=== PATIENT | female | born 1960 | race Caucasian/White ===

== ENCOUNTER → 2016-05-04 | Outpatient (CLI) | payer BC ==
[~2016-05-04] MED LIST: AMAN100C18 PO; ASPEC81 PO; ATV1 PO; ATV5 PO; CLC100 PO; MULT-506 PO; OXYB3.9D TD; PERP1TAB PO; PERP1TAB8 PO; RMR15 PO; SYN50 PO
[2016-05-04 09:35] LABS: BASO % 0.6 %; BASO ABS # 0.04 K/uL (0-0.2); COMPLETE YES; EOS % 1.8 %; HEMATOCRIT 39.5 % (37-47); IG% 0.1 %; LYMPH % 25.3 %; LYMPH ABS # 1.78 K/uL (1.2-3.4); MEAN CELL VOLUME 92.5 fL (80-100); MEAN CORPUSCULAR HEMOGLOBIN 31.9 pg (25-34); MEAN CORPUSCULAR HGB CONC 34.4 g/dl (32-36); MEAN PLATELET VOLUME 10.3 fL (7.4-10.4); MONO % 7.1 %; NEUT % 65.1 %; PLATELET COUNT 242 K/uL (130-400); RED BLOOD COUNT 4.27 M/uL (4.2-5.4); WHITE BLOOD COUNT 7.03 K/uL (4.8-10.8)
[2016-05-04 10:06] LABS: ALT/SGPT 31 U/L (12-78); AST/SGOT 23 U/L (15-37); BLOOD UREA NITROGEN 12 mg/dl (7-18); BUN/CREATININE RATIO 12.7 (10-20); CALCIUM 8.9 mg/dl (8.5-10.1); CARBON DIOXIDE 30 mmol/L (21-32); CHLORIDE 107 mmol/L (98-107); CREATININE 0.92 mg/dl (0.60-1.20); GLUCOSE 108 mg/dl (70-99); GLUCOSE,FASTING 108 mg/dl (70-99); POTASSIUM 4.3 mmol/L (3.5-5.1); SODIUM 142 mmol/L (136-145)
[2016-05-04 10:17] LABS: ALB/GLOB RATIO 1.1 (0.9-2); ALKALINE PHOSPHATASE 81 U/L (45-117); CHOLESTEROL 144 mg/dl (0-200); CHOLESTEROL/HDL RATIO 2.2; HDL CHOLESTEROL 65 mg/dl; LDL CHOLESTEROL CALCULATED 59 mg/dl; TRIGLYCERIDES 100 mg/dl (0-150); VERY LOW DENSITY LIPOPROT CALC 20 mg/dl
--- NOTE | 2016-05-11 11:31 | CODING QUERY MEDICAL NECESSITY ---
SUPPORTING DIAGNOSIS NEEDED A supporting diagnosis is required for the test/procedure performed on this patient in order for us to be reimbursed by the patient's insurance. Please provide a supporting diagnosis for the following test/procedure listed below next to the test name along with your signature. *If there is no additional diagnosis for this patient that would support the following test/procedure please document that below next to the test/procedure. Test(s)/Procedure(s) that require a supporting diagnosis: DOS 05/04 * Vitamin D DIAGNOSIS: * Lipids DIAGNOSIS: Provider Signature: Date: Thank you Bharti Stacy [facility] Information Management Once completed, please kindly fax back to [phone] For questions please call [phone]
== END | disposition home or self-care (01) ==
LOC: C.LAB 08:33
PROVIDERS: ATTEND Psychiatry & Neurology Psychiatry
DX: F31.9 Bipolar disorder, unspecified (principal); Z79.899 Other long term (current) drug therapy

== ENCOUNTER → 2016-08-04 | Outpatient (CLI) | payer BC | END | disposition home or self-care (01) | LOC: C.PAPS 14:07 | PROVIDERS: ATTEND Obstetrics & Gynecology | DX: Z12.4 Encounter for screening for malignant neoplasm of cervix (principal) ==

== ENCOUNTER → 2017-05-02 | Outpatient (CLI) | payer BC | END | disposition home or self-care (01) | LOC: C.LAB 08:13 | PROVIDERS: ATTEND Psychiatry & Neurology Psychiatry | DX: Z11.59 Encounter for screening for other viral diseases (principal) ==

== ENCOUNTER 2021-06-14 15:47 | Inpatient (IN) ==
--- NOTE | 2021-06-14 17:20 | Emergency Department Note ---
History of Present Illness General Chief complaint: Mental Health Evaluation Stated complaint: MHE Time Seen by Provider: 06/14/21 16:57 Source: patient History of Present Illness Provider complaint: Mental health evaluation Onset (ago): day(s) Location: head Pain Consistency: + constant Quality: + other (Delusional) Relieved By: + none Associated symptoms: no chest pain, no cough, no fever/chills, no headaches, no nausea/vomiting or no shortness of breath This is a 61-year-old female with bipolar disorder sent here by her psychiatrist, Dr. Baxter, to be hospitalized for inpatient psychiatric care. She states that she was just sent here to speak to a mental health social work case manager to get housing as she is currently no longer living in her apartment. According to the social work case manager Dr. Baxter had called [facility] to get her hospitalized there as she is having worsening delusions. She apparently thought that her son was in the hospital in [place] and was arranging to go there. She also stopped paying the rent on her lease. She had been complaining about [place] the [place] and also the noisy neighbors. She states that she was supposed to move to [facility] but has not. She has her things in storage currently which was arranged by her son who came here from [place]. He states that she has been increasingly delusional for the past month. She denies any suicidal or homicidal ideation. She denies any drug or alcohol abuse. She denies any fever, cough or cold symptoms, chest pain, shortness of breath, abdominal pain, vomiting, diarrhea or urinary symptoms. Home Medications Medication Instructions Recorded Confirmed Type cholecalciferol (vitamin D3) 50 2,000 unit PO QAM 02/24/18 06/14/21 History mcg (2,000 unit) tablet (Vitamin D3) docusate sodium 100 mg capsule 100 mg PO BID 02/24/18 06/14/21 History (Colace) lorazepam 0.5 mg tablet (Ativan) 0.5 mg PO AMHS 02/24/18 06/14/21 History trazodone 50 mg tablet 50 mg PO HS 02/24/18 06/14/21 History acetaminophen 500 mg tablet 1,000 mg PO Q6H PRN 03/06/18 06/14/21 History (Tylenol Extra Strength) levothyroxine 75 mcg tablet 75 mcg PO DAILY 01/04/20 06/14/21 History (Synthroid) cariprazine 1.5 mg capsule 4.5 mg PO DAILY cap 11/19/20 06/14/21 History (Vraylar) oxybutynin chloride 10 mg 10 mg PO DAILY #30 tab 12/01/20 06/14/21 Rx tablet,extended release 24 hr (Ditropan XL) atorvastatin 20 mg tablet (Lipitor) 20 mg PO HS #30 tab 01/12/21 06/14/21 Rx losartan 25 mg tablet (Cozaar) 25 mg PO HS 06/14/21 06/14/21 History Allergies Allergy/AdvReac Type Severity Reaction Status Date / Time latex Allergy Unknown UNKNOWN Verified 01/12/21 14:21 codeine AdvReac Mild NAUSEA, Verified 01/12/21 14:21 VOMITING Past Med/Surg History Medical History Anxiety Bipolar 1 disorder HTN (hypertension) Psychiatric disorder Surgical History H/O: section History of dilation and curettage History of neck surgery History of oral surgery S/P breast biopsy Family History Father Myocardial infarction Heart disease Prostate cancer Other Alzheimer disease Diabetes Denies family history of Ovarian cancer Breast cancer Colorectal cancer Social History Smoking Status: Never smoker Second Hand Exposure: No; Hx Alcohol Use: No Hx Substance Use: No Preferred Language: Mexican Communication Ability: Effective Visual Impairment: No Limitations Hearing Ability: Normal marital status: Current Living Situation: Family current occupational status: retired Feels Safe at Home: Yes Childhood Exposure to Second-Hand Smoke: Yes caffeine: Yes Dental Care, Regularly: Yes Physical Activity Frequency: 3-4 Times per Week Physical Activity Frequency Comment: walking, 20 mins Seatbelt Use: always Sunscreen Use: Yes Review of Systems See HPI for pertinent positives & negatives. and A total of 10 systems reviewed and were otherwise negative Physical Exam Vital Signs Vital Signs - 24 hr 06/14/21 15:48 06/14/21 17:47 06/14/21 19:00 Temperature 36.3 C L Temperature Source Temporal Artery Scan Pulse Rate 94 H Pulse Rate [Finger] 71 73 Respiratory Rate 16 18 16 Respiratory Effort / Characteristics Non-Labored Spontaneous Respiratory Depth Normal Blood Pressure 169/79 H Blood Pressure [Right Arm] 137/77 158/87 H Blood Pressure Mean 109 Blood Pressure Mean [Right Arm] 97 110 Pulse Oximetry 99 99 98 Oxygen Delivery Method Room Air Room Air Room Air Sepsis Recent Fever Within 48 Hours No Sepsis New/Unexplained Change in Mental Status No Sepsis Action Taken by Nursing No Action Required Constitutional: Vital signs reviewed. Eyes: Pupils are equal round reactive to light. Conjunctiva are noninjected. ENT: Pharynx is clear without erythema or exudate. Mucous membranes are moist. Neck supple without meningeal signs. Respiratory: Clear to auscultation bilaterally. Breath sounds are equal bilat erally. Cardiovascular: Regular rate and rhythm. No rubs or gallops. GI: Soft, nondistended and nontender. Bowel sounds are present. Musculoskeletal: No peripheral edema. No lower extremity tenderness. Integumentary: No cyanosis. or jaundice. Neurological: The patient is awake and alert. No focal deficits. Psychiatric: Flat affect. No pressured speech. Medical Decision Making Differential Diagnosis Bipolar disorder, fixed delusions, schizoaffective disorder, drug or alcohol abuse, mood disorder Medical Records Attestation: I reviewed the patient's medical records. I did perform a limited focused review of portions of the patient's old chart on the electronic medical record. The patient has had no recent pertinent visits to this hospital. Home Medications Current Medication List: was personally reviewed by me Laboratory Data Attestation: I reviewed the patient's lab results. Result diagrams: 06/14/21 17:10 06/14/21 17:10 Lab Results 06/14/21 06/14/21 06/14/21 Range/Units 16:00 17:10 17:10 WBC 8.22 (4.8-10.8) K/uL RBC 3.85 L (4.2-5.4) M/uL Hgb 12.3 (12.0-16.0) g/dL Hct 36.9 L (37-47) % MCV 95.8 (80-100) fL MCH 31.9 (25-34) pg MCHC 33.3 (32-36) g/dL RDW Std Deviation 44.9 (36.4-46.3) fL RDW Coeff of Arturo 12.8 (11.5-14.5) % Plt Count 262 (130-400) K/uL MPV 9.6 (7.4-10.4) fL Immature Gran % (Auto) 0.1 % Neut % (Auto) 62.6 % Lymph % (Auto) 26.3 % [place] % (Auto) 9.5 % Eos % (Auto) 1.1 % Baso % (Auto) 0.4 % Neut # (Auto) 5.15 (1.4-6.5) K/uL Lymph # (Auto) 2.16 (1.2-3.4) K/uL [place] # (Auto) 0.78 H (0.11-0.59) K/uL Eos # (Auto) 0.09 (0-0.5) K/uL Baso # (Auto) 0.03 (0-0.2) K/uL Immature Gran # (Auto) 0.01 (0.00-0.02) K/uL Sodium 141 (136-145) mmol/L Potassium 3.7 (3.5-5.1) mmol/L Chloride 106 (98-107) mmol/L Carbon Dioxide 28 (21-32) mmol/L Anion Gap 7 (3-11) BUN 14 (6-23) mg/dl Creatinine 0.91 (0.6-1.2) mg/dl Est Cr Clr Drug Dosing 50.2 ml/min Est GFR ( Amer) 80.0 ml/min Est GFR (Non-Af Amer) 69.1 ml/min BUN/Creatinine Ratio 15.4 (10-20) Glucose 212 H (70-99(Fasting)) mg/dl Calcium 9.3 (8.5-10.1) mg/dl Total Bilirubin 0.6 (0.2-1.0) mg/dl AST 38 (13-39) U/L ALT 25 (7-52) U/L Alkaline Phosphatase 66 (34-104) U/L Total Protein 6.6 (6.0-8.3) gm/dl Albumin 4.3 (3.4-5.0) gm/dl Globulin 2.3 L (2.5-4.0) gm/dl Albumin/Globulin Ratio 1.9 (0.9-2) TSH (0.300-4.500) uIu/ml Urine Color Dark Yellow Urine Appearance Clear (Clear) Urine pH 5.0 (4.5-7.5) Ur Specific [place] 1.027 (1.000-1.030) Urine Protein Trace H (Negative) Urine Glucose (UA) Negative (Negative) Urine Ketones Trace H (Negative) Urine Blood Negative (Negative) Urine Nitrite Negative (Negative) Urine Bilirubin Negative (Negative) Urine Urobilinogen Negative (Negative) Ur Leukocyte Esterase Trace H (Negative) Urine WBC (Auto) 5-10 H (0-5) /hpf Urine RBC (Auto) 0-4 (0-4) /hpf U Hyaline Cast (Auto) 1-5 (0-5) /lpf U Epithel Cells (Auto) >30 H (0-5) /lpf Urine Bacteria (Auto) Negative (Negative) Urine Crystals Not Reportable Calcium Oxalate Crystal Present A (None Prsent) Urine Mucus Present A (None Prsent) Salicylates (3.0-30) mg/dl Urine Opiates Screen (Neg) Ur Methadone, Qual (Neg) Acetaminophen (10-30) ug/ml Urine Barbiturates (Neg) Ur Phencyclidine (PCP) (Neg) U Amphetamin/Meth Scrn (Neg) MDMA (Ecstasy) Screen (Neg) U Benzodiazepines Scrn (Neg) Ur Cocaine Metabolite (Neg) U Marijuana (THC) Screen (Neg) Ethyl Alcohol mg/dL (<10.0) mg/dl SARS-CoV-2, RNA, NAAT (NEGATIVE) 06/14/21 06/14/21 06/14/21 Range/Units 17:10 17:10 17:10 WBC (4.8-10.8) K/uL RBC (4.2-5.4) M/uL Hgb (12.0-16.0) g/dL Hct (37-47) % MCV (80-100) fL MCH (25-34) pg MCHC (32-36) g/dL RDW Std Deviation (36.4-46.3) fL RDW Coeff of Arturo (11.5-14.5) % Plt Count (130-400) K/uL MPV (7.4-10.4) fL Immature Gran % (Auto) % Neut % (Auto) % Lymph % (Auto) % [place] % (Auto) % Eos % (Auto) % Baso % (Auto) % Neut # (Auto) (1.4-6.5) K/uL Lymph # (Auto) (1.2-3.4) K/uL [place] # (Auto) (0.11-0.59) K/uL Eos # (Auto) (0-0.5) K/uL Baso # (Auto) (0-0.2) K/uL Immature Gran # (Auto) (0.00-0.02) K/uL Sodium (136-145) mmol/L Potassium (3.5-5.1) mmol/L Chloride (98-107) mmol/L Carbon Dioxide (21-32) mmol/L Anion Gap (3-11) BUN (6-23) mg/dl Creatinine (0.6-1.2) mg/dl Est Cr Clr Drug Dosing ml/min Est GFR ( Amer) ml/min Est GFR (Non-Af Amer) ml/min BUN/Creatinine Ratio (10-20) Glucose (70-99(Fasting)) mg/dl Calcium (8.5-10.1) mg/dl Total Bilirubin (0.2-1.0) mg/dl AST (13-39) U/L ALT (7-52) U/L Alkaline Phosphatase (34-104) U/L Total Protein (6.0-8.3) gm/dl Albumin (3.4-5.0) gm/dl Globulin (2.5-4.0) gm/dl Albumin/Globulin Ratio (0.9-2) TSH 1.944 (0.300-4.500) uIu/ml Urine Color Urine Appearance (Clear) Urine pH (4.5-7.5) Ur Specific [place] (1.000-1.030) Urine Protein (Negative) Urine Glucose (UA) (Negative) Urine Ketones (Negative) Urine Blood (Negative) Urine Nitrite (Negative) Urine Bilirubin (Negative) Urine Urobilinogen (Negative) Ur Leukocyte Esterase (Negative) Urine WBC (Auto) (0-5) /hpf Urine RBC (Auto) (0-4) /hpf U Hyaline Cast (Auto) (0-5) /lpf U Epithel Cells (Auto) (0-5) /lpf Urine Bacteria (Auto) (Negative) Urine Crystals Calcium Oxalate Crystal (None Prsent) Urine Mucus (None Prsent) Salicylates < 3.0 L (3.0-30) mg/dl Urine Opiates Screen (Neg) Ur Methadone, Qual (Neg) Acetaminophen < 3 L (10-30) ug/ml Urine Barbiturates (Neg) Ur Phencyclidine (PCP) (Neg) U Amphetamin/Meth Scrn (Neg) MDMA (Ecstasy) Screen (Neg) U Benzodiazepines Scrn (Neg) Ur Cocaine Metabolite (Neg) U Marijuana (THC) Screen (Neg) Ethyl Alcohol mg/dL < 10.0 (<10.0) mg/dl SARS-CoV-2, RNA, NAAT (NEGATIVE) 06/14/21 06/14/21 Range/Units 17:24 18:28 WBC (4.8-10.8) K/uL RBC (4.2-5.4) M/uL Hgb (12.0-16.0) g/dL Hct (37-47) % MCV (80-100) fL MCH (25-34) pg MCHC (32-36) g/dL RDW Std Deviation (36.4-46.3) fL RDW Coeff of Arturo (11.5-14.5) % Plt Count (130-400) K/uL MPV (7.4-10.4) fL Immature Gran % (Auto) % Neut % (Auto) % Lymph % (Auto) % [place] % (Auto) % Eos % (Auto) % Baso % (Auto) % Neut # (Auto) (1.4-6.5) K/uL Lymph # (Auto) (1.2-3.4) K/uL [place] # (Auto) (0.11-0.59) K/uL Eos # (Auto) (0-0.5) K/uL Baso # (Auto) (0-0.2) K/uL Immature Gran # (Auto) (0.00-0.02) K/uL Sodium (136-145) mmol/L Potassium (3.5-5.1) mmol/L Chloride (98-107) mmol/L Carbon Dioxide (21-32) mmol/L Anion Gap (3-11) BUN (6-23) mg/dl Creatinine (0.6-1.2) mg/dl Est Cr Clr Drug Dosing ml/min Est GFR ( Amer) ml/min Est GFR (Non-Af Amer) ml/min BUN/Creatinine Ratio (10-20) Glucose (70-99(Fasting)) mg/dl Calcium (8.5-10.1) mg/dl Total Bilirubin (0.2-1.0) mg/dl AST (13-39) U/L ALT (7-52) U/L Alkaline Phosphatase (34-104) U/L Total Protein (6.0-8.3) gm/dl Albumin (3.4-5.0) gm/dl Globulin (2.5-4.0) gm/dl Albumin/Globulin Ratio (0.9-2) TSH (0.300-4.500) uIu/ml Urine Color Urine Appearance (Clear) Urine pH (4.5-7.5) Ur Specific [place] (1.000-1.030) Urine Protein (Negative) Urine Glucose (UA) (Negative) Urine Ketones (Negative) Urine Blood (Negative) Urine Nitrite (Negative) Urine Bilirubin (Negative) Urine Urobilinogen (Negative) Ur Leukocyte Esterase (Negative) Urine WBC (Auto) (0-5) /hpf Urine RBC (Auto) (0-4) /hpf U Hyaline Cast (Auto) (0-5) /lpf U Epithel Cells (Auto) (0-5) /lpf Urine Bacteria (Auto) (Negative) Urine Crystals Calcium Oxalate Crystal (None Prsent) Urine Mucus (None Prsent) Salicylates (3.0-30) mg/dl Urine Opiates Screen Neg (Neg) Ur Methadone, Qual Neg (Neg) Acetaminophen (10-30) ug/ml Urine Barbiturates Neg (Neg) Ur Phencyclidine (PCP) Neg (Neg) U Amphetamin/Meth Scrn Neg (Neg) MDMA (Ecstasy) Screen Neg (Neg) U Benzodiazepines Scrn Neg (Neg) Ur Cocaine Metabolite Neg (Neg) U Marijuana (THC) Screen Neg (Neg) Ethyl Alcohol mg/dL (<10.0) mg/dl SARS-CoV-2, RNA, NAAT NEGATIVE (NEGATIVE) MDM Narrative I did evaluate the patient as noted above. She was sent here today by her psychiatrist for inpatient psychiatric care. I did order a urine analysis. She does not have a UTI. She does have some calcium oxalate crystals. Urine mucus is likely a contaminant given she has greater than 30 epithelial cells. Order and review the patient's blood work as noted in the electronic medical record. CBC and CMP are both unremarkable. TSH is within normal limits. Screening for salicylates acetaminophen and alcohol are negative. COVID-19 testing is negative. The patient was evaluated by the mental health social work case manager as well as [facility] She was accepted for inpatient psychiatric care to [address] [place] [address] unit. Impression & Plan Thought disorder, Bipolar disorder Discharge Plan Visit Data Chief Complaint: Mental Health Evaluation Stated Complaint: MHE ED Provider: Wale Silver Discharge Problem: Thought disorder, Bipolar disorder Patient Disposition: Transfer Behavioral Health Fac Discharge Problem: Bipolar disorder Qualifiers: Active/Remission status: remission status unspecified Qualified Code(s): F31.9 - Bipolar disorder, unspecified
[2021-06-14 17:22] LABS: Appearance Urine Clear (Clear); Bacteria Urine Automated Negative (Negative); Bilirubin Urine Negative (Negative); Blood Urine Negative (Negative); Color Urine Dark Yellow; Epithelial Cell Urine Auto >30 /lpf (0-5); Glucose Urine UA Negative (Negative); Ketones Urine Trace (Negative); Leukocyte Esterase Urine Trace (Negative); Nitrite Urine Negative (Negative); Protein Urine Trace (Negative); RBC Urine Automated 0-4 /hpf (0-4); Specific Gravity Urine 1.027 (1.000-1.030); Urobilinogen Urine Negative (Negative)
[2021-06-14 17:38] LABS: Basophils # (auto) 0.03 K/uL (0-0.2); Basophils % (auto) 0.4 %; Eosinophils # (auto) 0.09 K/uL (0-0.5); Eosinophils % (auto) 1.1 %; Hematocrit (blood only) 36.9 % (37-47); Hemoglobin 12.3 g/dL (12.0-16.0); Immature Granulocytes # (auto) 0.01 K/uL (0.00-0.02); Immature Granulocytes % (auto) 0.1 %; Lymphocytes # (auto) 2.16 K/uL (1.2-3.4); Lymphocytes % (auto) 26.3 %; Mean Corpuscular Hemoglobin 31.9 pg (25-34); Mean Corpuscular Hgb Conc 33.3 g/dL (32-36); Mean Corpuscular Volume 95.8 fL (80-100); Mean Platelet Volume 9.6 fL (7.4-10.4); Monocytes # (auto) 0.78 K/uL (0.11-0.59); Monocytes % (auto) 9.5 %; Neutrophils # (auto) 5.15 K/uL (1.4-6.5); Neutrophils % (auto) 62.6 %; Platelet Count 262 K/uL (130-400); RDW Coefficient of Variation 12.8 % (11.5-14.5); RDW Standard Deviation 44.9 fL (36.4-46.3); Red Blood Count 3.85 M/uL (4.2-5.4); White Blood Count 8.22 K/uL (4.8-10.8)
[2021-06-14 17:40] LABS: Calcium Oxalate Crystals Urine Present (None Prsent); Mucus Urine Present (None Prsent)
[2021-06-14 17:57] LABS: Acetaminophen < 3 ug/ml (10-30); Salicylate < 3.0 mg/dl (3.0-30)
[2021-06-14 17:58] LABS: Albumin Globulin Ratio 1.9 (0.9-2); Albumin Level 4.3 gm/dl (3.4-5.0); BUN Creatinine Ratio 15.4 (10-20); Bilirubin,Total 0.6 mg/dl (0.2-1.0); Calcium 9.3 mg/dl (8.5-10.1); Creatinine Clr Calc Pharmacy 50.2 ml/min; Est GFR (Non-African American) 69.1 ml/min; Globulin 2.3 gm/dl (2.5-4.0); Potassium 3.7 mmol/L (3.5-5.1); Total Protein 6.6 gm/dl (6.0-8.3)
[2021-06-14 18:58] LABS: Amphetamines+Metham, Urine Neg (Neg); Barbiturates, Urine Neg (Neg); Benzodiazepine, Urine Neg (Neg); Cocaine, Urine Neg (Neg); MDMA (Ecstacy), Urine Neg (Neg); Methadone, Urine Neg (Neg); Opiate, Urine Neg (Neg); Phencyclidine, Urine Neg (Neg)
[2021-06-14] MEDS ORDERED: hydrOXYzine HCl 25 MG TAB PO PRN ×2 (20:39)
[2021-06-14] MEDS ORDERED: ALUMINUM/MAGNESIUM SUSP 30 ML UDC PO PRN (20:39)
[2021-06-14] MEDS ORDERED: SODIUM CHLORIDE 0.65% NA SOLN 45 ML (OCEAN) PRN (20:39)
[2021-06-14] MEDS ORDERED: BISMUTH SUBSALICYLATE LIQD 236 ML PO PRN (20:39)
[2021-06-14] MEDS ORDERED: MAGNESIUM HYDROXIDE SUSP 30 ML UDC PO PRN (20:39)
[2021-06-14] MEDS ORDERED: LORazepam 1 MG TAB PO STA (22:09)
[2021-06-14] MEDS ORDERED: ATORVASTATIN 20 MG TAB PO SCH (22:30)
[2021-06-14] MEDS ORDERED: LOSARTAN POTASSIUM 25 MG TAB PO SCH (22:30)
[2021-06-14] MEDS: DOCUSATE SODIUM 100 MG CAP PO SCH (23:19)
[2021-06-15] MEDS ORDERED: LEVOTHYROXINE SODIUM 75 MCG TABLET PO SCH (08:00)
[2021-06-15] MEDS: DOCUSATE SODIUM 100 MG CAP PO SCH ×2 (08:41→21:05)
--- NOTE | 2021-06-15 11:19 | History & Physical ---
Date of Service June 15, 2021 Impression / Recommendations Impression The patient is a 61 year old woman with a history of BPAD and fixed romantic delusion who was admitted for increasingly disorganized and bizarre behavior. Diagnostically consistent with unspecified psychosis-differential includes acute eugenie vs mixed state vs primary psychotic disorder vs delusional disorder vs MDD with psychotic features vs substance-induced (less likely given negative UDS). The patient is deemed unstable and requires psychiatric hospitalization for diagnostic clarification, safety and stabilization, medication management and development of further coping skills. Discussed medication treatment options in detail. Discussed risks, benefits and alternatives. Patient would like to continue with her prior to admission medications of Vraylar, ativan and trazodone.Reviewed side effects including but not limited to: movement (TD, NMS), cardiac (QTc prolongation), and metabolic (stroke, insulin resistance) and necessity for fasting lipid and gluose labwork and AIMS done with score of 0; abuse potential, falls, cognitive impairment with ativan and sedation with trazodone. MNPR due to acute psychosis with paranoia, periods of increased agitation. (1) Bipolar disorder: Active/Remission status: remission status unspecified Qualified Code(s): F31.9 - Bipolar disorder, unspecified (2) Anxiety: (3) Insomnia: 06/15/21: The patient was admitted to the [facility] ([facility] inpatient mental health unit) on q15 min checks (behavioral with suicide precautions) for safety. The patient will participate in group, recreational, and milieu therapies and will be offered additional individual and family sessions as clinically appropriate. -Continue Vraylar 3mg (was on 4.5 mg prior to admission but family only able to bring in 3mg tabs) -Continue ativan 0.5 qAM, 0.5 mg qnoon and 1 mg qhs -Continue trazodone 50mg qhs prn -Encourage case management -Will contact Dr. Baxter for further collateral Inventory Assets Strengths: supportive children, good rapport with outpatient providers Needs: stable housing, case management, stabilization Suicide Risk Level Suicide Risk Level: Moderate (q15 min suicide checks) Suicide Risk Level Comments: Acute risk for self-harm is moderate given denial of SI but also with bizarre behaviors and disorganization raising concern for potential impulsive decisions. Risk Factors Assessment : Yes Do You Have Access To A Gun?: No Health Problems: No Mental Health Diagnoses: Yes Substance Use Disorders: No Previous Attempt: No Family History of Suicide: No Previous Psychiatric Hospitalization: Yes Hopelessness: No Protective Factors Assessment Employed: No Stable Relationships: Yes Supportive Family: Yes Good Rapport with Provider: Yes Psychiatric History Identifying Data MIRANDA ANTUNEZ is a 61-year-old woman who is currently homeless (allowed her apartment lease to at the end of May), has a history of BPAD and a fixed romantic delusion, and was admitted on 06/14/21 20:39 on a 201 voluntary commitment for paranoia, delusions and bizarre behaviors. Chief Complaint "I was going to live with my good friend Grey Zamora but my sons didn't like that". History of Present Illness Miranda presents for psychiatric admission at the recommendation of her outpatient psychiatrist for increasingly bizarre and disorganized behaviors in recent weeks. Miranda recently let her apartment lease , without the knowledge of her family, and is now homeless in the context of paranoia about feeling unsafe there and being bothered by traffic noise. She had been planning to move in with a man she believed lived in the area, Grey, he moved out of [facility] years ago, and has been repeatedly sitting on the steps outside his old home resulting in at least two recent encounters with police who have been called to remove her from the premises. She also was making statements of needing to visit her son in [place], where she believed he was hospitalized, even though he has been living in [place] and has not been ill. She follows with her outpatient psychiatrist Dr. Baxter who has been concerned and recently increased her Vraylar last month. She has been taking Vraylar 4.5mg qd, ativan 0.5 mg qAm, qnoon as well as 1mg qhs, and trazodone 50mg qhs prn. On admission she initially attempted to go out through the locked unit doors sta ting that she needed to find Grey. Today she states she came to the hospital due to her outpatient providers having concerns about her safety especially now that she is homeless. She continues to insist that Grey lives in [place] and states that police were called because "his sister doesn't like me because I have a bipolar diagnosis". She states she has been talking to Grey via text m essages (her son confirmed with Grey that he has not communicated with her in many years) and states they have a platonic relationship. She states no further concerns about her son being in the hospital "since I called him and he was at work in [place] so I knew he was ok". She states sleep has been "not excellent" (5-7 hours per night), denies any appetite or mood changes. Psychiatric ROS notable for hx of eugenie (last "a few years ago" per her recollection), denies hx of psychosis, denies auditory hallucinations, denies substance use, denies PTSD/trauma symptoms, endorses hx of anxiety. Past Psychiatric History Current Psychiatric Diagnosis: BPAD, anxiety Outpatient Services: Dr. Baxter for outpt psychiatry, Chasity Reagan for therapy Previous Psych Admissions: multiple at [facility] in the past (last in Feb 2010), [facility] in 2008 Do You Have Access To A Gun?: No History of Previous Suicide Attempt: No Past Medication Trials: She cannot recall, will review records from Dr. Baxter (requested and in process of being faxed) Past Head Trauma/Neuro History History of Concussion/Seizure: No Allergies Allergy/AdvReac Type Severity Reaction Status Date / Time latex Allergy Unknown UNKNOWN Verified 01/12/21 14:21 codeine AdvReac Mild NAUSEA, Verified 01/12/21 14:21 VOMITING Home Medications Medication Instructions Recorded Confirmed Type cholecalciferol (vitamin D3) 50 2,000 unit PO QAM 02/24/18 06/14/21 History mcg (2,000 unit) tablet (Vitamin D3) docusate sodium 100 mg capsule 100 mg PO BID 02/24/18 06/14/21 History (Colace) lorazepam 0.5 mg tablet (Ativan) 0.5 mg PO AMPM 02/24/18 06/15/21 History trazodone 50 mg tablet 50 mg PO HS PRN 02/24/18 06/14/21 History acetaminophen 500 mg tablet 1,000 mg PO Q6H PRN 03/06/18 06/14/21 History (Tylenol Extra Strength) levothyroxine 75 mcg tablet 75 mcg PO DAILY 01/04/20 06/14/21 History (Synthroid) cariprazine 1.5 mg capsule 4.5 mg PO DAILY cap 11/19/20 06/14/21 History (Vraylar) oxybutynin chloride 10 mg 10 mg PO DAILY #30 tab 12/01/20 06/14/21 Rx tablet,extended release 24 hr (Ditropan XL) atorvastatin 20 mg tablet (Lipitor) 20 mg PO HS #30 tab 01/12/21 06/14/21 Rx losartan 25 mg tablet (Cozaar) 25 mg PO HS 06/14/21 06/14/21 History aspirin 81 mg tablet,delayed 81 mg PO DAILY 06/15/21 06/15/21 History release lorazepam 0.5 mg tablet 1 mg PO HS 06/15/21 06/15/21 History multivitamin 1 tab PO DAILY 06/15/21 06/15/21 History Family History Family History of: Other Mood Disorders, Anxiety, Psychosis/ThoughtDisorder and Other-List under Comment Family Mental Health History Comment: Alzheimer's Alcohol History Hx of Alcohol Use Over the Past 12 Months: No AUDIT Total Score: 0 Smoking Use Have You Smoked or Used Tobacco Products in the Last 30 Days: No Smoking Status: Never smoker Substance History Hx of Prescription Med Misuse Over the Past 12 Months: No Hx of Over the Counter Med Misuse Over the Past 12 Months: No Hx of Inhalent Misuse Over the Past 12 Months: No Hx of Organic Substance Use Over the Past 12 Months: No Hx of Illegal Substances/Street Drug Use Over Past 12 Months: No Problems as a Result of Past Substance Use: None Identified Personal History Living Arrangements: Homeless (let apartment lease at end of May) Highest Grade Completed: College Employment Status: Disabled Marital Status: Single Number Of Children: 2 sons Beliefs That Will Affect Care: None Current Legal Problems: No Hx Legal Problems: No Hx Traumatic Life Events: No Patient History Medical History Anxiety Bipolar 1 disorder HTN (hypertension) Psychiatric disorder Surgical History H/O: section History of dilation and curettage History of neck surgery History of oral surgery S/P breast biopsy Family History Father Myocardial infarction Heart disease Prostate cancer Other Alzheimer disease Diabetes Denies family history of Ovarian cancer Breast cancer Colorectal cancer Social History Smoking Status: Unknown if ever smoked Second Hand Exposure: No; Hx Alcohol Use: No Hx Substance Use: No Preferred Language: Danish Communication Ability: Effective Visual Impairment: No Limitations Hearing Ability: Normal Associate Professor Of Law 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: No Beliefs That Will Affect Care: None marital status: Current Living Situation: Family current occupational status: retired Feels Safe at Home: Yes Childhood Exposure to Second-Hand Smoke: Yes caffeine: Yes Dental Care, Regularly: Yes Physical Activity Frequency: 3-4 Times per Week Physical Activity Frequency Comment: walking, 20 mins Seatbelt Use: always Sunscreen Use: Yes Assistive Devices: None Review of Systems Review of Systems: All systems reviewed & are unremarkable except as noted in HPI & below Physical Exam Psychiatric: Orientation: alert and oriented x 3 Apperance: + disheveled Eye Contact: + fair eye contact Motor Behavior: steady gait and station and no abnormal motor movements; no psychomotor agitation Speech: + abnormal rate/rhythm/volume of speech (some latency, soft) Affect: + flat affect Mood: + anxious mood and + irritable mood; no depressed mood Thought Process: + circumstantial thought process Thought Content: + paranoid and + delusions Suicidal Thoughts: denies suicidal thoughts Homicidal Thoughts: denies homicidal thoughts Hallucinations: no auditory hallucinations and no visual hallucinations Cognition: recent memory grossly intact, remote memory grossly intact and language grossly intact; + attention not intact Insight: + severely impaired insight Judgement: + severely impaired judgement Vital Signs (Past 24 Hours): Last Vital Signs Temp 37.0 C 06/15/21 07:12 Pulse 96 H 06/15/21 07:12 Resp 14 06/15/21 07:12 BP 106/76 06/15/21 07:12 Pulse Ox 96 06/14/21 22:39 Exam Statement: A physical exam was performed in the ED by Dr. Silver for the purposes of medical clearance. I accept that physical as correct and adequate for the purposes of the inpatient physical exam. Results & Data ([facility]) Laboratory Results Laboratory Results - last 24 hr 06/14/21 06/14/21 06/14/21 16:00 17:10 17:10 WBC 8.22 RBC 3.85 L Hgb 12.3 Hct 36.9 L MCV 95.8 MCH 31.9 MCHC 33.3 RDW Std Deviation 44.9 RDW Coeff of Arturo 12.8 Plt Count 262 MPV 9.6 Immature Gran % (Auto) 0.1 Neut % (Auto) 62.6 Lymph % (Auto) 26.3 [place] % (Auto) 9.5 Eos % (Auto) 1.1 Baso % (Auto) 0.4 Neut # (Auto) 5.15 Lymph # (Auto) 2.16 [place] # (Auto) 0.78 H Eos # (Auto) 0.09 Baso # (Auto) 0.03 Immature Gran # (Auto) 0.01 Sodium 141 Potassium 3.7 Chloride 106 Carbon Dioxide 28 Anion Gap 7 BUN 14 Creatinine 0.91 Est Cr Clr Drug Dosing 50.2 Est GFR ( Amer) 80.0 Est GFR (Non-Af Amer) 69.1 BUN/Creatinine Ratio 15.4 Glucose 212 H Calcium 9.3 Total Bilirubin 0.6 AST 38 ALT 25 Alkaline Phosphatase 66 Total Protein 6.6 Albumin 4.3 Globulin 2.3 L Albumin/Globulin Ratio 1.9 TSH Urine Color Dark Yellow Urine Appearance Clear Urine pH 5.0 Ur Specific Reserve 1.027 Urine Protein Trace H Urine Glucose (UA) Negative Urine Ketones Trace H Urine Blood Negative Urine Nitrite Negative Urine Bilirubin Negative Urine Urobilinogen Negative Ur Leukocyte Esterase Trace H Urine WBC (Auto) 5-10 H Urine RBC (Auto) 0-4 U Hyaline Cast (Auto) 1-5 U Epithel Cells (Auto) >30 H Urine Bacteria (Auto) Negative Urine Crystals Not Reportable Calcium Oxalate Crystal Present A Urine Mucus Present A Salicylates Urine Opiates Screen Ur Methadone, Qual Acetaminophen Urine Barbiturates Ur Phencyclidine (PCP) U Amphetamin/Meth Scrn MDMA (Ecstasy) Screen U Benzodiazepines Scrn Ur Cocaine Metabolite U Marijuana (THC) Screen Ethyl Alcohol mg/dL SARS-CoV-2, RNA, NAAT 06/14/21 06/14/21 06/14/21 17:10 17:10 17:10 WBC RBC Hgb Hct MCV MCH MCHC RDW Std Deviation RDW Coeff of Arturo Plt Count MPV Immature Gran % (Auto) Neut % (Auto) Lymph % (Auto) [place] % (Auto) Eos % (Auto) Baso % (Auto) Neut # (Auto) Lymph # (Auto) [place] # (Auto) Eos # (Auto) Baso # (Auto) Immature Gran # (Auto) Sodium Potassium Chloride Carbon Dioxide Anion Gap BUN Creatinine Est Cr Clr Drug Dosing Est GFR ( Amer) Est GFR (Non-Af Amer) BUN/Creatinine Ratio Glucose Calcium Total Bilirubin AST ALT Alkaline Phosphatase Total Protein Albumin Globulin Albumin/Globulin Ratio TSH 1.944 Urine Color Urine Appearance Urine pH Ur Specific Reserve Urine Protein Urine Glucose (UA) Urine Ketones Urine Blood Urine Nitrite Urine Bilirubin Urine Urobilinogen Ur Leukocyte Esterase Urine WBC (Auto) Urine RBC (Auto) U Hyaline Cast (Auto) U Epithel Cells (Auto) Urine Bacteria (Auto) Urine Crystals Calcium Oxalate Crystal Urine Mucus Salicylates < 3.0 L Urine Opiates Screen Ur Methadone, Qual Acetaminophen < 3 L Urine Barbiturates Ur Phencyclidine (PCP) U Amphetamin/Meth Scrn MDMA (Ecstasy) Screen U Benzodiazepines Scrn Ur Cocaine Metabolite U Marijuana (THC) Screen Ethyl Alcohol mg/dL < 10.0 SARS-CoV-2, RNA, NAAT 06/14/21 06/14/21 17:24 18:28 WBC RBC Hgb Hct MCV MCH MCHC RDW Std Deviation RDW Coeff of Arturo Plt Count MPV Immature Gran % (Auto) Neut % (Auto) Lymph % (Auto) [place] % (Auto) Eos % (Auto) Baso % (Auto) Neut # (Auto) Lymph # (Auto) [place] # (Auto) Eos # (Auto) Baso # (Auto) Immature Gran # (Auto) Sodium Potassium Chloride Carbon Dioxide Anion Gap BUN Creatinine Est Cr Clr Drug Dosing Est GFR ( Amer) Est GFR (Non-Af Amer) BUN/Creatinine Ratio Glucose Calcium Total Bilirubin AST ALT Alkaline Phosphatase Total Protein Albumin Globulin Albumin/Globulin Ratio TSH Urine Color Urine Appearance Urine pH Ur Specific Reserve Urine Protein Urine Glucose (UA) Urine Ketones Urine Blood Urine Nitrite Urine Bilirubin Urine Urobilinogen Ur Leukocyte Esterase Urine WBC (Auto) Urine RBC (Auto) U Hyaline Cast (Auto) U Epithel Cells (Auto) Urine Bacteria (Auto) Urine Crystals Calcium Oxalate Crystal Urine Mucus Salicylates Urine Opiates Screen Neg Ur Methadone, Qual Neg Acetaminophen Urine Barbiturates Neg Ur Phencyclidine (PCP) Neg U Amphetamin/Meth Scrn Neg MDMA (Ecstasy) Screen Neg U Benzodiazepines Scrn Neg Ur Cocaine Metabolite Neg U Marijuana (THC) Screen Neg Ethyl Alcohol mg/dL SARS-CoV-2, RNA, NAAT NEGATIVE Current Inpatient Medications Current Inpatient Medications: Current Inpatient Medications Acetaminophen (Acetaminophen 325 Mg Tab) 650 mg PO Q4H PRN PRN Reason: Headache or Minor Fever Stop: 07/14/21 20:38 Al Hydrox/Mg Hydrox/Simethicone (Aluminum/Magnesium Susp 30 Ml Udc) 30 ml PO Q4H PRN PRN Reason: GI Upset Stop: 07/14/21 20:38 Atorvastatin Calcium (Atorvastatin 20 Mg Tab) 20 mg PO HS CHRIS Stop: 07/14/21 22:29 Last Admin: 06/14/21 23:19 Dose: Not Given Documented by: Bismuth Subsalicylate (Bismuth Subsalicylate Liqd 236 Ml) 15 ml PO PRN PRN PRN Reason: Loose Stool Stop: 07/14/21 20:38 Docusate Sodium (Docusate Sodium 100 Mg Cap) 100 mg PO BID CHRIS Stop: 07/14/21 22:29 Last Admin: 06/15/21 08:41 Dose: 100 mg Documented by: Hydroxyzine HCl (Hydroxyzine Hcl 25 Mg Tab) 50 mg PO HSZ PRN PRN Reason: Insomnia Stop: 07/14/21 20:38 Last Admin: 06/15/21 03:02 Dose: 50 mg Documented by: Hydroxyzine HCl (Hydroxyzine Hcl 25 Mg Tab) 25 mg PO Q4H PRN PRN Reason: Anxiety Stop: 07/14/21 20:38 Levothyroxine Sodium (Levothyroxine Sodium 75 Mcg Tablet) 75 mcg PO DAILYBB CHRIS Stop: 07/15/21 07:59 Last Admin: 06/15/21 08:02 Dose: 75 mcg Documented by: Losartan Potassium (Losartan Potassium 25 Mg Tab) 25 mg PO HS [facility] Stop: 07/14/21 22:29 Last Admin: 06/14/21 23:19 Dose: Not Given Documented by: Magnesium Hydroxide (Magnesium Hydroxide Susp 30 Ml Udc) 30 ml PO DAILY PRN PRN Reason: Constipation Stop: 07/14/21 20:38 Sodium Chloride (Sodium Chloride 0.65% Na Soln 45 Ml ([place])) 1 - 2 sprays NA PRN PRN PRN Reason: Nasal Dryness/Congestion Stop: 07/14/21 20:38 Trazodone HCl (Trazodone Hcl 50 Mg Tab) 50 mg PO [facility] Stop: 07/15/21 21:59
[2021-06-15] MEDS ORDERED: traZODone HCL 50 MG TAB PO PRN (12:47)
[2021-06-15] MEDS: ASPIRIN 81 MG ECTAB PO SCH (13:38)
[2021-06-15] MEDS: CHOLECALCIFEROL 1,000 UNITS 25 MCG TAB PO SCH (13:38)
[2021-06-15] MEDS: OXYBUTYNIN CHLORIDE XL 5 MG TABCR PO SCH (13:39)
[2021-06-15] MEDS: CARIPRAZINE HCL 3 MG PO SCH (15:25)
[2021-06-15] MEDS ORDERED: LORazepam 0.5 MG TAB PO SCH (21:00)
[2021-06-15] MEDS: ATORVASTATIN 20 MG TAB PO SCH (21:05)
[2021-06-15] MEDS: LORazepam 1 MG TAB PO SCH (21:06)
[2021-06-15] MEDS: LOSARTAN POTASSIUM 25 MG TAB PO SCH (21:06)
[2021-06-15] MEDS ORDERED: traZODone HCL 50 MG TAB PO SCH (22:00)
[2021-06-16] MEDS: ASPIRIN 81 MG ECTAB PO SCH (08:29)
[2021-06-16] MEDS: CARIPRAZINE HCL 3 MG PO SCH (08:29)
[2021-06-16] MEDS: LORazepam 0.5 MG TAB PO SCH ×2 (08:29→12:27)
[2021-06-16] MEDS: LEVOTHYROXINE SODIUM 75 MCG TABLET PO SCH (08:29)
[2021-06-16] MEDS: CHOLECALCIFEROL 1,000 UNITS 25 MCG TAB PO SCH (08:30)
[2021-06-16] MEDS: OXYBUTYNIN CHLORIDE XL 5 MG TABCR PO SCH (08:30)
[2021-06-16] MEDS: MULTIVITAMIN TAB PO SCH (08:30)
[2021-06-16] MEDS: DOCUSATE SODIUM 100 MG CAP PO SCH ×2 (08:30→21:12)
--- NOTE | 2021-06-16 08:41 | Psychiatric Progress Note ---
Date of Service June 16, 2021 Impression / Recommendations Impression The patient is a 61 year old woman with a history of BPAD and fixed romantic delusion who was admitted for increasingly disorganized and bizarre behavior. Diagnostically consistent with unspecified psychosis-differential includes acute eugenie vs mixed state vs primary psychotic disorder vs delusional disorder vs MDD with psychotic features vs substance-induced (less likely given negative UDS). The patient is deemed unstable and requires psychiatric hospitalization for diagnostic clarification, safety and stabilization, medication management and development of further coping skills. MNPR due to acute psychosis with paranoia, periods of increased agitation. 06/16/21: Adding fasting labs for tomorrow morning. She declines starting clozapine, would prefer to continue with Vraylar, agrees to contact her sons to bring in additional 1.5 mg dose of Vraylar. Anxious and remains paranoid with limited ability to reality-test specifically regarding delusions about a man she wishes to live with. She did agree to referral for case management. Discussed with Dr. Baxter. (1) Bipolar disorder: (2) Anxiety: (3) Insomnia: 06/16/21: Fasting labs. Continue medications. 06/15/21: The patient was admitted to the [facility] ([facility] mental health unit) on q15 min checks (behavioral with suicide precautions) for safety. The patient will participate in group, recreational, and milieu therapies and will be offered additional individual and family sessions as clinically appropriate. -Continue Vraylar 3mg (was on 4.5 mg prior to admission but family only able to bring in 3mg tabs) -Continue ativan 0.5 qAM, 0.5 mg qnoon and 1 mg qhs -Continue trazodone 50mg qhs prn -Encourage case management -Will contact Dr. Baxter for further collateral Inventory Assets Strengths: supportive children, good rapport with outpatient providers Needs: stable housing, case management, stabilization Suicide Risk Level Suicide Risk Level: Moderate (q15 min suicide checks) Suicide Risk Level Comments: Acute risk for self-harm is moderate given denial of SI but also with bizarre behaviors and disorganization raising concern for potential impulsive decisions. Risk Factors Assessment : Yes Do You Have Access To A Gun?: No Health Problems: No Mental Health Diagnoses: Yes Substance Use Disorders: No Previous Attempt: No Family History of Suicide: No Previous Psychiatric Hospitalization: Yes Hopelessness: No Protective Factors Assessment Employed: No Stable Relationships: Yes Supportive Family: Yes Good Rapport with Provider: Yes Interval History Identifying Information MIRANDA ANTUNEZ is a 61-year-old woman who is currently homeless (allowed her apartment lease to at the end of May), has a history of BPAD and a fixed romantic delusion, and was admitted on 06/14/21 20:39 on a 201 voluntary commitment for paranoia, delusions and bizarre behaviors. Chief Complaint "I'm hanging in there". Review of Systems Sleep Information Total Hours of Sleep: 6.75 Meal Information Percent Meal Consumed - Breakfast: 100 Percent Meal Consumed - Lunch: 25 Percent Meal Consumed - Dinner: 25 Subjective Subjective Patient was seen & assessed and interval progress reviewed with treatment team nursing and social work. She was paranoid about the water on the unit last night. Called her cousin repeatedly who called unit to say she could not live there. She also called her outpatient psychiatrist multiple times last night reporting paranoia about the unit and suspicion about the unit being renovated/bizarre things happening. Discussed her recent treatment with her outpatient psychiatrist Dr. Baxter, his next plan was to consider clozapine trial. Discussed this option with Miranda who declined due to not wanting frequent labwork. Reviewed potential benefits but she would prefer to remain on Vraylar. She did not sleep well last night, discussed switching trazodone to scheduled at bedtime which she would like to do. Physical Exam Psychiatric Orientation: alert and oriented x 3 Apperance: appropriately dressed and + disheveled Eye Contact: + fair eye contact Motor Behavior: steady gait and station and no abnormal motor movements; no psychomotor agitation Speech: + abnormal rate/rhythm/volume of speech (some latency) Affect: + flat affect Mood: + anxious mood and + irritable mood; no depressed mood Thought Process: + circumstantial thought process Thought Content: + paranoid and + delusions Suicidal Thoughts: denies suicidal thoughts Homicidal Thoughts: denies homicidal thoughts Hallucinations: no auditory hallucinations and no visual hallucinations Cognition: recent memory grossly intact, remote memory grossly intact and language grossly intact; + attention not intact Insight: + limited insight Judgement: + limited judgement Vital Signs (Past 24 Hours) Last Vital Signs Temp 37 C 06/16/21 06:34 Pulse 78 05/03/22 06:35 Resp 18 06/16/21 06:34 BP 129/82 06/16/21 06:35 Pulse Ox 96 06/14/21 22:39 Results & Data ([facility]) Current Inpatient Medications Current Inpatient Medications: Current Inpatient Medications Acetaminophen (Acetaminophen 325 Mg Tab) 650 mg PO Q4H PRN PRN Reason: Headache or Minor Fever Stop: 07/14/21 20:38 Al Hydrox/Mg Hydrox/Simethicone (Aluminum/Magnesium Susp 30 Ml Udc) 30 ml PO Q4H PRN PRN Reason: GI Upset Stop: 07/14/21 20:38 Aspirin (Aspirin 81 Mg Ectab) 81 mg PO DAILY CHRIS Stop: 07/15/21 13:29 Last Admin: 06/15/21 13:38 Dose: 81 mg Documented by: Atorvastatin Calcium (Atorvastatin 20 Mg Tab) 20 mg PO HS CHRIS Stop: 07/15/21 21:59 Last Admin: 06/15/21 21:05 Dose: 20 mg Documented by: Bismuth Subsalicylate (Bismuth Subsalicylate Liqd 236 Ml) 15 ml PO PRN PRN PRN Reason: Loose Stool Stop: 07/14/21 20:38 Cariprazine (Cariprazine Hcl 3mg) 1 ea PO DAILY CHRIS Stop: 07/15/21 15:14 Last Admin: 06/15/21 15:25 Dose: 1 ea Documented by: Docusate Sodium (Docusate Sodium 100 Mg Cap) 100 mg PO BID CHRIS Stop: 07/15/21 20:59 Last Admin: 06/15/21 21:05 Dose: 100 mg Documented by: Hydroxyzine HCl (Hydroxyzine Hcl 25 Mg Tab) 50 mg PO HSZ PRN PRN Reason: Insomnia Stop: 07/14/21 20:38 Last Admin: 06/15/21 03:02 Dose: 50 mg Documented by: Hydroxyzine HCl (Hydroxyzine Hcl 25 Mg Tab) 25 mg PO Q4H PRN PRN Reason: Anxiety Stop: 07/14/21 20:38 Levothyroxine Sodium (Levothyroxine Sodium 75 Mcg Tablet) 75 mcg PO DAILYBB CHRIS Stop: 07/16/21 07:59 Lorazepam (Lorazepam 1 Mg Tab) 1 mg PO HS CHRIS Stop: 07/15/21 21:59 Last Admin: 06/15/21 21:06 Dose: 1 mg Documented by: Lorazepam (Lorazepam 0.5 Mg Tab) 0.5 mg PO QD@08 CHRIS Stop: 07/16/21 07:59 Lorazepam (Lorazepam 0.5 Mg Tab) 0.5 mg PO DAILYBL CHRIS Stop: 07/16/21 11:59 Losartan Potassium (Losartan Potassium 25 Mg Tab) 25 mg PO HS CHRIS Stop: 07/15/21 21:59 Last Admin: 06/15/21 21:06 Dose: 25 mg Documented by: Magnesium Hydroxide (Magnesium Hydroxide Susp 30 Ml Udc) 30 ml PO DAILY PRN PRN Reason: Constipation Stop: 07/14/21 20:38 Multivitamins (Multivitamin Tab) 1 tab PO DAILY CHRIS Stop: 07/16/21 08:59 Oxybutynin Chloride (Oxybutynin Chloride Xl 5 Mg Tabcr) 10 mg PO DAILY CHRIS Stop: 07/15/21 13:29 Last Admin: 06/15/21 13:39 Dose: 10 mg Documented by: Sodium Chloride (Sodium Chloride 0.65% Na Soln 45 Ml ([place])) 1 - 2 sprays NA PRN PRN PRN Reason: Nasal Dryness/Congestion Stop: 07/14/21 20:38 Trazodone HCl (Trazodone Hcl 50 Mg Tab) 50 mg PO HS PRN PRN Reason: Insomnia Stop: 07/15/21 12:46 Vitamin D (Cholecalciferol 1,000 Units 25 Mcg Tab) 2,000 units PO QAM CHRIS Stop: 07/15/21 13:29 Last Admin: 06/15/21 13:38 Dose: 2,000 units Documented by: Mental Health & Subst Abuse Tx Psychiatrist Name of Psychiatrist: Dr. Shoemaker Psychiatrist's Psychiatric Appointment Comment: [address] [place] [address] Therapist Name of Therapist: [facility]- Chasity Fields Therapist's Therapy Appointment Comment: [address] [facility], [place] [address] Collision Estimator Name of Collision Estimator: None Post Discharge Appointments Primary Care Physician [place] Doctor[place] [facility] [place] Care Provider Appointment Comment: [address] [place] [address] # A, [place] (1) Bipolar disorder Active/Remission status: remission status unspecified Qualified Code(s): F31.9 - Bipolar disorder, unspecified
[2021-06-16] MEDS: ATORVASTATIN 20 MG TAB PO SCH (21:12)
[2021-06-16] MEDS: LOSARTAN POTASSIUM 25 MG TAB PO SCH (21:13)
[2021-06-16] MEDS: traZODone HCL 50 MG TAB PO SCH (21:16)
[2021-06-16] MEDS: LORazepam 1 MG TAB PO SCH (21:16)
[2021-06-17 08:26] LABS: Chol HDL Ratio 1.9 (0-5)
[2021-06-17] MEDS: LORazepam 0.5 MG TAB PO SCH ×2 (08:39→11:36)
[2021-06-17] MEDS: CARIPRAZINE HCL 1.5 MG PO SCH (08:41)
[2021-06-17] MEDS: CARIPRAZINE HCL 3 MG PO SCH (08:41)
[2021-06-17] MEDS: ASPIRIN 81 MG ECTAB PO SCH (08:41)
[2021-06-17] MEDS: CHOLECALCIFEROL 1,000 UNITS 25 MCG TAB PO SCH (08:42)
[2021-06-17] MEDS: DOCUSATE SODIUM 100 MG CAP PO SCH ×2 (08:42→21:08)
[2021-06-17] MEDS: LEVOTHYROXINE SODIUM 75 MCG TABLET PO SCH (08:42)
[2021-06-17] MEDS: OXYBUTYNIN CHLORIDE XL 5 MG TABCR PO SCH (08:43)
[2021-06-17] MEDS: MULTIVITAMIN TAB PO SCH (08:43)
--- NOTE | 2021-06-17 09:00 | Psychiatric Progress Note ---
Date of Service June 17, 2021 Impression / Recommendations Impression The patient is a 61 year old woman with a history of BPAD and fixed romantic delusion who was admitted for increasingly disorganized and bizarre behavior. Diagnostically consistent with unspecified psychosis-differential includes acute eugenie vs mixed state vs primary psychotic disorder vs delusional disorder vs MDD with psychotic features vs substance-induced (less likely given negative UDS). The patient is deemed unstable and requires psychiatric hospitalization for diagnostic clarification, safety and stabilization, medication management and development of further coping skills. MNPR due to acute psychosis with paranoia, periods of increased agitation. 06/17/21: Reviewed fasting labwork-lipid panel normal, glucose elevated, will attempt add-on HbA1c level. She continues to decline starting clozapine or trying an alternative medication, prefers to continue with Vraylar. Continues to present with some latency and flat affect and paranoia concerning for potential responses to internal stimuli but has been behavioral appropriate and attending groups. Seems that paranoia about friend's recent accident may have contributed to her desire to leave her apartment due to concerns about the highway. Unclear if this person was a friend or someone she heard about via news outlet. (1) Bipolar disorder: (2) Anxiety: (3) Insomnia: 06/17/21: Continue Vraylar 4.5 mg qd, trazodone, ativan. 06/16/21: Fasting labs. Continue medications. 06/15/21: The patient was admitted to the [facility] ([facility] mental [facility] unit) on q15 min checks (behavioral with suicide precautions) for safety. The patient will participate in group, recreational, and milieu therapies and will be offered additional individual and family sessions as clinically appropriate. -Continue Vraylar 3mg (was on 4.5 mg prior to admission but family only able to bring in 3mg tabs) -Continue ativan 0.5 qAM, 0.5 mg qnoon and 1 mg qhs -Continue trazodone 50mg qhs prn -Encourage case management -Will contact Dr. Baxter for further collateral Inventory Assets Strengths: supportive children, good rapport with outpatient providers Needs: stable housing, case management, stabilization Suicide Risk Level Suicide Risk Level: Moderate (q15 min suicide checks) Suicide Risk Level Comments: Acute risk for self-harm is moderate given denial of SI but also with bizarre b ehaviors and disorganization raising concern for potential impulsive decisions. Risk Factors Assessment : Yes Do You Have Access To A Gun?: No Health Problems: No Mental Health Diagnoses: Yes Substance Use Disorders: No Previous Attempt: No Family History of Suicide: No Previous Psychiatric Hospitalization: Yes Hopelessness: No Protective Factors Assessment Employed: No Stable Relationships: Yes Supportive Family: Yes Good Rapport with Provider: Yes Interval History Identifying Information CEDRICK ANTUNEZ is a 61-year-old woman who is currently homeless (allowed her apartment lease to at the end of May), has a history of BPAD and a fixed romantic delusion, and was admitted on 06/14/21 20:39 on a 201 voluntary commitment for paranoia, delusions and bizarre behaviors. Chief Complaint "I'm ok". Review of Systems Sleep Information Total Hours of Sleep: 7.25 Meal Information Percent Meal Consumed - Breakfast: 50 Percent Meal Consumed - Lunch: 25 Percent Meal Consumed - Dinner: 50 Subjective Subjective Patient was seen & assessed and interval progress reviewed with treatment team nursing and social work. Remains suspicious. She's been obsessing about the phone being cleaned and examining all the signs in the unit in extreme detail. States she thought more about clozapine and has decided "absolutely not". We discuss potential ways to make blood draw component easier but she feels this would not change her mind. She is glad her sons brought in remaining tabs of Vraylar as she feels the 4.5 mg dose works well. She feels she slept a little better last night. Reviewed again why she left her apartment. She describes concerns about [place] [address] as she knows someone who recently had an [place] [address] [place] an ATV and she doesn't like being near a busy highway where accidents could occur. Becomes easily overwhelmed and fixated on details at times. Physical Exam Psychiatric Orientation: alert and oriented x 3 Apperance: appropriately dressed and appropriately groomed Eye Contact: + fair eye contact Motor Behavior: steady gait and station and no abnormal motor movements; no psychomotor agitation Speech: + abnormal rate/rhythm/volume of speech (some latency) Affect: + flat affect Mood: + anxious mood; no depressed mood Thought Process: + circumstantial thought process Thought Content: + paranoid and + delusions Suicidal Thoughts: denies suicidal thoughts Homicidal Thoughts: denies homicidal thoughts Hallucinations: no auditory hallucinations and no visual hallucinations Cognition: recent memory grossly intact, remote memory grossly intact and language grossly intact; + attention not intact Insight: + limited insight Judgement: + limited judgement Vital Signs (Past 24 Hours) Last Vital Signs Temp 36.5 C 06/17/21 06:00 Pulse 68 06/17/21 06:14 Resp 16 06/17/21 06:00 BP 132/72 06/17/21 06:14 Pulse Ox 96 06/14/21 22:39 Results & Data ([facility]) Laboratory Results Laboratory Results - last 24 hr 06/17/21 07:53 Fasting Glucose 135 H Triglycerides 81 Cholesterol 157 LDL Cholesterol, Calc 59 VLDL Cholesterol, Calc 16 HDL Cholesterol 82 Cholesterol/HDL Ratio 1.9 Current Inpatient Medications Current Inpatient Medications: Current Inpatient Medications Acetaminophen (Acetaminophen 325 Mg Tab) 650 mg PO Q4H PRN PRN Reason: Headache or Minor Fever Stop: 07/14/21 20:38 Al Hydrox/Mg Hydrox/Simethicone (Aluminum/Magnesium Susp 30 Ml Udc) 30 ml PO Q4H PRN PRN Reason: GI Upset Stop: 07/14/21 20:38 Aspirin (Aspirin 81 Mg Ectab) 81 mg PO DAILY CHRIS Stop: 07/15/21 13:29 Last Admin: 06/17/21 08:41 Dose: 81 mg Documented by: Atorvastatin Calcium (Atorvastatin 20 Mg Tab) 20 mg PO HS CHRIS Stop: 07/15/21 21:59 Last Admin: 06/16/21 21:12 Dose: 20 mg Documented by: Bismuth Subsalicylate (Bismuth Subsalicylate Liqd 236 Ml) 15 ml PO PRN PRN PRN Reason: Loose Stool Stop: 07/14/21 20:38 Cariprazine (Cariprazine Hcl 3mg) 1 ea PO DAILY CHRIS Stop: 07/15/21 15:14 Last Admin: 06/17/21 08:41 Dose: 1 ea Documented by: Cariprazine (Cariprazine Hcl 1.5mg Cap) 1 ea PO DAILY CHRIS Stop: 07/17/21 08:59 Last Admin: 06/17/21 08:41 Dose: 1 ea Documented by: Docusate Sodium (Docusate Sodium 100 Mg Cap) 100 mg PO BID CHRIS Stop: 07/15/21 20:59 Last Admin: 06/17/21 08:42 Dose: 100 mg Documented by: Hydroxyzine HCl (Hydroxyzine Hcl 25 Mg Tab) 50 mg PO HSZ PRN PRN Reason: Insomnia Stop: 07/14/21 20:38 Last Admin: 06/15/21 03:02 Dose: 50 mg Documented by: Hydroxyzine HCl (Hydroxyzine Hcl 25 Mg Tab) 25 mg PO Q4H PRN PRN Reason: Anxiety Stop: 07/14/21 20:38 Levothyroxine Sodium (Levothyroxine Sodium 75 Mcg Tablet) 75 mcg PO DAILYBB [facility] Stop: 07/16/21 07:59 Last Admin: 06/17/21 08:42 Dose: 75 mcg Documented by: Lorazepam (Lorazepam 1 Mg Tab) 1 mg PO HS [facility] Stop: 07/15/21 21:59 Last Admin: 06/16/21 21:16 Dose: 1 mg Documented by: Lorazepam (Lorazepam 0.5 Mg Tab) 0.5 mg PO QD@08 [facility] Stop: 07/16/21 07:59 Last Admin: 06/17/21 08:39 Dose: 0.5 mg Documented by: Lorazepam (Lorazepam 0.5 Mg Tab) 0.5 mg PO DAILYBL [facility] Stop: 07/16/21 11:59 Last Admin: 06/16/21 12:27 Dose: 0.5 mg Documented by: Losartan Potassium (Losartan Potassium 25 Mg Tab) 25 mg PO HS [facility] Stop: 07/15/21 21:59 Last Admin: 06/16/21 21:13 Dose: 25 mg Documented by: Magnesium Hydroxide (Magnesium Hydroxide Susp 30 Ml Udc) 30 ml PO DAILY PRN PRN Reason: Constipation Stop: 07/14/21 20:38 Multivitamins (Multivitamin Tab) 1 tab PO DAILY [facility] Stop: 07/16/21 08:59 Last Admin: 06/17/21 08:43 Dose: 1 tab Documented by: Oxybutynin Chloride (Oxybutynin Chloride Xl 5 Mg Tabcr) 10 mg PO DAILY [facility] Stop: 07/15/21 13:29 Last Admin: 06/17/21 08:43 Dose: 10 mg Documented by: Sodium Chloride (Sodium Chloride 0.65% Na Soln 45 Ml ([place])) 1 - 2 sprays NA PRN PRN PRN Reason: Nasal Dryness/Congestion Stop: 07/14/21 20:38 Trazodone HCl (Trazodone Hcl 50 Mg Tab) 50 mg PO HS CHRIS Stop: 07/16/21 21:59 Last Admin: 06/16/21 21:16 Dose: 50 mg Documented by: Vitamin D (Cholecalciferol 1,000 Units 25 Mcg Tab) 2,000 units PO QAM CHRIS Stop: 07/15/21 13:29 Last Admin: 06/17/21 08:42 Dose: 2,000 units Documented by: Mental Health & Subst Abuse Tx Psychiatrist Name of Psychiatrist: Dr. Baxter Psychiatrist's Psychiatric Appointment Comment: [address] [facility] [address] [facility] [address] [place] [address] Therapist Name of Therapist: [facility]- Chasity Mccauley Therapist's Therapy Appointment Comment: [address] [place] [address] Diet Clerk Name of Diet Clerk: None Post Discharge Appointments Primary Care Physician Name Of Family Doctor: HEATHER Primary Care Provider Appointment Comment: [address] [place] [address] [address], [place] [id number] (1) Bipolar disorder Active/Remission status: remission status unspecified Qualified Code(s): F31.9 - Bipolar disorder, unspecified
[2021-06-17] MEDS: LOSARTAN POTASSIUM 25 MG TAB PO SCH (21:08)
[2021-06-17] MEDS: traZODone HCL 50 MG TAB PO SCH (21:08)
[2021-06-17] MEDS: ATORVASTATIN 20 MG TAB PO SCH (21:08)
[2021-06-17] MEDS: LORazepam 1 MG TAB PO SCH (21:09)
[2021-06-18] MEDS: LEVOTHYROXINE SODIUM 75 MCG TABLET PO SCH (08:07)
[2021-06-18] MEDS: LORazepam 0.5 MG TAB PO SCH ×2 (08:07→12:13)
--- NOTE | 2021-06-18 08:43 | Psychiatric Progress Note ---
Date of Service June 18, 2021 Impression / Recommendations Impression The patient is a 61 year old woman with a history of BPAD and fixed romantic delusion who was admitted for increasingly disorganized and bizarre behavior. Diagnostically consistent with unspecified psychosis-differential includes acute eugenie vs mixed state vs primary psychotic disorder vs delusional disorder vs MDD with psychotic features vs substance-induced (less likely given negative UDS). The patient is deemed unstable and requires psychiatric hospitalization for diagnostic clarification, safety and stabilization, medication management and development of further coping skills. MNPR due to acute psychosis with paranoia, periods of increased agitation. 06/18/21: She declines further workup for elevated glucose, refuses additional lab draw to check HbA1c. Reviewed potential for pre-diabetes or diabetes which could require treatment which she states understanding of. She declines making any further dose adjustments/titration to Vraylar and remains adamant that she is not interested in clozapine nor any other medication trials. Continues to have paranoia, OCD symptoms and disorganized behaviors with limited insight into recent challenges, ongoing psychosis. (1) Bipolar disorder: (2) Anxiety: (3) Insomnia: 06/18/21: Continue current medications and tx plan. Ongoing insight-oriented and open dialogue approach. 06/17/21: Continue Vraylar 4.5 mg qd, trazodone, ativan. 06/16/21: Fasting labs. Continue medications. 06/15/21: The patient was admitted to the [facility] ([facility]) on q15 min checks (behavioral with suicide precautions) for safety. The patient will participate in group, recreational, and milieu therapies and will be offered additional individual and family sessions as clinically appropriate. -Continue Vraylar 3mg (was on 4.5 mg prior to admission but family only able to bring in 3mg tabs) -Continue ativan 0.5 qAM, 0.5 mg qnoon and 1 mg qhs -Continue trazodone 50mg qhs prn -Encourage case management -Will contact Dr. Baxter for further collateral Inventory Assets Strengths: supportive children, good rapport with outpatient providers Needs: stable housing, case management, stabilization Suicide Risk Level Suicide Risk Level: Moderate (q15 min suicide checks) Suicide Risk Level Comments: Acute risk for self-harm is moderate given denial of SI but also with bizarre behaviors and disorganization raising concern for potential impulsive decisions. Risk Factors Assessment : Yes Do You Have Access To A Gun?: No Health Problems: No Mental Health Diagnoses: Yes Substance Use Disorders: No Previous Attempt: No Family History of Suicide: No Previous Psychiatric Hospitalization: Yes Hopelessness: No Protective Factors Assessment Employed: No Stable Relationships: Yes Supportive Family: Yes Good Rapport with Provider: Yes Interval History Identifying Information CEDRICK ANTUNEZ is a 61-year-old woman who is currently homeless (allowed her apartment lease to at the end of May), has a history of BPAD and a fixed romantic delusion, and was admitted on 06/14/21 20:39 on a 201 voluntary commitment for paranoia, delusions and bizarre behaviors. Chief Complaint "I need to call my cousin again". Review of Systems Sleep Information Total Hours of Sleep: 6 Meal Information Percent Meal Consumed - Breakfast: 100 Percent Meal Consumed - Lunch: 90 Percent Meal Consumed - Dinner: 75 Subjective Subjective Patient was seen & assessed and interval progress reviewed with treatment team nursing and social work. Increased paranoia yesterday, was changing her sheets and pillows repeatedly thinking that a pillow case had blood on it. She also became fixed on needing to take Vraylar as 4.5 mg tab instead of 3mg and 1.5 mg tablet and has been repeatedly calling her cousin and sons to sweet pickled fruit maker new tab size from pharmacy. Has been very focused on hygiene and concerned with cleanliness. She declines any further titration of Vraylar and continues to decline starting clozapine. Reviewed results of her elevated glucose and recommendation for HbA1c but that I confirmed with the lab that this could not be done as an add-on and will require an additional lab draw. She refuses this and declines further workup for elevated glucose stating "I've talked about it before with Dr. Baxter and my glucose can be elevated due to anxiety". Reviewed case management services to help with housing which she is agreeable to. She agrees that she has been struggling with some OCD symptoms but doesn't want to make any medication changes to address this. Physical Exam Psychiatric Orientation: alert, oriented x 3 and + guarded Apperance: appropriately dressed and appropriately groomed Eye Contact: + fair eye contact Motor Behavior: steady gait and station and no abnormal motor movements; no psychomotor agitation Speech: + abnormal rate/rhythm/volume of speech (some latency) Affect: + flat affect Mood: + anxious mood and + irritable mood; no depressed mood Thought Process: + circumstantial thought process Thought Content: + paranoid and + delusions Suicidal Thoughts: denies suicidal thoughts Homicidal Thoughts: denies homicidal thoughts Hallucinations: no auditory hallucinations and no visual hallucinations Cognition: recent memory grossly intact, remote memory grossly intact and language grossly intact; + attention not intact Insight: + limited insight Judgement: + limited judgement Vital Signs (Past 24 Hours) Last Vital Signs Temp 36.7 C 06/18/21 06:00 Pulse 67 06/18/21 06:18 Resp 16 06/18/21 06:00 BP 129/76 06/18/21 06:18 Pulse Ox 96 06/14/21 22:39 Results & Data ([facility]) Current Inpatient Medications Current Inpatient Medications: Current Inpatient Medications Acetaminophen (Acetaminophen 325 Mg Tab) 650 mg PO Q4H PRN PRN Reason: Headache or Minor Fever Stop: 07/14/21 20:38 Al Hydrox/Mg Hydrox/Simethicone (Aluminum/Magnesium Susp 30 Ml Udc) 30 ml PO Q4H PRN PRN Reason: GI Upset Stop: 07/14/21 20:38 Aspirin (Aspirin 81 Mg Ectab) 81 mg PO DAILY CHRIS Stop: 07/15/21 13:29 Last Admin: 06/17/21 08:41 Dose: 81 mg Documented by: Atorvastatin Calcium (Atorvastatin 20 Mg Tab) 20 mg PO HS CHRIS Stop: 07/15/21 21:59 Last Admin: 06/17/21 21:08 Dose: 20 mg Documented by: Bismuth Subsalicylate (Bismuth Subsalicylate Liqd 236 Ml) 15 ml PO PRN PRN PRN Reason: Loose Stool Stop: 07/14/21 20:38 Cariprazine (Cariprazine Hcl 3mg) 1 ea PO DAILY CHRIS Stop: 07/15/21 15:14 Last Admin: 06/17/21 08:41 Dose: 1 ea Documented by: Cariprazine (Cariprazine Hcl 1.5mg Cap) 1 ea PO DAILY CHRIS Stop: 07/17/21 08:59 Last Admin: 06/17/21 08:41 Dose: 1 ea Documented by: Docusate Sodium (Docusate Sodium 100 Mg Cap) 100 mg PO BID CHRIS Stop: 07/15/21 20:59 Last Admin: 06/17/21 21:08 Dose: 100 mg Documented by: Hydroxyzine HCl (Hydroxyzine Hcl 25 Mg Tab) 50 mg PO HSZ PRN PRN Reason: Insomnia Stop: 07/14/21 20:38 Last Admin: 06/15/21 03:02 Dose: 50 mg Documented by: Hydroxyzine HCl (Hydroxyzine Hcl 25 Mg Tab) 25 mg PO Q4H PRN PRN Reason: Anxiety Stop: 07/14/21 20:38 Levothyroxine Sodium (Levothyroxine Sodium 75 Mcg Tablet) 75 mcg PO DAILYBB CHRIS Stop: 07/16/21 07:59 Last Admin: 06/18/21 08:07 Dose: 75 mcg Documented by: Lorazepam (Lorazepam 1 Mg Tab) 1 mg PO HS [facility] Stop: 07/15/21 21:59 Last Admin: 06/17/21 21:09 Dose: 1 mg Documented by: Lorazepam (Lorazepam 0.5 Mg Tab) 0.5 mg PO QD@08 CHRIS Stop: 07/16/21 07:59 Last Admin: 06/18/21 08:07 Dose: 0.5 mg Documented by: Lorazepam (Lorazepam 0.5 Mg Tab) 0.5 mg PO DAILYBL [facility] Stop: 07/16/21 11:59 Last Admin: 06/17/21 11:36 Dose: 0.5 mg Documented by: Losartan Potassium (Losartan Potassium 25 Mg Tab) 25 mg PO HS CHRIS Stop: 07/15/21 21:59 Last Admin: 06/17/21 21:08 Dose: 25 mg Documented by: Magnesium Hydroxide (Magnesium Hydroxide Susp 30 Ml Udc) 30 ml PO DAILY PRN PRN Reason: Constipation Stop: 07/14/21 20:38 Multivitamins (Multivitamin Tab) 1 tab PO DAILY CHRIS Stop: 07/16/21 08:59 Last Admin: 06/17/21 08:43 Dose: 1 tab Documented by: Oxybutynin Chloride (Oxybutynin Chloride Xl 5 Mg Tabcr) 10 mg PO DAILY CHRIS Stop: 07/15/21 13:29 Last Admin: 06/17/21 08:43 Dose: 10 mg Documented by: Sodium Chloride (Sodium Chloride 0.65% Na Soln 45 Ml ([place])) 1 - 2 sprays NA PRN PRN PRN Reason: Nasal Dryness/Congestion Stop: 07/14/21 20:38 Trazodone HCl (Trazodone Hcl 50 Mg Tab) 50 mg PO HS CHRIS Stop: 07/16/21 21:59 Last Admin: 06/17/21 21:08 Dose: 50 mg Documented by: Vitamin D (Cholecalciferol 1,000 Units 25 Mcg Tab) 2,000 units PO QAM CHRIS Stop: 07/15/21 13:29 Last Admin: 06/17/21 08:42 Dose: 2,000 units Documented by: Mental Health & Subst Abuse Tx Psychiatrist Name of Psychiatrist: Dr. Baxter Psychiatrist's Psychiatric Appointment Comment: [facility] [address] [facility] [address] 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
[2021-06-18] MEDS: ASPIRIN 81 MG ECTAB PO SCH (09:09)
[2021-06-18] MEDS: CARIPRAZINE HCL 3 MG PO SCH (09:10)
[2021-06-18] MEDS: DOCUSATE SODIUM 100 MG CAP PO SCH ×2 (09:11→21:31)
[2021-06-18] MEDS: MULTIVITAMIN TAB PO SCH (09:11)
[2021-06-18] MEDS: CARIPRAZINE HCL 1.5 MG PO SCH (09:11)
[2021-06-18] MEDS: CHOLECALCIFEROL 1,000 UNITS 25 MCG TAB PO SCH (09:11)
[2021-06-18] MEDS: OXYBUTYNIN CHLORIDE XL 5 MG TABCR PO SCH (09:12)
[2021-06-18] MEDS: LORazepam 1 MG TAB PO SCH (21:30)
[2021-06-18] MEDS: ATORVASTATIN 20 MG TAB PO SCH (21:31)
[2021-06-18] MEDS: LOSARTAN POTASSIUM 25 MG TAB PO SCH (21:31)
[2021-06-18] MEDS: traZODone HCL 50 MG TAB PO SCH (21:31)
[2021-06-19] MEDS: LEVOTHYROXINE SODIUM 75 MCG TABLET PO SCH (08:15)
[2021-06-19] MEDS: LORazepam 0.5 MG TAB PO SCH ×2 (08:16→11:04)
[2021-06-19] MEDS: ASPIRIN 81 MG ECTAB PO SCH (08:16)
[2021-06-19] MEDS: CARIPRAZINE HCL 4.5 MG PO SCH (08:16)
[2021-06-19] MEDS: CHOLECALCIFEROL 1,000 UNITS 25 MCG TAB PO SCH (08:17)
[2021-06-19] MEDS: DOCUSATE SODIUM 100 MG CAP PO SCH ×2 (08:17→21:20)
[2021-06-19] MEDS: MULTIVITAMIN TAB PO SCH (08:18)
[2021-06-19] MEDS: OXYBUTYNIN CHLORIDE XL 5 MG TABCR PO SCH (08:18)
--- NOTE | 2021-06-19 08:43 | Psychiatric Progress Note ---
Date of Service June 19, 2021 Impression / Recommendations Impression The patient is a 61 year old woman with a history of BPAD and fixed romantic delusion who was admitted for increasingly disorganized and bizarre behavior. Diagnostically consistent with unspecified psychosis-differential includes acute eugenie vs mixed state vs primary psychotic disorder vs delusional disorder vs MDD with psychotic features vs substance-induced (less likely given negative UDS). The patient is deemed unstable and requires psychiatric hospitalization for diagnostic clarification, safety and stabilization, medication management and development of further coping skills. MNPR due to acute psychosis with paranoia, periods of increased agitation. 06/19/21: She declines making any further dose adjustments/titration to Vraylar and remains adamant that she is not interested in clozapine nor any other medication trials. Continues to have thought blocking, periods of irritability, OCD symptoms and disorganized behaviors with limited insight into recent challenges, ongoing psychosis. Lack of housing remains a challenge and increases risk of significant further decompensation. (1) Bipolar disorder: (2) Anxiety: (3) Insomnia: 06/19/21: Continue current medications and tx plan. Social work working on potential housing resources and case management. 06/18/21: Continue current medications and tx plan. Ongoing insight-oriented and open dialogue approach. 06/17/21: Continue Vraylar 4.5 mg qd, trazodone, ativan. 06/16/21: Fasting labs. Continue medications. 06/15/21: The patient was admitted to the [facility] ([facility] unit) on q15 min checks (behavioral with suicide precautions) for safety. The patient will participate in group, recreational, and milieu therapies and will be offered additional individual and family sessions as clinically appropriate. -Continue Vraylar 3mg (was on 4.5 mg prior to admission but family only able to bring in 3mg tabs) -Continue ativan 0.5 qAM, 0.5 mg qnoon and 1 mg qhs -Continue trazodone 50mg qhs prn -Encourage case management -Will contact Dr. Baxter for further collateral Inventory Assets Strengths: supportive children, good rapport with outpatient providers Needs: stable housing, case management, stabilization Suicide Risk Level Suicide Risk Level: Moderate (q15 min suicide checks) Suicide Risk Level Comments: Acute risk for self-harm is moderate given denial of SI but also with bizarre behaviors, thought blocking and disorganization raising concern for potential impulsive decisions. Risk Factors Assessment : Yes Do You Have Access To A Gun?: No Health Problems: No Mental Health Diagnoses: Yes Substance Use Disorders: No Previous Attempt: No Family History of Suicide: No Previous Psychiatric Hospitalization: Yes Hopelessness: No Protective Factors Assessment Employed: No Stable Relationships: Yes Supportive Family: Yes Good Rapport with Provider: Yes Interval History Identifying Information CEDRICK ANTUNEZ is a 61-year-old woman who is currently homeless (allowed her apartment lease to at the end of May), has a history of BPAD and a fixed romantic delusion, and was admitted on 06/14/21 20:39 on a 201 voluntary commitment for paranoia, delusions and bizarre behaviors. Chief Complaint "I'm ok". Review of Systems Sleep Information Total Hours of Sleep: 7.25 Meal Information Percent Meal Consumed - Breakfast: 90 Percent Meal Consumed - Lunch: 75 Percent Meal Consumed - Dinner: 75 Subjective Subjective Patient was seen & assessed and interval progress reviewed with treatment team nursing and social work. She was slightly less perseverative yesterday with requests but continues to have significant thought blocking at times and getting very fixated on things needing to be done a particular way. Today remains focused on housing. She's remains uninterested in considering trial of clozapine or making any medication adjustments. Slightly irritable but cooperative. Physical Exam Psychiatric Orientation: alert, oriented x 3 and + guarded Apperance: appropriately dressed and appropriately groomed Eye Contact: + fair eye contact Motor Behavior: steady gait and station and no abnormal motor movements; no psychomotor agitation Speech: + abnormal rate/rhythm/volume of speech (some latency) Affect: + flat affect Mood: + anxious mood and + irritable mood; no depressed mood Thought Process: + circumstantial thought process Thought Content: + paranoid and + delusions Suicidal Thoughts: denies suicidal thoughts Homicidal Thoughts: denies homicidal thoughts Hallucinations: no auditory hallucinations and no visual hallucinations Cognition: recent memory grossly intact, remote memory grossly intact and la nguage grossly intact; + attention not intact Insight: + limited insight Judgement: + limited judgement Vital Signs (Past 24 Hours) Last Vital Signs Temp 36.6 C 06/19/21 06:44 Pulse 65 06/19/21 06:45 Resp 18 06/19/21 06:44 BP 123/71 06/19/21 06:45 Pulse Ox 96 06/14/21 22:39 Results & Data ([facility]) Current Inpatient Medications Current Inpatient Medications: Current Inpatient Medications Acetaminophen (Acetaminophen 325 Mg Tab) 650 mg PO Q4H PRN PRN Reason: Headache or Minor Fever Stop: 07/14/21 20:38 Al Hydrox/Mg Hydrox/Simethicone (Aluminum/Magnesium Susp 30 Ml Udc) 30 ml PO Q4H PRN PRN Reason: GI Upset Stop: 07/14/21 20:38 Aspirin (Aspirin 81 Mg Ectab) 81 mg PO DAILY [facility] Stop: 07/15/21 13:29 Last Admin: 06/19/21 08:16 Dose: 81 mg Documented by: Atorvastatin Calcium (Atorvastatin 20 Mg Tab) 20 mg PO HS [facility] Stop: 07/15/21 21:59 Last Admin: 06/18/21 21:31 Dose: 20 mg Documented by: Bismuth Subsalicylate (Bismuth Subsalicylate Liqd 236 Ml) 15 ml PO PRN PRN PRN Reason: Loose Stool Stop: 07/14/21 20:38 Cariprazine (Pt's Own Med: Cariprazine Hcl 4.5mg Cap) 1 ea PO DAILY [facility]; Protocol Stop: 07/19/21 08:59 Last Admin: 06/19/21 08:16 Dose: 1 ea Documented by: Docusate Sodium (Docusate Sodium 100 Mg Cap) 100 mg PO BID CHRIS Stop: 07/15/21 20:59 Last Admin: 06/19/21 08:17 Dose: 100 mg Documented by: Hydroxyzine HCl (Hydroxyzine Hcl 25 Mg Tab) 50 mg PO HSZ PRN PRN Reason: Insomnia Stop: 07/14/21 20:38 Last Admin: 06/15/21 03:02 Dose: 50 mg Documented by: Hydroxyzine HCl (Hydroxyzine Hcl 25 Mg Tab) 25 mg PO Q4H PRN PRN Reason: Anxiety Stop: 07/14/21 20:38 Levothyroxine Sodium (Levothyroxine Sodium 75 Mcg Tablet) 75 mcg PO DAILYBB CHRIS Stop: 07/16/21 07:59 Last Admin: 06/19/21 08:15 Dose: 75 mcg Documented by: Lorazepam (Lorazepam 1 Mg Tab) 1 mg PO HS [facility] Stop: 07/15/21 21:59 Last Admin: 06/18/21 21:30 Dose: 1 mg Documented by: Lorazepam (Lorazepam 0.5 Mg Tab) 0.5 mg PO QD@08 CHRIS Stop: 07/16/21 07:59 Last Admin: 06/19/21 08:16 Dose: 0.5 mg Documented by: Lorazepam (Lorazepam 0.5 Mg Tab) 0.5 mg PO DAILYBL CHRIS Stop: 07/16/21 11:59 Last Admin: 06/18/21 12:13 Dose: 0.5 mg Documented by: Losartan Potassium (Losartan Potassium 25 Mg Tab) 25 mg PO HS CHRIS Stop: 07/15/21 21:59 Last Admin: 06/18/21 21:31 Dose: 25 mg Documented by: Magnesium Hydroxide (Magnesium Hydroxide Susp 30 Ml Udc) 30 ml PO DAILY PRN PRN Reason: Constipation Stop: 07/14/21 20:38 Multivitamins (Multivitamin Tab) 1 tab PO DAILY CHRIS Stop: 07/16/21 08:59 Last Admin: 06/19/21 08:18 Dose: 1 tab Documented by: Oxybutynin Chloride (Oxybutynin Chloride Xl 5 Mg Tabcr) 10 mg PO DAILY CHRIS Stop: 07/15/21 13:29 Last Admin: 06/19/21 08:18 Dose: 10 mg Documented by: Sodium Chloride (Sodium Chloride 0.65% Na Soln 45 Ml ([place])) 1 - 2 sprays NA PRN PRN PRN Reason: Nasal Dryness/Congestion Stop: 07/14/21 20:38 Trazodone HCl (Trazodone Hcl 50 Mg Tab) 50 mg PO HS CHRIS Stop: 07/16/21 21:59 Last Admin: 06/18/21 21:31 Dose: 50 mg Documented by: Vitamin D (Cholecalciferol 1,000 Units 25 Mcg Tab) 2,000 units PO QAM CHRIS Stop: 07/15/21 13:29 Last Admin: 06/19/21 08:17 Dose: 2,000 units Documented by: Mental Health & Subst Abuse Tx Psychiatrist Name of Psychiatrist: Dr. Baxter Psychiatrist's Psychiatric Appointment Comment: [address] [facility] [address] [place], [place] [address] Therapist Name of Therapist: [facility]- Chasity Mccauley Therapist's Therapy Appointment Comment: [address] [place] [address] Leather Coverer Name of Leather Coverer: None Post Discharge Appointments Primary Care Physician Name Of Family Doctor: HEATHER Primary Care Provider Appointment Comment: [address] [place] [address] [address] [place] [address] (1) Bipolar disorder Active/Remission status: remission status unspecified Qualified Code(s): F31.9 - Bipolar disorder, unspecified
[2021-06-19] MEDS: ACETAMINOPHEN 325 MG TAB PO PRN (13:48)
[2021-06-19] MEDS: ATORVASTATIN 20 MG TAB PO SCH (21:20)
[2021-06-19] MEDS: traZODone HCL 50 MG TAB PO SCH (21:20)
[2021-06-19] MEDS: LORazepam 1 MG TAB PO SCH (21:20)
[2021-06-19] MEDS: LOSARTAN POTASSIUM 25 MG TAB PO SCH (21:20)
[2021-06-20] MEDS: LORazepam 0.5 MG TAB PO SCH ×2 (07:56→12:09)
[2021-06-20] MEDS: ASPIRIN 81 MG ECTAB PO SCH (07:56)
[2021-06-20] MEDS: LEVOTHYROXINE SODIUM 75 MCG TABLET PO SCH (07:56)
[2021-06-20] MEDS: CHOLECALCIFEROL 1,000 UNITS 25 MCG TAB PO SCH (07:57)
[2021-06-20] MEDS: MULTIVITAMIN TAB PO SCH (07:57)
[2021-06-20] MEDS: DOCUSATE SODIUM 100 MG CAP PO SCH ×2 (07:57→21:31)
[2021-06-20] MEDS: OXYBUTYNIN CHLORIDE XL 5 MG TABCR PO SCH (07:57)
[2021-06-20] MEDS: CARIPRAZINE HCL 4.5 MG PO SCH (07:58)
--- NOTE | 2021-06-20 10:50 | Psychiatric Progress Note ---
Date of Service June 20, 2021 Impression / Recommendations Impression The patient is a 61 year old woman with a history of BPAD and fixed romantic delusion who was admitted for increasingly disorganized and bizarre behavior. Diagnostically consistent with unspecified psychosis-differential includes acute eugenie vs mixed state vs primary psychotic disorder vs delusional disorder vs MDD with psychotic features vs substance-induced (less likely given negative UDS). MNPR due to acute psychosis with paranoia. 06/20/21: care by Dr. Marsh reviewed, metabolic labs reviewed. (1) Bipolar disorder: (2) Anxiety: (3) Insomnia: 07/21/21: continue current meds and tx plan. Family meeting. 06/19/21: Continue current medications and tx plan. Social work working on potential housing resources and case management. 06/18/21: Continue current medications and tx plan. Ongoing insight-oriented and open dialogue approach. 06/17/21: Continue Vraylar 4.5 mg qd, trazodone, ativan. 06/16/21: Fasting labs. Continue medications. 06/15/21: The patient was admitted to the [facility] ([facility] mental health unit) on q15 min checks (behavioral with suicide precautions) for safety. The patient will participate in group, recreational, and milieu therapies and will be offered additional individual and family sessions as clinically appropriate. -Continue Vraylar 3mg (was on 4.5 mg prior to admission but family only able to bring in 3mg tabs) -Continue ativan 0.5 qAM, 0.5 mg qnoon and 1 mg qhs -Continue trazodone 50mg qhs prn -Encourage case management -Will contact Dr. Baxter for further collateral Inventory Assets Strengths: supportive children, good rapport with outpatient providers Needs: stable housing, case management, stabilization Suicide Risk Level Suicide Risk Level: Moderate (q15 min suicide checks) Suicide Risk Level Comments: Acute risk for self-harm is moderate given denial of SI but also with bizarre behaviors, thought blocking and disorganization raising concern for potential impulsive decisions. Risk Factors Assessment : Yes Do You Have Access To A Gun?: No Health Problems: No Mental Health Diagnoses: Yes Substance Use Disorders: No Previous Attempt: No Family History of Suicide: No Previous Psychiatric Hospitalization: Yes Hopelessness: No Protective Factors Assessment Employed: No Stable Relationships: Yes Supportive Family: Yes Good Rapport with Provider: Yes Interval History Identifying Information CEDRICK ANTUNEZ is a 61-year-old woman who is currently homeless (allowed her apartment lease to at the end of May), has a history of BPAD and a fixed romantic delusion, and was admitted on 06/14/21 20:39 on a 201 voluntary commitment for paranoia, delusions and bizarre behaviors. Chief Complaint "yeah I'm not doing those meds and I only want to live in [place]." Review of Systems Sleep Information Total Hours of Sleep: 6 Meal Information Percent Meal Consumed - Breakfast: 100 Percent Meal Consumed - Lunch: 100 Percent Meal Consumed - Dinner: 75 Subjective Subjective Patient was seen & assessed and interval progress reviewed with nursing and social work. Patient continues with fixed delusion re: Phyllis Bynum, fixated on housing but resistant to available options. Refusing clozapine or increase in Vraylar. Meeting with sons planned as exhausted housing options with family although she maintains she can live with aunt this is not true. Physical Exam Psychiatric Orientation: alert Apperance: appropriately dressed and appropriately groomed Eye Contact: + fair eye contact Motor Behavior: steady gait and station and no abnormal motor movements; no psychomotor agitation Speech: + abnormal rate/rhythm/volume of speech (some latency) Affect: + flat affect Mood: + anxious mood; no depressed mood Thought Process: + circumstantial thought process Thought Content: + delusions Suicidal Thoughts: denies suicidal thoughts Homicidal Thoughts: denies homicidal thoughts Hallucinations: no auditory hallucinations and no visual hallucinations Cognition: language grossly intact; + attention not intact Insight: + limited insight Judgement: + limited judgement Vital Signs (Past 24 Hours) Last Vital Signs Temp 36.5 C 06/20/21 06:32 Pulse 62 06/20/21 06:33 Resp 18 06/20/21 06:32 BP 130/77 06/20/21 06:33 Pulse Ox 96 06/14/21 22:39 Results & Data ([facility]) Current Inpatient Medications Current Inpatient Medications: Current Inpatient Medications Acetaminophen (Acetaminophen 325 Mg Tab) 650 mg PO Q4H PRN PRN Reason: Headache or Minor Fever Stop: 07/14/21 20:38 Last Admin: 06/19/21 13:48 Dose: 650 mg Documented by: Al Hydrox/Mg Hydrox/Simethicone (Aluminum/Magnesium Susp 30 Ml Udc) 30 ml PO Q4H PRN PRN Reason: GI Upset Stop: 07/14/21 20:38 Aspirin (Aspirin 81 Mg Ectab) 81 mg PO DAILY [facility] Stop: 07/15/21 13:29 Last Admin: 06/20/21 07:56 Dose: 81 mg Documented by: Atorvastatin Calcium (Atorvastatin 20 Mg Tab) 20 mg PO HS [facility] Stop: 07/15/21 21:59 Last Admin: 06/19/21 21:20 Dose: 20 mg Documented by: Bismuth Subsalicylate (Bismuth Subsalicylate Liqd 236 Ml) 15 ml PO PRN PRN PRN Reason: Loose Stool Stop: 07/14/21 20:38 Cariprazine (Pt's Own Med: Cariprazine Hcl 4.5mg Cap) 1 ea PO DAILY [facility]; Protocol Stop: 07/19/21 08:59 Last Admin: 06/20/21 07:58 Dose: 1 ea Documented by: Docusate Sodium (Docusate Sodium 100 Mg Cap) 100 mg PO BID [facility] Stop: 07/15/21 20:59 Last Admin: 06/20/21 07:57 Dose: 100 mg Documented by: Hydroxyzine HCl (Hydroxyzine Hcl 25 Mg Tab) 50 mg PO HSZ PRN PRN Reason: Insomnia Stop: 07/14/21 20:38 Last Admin: 06/15/21 03:02 Dose: 50 mg Documented by: Hydroxyzine HCl (Hydroxyzine Hcl 25 Mg Tab) 25 mg PO Q4H PRN PRN Reason: Anxiety Stop: 07/14/21 20:38 Levothyroxine Sodium (Levothyroxine Sodium 75 Mcg Tablet) 75 mcg PO DAILYBB [facility] Stop: 07/16/21 07:59 Last Admin: 06/20/21 07:56 Dose: 75 mcg Documented by: Lorazepam (Lorazepam 1 Mg Tab) 1 mg PO HS [facility] Stop: 07/15/21 21:59 Last Admin: 06/19/21 21:20 Dose: 1 mg Documented by: Lorazepam (Lorazepam 0.5 Mg Tab) 0.5 mg PO QD@08 [facility] Stop: 07/16/21 07:59 Last Admin: 06/20/21 07:56 Dose: 0.5 mg Documented by: Lorazepam (Lorazepam 0.5 Mg Tab) 0.5 mg PO DAILYBL [facility] Stop: 07/16/21 11:59 Last Admin: 06/19/21 11:04 Dose: 0.5 mg Documented by: Losartan Potassium (Losartan Potassium 25 Mg Tab) 25 mg PO HS [facility] Stop: 07/15/21 21:59 Last Admin: 06/19/21 21:20 Dose: 25 mg Documented by: Magnesium Hydroxide (Magnesium Hydroxide Susp 30 Ml Udc) 30 ml PO DAILY PRN PRN Reason: Constipation Stop: 07/14/21 20:38 Multivitamins (Multivitamin Tab) 1 tab PO DAILY [facility] Stop: 07/16/21 08:59 Last Admin: 06/20/21 07:57 Dose: 1 tab Documented by: Oxybutynin Chloride (Oxybutynin Chloride Xl 5 Mg Tabcr) 10 mg PO DAILY [facility] Stop: 07/15/21 13:29 Last Admin: 06/20/21 07:57 Dose: 10 mg Documented by: Sodium Chloride (Sodium Chloride 0.65% Na Soln 45 Ml ([place])) 1 - 2 sprays NA PRN PRN PRN Reason: Nasal Dryness/Congestion Stop: 07/14/21 20:38 Trazodone HCl (Trazodone Hcl 50 Mg Tab) 50 mg PO HS [facility] Stop: 07/16/21 21:59 Last Admin: 06/19/21 21:20 Dose: 50 mg Documented by: Vitamin D (Cholecalciferol 1,000 Units 25 Mcg Tab) 2,000 units PO QAM [facility] Stop: 07/15/21 13:29 Last Admin: 06/20/21 07:57 Dose: 2,000 units Documented by: Mental Health & Subst Abuse Tx Psychiatrist Name of Psychiatrist: Dr. Baxter Psychiatrist's Psychiatric Appointment Comment: [address]. [place] [address] Therapist Name of Therapist: [facility]- Chasity Mccauley Therapist's Therapy Appointment Comment: [address] [place] [address] Social Security Specialist Name of Social Security Specialist: None Post Discharge Appointments Primary Care Physician Name Of Family Doctor: HEATHER Primary Care Provider Appointment Comment: [address] [place] [address] [address], [place] [address] (1) Bipolar disorder Active/Remission status: remission status unspecified Qualified Code(s): F31.9 - Bipolar disorder, unspecified
[2021-06-20] MEDS: LORazepam 1 MG TAB PO SCH (21:31)
[2021-06-20] MEDS: ATORVASTATIN 20 MG TAB PO SCH (21:31)
[2021-06-20] MEDS: traZODone HCL 50 MG TAB PO SCH (21:31)
[2021-06-20] MEDS: LOSARTAN POTASSIUM 25 MG TAB PO SCH (21:31)
[2021-06-21] MEDS: LEVOTHYROXINE SODIUM 75 MCG TABLET PO SCH (08:10)
[2021-06-21] MEDS: LORazepam 0.5 MG TAB PO SCH ×2 (08:10→12:40)
[2021-06-21] MEDS: ASPIRIN 81 MG ECTAB PO SCH (08:10)
[2021-06-21] MEDS: MULTIVITAMIN TAB PO SCH (08:11)
[2021-06-21] MEDS: DOCUSATE SODIUM 100 MG CAP PO SCH ×2 (08:11→21:18)
[2021-06-21] MEDS: CHOLECALCIFEROL 1,000 UNITS 25 MCG TAB PO SCH (08:11)
[2021-06-21] MEDS: CARIPRAZINE HCL 4.5 MG PO SCH (08:11)
[2021-06-21] MEDS: OXYBUTYNIN CHLORIDE XL 5 MG TABCR PO SCH (08:11)
[2021-06-21] MEDS: ACETAMINOPHEN 325 MG TAB PO PRN (10:23)
--- NOTE | 2021-06-21 10:51 | Psychiatric Progress Note ---
Date of Service June 21, 2021 Impression / Recommendations Impression The patient is a 61 year old woman with a history of BPAD and fixed romantic delusion who was admitted for increasingly disorganized and bizarre behavior. Diagnostically consistent with unspecified psychosis-differential includes acute eugenie vs mixed state vs primary psychotic disorder vs delusional disorder vs MDD with psychotic features vs substance-induced (less likely given negative UDS). MNPR due to recent paranoia. 06/21/21: resistant to reality based housing options (1) Bipolar disorder: (2) Anxiety: (3) Insomnia: 07/22/21: continues to refuse med changes and housing assistance, [address] Reviewed with patient if she does not rescind she will need to be discharged on 06/23/21. 07/21/21: continue current meds and tx plan. Family meeting. 06/19/21: Continue current medications and tx plan. Social work working on potential housing resources and case management. 06/18/21: Continue current medications and tx plan. Ongoing insight-oriented and open dialogue approach. 06/17/21: Continue Vraylar 4.5 mg qd, trazodone, ativan. 06/16/21: Fasting labs. Continue medications. 06/15/21: The patient was admitted to the [facility] ([facility] mental health unit) on q15 min checks (behavioral with suicide precautions) for safety. The patient will participate in group, recreational, and milieu therapies and will be offered additional individual and family sessions as clinically appropriate. -Continue Vraylar 3mg (was on 4.5 mg prior to admission but family only able to bring in 3mg tabs) -Continue ativan 0.5 qAM, 0.5 mg qnoon and 1 mg qhs -Continue trazodone 50mg qhs prn -Encourage case management -Will contact Dr. Baxter for further collateral Inventory Assets Strengths: supportive children, good rapport with outpatient providers Needs: stable housing, case management, stabilization Suicide Risk Level Suicide Risk Level: Moderate (q15 min suicide checks) Risk Factors Assessment : Yes Do You Have Access To A Gun?: No Health Problems: No Mental Health Diagnoses: Yes Substance Use Disorders: No Previous Attempt: No Family History of Suicide: No Previous Psychiatric Hospitalization: Yes Hopelessness: No Protective Factors Assessment Employed: No Stable Relationships: Yes Supportive Family: Yes Good Rapport with Provider: Yes Interval History Identifying Information CEDRICK ANTUNEZ is a 61-year-old woman who is currently homeless (allowed her apartment lease to at the end of May), has a history of BPAD and a fixed romantic delusion, and was admitted on 06/14/21 20:39 on a 201 voluntary commitment for paranoia, delusions and bizarre behaviors. Chief Complaint "I'm not going to [facility] [employer] Review of Systems Sleep Information Total Hours of Sleep: 6.5 Meal Information Percent Meal Consumed - Breakfast: 100 Percent Meal Consumed - Lunch: 100 Percent Meal Consumed - Dinner: 90 Subjective Subjective Patient was seen & assessed and interval progress reviewed with nursing and social work. Patient is refusing to fill out/sign paperwork for [employer] [facility] [employer]. Reviewed lack of options and she had declined due to desire for a pet. Now states due to students but won't elaborate. She does not openly express delusions at this point and did sign a 72 hr notice, seemingly as being pushed re: housing. she is agreeable to remain hospitalized at this time. Physical Exam Psychiatric Orientation: alert, oriented x 3 and + guarded Apperance: appropriately dressed and appropriately groomed Eye Contact: + fair eye contact Motor Behavior: steady gait and station and no abnormal motor movements; no psychomotor agitation Speech: + abnormal rate/rhythm/volume of speech (some latency) Affect: + flat affect Mood: + irritable mood; no depressed mood Thought Process: + circumstantial thought process Thought Content: + delusions (presume this is driving her resistance to housing.) Suicidal Thoughts: denies suicidal thoughts Homicidal Thoughts: denies homicidal thoughts Hallucinations: no auditory hallucinations and no visual hallucinations Cognition: language grossly intact Insight: + limited insight Judgement: + limited judgement Vital Signs (Past 24 Hours) Last Vital Signs Temp 36.9 C 06/21/21 06:33 Pulse 70 06/21/21 06:34 Resp 18 06/21/21 06:33 BP 125/78 06/21/21 06:34 Pulse Ox 96 06/14/21 22:39 Results & Data ([facility]) Current Inpatient Medications Current Inpatient Medications: Current Inpatient Medications Acetaminophen (Acetaminophen 325 Mg Tab) 650 mg PO Q4H PRN PRN Reason: Headache or Minor Fever Stop: 07/14/21 20:38 Last Admin: 06/21/21 10:23 Dose: 650 mg Documented by: Al Hydrox/Mg Hydrox/Simethicone (Aluminum/Magnesium Susp 30 Ml Udc) 30 ml PO Q4H PRN PRN Reason: GI Upset Stop: 07/14/21 20:38 Aspirin (Aspirin 81 Mg Ectab) 81 mg PO DAILY [facility] Stop: 07/15/21 13:29 Last Admin: 06/21/21 08:10 Dose: 81 mg Documented by: Atorvastatin Calcium (Atorvastatin 20 Mg Tab) 20 mg PO HS [facility] Stop: 07/15/21 21:59 Last Admin: 06/20/21 21:31 Dose: 20 mg Documented by: Bismuth Subsalicylate (Bismuth Subsalicylate Liqd 236 Ml) 15 ml PO PRN PRN PRN Reason: Loose Stool Stop: 07/14/21 20:38 Cariprazine (Pt's Own Med: Cariprazine Hcl 4.5mg Cap) 1 ea PO DAILY [facility]; Pro tocol Stop: 07/19/21 08:59 Last Admin: 06/21/21 08:11 Dose: 1 ea Documented by: Docusate Sodium (Docusate Sodium 100 Mg Cap) 100 mg PO BID [facility] Stop: 07/15/21 20:59 Last Admin: 06/21/21 08:11 Dose: 100 mg Documented by: Hydroxyzine HCl (Hydroxyzine Hcl 25 Mg Tab) 50 mg PO HSZ PRN PRN Reason: Insomnia Stop: 07/14/21 20:38 Last Admin: 06/15/21 03:02 Dose: 50 mg Documented by: Hydroxyzine HCl (Hydroxyzine Hcl 25 Mg Tab) 25 mg PO Q4H PRN PRN Reason: Anxiety Stop: 07/14/21 20:38 Levothyroxine Sodium (Levothyroxine Sodium 75 Mcg Tablet) 75 mcg PO DAILYBB [facility] Stop: 07/16/21 07:59 Last Admin: 06/21/21 08:10 Dose: 75 mcg Documented by: Lorazepam (Lorazepam 1 Mg Tab) 1 mg PO HS [facility] Stop: 07/15/21 21:59 Last Admin: 06/20/21 21:31 Dose: 1 mg Documented by: Lorazepam (Lorazepam 0.5 Mg Tab) 0.5 mg PO QD@08 [facility] Stop: 07/16/21 07:59 Last Admin: 06/21/21 08:10 Dose: 0.5 mg Documented by: Lorazepam (Lorazepam 0.5 Mg Tab) 0.5 mg PO DAILYBL [facility] Stop: 07/16/21 11:59 Last Admin: 06/20/21 12:09 Dose: 0.5 mg Documented by: Losartan Potassium (Losartan Potassium 25 Mg Tab) 25 mg PO HS [facility] Stop: 07/15/21 21:59 Last Admin: 06/20/21 21:31 Dose: 25 mg Documented by: Magnesium Hydroxide (Magnesium Hydroxide Susp 30 Ml Udc) 30 ml PO DAILY PRN PRN Reason: Constipation Stop: 07/14/21 20:38 Multivitamins (Multivitamin Tab) 1 tab PO DAILY [facility] Stop: 07/16/21 08:59 Last Admin: 06/21/21 08:11 Dose: 1 tab Documented by: Oxybutynin Chloride (Oxybutynin Chloride Xl 5 Mg Tabcr) 10 mg PO DAILY [facility] Stop: 07/15/21 13:29 Last Admin: 06/21/21 08:11 Dose: 10 mg Documented by: Sodium Chloride (Sodium Chloride 0.65% Na Soln 45 Ml ([place])) 1 - 2 sprays NA PRN PRN PRN Reason: Nasal Dryness/Congestion Stop: 07/14/21 20:38 Trazodone HCl (Trazodone Hcl 50 Mg Tab) 50 mg PO HS [facility] Stop: 07/16/21 21:59 Last Admin: 06/20/21 21:31 Dose: 50 mg Documented by: Vitamin D (Cholecalciferol 1,000 Units 25 Mcg Tab) 2,000 units PO QAM [facility] Stop: 07/15/21 13:29 Last Admin: 06/21/21 08:11 Dose: 2,000 units Documented by: Mental Health & Subst Abuse Tx Psychiatrist Name of Psychiatrist: Dr. Baxter Psychiatrist's Psychiatric Appointment Comment: [address]. [place], [place] [address] Therapist Name of Therapist: [facility]- Chasity Mccauley Therapist's Therapy Appointment Comment: [address] [place] [address] Talent Acquisition Program Manager Name of Talent Acquisition Program Manager: [employer] Phone Number for Talent Acquisition Program Manager: [phone] Post Discharge Appointments Primary Care Physician Name Of Family Doctor: HEATHER Primary Care Provider Appointment Comment: [address], [place] [address] (1) Bipolar disorder Active/Remission status: remission status unspecified Qualified Code(s): F31.9 - Bipolar disorder, unspecified
[2021-06-21] MEDS: LOSARTAN POTASSIUM 25 MG TAB PO SCH (21:18)
[2021-06-21] MEDS: ATORVASTATIN 20 MG TAB PO SCH (21:18)
[2021-06-21] MEDS: LORazepam 1 MG TAB PO SCH (21:22)
[2021-06-21] MEDS: traZODone HCL 50 MG TAB PO SCH (21:22)
[2021-06-22] MEDS: LEVOTHYROXINE SODIUM 75 MCG TABLET PO SCH (07:48)
[2021-06-22] MEDS: CARIPRAZINE HCL 4.5 MG PO SCH (07:48)
[2021-06-22] MEDS: ASPIRIN 81 MG ECTAB PO SCH (07:48)
[2021-06-22] MEDS: LORazepam 0.5 MG TAB PO SCH ×2 (07:48→12:11)
[2021-06-22] MEDS: MULTIVITAMIN TAB PO SCH (07:49)
[2021-06-22] MEDS: OXYBUTYNIN CHLORIDE XL 5 MG TABCR PO SCH (07:49)
[2021-06-22] MEDS: CHOLECALCIFEROL 1,000 UNITS 25 MCG TAB PO SCH (07:49)
[2021-06-22] MEDS: DOCUSATE SODIUM 100 MG CAP PO SCH ×2 (07:49→20:58)
--- NOTE | 2021-06-22 15:19 | Psychiatric Progress Note ---
Date of Service June 22, 2021 Impression / Recommendations Impression The patient is a 61 year old woman with a history of BPAD and fixed romantic delusion who was admitted for increasingly disorganized and bizarre behavior. Diagnostically consistent with unspecified psychosis-differential includes acute eugenie vs mixed state vs primary psychotic disorder vs delusional disorder vs MDD with psychotic features vs substance-induced (less likely given negative UDS). MNPR due to recent paranoia. 06/22/21: continues to refuse trial of Clozaril, continues to refuse appropriate housing referrals. (1) Bipolar disorder: (2) Anxiety: (3) Insomnia: 07/23/21: updated outpatient therapist and psychiatrist on current MSE/resistance. SW to update sons re: discharge planning. 07/22/21: continues to refuse med changes and housing assistance, [address] Reviewed with patient if she does not rescind she will need to be discharged on 06/23/21. 07/21/21: continue current meds and tx plan. Family meeting. 06/19/21: Continue current medications and tx plan. Social work working on potential housing resources and case management. 06/18/21: Continue current medications and tx plan. Ongoing insight-oriented and open dialogue approach. 06/17/21: Continue Vraylar 4.5 mg qd, trazodone, ativan. 06/16/21: Fasting labs. Continue medications. 06/15/21: The patient was admitted to the [facility] ([facility]) on q15 min checks (behavioral with suicide precautions) for safety. The patient will participate in group, recreational, and milieu therapies and will be offered additional individual and family sessions as clinically appropriate. -Continue Vraylar 3mg (was on 4.5 mg prior to admission but family only able to bring in 3mg tabs) -Continue ativan 0.5 qAM, 0.5 mg qnoon and 1 mg qhs -Continue trazodone 50mg qhs prn -Encourage case management -Will contact Dr. Baxter for further collateral Inventory Assets Strengths: supportive children, good rapport with outpatient providers Needs: stable housing, case management, stabilization Suicide Risk Level Suicide Risk Level: Moderate (q15 min suicide checks) Suicide Risk Level Comments: Acute risk for self-harm is moderate given denial of SI but also with bizarre behaviors, thought blocking and disorganization raising concern for potential impulsive decisions. Risk Factors Assessment : Yes Do You Have Access To A Gun?: No Health Problems: No Mental Health Diagnoses: Yes Substance Use Disorders: No Previous Attempt: No Family History of Suicide: No Previous Psychiatric Hospitalization: Yes Hopelessness: No Protective Factors Assessment Employed: No Stable Relationships: Yes Supportive Family: Yes Good Rapport with Provider: Yes Interval History Identifying Information CEDRICK ANTUNEZ is a 61-year-old woman who is currently homeless (allowed her apartment lease to at the end of May), has a history of BPAD and a fixed romantic delusion, and was admitted on 06/14/21 20:39 on a 201 voluntary commitment for paranoia, delusions and bizarre behaviors. Chief Complaint rescinded 72 hr notice Review of Systems Sleep Information Total Hours of Sleep: 6.5 Meal Information Percent Meal Consumed - Breakfast: 100 Percent Meal Consumed - Lunch: 75 Percent Meal Consumed - Dinner: 25 Subjective Subjective Patient was seen & assessed and interval progress reviewed with treatment team. Patient insists that she stay in a hotel until she finds a suitable apartment an d that son pick her up. She appeared more anxious when pressed on discharge planning as she remains resistant to all suggestions/options provided by treatment team. She has poor memory at baseline. Physical Exam Psychiatric Orientation: alert and oriented x 3 Apperance: appropriately dressed and appropriately groomed Eye Contact: + fair eye contact Motor Behavior: steady gait and station and no abnormal motor movements; no psychomotor agitation Affect: + flat affect Mood: + anxious mood Thought Process: + circumstantial thought process Thought Content: + delusions (presume this is driving her resistance to housing.) Suicidal Thoughts: denies suicidal thoughts Homicidal Thoughts: denies homicidal thoughts Hallucinations: no auditory hallucinations and no visual hallucinations Cognition: language grossly intact Insight: + limited insight Judgement: + limited judgement Vital Signs (Past 24 Hours) Last Vital Signs Temp 36.8 C 06/22/21 06:29 Pulse 76 06/22/21 06:30 Resp 18 06/22/21 06:29 BP 131/74 06/22/21 06:30 Pulse Ox 96 06/14/21 22:39 Results & Data (U) Current Inpatient Medications Current Inpatient Medications: Current Inpatient Medications Acetaminophen (Acetaminophen 325 Mg Tab) 650 mg PO Q4H PRN PRN Reason: Headache or Minor Fever Stop: 07/14/21 20:38 Last Admin: 06/21/21 10:23 Dose: 650 mg Documented by: Al Hydrox/Mg Hydrox/Simethicone (Aluminum/Magnesium Susp 30 Ml Udc) 30 ml PO Q4H PRN PRN Reason: GI Upset Stop: 07/14/21 20:38 Aspirin (Aspirin 81 Mg Ectab) 81 mg PO DAILY [facility] Stop: 07/15/21 13:29 Last Admin: 06/22/21 07:48 Dose: 81 mg Documented by: Atorvastatin Calcium (Atorvastatin 20 Mg Tab) 20 mg PO HS [facility] Stop: 07/15/21 21:59 Last Admin: 06/21/21 21:18 Dose: 20 mg Documented by: Bismuth Subsalicylate (Bismuth Subsalicylate Liqd 236 Ml) 15 ml PO PRN PRN PRN Reason: Loose Stool Stop: 07/14/21 20:38 Cariprazine (Pt's Own Med: Cariprazine Hcl 4.5mg Cap) 1 ea PO DAILY [facility]; Protocol Stop: 07/19/21 08:59 Last Admin: 06/22/21 07:48 Dose: 1 ea Documented by: Docusate Sodium (Docusate Sodium 100 Mg Cap) 100 mg PO BID [facility] Stop: 07/15/21 20:59 Last Admin: 06/22/21 07:49 Dose: 100 mg Documented by: Hydroxyzine HCl (Hydroxyzine Hcl 25 Mg Tab) 50 mg PO HSZ PRN PRN Reason: Insomnia Stop: 07/14/21 20:38 Last Admin: 06/15/21 03:02 Dose: 50 mg Documented by: Hydroxyzine HCl (Hydroxyzine Hcl 25 Mg Tab) 25 mg PO Q4H PRN PRN Reason: Anxiety Stop: 07/14/21 20:38 Levothyroxine Sodium (Levothyroxine Sodium 75 Mcg Tablet) [facility] Stop: 07/16/21 07:59 Last Admin: 06/22/21 07:48 Dose: 75 mcg Documented by: Lorazepam (Lorazepam 1 Mg Tab) 1 mg PO HS [facility] Stop: 07/15/21 21:59 Last Admin: 06/21/21 21:22 Dose: 1 mg Documented by: Lorazepam (Lorazepam 0.5 Mg Tab) 0.5 mg PO QD@08 [facility] Stop: 07/16/21 07:59 Last Admin: 06/22/21 07:48 Dose: 0.5 mg Documented by: Lorazepam (Lorazepam 0.5 Mg Tab) 0.5 mg PO DAILYBL [facility] Stop: 07/16/21 11:59 Last Admin: 06/22/21 12:11 Dose: 0.5 mg Documented by: Losartan Potassium (Losartan Potassium 25 Mg Tab) 25 mg PO HS [facility] Stop: 07/15/21 21:59 Last Admin: 06/21/21 21:18 Dose: 25 mg Documented by: Magnesium Hydroxide (Magnesium Hydroxide Susp 30 Ml Udc) 30 ml PO DAILY PRN PRN Reason: Constipation Stop: 07/14/21 20:38 Multivitamins (Multivitamin Tab) 1 tab PO DAILY [facility] Stop: 07/16/21 08:59 Last Admin: 06/22/21 07:49 Dose: 1 tab Documented by: Oxybutynin Chloride (Oxybutynin Chloride Xl 5 Mg Tabcr) 10 mg PO DAILY [facility] Stop: 07/15/21 13:29 Last Admin: 06/22/21 07:49 Dose: 10 mg Documented by: Sodium Chloride (Sodium Chloride 0.65% Na Soln 45 Ml ([place])) 1 - 2 sprays NA PRN PRN PRN Reason: Nasal Dryness/Congestion Stop: 07/14/21 20:38 Trazodone HCl (Trazodone Hcl 50 Mg Tab) 50 mg PO HS [facility] Stop: 07/16/21 21:59 Last Admin: 06/21/21 21:22 Dose: 50 mg Documented by: Vitamin D (Cholecalciferol 1,000 Units 25 Mcg Tab) 2,000 units PO QAM [facility] Stop: 07/15/21 13:29 Last Admin: 06/22/21 07:49 Dose: 2,000 units Documented by: Mental Health & Subst Abuse Tx Psychiatrist Name of Psychiatrist: Dr. Baxter Psychiatrist's Date of Appointment with Psychiatrist: 07/07/21 Time of Appointment with Psychiatrist: 2:00 PM Psychiatric Appointment Comment: [address] [place] [address] Therapist Name of Therapist: [facility]- Chasity VanSaun Therapist's Date of Therapist Appointment: 06/29/21 Time of Therapist Appointment: 11am Therapy Appointment Comment: [address] [facility], [place] [address] G[place] Cook Name of Gum Cook: [employer] Phone Number for Gum Cook: [phone] Case Management Appointment Comment: will follow up with you directly Post Discharge Appointments Primary Care Physician Name Of Family Doctor: SAURAV [facility]is [facility] Date of Appointment with PCP: 06/24/21 Time of Appointment with PCP: 9:50 AM Provider Appointment Comment: [address] [place] [address] [address], [place] [phone] (1) Bipolar disorder Active/Remission status: remission status unspecified Qualified Code(s): F31.9 - Bipolar disorder, unspecified
[2021-06-22] MEDS: traZODone HCL 50 MG TAB PO SCH (20:58)
[2021-06-22] MEDS: ATORVASTATIN 20 MG TAB PO SCH (20:58)
[2021-06-22] MEDS: LOSARTAN POTASSIUM 25 MG TAB PO SCH (20:58)
[2021-06-22] MEDS: LORazepam 1 MG TAB PO SCH (21:00)
[2021-06-23] MEDS: ASPIRIN 81 MG ECTAB PO SCH (08:14)
[2021-06-23] MEDS: LEVOTHYROXINE SODIUM 75 MCG TABLET PO SCH (08:14)
[2021-06-23] MEDS: CARIPRAZINE HCL 4.5 MG PO SCH (08:15)
[2021-06-23] MEDS: DOCUSATE SODIUM 100 MG CAP PO SCH (08:16)
[2021-06-23] MEDS: CHOLECALCIFEROL 1,000 UNITS 25 MCG TAB PO SCH (08:16)
[2021-06-23] MEDS: OXYBUTYNIN CHLORIDE XL 5 MG TABCR PO SCH (08:17)
[2021-06-23] MEDS: MULTIVITAMIN TAB PO SCH (08:17)
[2021-06-23] MEDS: LORazepam 0.5 MG TAB PO SCH ×2 (08:20→11:58)
--- NOTE | 2021-06-23 11:24 | Discharge Summary ---
Date of Service June 23, 2021 History of Present Illness As per Dr. Marsh on admission: Miranda presents for psychiatric admission at the recommendation of her outpatient psychiatrist for increasingly bizarre and disorganized behaviors in recent weeks. Miranda recently let her apartment lease , without the knowledge of her family, and is now homeless in the context of paranoia about feeling unsafe there and being bothered by traffic noise. She had been planning to move in with a man she believed lived in the area, Grey, he moved out of [facility] years ago, and has been repeatedly sitting on the steps outside his old home resulting in at least two recent encounters with police who have been called to remove her from the premises. She also was making statements of needing to visit her son in [place], where she believed he was hospitalized, even though he has been living in [place] and has not been ill. She follows with her outpatient psychiatrist Dr. Baxter who has been concerned and recently increased her Vraylar last month. She has been taking Vraylar 4.5mg qd, ativan 0.5 mg qAm, qnoon as well as 1mg qhs, and trazodone 50mg qhs prn. On admission she initially attempted to go out through the locked unit doors stating that she needed to find Grey. Today she states she came to the hospital due to her outpatient providers having concerns about her safety especially now that she is homeless. She continues to insist that Grey lives in [place] and states that police were called because "his sister doesn't like me because I have a bipolar diagnosis". She states she has been talking to Grey via text messages (her son confirmed with Grey that he has not communicated with her in many years) and states they have a platonic relationship. She states no further concerns about her son being in the hospital "since I called him and he was at work in [place] so I knew he was ok". She states sleep has been "not excellent" (5-7 hours per night), denies any appetite or mood changes. Psychiatric ROS notable for hx of eugenie (last "a few years ago" per her recollection), denies hx of psychosis, denies auditory hallucinations, denies substance use, denies PTSD/trauma symptoms, endorses hx of anxiety. Physical Exam Psychiatric See admission H&P and DOD assessment. Vital Signs (Past 24 Hours) Last Vital Signs Temp 36.7 C 06/23/21 06:25 Pulse 69 06/23/21 06:25 Resp 18 06/23/21 06:25 BP 139/75 06/23/21 06:25 Pulse Ox 96 06/14/21 22:39 Principal Diagnosis delusional disorder Psychiatric Data See daily stay summary. In short, safety was maintained and the patient was superficially cooperative with unit routines. She repeatedly was offered assistance with housing applications and medication changes (outpatient psychiatrist and Dr. Marsh had discussed a trial of Clozaril) but declined. She made excuses for why she could not reside certain places, mainly out of hope that she could reside with Mr. Zamora. She became more anxious when reality tested re: this. Despite her fixed delusion her behavior was organized, she attended to ADLs (eating, drinking, grooming) and was behaviorally appropriate in groups (no impulsivity or inappropriate conversation). She did not appear to be responding to internal stimuli. She slept well and took her outpatient medications as prescribed. She denied thoughts to harm herself or others for the entire stay. She signed then rescinded a 72 hr notice during her stay. She participated in a family meeting with her son around housing options and continued to refuse [email or web address], but after a Zoom meeting with Dr. Baxter and therapist Chasity Mccauley she is now willing to look at [facility] and son is hoping to take her today. Confirmed that son Margarito is [place] to pick her up and help her look at housing options over the next few days. She is more organized in that taking notes to orient self as historically poor memory that seems out of proportion to level of psychosis. She will be staying in a local hotel pending housing (her choice). Son was made aware of therapist concerns re: mail. The patient's delusion appears to be fixed and not criteria for involuntary co mmitment or medications over objection as she is otherwise able to maintain bodily integrity. Ongoing inpatient hospitalization is unlikely to address her housing issue as she has refused to apply to housing without seeing it for at least 5 days. She voices understanding of team recommendations with regards to [facility]. Day of Discharge Assessment Today the patient voices readiness for discharge. They note improvement in mood and deny thoughts to harm self or others. Thoughts are improved from admission. There is no evidence of hallucinations or inability to care for basic ADLs due to her fixed delusions. She has a safe temporary plan for hotel pending more permanent housing. She agrees to take mediations as prescribed and keep follow- up appointments. They are stable for discharge to outpatient level of care. She expressed thanks for her care here. Transition of Care Transition Of Care Record: was reviewed with the patient Advance Directives Advance Directives Information Provided: Yes Advance Directives: No Mental Health Advance Directive: No Advance Directives on File: No Living Will: No Power of Elementary School Teacher: No Advance Directives Reason:: Declines as Mental Health Visit. Suicide Risk Level Suicide Risk Level Comments: low--denied SI, stable for outpatient Risk Factors Assessment : Yes Do You Have Access To A Gun?: No Health Problems: No Mental Health Diagnoses: Yes Substance Use Disorders: No Previous Attempt: No Family History of Suicide: No Previous Psychiatric Hospitalization: Yes Hopelessness: No Protective Factors Assessment Employed: No Stable Relationships: Yes Supportive Family: Yes Good Rapport with Provider: Yes Tobacco Cessation at Discharge Tobacco Cessation Medication Prescribed at Discharge: Not Applicable/Non-Smoker Total Time Total Time Spent: Greater Than 30 Minutes Total Time Includes: Examination of the patient, Discharge Planning, Medication Reconciliation and Communication with other providers Discharge Data Lab Results 06/14/21 06/14/21 06/14/21 16:00 17:10 17:10 WBC 8.22 RBC 3.85 L Hgb 12.3 Hct 36.9 L MCV 95.8 MCH 31.9 MCHC 33.3 RDW Std Deviation 44.9 RDW Coeff of Arturo 12.8 Plt Count 262 MPV 9.6 Immature Gran % (Auto) 0.1 Neut % (Auto) 62.6 Lymph % (Auto) 26.3 [place] % (Auto) 9.5 Eos % (Auto) 1.1 Baso % (Auto) 0.4 Neut # (Auto) 5.15 Lymph # (Auto) 2.16 [place] # (Auto) 0.78 H Eos # (Auto) 0.09 Baso # (Auto) 0.03 Immature Gran # (Auto) 0.01 Sodium 141 Potassium 3.7 Chloride 106 Carbon Dioxide 28 Anion Gap 7 BUN 14 Creatinine 0.91 Est Cr Clr Drug Dosing 50.2 Est GFR ( Amer) 80.0 Est GFR (Non-Af Amer) 69.1 BUN/Creatinine Ratio 15.4 Glucose 212 H Fasting Glucose Calcium 9.3 Total Bilirubin 0.6 AST 38 ALT 25 Alkaline Phosphatase 66 Total Protein 6.6 Albumin 4.3 Globulin 2.3 L Albumin/Globulin Ratio 1.9 Triglycerides Cholesterol LDL Cholesterol, Calc VLDL Cholesterol, Calc HDL Cholesterol Cholesterol/HDL Ratio TSH Urine Color Dark Yellow Urine Appearance Clear Urine pH 5.0 Ur Specific [place] 1.027 Urine Protein Trace H Urine Glucose (UA) Negative Urine Ketones Trace H Urine Blood Negative Urine Nitrite Negative Urine Bilirubin Negative Urine Urobilinogen Negative Ur Leukocyte Esterase Trace H Urine WBC (Auto) 5-10 H Urine RBC (Auto) 0-4 U Hyaline Cast (Auto) 1-5 U Epithel Cells (Auto) >30 H Urine Bacteria (Auto) Negative Urine Crystals Not Reportable Calcium Oxalate Crystal Present A Urine Mucus Present A Salicylates Urine Opiates Screen Ur Methadone, Qual Acetaminophen Urine Barbiturates Ur Phencyclidine (PCP) U Amphetamin/Meth Scrn MDMA (Ecstasy) Screen U Benzodiazepines Scrn Ur Cocaine Metabolite U Marijuana (THC) Screen Ethyl Alcohol mg/dL SARS-CoV-2, RNA, NAAT 06/14/21 06/14/21 06/14/21 17:10 17:10 17:10 WBC RBC Hgb Hct MCV MCH MCHC RDW Std Deviation RDW Coeff of Arturo Plt Count MPV Immature Gran % (Auto) Neut % (Auto) Lymph % (Auto) [place] % (Auto) Eos % (Auto) Baso % (Auto) Neut # (Auto) Lymph # (Auto) [place] # (Auto) Eos # (Auto) Baso # (Auto) Immature Gran # (Auto) Sodium Potassium Chloride Carbon Dioxide Anion Gap BUN Creatinine Est Cr Clr Drug Dosing Est GFR ( Amer) Est GFR (Non-Af Amer) BUN/Creatinine Ratio Glucose Fasting Glucose Calcium Total Bilirubin AST ALT Alkaline Phosphatase Total Protein Albumin Globulin Albumin/Globulin Ratio Triglycerides Cholesterol LDL Cholesterol, Calc VLDL Cholesterol, Calc HDL Cholesterol Cholesterol/HDL Ratio TSH 1.944 Urine Color Urine Appearance Urine pH Ur Specific [place] Urine Protein Urine Glucose (UA) Urine Ketones Urine Blood Urine Nitrite Urine Bilirubin Urine Urobilinogen Ur Leukocyte Esterase Urine WBC (Auto) Urine RBC (Auto) U Hyaline Cast (Auto) U Epithel Cells (Auto) Urine Bacteria (Auto) Urine Crystals Calcium Oxalate Crystal Urine Mucus Salicylates < 3.0 L Urine Opiates Screen Ur Methadone, Qual Acetaminophen < 3 L Urine Barbiturates Ur Phencyclidine (PCP) U Amphetamin/Meth Scrn MDMA (Ecstasy) Screen U Benzodiazepines Scrn Ur Cocaine Metabolite U Marijuana (THC) Screen Ethyl Alcohol mg/dL < 10.0 SARS-CoV-2, RNA, NAAT 06/14/21 06/14/21 06/17/21 17:24 18:28 07:53 WBC RBC Hgb Hct MCV MCH MCHC RDW Std Deviation RDW Coeff of Arturo Plt Count MPV Immature Gran % (Auto) Neut % (Auto) Lymph % (Auto) [place] % (Auto) Eos % (Auto) Baso % (Auto) Neut # (Auto) Lymph # (Auto) [place] # (Auto) Eos # (Auto) Baso # (Auto) Immature Gran # (Auto) Sodium Potassium Chloride Carbon Dioxide Anion Gap BUN Creatinine Est Cr Clr Drug Dosing Est GFR ( Amer) Est GFR (Non-Af Amer) BUN/Creatinine Ratio Glucose Fasting Glucose 135 H Calcium Total Bilirubin AST ALT Alkaline Phosphatase Total Protein Albumin Globulin Albumin/Globulin Ratio Triglycerides 81 Cholesterol 157 LDL Cholesterol, Calc 59 VLDL Cholesterol, Calc 16 HDL Cholesterol 82 Cholesterol/HDL Ratio 1.9 TSH Urine Color Urine Appearance Urine pH Ur Specific [place] Urine Protein Urine Glucose (UA) Urine Ketones Urine Blood Urine Nitrite Urine Bilirubin Urine Urobilinogen Ur Leukocyte Esterase Urine WBC (Auto) Urine RBC (Auto) U Hyaline Cast (Auto) U Epithel Cells (Auto) Urine Bacteria (Auto) Urine Crystals Calcium Oxalate Crystal Urine Mucus Salicylates Urine Opiates Screen Neg Ur Methadone, Qual Neg Acetaminophen Urine Barbiturates Neg Ur Phencyclidine (PCP) Neg U Amphetamin/Meth Scrn Neg MDMA (Ecstasy) Screen Neg U Benzodiazepines Scrn Neg Ur Cocaine Metabolite Neg U Marijuana (THC) Screen Neg Ethyl Alcohol mg/dL SARS-CoV-2, RNA, NAAT NEGATIVE Hospital Course (1) Bipolar disorder: (2) Anxiety: (3) Insomnia: 07/23/21: updated outpatient therapist and psychiatrist on current MSE/resistance. SW to update sons re: discharge planning. 07/22/21: continues to refuse med changes and housing assistance, [address] Reviewed with patient if she does not rescind she will need to be discharged on 06/23/21. 07/21/21: continue current meds and tx plan. Family meeting. 06/19/21: Continue current medications and tx plan. Social work working on potential housing resources and case management. 06/18/21: Continue current medications and tx plan. Ongoing insight-oriented and open dialogue approach. 06/17/21: Continue Vraylar 4.5 mg qd, trazodone, ativan. 06/16/21: Fasting labs. Continue medications. 06/15/21: The patient [facility] mental health unit) on q15 min checks (behavioral with suicide precautions) for safety. The patient will participate in group, recreational, and milieu therapies and will be offered additional individual and family sessions as clinically appropriate. -Continue Vraylar 3mg (was on 4.5 mg prior to admission but family only able to bring in 3mg tabs) -Continue ativan 0.5 qAM, 0.5 mg qnoon and 1 mg qhs -Continue trazodone 50mg qhs prn -Encourage case management -Will contact Dr. Baxter for further collateral Mental Health & Subst Abuse Tx Psychiatrist Name of Psychiatrist: Dr. Baxter Psychiatrist's Date of Appointment with Psychiatrist: 07/07/21 Time of Appointment with Psychiatrist: 2:00 PM Psychiatric Appointment Comment: [address] [facility] [address] [place] [address] Therapist Name of Therapist: [facility]- Chasity Mccauley Therapist's Date of Therapist Appointment: 06/29/21 Time of Therapist Appointment: 11am Therapy Appointment Comment: [address] [place] [address] Slab Lifting Engineer Name of Slab Lifting Engineer: [employer] Phone Number for Slab Lifting Engineer: [phone] Case Management Appointment Comment: will follow up with you directly Post Discharge Appointments Primary Care Physician Name Of Family Doctor: HEATHER Carrillo - SAURAV Aguilera [facility] Date of Appointment with PCP: 06/24/21 Time of Appointment with PCP: 9:50 AM Provider Appointment Comment: [address] [place] [address] # A, DEO Carrillo [id number] Smoking Cessation Counseling Tobacco Cessation Medication Prescribed at Discharge: Not Applicable/Non-Smoker Contact Information Discharge Discharge Plan Discharge Items Patient Disposition: Home - Self-Care Reason For Visit: PSYCHOSIS Discharge Diagnosis: delusional disorder Activity: Resume your previous activity Non-emergency contact: Primary Care Provider, Psychiatrist and Therapist Call non-emergency contact if: you have any medication questions and your symptoms worsen Follow-up/Referrals: Herve Carmen III, MD [Primary Care Provider] - Diet: Regular Addtl Attending Provider Instructions: SPECIAL CARE INSTRUCTIONS: 1. Follow through with your scheduled aftercare appointments. If unable to keep an appointment, please call to reschedule. 2. Take your medication only as prescribed. Medication should not be changed or stopped without the approval of your doctor. In the event of worsening symptoms or concerns about side effects, contact your doctor immediately. 3. Utilize new healthy coping skills, anger management skills, and stress management skills learned during your hospitalization. Journal feelings and process them with a support person. Identify stressors or situations that may result in relapse, deterioration or inappropriate behaviors and develop a plan to deal with those issues. 4. If your coping skills are ineffective and you are in crisis, contact your outpatient providers for direction. If unable to reach your providers, please call the [facility] CRISIS LINE AT , go to the [facility] walk-in center at [address] [place] [address], [facility], or go to the closest Emergency Room. 5. Avoid alcohol and un-prescribed drugs. 6. You have been provided with the Mental Health Advance Directives Pamphlet for your review. 7. Your condition is stable for discharge to outpatient level of care, but recovery is an ongoing process. Ifthoughts to harm yourself or others return, follow the safety plan developed during your stay. Planning for a safe return home includes securing weapons. Our treatment team recommends weaponsbe removed from the home until your outpatient provider reassesses your progress. In rare cases where the items themselvescannot be removed, guns and ammunitionshould be secured separatelyand keys stored by a reliable personoutside of the home. If you were admitted on an involuntary commitment, the police or other legal authorities may be involved in this process. AFTERCARE APPOINTMENTS: * Please call your insurance company prior to your scheduled appointment to confirm your aftercare providers are covered. Take your insurance information to your appointments. WHO TO CALL AND WHEN: Medical Emergencies: For questions or emergencies related to your hospital stay, please contact the Inpatient Behavioral Health Unit at [phone]. A pointing machine operator is on-call 06/09 for the Behavioral Health Unit for emergencies At any time you feel your situation is an emergency, you may also call 911 immediately. Pending Studies at Discharge: Yes Stand-Alone Forms: My [facility], Smoking Cessation Medications and DC Order Prescriptions: Continued oxybutynin chloride [Ditropan XL] 10 mg tablet extended release 24hr 10 mg PO DAILY Qty: 30 RF: 11 atorvastatin [Lipitor] 20 mg tablet 20 mg PO HS Qty: 30 RF: 11 levothyroxine [Synthroid] 75 mcg tablet 75 mcg PO DAILY RF: 0 Vraylar 1.5 mg capsule 4.5 mg PO DAILY RF: 0 trazodone 50 mg tablet 50 mg PO HS PRN (Reason: Insomnia) RF: 0 lorazepam [Ativan] 0.5 mg tablet 0.5 mg PO AMPM RF: 0 docusate sodium [Colace] 100 mg Capsule 100 mg PO BID RF: 0 cholecalciferol (vitamin D3) [Vitamin D3] 2,000 unit Tablet 2,000 unit PO QAM RF: 0 acetaminophen [Tylenol Extra Strength] 500 mg Tablet 1,000 mg PO Q6H PRN (Reason: Pain) RF: 0 losartan [Cozaar] 25 mg tablet 25 mg PO HS RF: 0 lorazepam 0.5 mg Tablet 1 mg PO HS RF: 0 multivitamin Tablet 1 tab PO DAILY RF: 0 aspirin 81 mg Tablet,Delayed Release (Dr/Ec) 81 mg PO DAILY RF: 0 Discharge Orders: Discharge Order (Routine); Ordered 06/23/21 Ordered By: Jillian Josue Admission Data Admit Date/Time: 06/14/21 20:39 Attending Provider: Jillian Josue Admit Provider: Ladi Marsh Primary Care Provider: Herve Carmen III Other Interventions: PSY Interdisciplinary Discharge Planning Last Done: 06/23/21 09:42 Coding Level of Care Code 55082 D/C day mgmt > 30 min Diagnoses Bipolar disorder F31.9 Active/Remission status: remission status unspecified Anxiety F41.9 Insomnia G47.00
== END 2021-06-23 14:55 | disposition home or self-care (01) | DRG 885 ==
LOC: ED 15:47 → 3S 20:39 → SUATTDRO 20:39 → 3S 22:51

== ENCOUNTER 2022-10-16 00:44 | Inpatient (IN) ==
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
[2022-10-16 01:31] LABS: Basophils # (auto) 0.07 K/uL (0.00-0.20); Eosinophils # (auto) 0.08 K/uL (0.00-0.50); Eosinophils % (auto) 1.1 %; Hematocrit (blood only) 39.3 % (37.0-47.0); Hemoglobin 12.9 g/dl (12.0-16.0); Immature Granulocytes # (auto) 0.02 K/uL (0.01-0.20); Immature Granulocytes % (auto) 0.3 %; Lymphocytes # (auto) 1.71 K/uL (1.20-3.40); Lymphocytes % (auto) 24.1 %; Mean Corpuscular Hemoglobin 31.8 pg (25.0-34.0); Mean Corpuscular Hgb Conc 32.8 g/dL (32.0-36.0); Mean Corpuscular Volume 96.8 fL (80.0-100.0); Mean Platelet Volume 9.9 fL (9.4-12.4); Monocytes # (auto) 0.47 K/uL (0.11-0.59); Monocytes % (auto) 6.6 %; Neutrophils # (auto) 4.76 K/uL (1.40-6.50); Neutrophils % (auto) 66.9 %; Platelet Count 218 K/uL (130-400); RDW Coefficient of Variation 11.9 % (11.5-14.5); RDW Standard Deviation 42.7 fL (36.4-46.3); Red Blood Count 4.06 M/uL (4.20-5.40); White Blood Count 7.11 K/ul (4.8-10.8)
[2022-10-16 01:48] LABS: Albumin Level 5.3 gm/dl (3.4-5.0); Bilirubin,Total 0.6 mg/dl (0.2-1.0); Potassium 3.2 mmol/L (3.5-5.1)
[2022-10-16 01:50] LABS: Appearance Urine Cloudy (Clear); Bacteria Urine Automated 1+ (Negative); Bilirubin Urine Negative (Negative); Blood Urine Negative (Negative); Color Urine Yellow; Glucose Urine UA Negative (Negative); Ketones Urine Trace (Negative); Leukocyte Esterase Urine 1+ (Negative); Nitrite Urine Negative (Negative); Protein Urine 1+ (Negative); Specific Gravity Urine 1.028 (1.000-1.030); Urobilinogen Urine Negative (Negative); pH Urine 5.5 (4.5-7.5)
[2022-10-16 01:52] LABS: Acetaminophen < 3 ug/ml (10-30); Salicylate < 3.0 mg/dl (3.0-30)
[2022-10-16 01:54] LABS: Albumin Globulin Ratio 2.5 (0.9-2); BUN Creatinine Ratio 30.8 (10-20); Creatinine Clr Calc Pharmacy 51.7 ml/min; Est GFR (African American) 95.8 ml/min; Est GFR (Non-African American) 82.6 ml/min; Globulin 2.1 gm/dl (2.5-4.0); Total Protein 7.4 gm/dl (6.0-8.3)
[2022-10-16] MEDS ORDERED: LORazepam 1 MG TAB PO STA (02:01)
[2022-10-16] MEDS ORDERED: traZODone HCL 50 MG TAB PO ONE (02:01)
[2022-10-16 02:08] LABS: Amphetamines+Metham, Urine Neg (Neg); Barbiturates, Urine Neg (Neg); Benzodiazepine, Urine Neg (Neg); Cocaine, Urine Neg (Neg); MDMA (Ecstacy), Urine Neg (Neg); Methadone, Urine Neg (Neg); Opiate, Urine Neg (Neg); Phencyclidine, Urine Neg (Neg)
[2022-10-16 02:08] LABS: Thyroid Stimulating Hormone 0.186 uIu/ml (0.300-4.500)
[2022-10-16 02:16] LABS: RBC Urine Automated 0-4 /hpf (0-4)
[2022-10-16 02:52] LABS: T4 Free Thyroxine 1.08 ng/dl (0.61-1.60)
[2022-10-16] MEDS ORDERED: POTASSIUM CHLORIDE CRTAB 20 MEQ TABCR PO STA (08:29)
[2022-10-16] MEDS ORDERED: ACETAMINOPHEN 500 MG TAB PO PRN (12:04)
[2022-10-16] MEDS ORDERED: CHOLECALCIFEROL 1,000 UNITS 25 MCG TAB PO SCH (12:15)
[2022-10-16] MEDS ORDERED: LOSARTAN POTASSIUM 25 MG TAB PO SCH ×2 (12:15→22:00)
[2022-10-16] MEDS ORDERED: ALUMINUM/MAGNESIUM SUSP 30 ML UDC PO PRN (14:33)
[2022-10-16] MEDS ORDERED: MAGNESIUM HYDROXIDE SUSP 30 ML UDC PO PRN (14:33)
[2022-10-16] MEDS ORDERED: BISMUTH SUBSALICYLATE LIQD 236 ML PO PRN (14:33)
[2022-10-16] MEDS ORDERED: ACETAMINOPHEN 325 MG TAB PO PRN (14:33)
[2022-10-16] MEDS ORDERED: hydrOXYzine HCl 25 MG TAB PO PRN ×2 (14:33)
[2022-10-16] MEDS ORDERED: SODIUM CHLORIDE 0.65% NA SOLN 45 ML (OCEAN) PRN (14:33)
[2022-10-16] MEDS ORDERED: risperiDONE 0.5 MG TABLET PO PRN (14:39)
[2022-10-16] MEDS ORDERED: traZODone HCL 50 MG TAB PO PRN (14:40)
[2022-10-16] MEDS: LORazepam 0.5 MG TAB PO SCH (15:29)
[2022-10-16] MEDS ORDERED: risperiDONE 1 MG TABLET PO ONE (21:00)
[2022-10-16] MEDS ORDERED: ATORVASTATIN 20 MG TAB PO SCH ×2 (21:00→22:00)
[2022-10-16] MEDS ORDERED: DOCUSATE SODIUM 100 MG CAP PO SCH (21:00)
[2022-10-16] MEDS ORDERED: traZODone HCL 50 MG TAB PO SCH (21:00)
[2022-10-16] MEDS ORDERED: LORazepam 1 MG TAB PO SCH ×2 (21:00→22:00)
[2022-10-16] MEDS ORDERED: OXYBUTYNIN CHLORIDE XL 5 MG TABCR PO SCH (21:15)
[2022-10-17] MEDS ORDERED: LEVOTHYROXINE SODIUM 75 MCG TABLET PO SCH (06:30)
[2022-10-17] MEDS: LORazepam 0.5 MG TAB PO SCH ×2 (08:40→13:33)
--- NOTE | 2022-10-17 09:06 | History & Physical ---
Date of Service October 17, 2022 Impression / Recommendations Impression 62 yo woman with a history of BPAD, insomnia and panic disorder presenting with erratic behavior, increased romantic delusions and poor self-care with significant weight loss concerning for episode of psychosis likely due to eugenie. Diagnostically differential includes manic episode of BPAD versus schizoaffective disorder. UDS negative and she denies any recent substance use. Seems symptoms likely emerged in context of recent medication non-adherence given she presents with significant paranoia and odd beliefs about various medications. Hypokalemia likely due to recent poor intake which seems to be related to paranoia about contamination in her food/apartment. She is on a 302 involuntary commitment which expires on 10/21/2022 at 11:22am. Discussed medication treatment options in detail. Discussed risks, benefits and alternatives. She is refusing trial of risperidone or other mood stabilizers as substitutes for Vraylar (which is not on hospital formulary and with unclear recent efficacy) but ultimately agrees to trial of olanzapine. She also consents to continuing trazodone and ativan which she has been on for the last few years. Reviewed side effects including sedation with trazodone and addiction potential/not operating motor vehicle/increased fall risks/cognitive risks with ativan. Reviewed side effects with olanzapine including but not limited to: movement (TD, NMS), cardiac (QTc prolongation), and metabolic (stroke, insulin resistance) and necessity for fasting lipid and glucose labwork and AIMS done with score of 0. Ideally she would also agree to start metformin given concurrent type II diabetes but she is adamantly opposed to this, even with extensive attempts at motivational interviewing. MNPR due to paranoia, eugenie Overall I spent a total of 85 minutes for this admission including review of chart records, review of labwork, direct evaluation of the patient, counseling the patient, ordering medication, risk assessment, discussion with the psychiatric liason RN, psychiatric treatment team during rounds and documentation in the electronic health record. (1) Bipolar disorder with severe eugenie: (2) Panic disorder: (3) Type 2 diabetes mellitus: (4) HTN (hypertension): (5) Hypothyroidism: (6) Hyperlipidemia: (7) Hyperactivity of bladder: Plan 10/17/2022: The patient was admitted to the [facility] ([facility] unit) on q15 min checks (behavioral with suicide precautions) for safety. The patient will participate in group, recreational, and milieu therapies and will be offered additional individual and family sessions as clinically appropriate. -Start potassium supplementation given hypokalemia in ED -Start olanzapine 5mg HS with 2.5mg BID prn for agitation/paranoia/eugenie -Fasting glucose, HbA1c, fasting lipid panel, K+ level tomorrow AM Inventory Assets Strengths: supportive relationships, good rapport with her outpatient providers Needs: safety and stabilization, medication adjustment, additional coping skills, increased outpatient services Suicide Risk Level Suicide Risk Level: Moderate (q15 min suicide checks) (psychosis with erratic behavior prior to admission but feels safe in the hospital, able to safety contract and agrees to let nursing/staff know should they develop plan, intent or feel unable to remain safe.) Suicide Risk Level Comments: Risk Factors Assessment Male: No : Yes Do You Have Access To A Gun?: No Health Problems: Yes Mental Health Diagnoses: Yes Substance Use Disorders: No Previous Attempt: No Family History of Suicide: No Previous Psychiatric Hospitalization: Yes Protective Factors Assessment Employed: No Supportive Family: Yes Good Rapport with Provider: Yes Psychiatric History Identifying Data CEDRICK ANTUNEZ is a 62-year-old F who currently lives in an apartment alone, has a history of bipolar disorder, anxiety, insomnia and fixed romantic delusion, and was admitted on 10/16/22 14:20 on a 302 involuntary commitment for psychosis. Chief Complaint "I called [employer] and left messages to get a room with a shower and a parking space". History of Present Illness Enedelia was brought to the ED by police after being pulled over for driving erratically and presenting with bizarre behavior. She presented with paranoia and possible manic symptoms while in the ED and reported recent stressors including fighting with her sons (who typically are excellent supports and finance her apartment for her) and increased concerns about various contaminants in her apartment. Reports issues with hornets, second hand smoke and issues with her shower resulting in her moving her belongings onto the front porch of her apartment complex and then leaving items there as she drove away in her car. Her outpatient psychiatrist completed the 302 petition statement and 302 commitment was upheld in the ED. She reports leaving her apartment due to concerns for hornets, bugs and smoke. When she was stopped by police for driving erratically she reported being homeless (she continues to have her apartment with active lease) and stating her desire to see her "friend" Grey who she has stalked in the past due to romantic delusions. Typically when she goes into an episode of acute psychosis she will start to talk about this friend and often leaves her apartment/states her intent to become homeless. She presented with almost identical concerns during her last inpatient admission to [facility] in June 2021. She reports not showering in the last two weeks which she reports is due to it being a "cement shower and fears of falling". Since admission to the unit has been very fixated on the amount of toilet paper she has. She has repeatedly gone to the nurses station to inform them of how much toilet paper she has remaining on the roll. She appears to have lost weight since her previous admission last year, she reports not eating well recently "due to stress from the apartment". She endorses anxiety with upset stomach and panic attacks. She's unclear about how consistently she's been taking her psychiatric medications but sounds like she may have been non-adherent recently though today tells me "definitely" she's been taking the Vraylar every day. She is currently prescribed psychiatric medications of: Vraylar 6mg daily, trazodone 50mg HS prn, ativan 0.5mg qAM & 1400 as well as ativan 1mg HS. She agrees she has been recently diagnosed with type II diabetes but that she will not go on metformin or other diabetes medications because her family members were on this and they "popped all the time". She is also refusing to consider continuing risperidone which was trialed last evening since Vraylar is not on the hospital formulary, though denies this is due to having any side effects. Past Psychiatric History Current Psychiatric Diagnosis: Bipolar and Panic disorder Outpatient Services: Dr. Baxter for psychiatry, Chasity Mccauley for therapy Previous Psych Admissions: multiple at [facility] in the past: June 2021, Feb 2010; [facility] in 2008 Do You Have Access To A Gun?: No History of Previous Suicide Attempt: No Past Medication Trials: multiple, has not been on clozapine but declined this in the past; Vraylar most consistent over last two years Past Head Trauma/Neuro History History of Concussion/Seizure: No Allergies Allergy/AdvReac Type Severity Reaction Status Date / Time latex Allergy Unknown UNKNOWN Verified 12/15/21 09:03 codeine AdvReac Mild NAUSEA, Verified 12/15/21 09:03 VOMITING Home Medications Medication Instructions Recorded Confirmed Type cholecalciferol (vitamin D3) 50 2,000 unit PO QAM 02/24/18 10/16/22 History mcg (2,000 unit) tablet (Vitamin D3) docusate sodium 100 mg capsule 100 mg PO BID 02/24/18 10/16/22 History (Colace) lorazepam 0.5 mg tablet (Ativan) 0.5 mg PO AMPM 02/24/18 10/16/22 History trazodone 50 mg tablet 50 mg PO HS PRN Insomnia 02/24/18 10/16/22 History acetaminophen 500 mg tablet 1,000 mg PO Q6H PRN Pain 03/06/18 10/16/22 History (Tylenol Extra Strength) levothyroxine 75 mcg tablet 75 mcg PO DIRECTED 01/04/20 10/16/22 History (Synthroid) lorazepam 0.5 mg tablet 1 mg PO HS 06/15/21 10/16/22 History multivitamin 1 tab PO DAILY 06/15/21 10/16/22 History losartan 25 mg tablet (Cozaar) 25 mg PO HS #30 tabs 11/02/21 10/16/22 Rx oxybutynin chloride 10 mg 10 mg PO DAILY #30 tabs 11/02/21 10/16/22 Rx tablet,extended release 24 hr (Ditropan XL) atorvastatin 20 mg tablet (Lipitor) 20 mg PO HS #30 tabs 12/15/21 10/16/22 Rx cariprazine 6 mg capsule (Vraylar) 6 mg PO DAILY 10/16/22 10/16/22 History Family History Family History of: None Alcohol History Hx of Alcohol Use Over the Past 12 Months: No AUDIT Total Score: 0 Smoking Use Have You Smoked or Used Tobacco Products in the Last 30 Days: No Smoking Status: Never smoker Substance History Hx of Prescription Med Misuse Over the Past 12 Months: No Hx of Over the Counter Med Misuse Over the Past 12 Months: No Hx of Inhalent Misuse Over the Past 12 Months: No Hx of Organic Substance Use Over the Past 12 Months: No Hx of Illegal Substances/Street Drug Use Over Past 12 Months: No Problems as a Result of Past Substance Use: None Identified Personal History Living Arrangements: Apartment Highest Grade Completed: College Employment Status: Disabled (mental health) Marital Status: Single Number Of Children: 2 adult sons Beliefs That Will Affect Care: None Current Legal Problems: No Hx Legal Problems: No Hx Traumatic Life Events: Yes Patient History Medical History (Updated 10/17/22 @ 11:10 by Ladi Marsh MD) Anxiety Bipolar 1 disorder Bipolar disorder HTN (hypertension) Insomnia Panic disorder Psychiatric disorder Thought disorder Surgical History H/O: section History of dilation and curettage History of neck surgery History of oral surgery S/P breast biopsy Family History Father Myocardial infarction Heart disease Prostate cancer Other Alzheimer disease Diabetes Denies family history of Ovarian cancer Breast cancer Colorectal cancer Social History Smoking Status: Never smoker Second Hand Exposure: No; Do You Dip or Chew Tobacco: No; Hx Alcohol Use: No Hx Substance Use: No Preferred Language: Bermudian Communication Ability: Effective Visual Impairment: No Limitations Hearing Ability: Normal 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: No Beliefs That Will Affect Care: None marital status: Current Living Situation: Family current occupational status: retired Feels Safe at Home: Declines to Answer Childhood Exposure to Second-Hand Smoke: Yes Diet: regular caffeine: Yes Dental Care, Regularly: Yes Physical Activity Frequency: 3-4 Times per Week Physical Activity Frequency Comment: walking, 20 mins Seatbelt Use: always Sunscreen Use: Yes Gender Identity: Female Assistive Devices: Glasses Review of Systems Review of Systems: All systems reviewed & are unremarkable except as noted in HPI & below Physical Exam Psychiatric: Orientation: alert and oriented x 3 Apperance: appropriately dressed and + disheveled (very thin) Eye Contact: + poor eye contact Motor Behavior: no abnormal motor movements Speech: normal rate/rhythm/volume of speech (brief) Affect: + flat affect Mood: + anxious mood and + irritable mood Thought Process: + thought blocking and + concrete thought process Thought Content: + preoccupation, + paranoid and + delusions Suicidal Thoughts: denies suicidal thoughts, denies suicidal plan and denies suicidal intent Homicidal Thoughts: denies homicidal thoughts Hallucinations: no auditory hallucinations (unclear if responding as some evidence of possible thought blocking) and no visual hallucinations Cognition: recent memory grossly intact, remote memory grossly intact and language grossly intact; + attention not intact Estimated Intelligence: consistent with education level Insight: + limited insight Judgment: + severely impaired judgement Vital Signs (Past 24 Hours): Last Vital Signs Temp 36.6 C 10/17/22 06:43 Pulse 61 10/17/22 06:43 Resp 16 10/17/22 06:43 BP 146/75 H 10/17/22 06:43 Pulse Ox 99 10/17/22 06:43 O2 Del Method Room Air 10/17/22 06:43 Exam Statement: A physical exam was performed in the ED by Dr. Garcia for the purposes of medical clearance. I accept that physical as correct and adequate for the purposes of the inpatient physical exam. Results & Data ([facility]) Laboratory Results Laboratory Results - last 24 hr 10/16/22 10/16/22 10/17/22 16:38 20:49 08:59 POC Glucose 102 H 121 H 137 H Current Inpatient Medications Current Inpatient Medications: Current Inpatient Medications Acetaminophen (Acetaminophen 325 Mg Tab) 650 mg PO Q4H PRN PRN Reason: Headache or Minor Fever Stop: 11/15/22 14:32 Al Hydrox/Mg Hydrox/Simethicone (Aluminum/Magnesium Susp 30 Ml Udc) 30 ml PO Q4H PRN PRN Reason: GI Upset Stop: 11/15/22 14:32 Atorvastatin Calcium (Atorvastatin 20 Mg Tab) 20 mg PO HS CHRIS Stop: 11/15/22 21:59 Last Admin: 10/16/22 21:03 Dose: 20 mg Bismuth Subsalicylate (Bismuth Subsalicylate Liqd 236 Ml) 15 ml PO PRN PRN PRN Reason: Loose Stool Stop: 11/15/22 14:32 Hydroxyzine HCl (Hydroxyzine Hcl 25 Mg Tab) 50 mg PO HSZ PRN PRN Reason: Insomnia Stop: 11/15/22 14:32 Hydroxyzine HCl (Hydroxyzine Hcl 25 Mg Tab) 25 mg PO Q4H PRN PRN Reason: Anxiety Stop: 11/15/22 14:32 Lorazepam (Lorazepam 0.5 Mg Tab) 0.5 mg PO 0900,1400 CHRIS Stop: 11/15/22 14:59 Last Admin: 10/17/22 08:40 Dose: 0.5 mg Lorazepam (Lorazepam 1 Mg Tab) 1 mg PO HS CHRIS Stop: 11/15/22 21:59 Last Admin: 10/16/22 21:02 Dose: 1 mg Losartan Potassium (Losartan Potassium 25 Mg Tab) 25 mg PO HS CHRIS Stop: 11/15/22 21:59 Last Admin: 10/16/22 21:02 Dose: 25 mg Magnesium Hydroxide (Magnesium Hydroxide Susp 30 Ml Udc) 30 ml PO DAILY PRN PRN Reason: Constipation Stop: 11/15/22 14:32 Risperidone (Risperidone 0.5 Mg Tablet) 0.5 mg PO BID PRN PRN Reason: agitation/psychosis Stop: 11/15/22 14:38 Sodium Chloride (Sodium Chloride 0.65% Na Soln 45 Ml ([place])) 1 - 2 sprays NA PRN PRN PRN Reason: Nasal Dryness/Congestion Stop: 11/15/22 14:32 Trazodone HCl (Trazodone Hcl 50 Mg Tab) 50 mg PO HS PRN PRN Reason: Insomnia Stop: 11/15/22 21:59
[2022-10-17] MEDS ORDERED: OLANZAPINE 2.5 MG TAB PO PRN (11:14)
[2022-10-17] MEDS: MULTIVITAMIN CHEWABLE TAB PO SCH (11:27)
[2022-10-17] MEDS: CHOLECALCIFEROL 1,000 UNITS 25 MCG TAB PO SCH (11:27)
[2022-10-17] MEDS: DOCUSATE SODIUM 100 MG CAP PO SCH ×2 (11:27→21:07)
[2022-10-17] MEDS: OXYBUTYNIN CHLORIDE XL 5 MG TABCR PO SCH (11:28)
[2022-10-17] MEDS: LEVOTHYROXINE SODIUM 75 MCG TABLET PO SCH ×2 (13:29→13:34)
[2022-10-17] MEDS: LOSARTAN POTASSIUM 25 MG TAB PO SCH (21:07)
[2022-10-17] MEDS: LORazepam 1 MG TAB PO SCH (21:07)
[2022-10-17] MEDS: OLANZapine 5 MG TABLET PO SCH (21:08)
[2022-10-17] MEDS: ATORVASTATIN 20 MG TAB PO SCH (21:08)
[2022-10-17] MEDS: POTASSIUM CHLORIDE 10 MEQ TABCR PO SCH (21:08)
[2022-10-17] MEDS: traZODone HCL 50 MG TAB PO SCH (21:08)
[2022-10-18 08:12] LABS: Estimated Average Glucose 143 mg/dl; Hemoglobin A1C 6.6 % (4.5-5.6)
[2022-10-18 08:19] LABS: Albumin Globulin Ratio 1.8 (0.9-2); Albumin Level 3.8 gm/dl (3.4-5.0); BUN Creatinine Ratio 21.4 (10-20); Bilirubin,Total 0.6 mg/dl (0.2-1.0); Chol HDL Ratio 2.1 (0-5); Creatinine Clr Calc Pharmacy 57.9 ml/min; Est GFR (African American) 109.1 ml/min; Est GFR (Non-African American) 94.2 ml/min; Globulin 2.1 gm/dl (2.5-4.0); Phosphorus 3.6 mg/dl (2.5-4.9); Total Protein 5.9 gm/dl (6.0-8.3)
[2022-10-18] MEDS: DOCUSATE SODIUM 100 MG CAP PO SCH ×2 (08:39→21:02)
[2022-10-18] MEDS: OXYBUTYNIN CHLORIDE XL 5 MG TABCR PO SCH (08:40)
[2022-10-18] MEDS: POTASSIUM CHLORIDE 10 MEQ TABCR PO SCH (08:40)
[2022-10-18] MEDS: CHOLECALCIFEROL 1,000 UNITS 25 MCG TAB PO SCH (08:40)
[2022-10-18] MEDS: LORazepam 0.5 MG TAB PO SCH ×2 (08:40→14:04)
[2022-10-18] MEDS: MULTIVITAMIN CHEWABLE TAB PO SCH (08:40)
--- NOTE | 2022-10-18 09:18 | Psychiatric Progress Note ---
Date of Service October 18, 2022 Impression / Recommendations Impression 62 yo woman with a history of BPAD, insomnia and panic disorder presenting with erratic behavior, increased romantic delusions and poor self-care with significant weight loss concerning for episode of psychosis likely due to eugenie. Diagnostically differential includes manic episode of BPAD versus schizoaffective disorder. UDS negative and she denies any recent substance use. Seems symptoms likely emerged in context of recent medication non-adherence given she presents with significant paranoia and odd beliefs about various medications. Hypokalemia likely due to recent poor intake which seems to be related to paranoia about contamination in her food/apartment. She is on a 302 involuntary commitment which expires on 10/21/2022 at 11:22am. MNPR due to paranoia, eugenie 10/18/2022: Less irritable today but still fixated on somatic concerns about bowel movements and toilet paper. Still with poor insight and judgment regarding her apartment and few alternative housing options. Did take and is willing to co ntinue olanzapine. Was reported to have slept well overnight but she feels she was often lying awake all night. Reviewed labwork which showed improvement in K+, stable magnesium and phosphorous given reported poor intake prior to admission, HbA1c remains elevated but down to 6.6% from previous result in August 2022 of 6.9%. She remains unwilling to consider any type of diabetes medication which we discuss makes olanzapine less than ideal option but she is unwilling to consider any other mood stabilizers at this time. LFTs improved. TGs and fasting lipid panel within normal limits. Overall, I spent a total of 35 minutes with this case including review of chart records, direct evaluation of the patient at bedside, counseling the patient, discussion during interdisciplinary treatment rounds, risk assessment, and documentation in the electronic health record. (1) Bipolar disorder with severe eugenie: (2) Panic disorder: (3) Type 2 diabetes mellitus: (4) HTN (hypertension): (5) Hypothyroidism: (6) Hyperlipidemia: (7) Hyperactivity of bladder: Plan 10/18/2022: Continue with olanzapine 5mg HS. 10/17/2022: The patient was admitted to the [facility] ([facility] health unit) on q15 min checks (behavioral with suicide precautions) for safety. The patient will participate in group, recreational, and milieu therapies and will be offered additional individual and family sessions as clinically appropriate. -Start potassium supplementation given hypokalemia in ED -Start olanzapine 5mg HS with 2.5mg BID prn for agitation/paranoia/eugenie -Fasting glucose, HbA1c, fasting lipid panel, K+ level tomorrow AM Inventory Assets Strengths: supportive relationships, good rapport with her outpatient providers Needs: safety and stabilization, medication adjustment, additional coping skills, increased outpatient services Suicide Risk Level Suicide Risk Level: Moderate (q15 min suicide checks) (psychosis with erratic behavior prior to admission but feels safe in the hospital, able to safety contract and agrees to let nursing/staff know should they develop plan, intent or feel unable to remain safe.) Suicide Risk Level Comments: Risk Factors Assessment Male: No : Yes Do You Have Access To A Gun?: No Health Problems: Yes Mental Health Diagnoses: Yes Substance Use Disorders: No Previous Attempt: No Family History of Suicide: No Previous Psychiatric Hospitalization: Yes Protective Factors Assessment Employed: No Supportive Family: Yes Good Rapport with Provider: Yes Interval History Identifying Information CEDRICK ANTUNEZ is a 62-year-old F who currently lives in an apartment alone, has a history of bipolar disorder, anxiety, insomnia and fixed romantic delusion, and was admitted on 10/16/22 14:20 on a 302 involuntary commitment for psychosis. Chief Complaint "I'm sleepy". Review of Systems Sleep Information Total Hours of Sleep: 7.75 Meal Information Percent Meal Consumed - Breakfast: 90 Percent Meal Consumed - Lunch: 90 Percent Meal Consumed - Dinner: 75 Subjective Subjective Patient was seen & assessed and interval progress reviewed with treatment team nursing and social work. Attending groups. Taking her medications and allowed AM labwork. She remains very fixated on bowel movement frequency and having plenty of toilet paper available. States she didn't sleep well, even with the olanzapine and was awake most of the night so feels tired today. States her other main concern as "I popped a lot" overnight but then reports concern today about constipation since she hasn't had a bowel movement yet. Wants to keep her colace as is. Denies any UTI symptoms. Reviewed her labwork results. Physical Exam Psychiatric Orientation: alert and oriented x 3 Apperance: appropriately dressed and + disheveled (very thin) Eye Contact: + poor eye contact Motor Behavior: no abnormal motor movements Speech: normal rate/rhythm/volume of speech (brief) Affect: + flat affect Mood: + anxious mood and + irritable mood Thought Process: + thought blocking and + concrete thought process Thought Content: + preoccupation, + paranoid and + delusions Suicidal Thoughts: denies suicidal thoughts, denies suicidal plan and denies suicidal intent Homicidal Thoughts: denies homicidal thoughts Hallucinations: no auditory hallucinations (unclear if responding as some evidence of possible thought blocking) and no visual hallucinations Cognition: recent memory grossly intact, remote memory grossly intact and language grossly intact; + attention not intact Estimated Intelligence: consistent with education level Insight: + limited insight Judgment: + limited judgement Vital Signs (Past 24 Hours) Last Vital Signs Temp 36.4 C L 10/18/22 06:39 Pulse 60 10/18/22 06:40 Resp 16 10/18/22 06:39 BP 125/75 10/18/22 06:40 Pulse Ox 99 10/17/22 06:43 O2 Del Method Room Air 10/17/22 06:43 Results & Data ([facility]) Laboratory Results Laboratory Results - last 24 hr 10/18/22 10/18/22 07:17 07:17 Sodium 140 Potassium 4.0 Chloride 108 H Carbon Dioxide 30 Anion Gap 2 L BUN 15 Creatinine 0.70 Est Cr Clr Drug Dosing 57.9 Est GFR ( Amer) 109.1 Est GFR (Non-Af Amer) 94.2 BUN/Creatinine Ratio 21.4 H Glucose 115 H Estimat Average Glucose 143 Hemoglobin A1c 6.6 H Calcium 9.0 Phosphorus 3.6 Magnesium 2.0 Total Bilirubin 0.6 AST 23 ALT 25 Alkaline Phosphatase 45 Total Protein 5.9 L Albumin 3.8 Globulin 2.1 L Albumin/Globulin Ratio 1.8 Triglycerides 69 Cholesterol 126 LDL Cholesterol, Calc 52 VLDL Cholesterol, Calc 14 HDL Cholesterol 60 Cholesterol/HDL Ratio 2.1 Current Inpatient Medications Current Inpatient Medications: Current Inpatient Medications Acetaminophen (Acetaminophen 325 Mg Tab) 650 mg PO Q4H PRN PRN Reason: Headache or Minor Fever Stop: 11/15/22 14:32 Al Hydrox/Mg Hydrox/Simethicone (Aluminum/Magnesium Susp 30 Ml Udc) 30 ml PO Q4H PRN PRN Reason: GI Upset Stop: 11/15/22 14:32 Atorvastatin Calcium (Atorvastatin 20 Mg Tab) 20 mg PO HS CHRIS Stop: 11/16/22 21:59 Last Admin: 10/17/22 21:08 Dose: 20 mg Bismuth Subsalicylate (Bismuth Subsalicylate Liqd 236 Ml) 15 ml PO PRN PRN PRN Reason: Loose Stool Stop: 11/15/22 14:32 Docusate Sodium (Docusate Sodium 100 Mg Cap) 100 mg PO BID [facility] Stop: 11/16/22 10:44 Last Admin: 10/18/22 08:39 Dose: 100 mg Hydroxyzine HCl (Hydroxyzine Hcl 25 Mg Tab) 50 mg PO HSZ PRN PRN Reason: Insomnia Stop: 11/15/22 14:32 Hydroxyzine HCl (Hydroxyzine Hcl 25 Mg Tab) 25 mg PO Q4H PRN PRN Reason: Anxiety Stop: 11/15/22 14:32 Levothyroxine Sodium (Levothyroxine Sodium 75 Mcg Tablet) 75 mcg PO SuTuThSa@1400 [facility] Stop: 11/16/22 13:59 Last Admin: 10/17/22 13:34 Dose: 75 mcg Lorazepam (Lorazepam 0.5 Mg Tab) 0.5 mg PO BID@0900,1400 [facility] Stop: 11/16/22 13:59 Last Admin: 10/18/22 08:40 Dose: 0.5 mg Lorazepam (Lorazepam 1 Mg Tab) 1 mg PO [facility] Stop: 11/16/22 21:59 Last Admin: 10/17/22 21:07 Dose: 1 mg Losartan Potassium (Losartan Potassium 25 Mg Tab) 25 mg PO HS [facility] Stop: 11/16/22 21:59 Last Admin: 10/17/22 21:07 Dose: 25 mg Magnesium Hydroxide (Magnesium Hydroxide Susp 30 Ml Udc) 30 ml PO DAILY PRN PRN Reason: Constipation Stop: 11/15/22 14:32 Multivitamins/Folic Acid/Vitamin C (Multivitamin Chewable Tab) 1 tab PO QAM [facility] Stop: 11/16/22 10:44 Last Admin: 10/18/22 08:40 Dose: 1 tab Olanzapine (Olanzapine 2.5 Mg Tab) 2.5 mg PO BID PRN PRN Reason: Agitation/eugenei/psychosis Stop: 11/16/22 11:14 Olanzapine (Olanzapine 5 Mg Tablet) 5 mg PO [facility] Stop: 11/16/22 21:59 Last Admin: 10/17/22 21:08 Dose: 5 mg Oxybutynin Chloride (Oxybutynin Chloride Xl 5 Mg Tabcr) 10 mg PO DAILY [facility] Stop: 11/16/22 10:44 Last Admin: 10/18/22 08:40 Dose: 10 mg Potassium Chloride (Potassium Chloride 10 Meq Tabcr) 10 meq PO BID [facility] Stop: 11/16/22 20:59 Last Admin: 10/18/22 08:40 Dose: 10 meq Sodium Chloride (Sodium Chloride 0.65% Na Soln 45 Ml ([place])) 1 - 2 sprays NA PRN PRN PRN Reason: Nasal Dryness/Congestion Stop: 11/15/22 14:32 Trazodone HCl (Trazodone Hcl 50 Mg Tab) 50 mg PO HS [facility] Stop: 11/16/22 21:59 Last Admin: 10/17/22 21:08 Dose: 50 mg Vitamin D (Cholecalciferol 1,000 Units 25 Mcg Tab) 2,000 units PO QAM [facility] Stop: 11/16/22 10:44 Last Admin: 10/18/22 08:40 Dose: 2,000 units Mental Health & Subst Abuse Tx Therapist Name of Therapist: Chasity Mccauley, [facility] Post Discharge Appointments Primary Care Physician Name Of Family Doctor/PCP: Dr. Nay Agosto
[2022-10-18] MEDS: LORazepam 1 MG TAB PO SCH (21:01)
[2022-10-18] MEDS: ATORVASTATIN 20 MG TAB PO SCH (21:01)
[2022-10-18] MEDS: LOSARTAN POTASSIUM 25 MG TAB PO SCH (21:01)
[2022-10-18] MEDS: OLANZapine 5 MG TABLET PO SCH (21:01)
[2022-10-18] MEDS: traZODone HCL 50 MG TAB PO SCH (21:02)
[2022-10-19] MEDS: LORazepam 0.5 MG TAB PO SCH ×2 (07:50→15:23)
[2022-10-19] MEDS: MULTIVITAMIN CHEWABLE TAB PO SCH (07:50)
[2022-10-19] MEDS: CHOLECALCIFEROL 1,000 UNITS 25 MCG TAB PO SCH (07:51)
[2022-10-19] MEDS: DOCUSATE SODIUM 100 MG CAP PO SCH ×2 (07:51→21:02)
[2022-10-19] MEDS: OXYBUTYNIN CHLORIDE XL 5 MG TABCR PO SCH (07:51)
--- NOTE | 2022-10-19 08:54 | Psychiatric Progress Note ---
Date of Service October 19, 2022 Impression / Recommendations Impression 62 yo woman with a history of BPAD, insomnia and panic disorder presenting with erratic behavior, increased romantic delusions and poor self-care with significant weight loss concerning for episode of psychosis likely due to eugenie. Diagnostically differential includes manic episode of BPAD versus schizoaffective disorder. UDS negative and she denies any recent substance use. Seems symptoms likely emerged in context of recent medication non-adherence given she presents with significant paranoia and odd beliefs about various medications. Hypokalemia likely due to recent poor intake which seems to be related to paranoia about contamination in her food/apartment. She is on a 302 involuntary commitment which expires on 10/21/2022 at 11:22am. MNPR due to paranoia 10/19/2022: Not presenting with any classic symptoms of eugenie as is now sleeping more and eating well but continues to have very poor insight and judgment into housing options if she leaves her apartment. The challenge is that her complaints about her apartment are reality-based and do not seem to be driven by paranoia though her reluctance to consider involving an cash shortage investigator and resistance to any ways to make her apartment more livable could represent some influence from paranoia versus delusion. Still irritable when pressed about plans for after discharge and cannot describe where she will live (during previous admission she reported her niece would be a resource and her niece was unable to help). Will increase the olanzapine to 7.5mg HS to further target any lingering paranoia/eugenie. Discussed her history and recent symptoms with Dr. Baxter her outpatient psychiatrist. Overall, I spent a total of 55 minutes with this case including review of chart records, direct evaluation of the patient at bedside, counseling the patient, discussion during interdisciplinary treatment rounds, risk assessment, discussion with her outpatient psychiatrist, and documentation in the electronic health record. (1) Bipolar disorder with severe eugenie: (2) Panic disorder: (3) Type 2 diabetes mellitus: (4) HTN (hypertension): (5) Hypothyroidism: (6) Hyperlipidemia: (7) Hyperactivity of bladder: Plan 10/19/2022: Increase to olanzapine 7.5mg HS. 10/18/2022: Continue with olanzapine 5mg HS. 10/17/2022: The patient was admitted to the [facility] (locked inpatient mental health unit) on q15 min checks (behavioral with suicide precautions) for safety. The patient will participate in group, recreational, and milieu therapies and will be offered additional individual and family sessions as clinically appropriate. -Start potassium supplementation given hypokalemia in ED -Start olanzapine 5mg HS with 2.5mg BID prn for agitation/paranoia/eugenie -Fasting glucose, HbA1c, fasting lipid panel, K+ level tomorrow AM Inventory Assets Strengths: supportive relationships, good rapport with her outpatient providers Needs: safety and stabilization, medication adjustment, additional coping skills, increased outpatient services Suicide Risk Level Suicide Risk Level: Moderate (q15 min suicide checks) (psychosis with erratic behavior prior to admission but feels safe in the hospital, able to safety co ntract and agrees to let nursing/staff know should they develop plan, intent or feel unable to remain safe.) Suicide Risk Level Comments: Risk Factors Assessment Male: No : Yes Do You Have Access To A Gun?: No Health Problems: Yes Mental Health Diagnoses: Yes Substance Use Disorders: No Previous Attempt: No Family History of Suicide: No Previous Psychiatric Hospitalization: Yes Protective Factors Assessment Employed: No Supportive Family: Yes Good Rapport with Provider: Yes Interval History Identifying Information CEDRICK ANTUNEZ is a 62-year-old F who currently lives in an apartment alone, has a history of bipolar disorder, anxiety, insomnia and fixed romantic delusion, and was admitted on 10/16/22 14:20 on a 302 involuntary commitment for psychosis. Chief Complaint "I can't go back, I gave it up". Review of Systems Sleep Information Total Hours of Sleep: 6.75 Meal Information Percent Meal Consumed - Breakfast: 90 Percent Meal Consumed - Lunch: 90 Percent Meal Consumed - Dinner: 90 Subjective Subjective Patient was seen & assessed and interval progress reviewed with treatment team nursing and social work. Remains focused on her bowels, requested prn milk of mag last night. Taking her medications and tells me "I like the zyprexa". Reviewed that I spoke with Dr. Baxter and option for risperidone but she is opposed to this or any other medications with an HURT option. She's eating well. Reviewed concerns about where she will live when she leaves, which is not a concern of hers. She states she will stay at a hotel and had already asked social work for a list of options. Reviewed my concerns about cost and availability given current football season to which she then offered the name of a friend of her sister's "Amna will help me". Discussed my concern that Amna may not be able to help and she then stated her niece would help her. She agreed to sign ROIs for both women. She agrees it was odd to move all her suddenly onto the porch of her apartment but disagrees that she could ever go back to living there stating same concerns of second hand smoke, fears of falling in the shower due to concrete base, and bugs. Discussed having cash shortage investigator come which she feels is not an option. States she left a note for the landlord that she is going to break her lease and therefore cannot return. Discussed that my understanding was that her items were back in her apartment and she does agree she's paid the lease through the end of the month. Also acknolwedges her son "didn't want me to leave my apartment" and we review this is likely because it took a lot of time and effort to find her this apartment after she left her last one. Physical Exam Psychiatric Orientation: alert and oriented x 3 Apperance: appropriately dressed and appropriately groomed Eye Contact: + fair eye contact Motor Behavior: no abnormal motor movements Speech: normal rate/rhythm/volume of speech Affect: + flat affect and + irritable affect (when pressed ) Mood: + irritable mood Thought Process: + circumstantial thought process Thought Content: + preoccupation (with leaving her apartment ) Suicidal Thoughts: denies suicidal thoughts, denies suicidal plan and denies suicidal intent Homicidal Thoughts: denies homicidal thoughts Hallucinations: no auditory hallucinations and no visual hallucinations Cognition: recent memory grossly intact, remote memory grossly intact, attention grossly intact and language grossly intact Estimated Intelligence: consistent with education level Insight: + limited insight Judgment: + limited judgement Vital Signs (Past 24 Hours) Last Vital Signs Temp 36.5 C 10/19/22 06:41 Pulse 71 10/19/22 06:41 Resp 16 10/19/22 06:41 BP 117/65 10/19/22 06:41 Pulse Ox 99 10/17/22 06:43 O2 Del Method Room Air 10/17/22 06:43 Results & Data ([facility]) Laboratory Results Laboratory Results - last 24 hr 10/19/22 08:11 POC Glucose 113 H Current Inpatient Medications Current Inpatient Medications: Current Inpatient Medications Acetaminophen (Acetaminophen 325 Mg Tab) 650 mg PO Q4H PRN PRN Reason: Headache or Minor Fever Stop: 11/15/22 14:32 Al Hydrox/Mg Hydrox/Simethicone (Aluminum/Magnesium Susp 30 Ml Udc) 30 ml PO Q4H PRN PRN Reason: GI Upset Stop: 11/15/22 14:32 Atorvastatin Calcium (Atorvastatin 20 Mg Tab) 20 mg PO HS CHRIS Stop: 11/16/22 21:59 Last Admin: 10/18/22 21:01 Dose: 20 mg Bismuth Subsalicylate (Bismuth Subsalicylate Liqd 236 Ml) 15 ml PO PRN PRN PRN Reason: Loose Stool Stop: 11/15/22 14:32 Docusate Sodium (Docusate Sodium 100 Mg Cap) 100 mg PO BID CHRIS Stop: 11/16/22 10:44 Last Admin: 10/19/22 07:51 Dose: 100 mg Hydroxyzine HCl (Hydroxyzine Hcl 25 Mg Tab) 50 mg PO HSZ PRN PRN Reason: Insomnia Stop: 11/15/22 14:32 Hydroxyzine HCl (Hydroxyzine Hcl 25 Mg Tab) 25 mg PO Q4H PRN PRN Reason: Anxiety Stop: 11/15/22 14:32 Levothyroxine Sodium (Levothyroxine Sodium 75 Mcg Tablet) 75 mcg PO SuTuThSa@1400 [facility] Stop: 11/16/22 13:59 Last Admin: 10/17/22 13:34 Dose: 75 mcg Lorazepam (Lorazepam 0.5 Mg Tab) 0.5 mg PO BID@0900,1400 [facility] Stop: 11/16/22 13:59 Last Admin: 10/19/22 07:50 Dose: 0.5 mg Lorazepam (Lorazepam 1 Mg Tab) 1 mg PO HS [facility] Stop: 11/16/22 21:59 Last Admin: 10/18/22 21:01 Dose: 1 mg Losartan Potassium (Losartan Potassium 25 Mg Tab) 25 mg PO HS [facility] Stop: 11/16/22 21:59 Last Admin: 10/18/22 21:01 Dose: 25 mg Magnesium Hydroxide (Magnesium Hydroxide Susp 30 Ml Udc) 30 ml PO DAILY PRN PRN Reason: Constipation Stop: 11/15/22 14:32 Last Admin: 10/18/22 19:16 Dose: 30 ml Multivitamins/Folic Acid/Vitamin C (Multivitamin Chewable Tab) 1 tab PO QAM [facility] Stop: 11/16/22 10:44 Last Admin: 10/19/22 07:50 Dose: 1 tab Olanzapine (Olanzapine 2.5 Mg Tab) 2.5 mg PO BID PRN PRN Reason: Agitation/eugenie/psychosis Stop: 11/16/22 11:14 Olanzapine (Olanzapine 5 Mg Tablet) 5 mg PO HS CHRIS Stop: 11/16/22 21:59 Last Admin: 10/18/22 21:01 Dose: 5 mg Oxybutynin Chloride (Oxybutynin Chloride Xl 5 Mg Tabcr) 10 mg PO DAILY [facility] Stop: 11/16/22 10:44 Last Admin: 10/19/22 07:51 Dose: 10 mg Sodium Chloride (Sodium Chloride 0.65% Na Soln 45 Ml ([place])) 1 - 2 sprays NA PRN PRN PRN Reason: Nasal Dryness/Congestion Stop: 11/15/22 14:32 Trazodone HCl (Trazodone Hcl 50 Mg Tab) 50 mg PO HS [facility] Stop: 11/16/22 21:59 Last Admin: 10/18/22 21:02 Dose: 50 mg Vitamin D (Cholecalciferol 1,000 Units 25 Mcg Tab) 2,000 units PO QAM [facility] Stop: 11/16/22 10:44 Last Admin: 10/19/22 07:51 Dose: 2,000 units Mental Health & Subst Abuse Tx Therapist Name of Therapist: Chasity Mccauley, [facility] Post Discharge Appointments Primary Care Physician Name Of Family Doctor/PCP: Dr. Nay Agosto
[2022-10-19] MEDS: LEVOTHYROXINE SODIUM 75 MCG TABLET PO SCH (15:22)
[2022-10-19] MEDS: OLANZAPINE 2.5 MG TAB PO SCH (21:01)
[2022-10-19] MEDS: LOSARTAN POTASSIUM 25 MG TAB PO SCH (21:03)
[2022-10-19] MEDS: ATORVASTATIN 20 MG TAB PO SCH (21:03)
[2022-10-19] MEDS: LORazepam 1 MG TAB PO SCH (21:05)
[2022-10-19] MEDS: traZODone HCL 50 MG TAB PO SCH (21:06)
--- NOTE | 2022-10-20 08:50 | Psychiatric Progress Note ---
Date of Service October 20, 2022 Impression / Recommendations Impression 62 yo woman with a history of BPAD, insomnia and panic disorder presenting with erratic behavior, increased romantic delusions and poor self-care with significant weight loss concerning for episode of psychosis likely due to eugenie. Diagnostically differential includes manic episode of BPAD versus schizoaffective disorder. UDS negative and she denies any recent substance use. Seems symptoms likely emerged in context of recent medication non-adherence given she presents with significant paranoia and odd beliefs about various medications. Hypokalemia likely due to recent poor intake which seems to be related to paranoia about contamination in her food/apartment. She is on a 302 involuntary commitment which expires on 10/21/2022 at 11:22am. MNPR due to OCD with fixation on bathroom access 10/20/2022: Improving insight especially after family meeting with her sons this morning. She agreed to call her landlord and confirmed she still has her apartment, accepted this information as true and is agreeable to returning there. She is also now accepting of a case consultant to help look into further housing options should the landlord's attempts to address her concerns are unsuccessful. Tolerating higher dose of olanzapine, eating has improved significantly. Still with some OCD symptoms related to her bowel movements/habits. Given her improved sleep, consistent po intake, and agreement to return to her apartment she will not meet 303 criteria and will need to be discharged prior to expiration of her 302 commitment tomorrow mid-day. Overall, I spent a total of 60 minutes with this case including review of chart records, direct evaluation of the patient at bedside, counseling the patient, attending family meeting, discussion during interdisciplinary treatment rounds, risk assessment, and documentation in the electronic health record. (1) Bipolar disorder with severe eugenie: (2) Panic disorder: (3) Type 2 diabetes mellitus: (4) HTN (hypertension): (5) Hypothyroidism: (6) Hyperlipidemia: (7) Hyperactivity of bladder: Plan 10/20/2022: Continue current medications and tx plan. 10/19/2022: Increase to olanzapine 7.5mg HS. 10/18/2022: Continue with olanzapine 5mg HS. 10/17/2022: The patient was admitted to the [facility] on q15 min checks (behavioral with suicide precautions) for safety. The patient will participate in group, recreational, and milieu therapies and will be offered additional individual and family sessions as clinically appropriate. -Start potassium supplementation given hypokalemia in ED -Start olanzapine 5mg HS with 2.5mg BID prn for agitation/paranoia/eugenie -Fasting glucose, HbA1c, fasting lipid panel, K+ level tomorrow AM Inventory Assets Strengths: supportive relationships, good rapport with her outpatient providers Needs: safety and stabilization, medication adjustment, additional coping skills, increased outpatient services Suicide Risk Level Suicide Risk Level: Moderate (q15 min suicide checks) (psychosis with erratic behavior prior to admission but feels safe in the hospital, able to safety contract and agrees to let nursing/staff know should they develop plan, intent o r feel unable to remain safe.) Suicide Risk Level Comments: Risk Factors Assessment Male: No : Yes Do You Have Access To A Gun?: No Health Problems: Yes Mental Health Diagnoses: Yes Substance Use Disorders: No Previous Attempt: No Family History of Suicide: No Previous Psychiatric Hospitalization: Yes Protective Factors Assessment Employed: No Supportive Family: Yes Good Rapport with Provider: Yes Interval History Identifying Information CEDRICK ANTUNEZ is a 62-year-old F who currently lives in an apartment alone, has a history of bipolar disorder, anxiety, insomnia and fixed romantic delusion, and was admitted on 10/16/22 14:20 on a 302 involuntary commitment for psychosis. Chief Complaint "I talked to my landlord, I still have my apartment". Review of Systems Sleep Information Total Hours of Sleep: 6 Meal Information Percent Meal Consumed - Breakfast: 90 Percent Meal Consumed - Lunch: 90 Percent Meal Consumed - Dinner: 75 Subjective Subjective Patient was seen & assessed and interval progress reviewed with treatment team nursing and social work. Very focused on her bowels again last night. Eating well and attending to ADLs. Going to groups. Accepting her medication. Family meeting this morning with her sons via zoom which I also joined. They discussed their concerns about her leaving her apartment so abruptly and she agreed with questioning that eugenie may have prompted this. She agreed to reach out to her landlord to ensure she can still return there and agreed with her sons that it was reasonable to raise her concerns with her landlord to see if they can address the hornets, bathtub falling concerns and second hand smoking near the building. She is also willing to establish with a new case consultant and work with them over time to find a new apartment if the landlord is unable to address her concerns after a few weeks. She continues to find the olanzapine helpful and told her son's she feels this will help her continue to do well after discharge so she doesn't make the same impulsive decision again about moving out. Her sons confirmed that her stuff that had been on the porch is now back safely in her apartment and her lease remains active. She is agreeable to keeping her sons informed about the progress with her landlord addressing her concerns. Physical Exam Psychiatric Orientation: alert and oriented x 3 Apperance: appropriately dressed and appropriately groomed Eye Contact: + fair eye contact Motor Behavior: no abnormal motor movements Speech: normal rate/rhythm/volume of speech Affect: + constricted affect Mood: + irritable mood (at times) Thought Process: goal directed thought process and clear/coherent thought process Thought Content: reality based without delusions Suicidal Thoughts: denies suicidal thoughts, denies suicidal plan and denies suicidal intent Homicidal Thoughts: denies homicidal thoughts Hallucinations: no auditory hallucinations and no visual hallucinations Cognition: recent memory grossly intact, remote memory grossly intact, attention grossly intact and language grossly intact Estimated Intelligence: consistent with education level Insight: + limited insight Judgment: + limited judgement Vital Signs (Past 24 Hours) Last Vital Signs Temp 36.7 C 10/20/22 06:40 Pulse 64 10/20/22 06:41 Resp 16 10/20/22 06:40 BP 112/69 10/20/22 06:41 Pulse Ox 99 10/17/22 06:43 O2 Del Method Room Air 10/17/22 06:43 Results & Data ([facility]) Laboratory Results Laboratory Results - last 24 hr 10/20/22 08:17 POC Glucose 121 H Current Inpatient Medications Current Inpatient Medications: Current Inpatient Medications Acetaminophen (Acetaminophen 325 Mg Tab) 650 mg PO Q4H PRN PRN Reason: Headache or Minor Fever Stop: 11/15/22 14:32 Al Hydrox/Mg Hydrox/Simethicone (Aluminum/Magnesium Susp 30 Ml Udc) 30 ml PO Q4H PRN PRN Reason: GI Upset Stop: 11/15/22 14:32 Atorvastatin Calcium (Atorvastatin 20 Mg Tab) 20 mg PO HS CHRIS Stop: 11/16/22 21:59 Last Admin: 10/19/22 21:03 Dose: 20 mg Bismuth Subsalicylate (Bismuth Subsalicylate Liqd 236 Ml) 15 ml PO PRN PRN PRN Reason: Loose Stool Stop: 11/15/22 14:32 Docusate Sodium (Docusate Sodium 100 Mg Cap) 100 mg PO BID CHRIS Stop: 11/16/22 10:44 Last Admin: 10/19/22 21:02 Dose: 100 mg Hydroxyzine HCl (Hydroxyzine Hcl 25 Mg Tab) 50 mg PO HSZ PRN PRN Reason: Insomnia Stop: 11/15/22 14:32 Hydroxyzine HCl (Hydroxyzine Hcl 25 Mg Tab) 25 mg PO Q4H PRN PRN Reason: Anxiety Stop: 11/15/22 14:32 Levothyroxine Sodium (Levothyroxine Sodium 75 Mcg Tablet) 75 mcg PO SuTuThSa@1400 [facility] Stop: 11/16/22 13:59 Last Admin: 10/19/22 15:22 Dose: 75 mcg Lorazepam (Lorazepam 0.5 Mg Tab) 0.5 mg PO BID@0900,1400 [facility] Stop: 11/16/22 13:59 Last Admin: 10/19/22 15:23 Dose: 0.5 mg Lorazepam (Lorazepam 1 Mg Tab) 1 mg PO HS [facility] Stop: 11/16/22 21:59 Last Admin: 10/19/22 21:05 Dose: 1 mg Losartan Potassium (Losartan Potassium 25 Mg Tab) 25 mg PO HS [facility] Stop: 11/16/22 21:59 Last Admin: 10/19/22 21:03 Dose: 25 mg Magnesium Hydroxide (Magnesium Hydroxide Susp 30 Ml Udc) 30 ml PO DAILY PRN PRN Reason: Constipation Stop: 11/15/22 14:32 Last Admin: 10/18/22 19:16 Dose: 30 ml Multivitamins/Folic Acid/Vitamin C (Multivitamin Chewable Tab) 1 tab PO QAM [facility] Stop: 11/16/22 10:44 Last Admin: 10/19/22 07:50 Dose: 1 tab Olanzapine (Olanzapine 2.5 Mg Tab) 2.5 mg PO BID PRN PRN Reason: Agitation/eugenie/psychosis Stop: 11/16/22 11:14 Olanzapine (Olanzapine 2.5 Mg Tab) 7.5 mg PO HS [facility] Stop: 11/18/22 21:59 Last Admin: 10/19/22 21:01 Dose: 7.5 mg Oxybutynin Chloride (Oxybutynin Chloride Xl 5 Mg Tabcr) 10 mg PO DAILY [facility] Stop: 11/16/22 10:44 Last Admin: 10/19/22 07:51 Dose: 10 mg Sodium Chloride (Sodium Chloride 0.65% Na Soln 45 Ml ([place])) 1 - 2 sprays NA PRN PRN PRN Reason: Nasal Dryness/Congestion Stop: 11/15/22 14:32 Trazodone HCl (Trazodone Hcl 50 Mg Tab) 50 mg PO HS [facility] Stop: 11/16/22 21:59 Last Admin: 10/19/22 21:06 Dose: 50 mg Vitamin D (Cholecalciferol 1,000 Units 25 Mcg Tab) 2,000 units PO QAM [facility] Stop: 11/16/22 10:44 Last Admin: 10/19/22 07:51 Dose: 2,000 units Mental Health & Subst Abuse Tx Therapist Name of Therapist: Chasity Diaz Transfer And Pumphouse Operator Chief Name of Transfer And Pumphouse Operator Chief: [employer] Post Discharge Appointments Primary Care Physician Name Of Family Doctor/PCP: HEATHER
[2022-10-20] MEDS: DOCUSATE SODIUM 100 MG CAP PO SCH ×2 (08:52→21:01)
[2022-10-20] MEDS: OXYBUTYNIN CHLORIDE XL 5 MG TABCR PO SCH (08:52)
[2022-10-20] MEDS: MULTIVITAMIN CHEWABLE TAB PO SCH (08:52)
[2022-10-20] MEDS: CHOLECALCIFEROL 1,000 UNITS 25 MCG TAB PO SCH (08:52)
[2022-10-20] MEDS: LORazepam 0.5 MG TAB PO SCH ×2 (08:53→15:23)
[2022-10-20] MEDS: ATORVASTATIN 20 MG TAB PO SCH (21:01)
[2022-10-20] MEDS: LOSARTAN POTASSIUM 25 MG TAB PO SCH (21:01)
[2022-10-20] MEDS: LORazepam 1 MG TAB PO SCH (21:01)
[2022-10-20] MEDS: OLANZAPINE 2.5 MG TAB PO SCH (21:02)
[2022-10-20] MEDS: traZODone HCL 50 MG TAB PO SCH (21:02)
--- NOTE | 2022-10-21 08:10 | Discharge Summary ---
Date of Service October 21, 2022 History of Present Illness Enedelia was brought to the ED by police after being pulled over for driving erratically and presenting with bizarre behavior. She presented with paranoia and possible manic symptoms while in the ED and reported recent stressors including fighting with her sons (who typically are excellent supports and finance her apartment for her) and increased concerns about various contaminants in her apartment. Reports issues with hornets, second hand smoke and issues with her shower resulting in her moving her belongings onto the front porch of her apartment complex and then leaving items there as she drove away in her car. Her outpatient psychiatrist completed the 302 petition statement and 302 commitment was upheld in the ED. She reports leaving her apartment due to concerns for hornets, bugs and smoke. When she was stopped by police for driving erratically she reported being homeless (she continues to have her apartment with active lease) and stating her desire to see her "friend" Grey who she has stalked in the past due to romantic delusions. Typically when she goes into an episode of acute psychosis she will start to talk about this friend and often leaves her apartment/states her intent to become homeless. She presented with almost identical concerns during her last inpatient admission to [facility] in June 2021. She reports not showering in the last two weeks which she reports is due to it being a "cement shower and fears of falling". Since admission to the unit has been very fixated on the amount of toilet paper she has. She has repeatedly gone to the nurses station to inform them of how much toilet paper she has remaining on the roll. She appears to have lost weight since her previous admission last year, she reports not eating well recently "due to stress from the apartment". She endorses anxiety with upset stomach and panic attacks. She's unclear about how consistently she's been taking her psychiatric medications but sounds like she may have been non-adherent recently though today tells me "definitely" she's been taking the Vraylar every day. She is currently prescribed psychiatric medications of: Vraylar 6mg daily, trazodone 50mg HS prn, ativan 0.5mg qAM & 1400 as well as ativan 1mg HS. She agrees she has been recently diagnosed with type II diabetes but that she will not go on metformin or other diabetes medications because her family members were on this and they "popped all the time". She is also refusing to consider continuing risperidone which was trialed last evening since Vraylar is not on the hospital formulary, though denies this is due to having any side effects. Physical Exam Vital Signs (Past 24 Hours) Last Vital Signs Temp 36.6 C 10/21/22 06:33 Pulse 71 10/21/22 06:33 Resp 14 10/21/22 06:33 BP 121/98 10/21/22 06:33 Pulse Ox 99 10/21/22 06:33 O2 Del Method Room Air 10/21/22 06:33 See admission H&P and DOD summary. Principal Diagnosis Bipolar Affective Disorder, episode of eugenie Psychiatric Data See daily stay summary. In short, patient was engaged with the social/therapeutic milieu of the unit, safety was maintained and the patient was cooperative with care. Medication changes included discontinuation of Vraylar and initiation of olanzapine which was titrated to 7.5mg po HS for mood stabilization and they tolerated this well. She was continued on her prior to admission lorazepam and trazodone. Reviewed that given sedating effects of olanzapine she could likely taper to discontinuation trazodone in the future if she becomes agreeable to this. She understands risks with lorazepam including judgment impairment, addiction potential (no current signs to suggest this), cognitive impacts and increased fall risk. Baseline labs of fasting glucose, fasting lipid profile, and weight were preformed. She was underweight at time of admission with BMI 17.9 kg/m2 but ate very well and consistently throughout her admission. Her fasting glucose was 115 and elevated and her HbA1c was elevated, consistent with her DM T2 diagnosis, at 6.6 % (down from 6.9% in August 2022). Her fasting lipid panel was normal and she remains on atorvastatin. Recommend repeat weight in one month. Given metabolic effects of olanzapine, which she understands, strong recommendation is for her to consider starting a medication for her T2DM. Motivational interviewing was done regarding this but she is not interested in any diabetes management medications at this time nor considering an alternative antipsychotic medication with fewer metabolic side effects. Recommend repeat fasting glucose, HbA1c and fasting lipid profile at least annually. If symptoms arise recommend checking BP, EKG, prolactin level as clinically indicated or relevant. A family session was held and safety plan was completed prior to discharge. She consistently attended to her hygiene, ate all of her meals, showed no behavioral disorganization, participated actively in discharge planning (including calling her landlord) and attended most groups. She was not felt to meet criteria for 303 commitment and desired discharge at the time of her 302 expiration. On the day of discharge she stated her mood was stable and remained future- oriented including getting back to her apartment, continuing to go for walks, going to the [facility] and engaging in aftercare appointments for psychiatry, therapy and with her new behavioral health case manager. Day of Discharge Assessment Today the patient voices readiness for discharge. They note improvement in mood and anxiety. They deny thoughts of harm to self or others. Thoughts are organized and they are clinically improved from admission. There is no evidence of psychosis. They improved in the hospital with support and medication adjustments. They agree to take medications as prescribed and keep follow-up appointments. At the time of the discharge they are deemed to be stable and appropriate for outpatient level of care. They are not deemed to be at imminent risk of harm to self or others. They are aware of emergency and crisis services. Knows to call 911 or go to nearest emergency care center if in a crisis which cannot be handled as an outpatient. Overall, I spent a total of 40 minutes including review of chart records, direct evaluation of the patient, counseling the patient, ordering discharge medications, discussion during interdisciplinary treatment rounds, risk assessment, and documentation in the electronic health record. Transition of Care Transition Of Care Record: was reviewed with the patient Advance Directives Advance Directives Information Provided: Yes Advance Directives: No Mental Health Advance Directive: No Advance Directives on File: No Living Will: No Power of Stone Circular Sawyer: No Advance Directives Reason:: Declines as Mental Health Visit. Suicide Risk Level Suicide Risk Level Comments: Acute risk is low given improvement in mood and denial of SI, lack of access to lethal means, improvement in sleep and improvement in eugenie/delusions/paranoia. Chronic risk is low to moderate given multiple non-modifiable risk factors: psychiatric co-morbid diagnoses, periods of impulsivity, prior psychiatric hospitalizations, mood disorder but also with protective factors including: good social/family support, sense of responsibility to family and social supports, outpatient care in place, positive coping skills, capacity to establish therapeutic alliance, capacity for self-observation. Counseled on ways to reduce acute and chronic risk including engaging with outpatient providers, using safety plan if needed, utilizing supports, taking medication, and using coping skills. Modifiable risk factors of eugenie with psychosis were addressed during hospitalization through development of new coping skills, family meeting, safety planning, and medication adjustments. Risk Factors Assessment Male: No : Yes Do You Have Access To A Gun?: No Health Problems: Yes Mental Health Diagnoses: Yes Substance Use Disorders: No Previous Attempt: No Family History of Suicide: No Previous Psychiatric Hospitalization: Yes Hopelessness: No Protective Factors Assessment Employed: No Stable Relationships: Yes Supportive Family: Yes Good Rapport with Provider: Yes Discharge Data Lab Results 10/16/22 10/16/22 10/16/22 01:05 01:05 01:10 WBC 7.11 RBC 4.06 L Hgb 12.9 Hct 39.3 MCV 96.8 MCH 31.8 MCHC 32.8 RDW Std Deviation 42.7 RDW Coeff of Arturo 11.9 Plt Count 218 MPV 9.9 Immature Gran % (Auto) 0.3 Neut % (Auto) 66.9 Lymph % (Auto) 24.1 Carolina % (Auto) 6.6 Eos % (Auto) 1.1 Baso % (Auto) 1.0 Neut # (Auto) 4.76 Lymph # (Auto) 1.71 Carolina # (Auto) 0.47 Eos # (Auto) 0.08 Baso # (Auto) 0.07 Immature Gran # (Auto) 0.02 Sodium Potassium Chloride Carbon Dioxide Anion Gap BUN Creatinine Est Cr Clr Drug Dosing Est GFR ( Amer) Est GFR (Non-Af Amer) BUN/Creatinine Ratio Glucose POC Glucose Estimat Average Glucose Hemoglobin A1c Calcium Phosphorus Magnesium Total Bilirubin AST ALT Alkaline Phosphatase Total Protein Albumin Globulin Albumin/Globulin Ratio Triglycerides Cholesterol LDL Cholesterol, Calc VLDL Cholesterol, Calc HDL Cholesterol Cholesterol/HDL Ratio TSH Free T4 Urine Color Yellow Urine Appearance Cloudy A Urine pH 5.5 Ur Specific Lansing 1.028 Urine Protein 1+ H Urine Glucose (UA) Negative Urine Ketones Trace H Urine Blood Negative Urine Nitrite Negative Urine Bilirubin Negative Urine Urobilinogen Negative Ur Leukocyte Esterase 1+ H Urine WBC (Auto) 10-30 H Urine RBC (Auto) 0-4 U Hyaline Cast (Auto) 10-30 H U Epithel Cells (Auto) 10-20 H Urine Bacteria (Auto) 1+ H Urine Crystals Not Reportable Urine Yeast Not Reportable Salicylates Urine Opiates Screen Neg Ur Methadone, Qual Neg Acetaminophen Urine Barbiturates Neg Ur Phencyclidine (PCP) Neg U Amphetamin/Meth Scrn Neg MDMA (Ecstasy) Screen Neg U Benzodiazepines Scrn Neg Ur Cocaine Metabolite Neg U Marijuana (THC) Screen Neg Ethyl Alcohol mg/dL SARS-CoV-2, RNA, NAAT 10/16/22 10/16/22 10/16/22 01:10 01:10 01:10 WBC RBC Hgb Hct MCV MCH MCHC RDW Std Deviation RDW Coeff of Arturo Plt Count MPV Immature Gran % (Auto) Neut % (Auto) Lymph % (Auto) Carolina % (Auto) Eos % (Auto) Baso % (Auto) Neut # (Auto) Lymph # (Auto) [place] # (Auto) Eos # (Auto) Baso # (Auto) Immature Gran # (Auto) Sodium 143 Potassium 3.2 L Chloride 106 Carbon Dioxide 29 Anion Gap 8 BUN 24 H Creatinine 0.78 Est Cr Clr Drug Dosing 51.7 Est GFR ( Amer) 95.8 Est GFR (Non-Af Amer) 82.6 BUN/Creatinine Ratio 30.8 H Glucose 135 H POC Glucose Estimat Average Glucose Hemoglobin A1c Calcium 10.0 Phosphorus Magnesium Total Bilirubin 0.6 AST 49 H ALT 38 Alkaline Phosphatase 57 Total Protein 7.4 Albumin 5.3 H Globulin 2.1 L Albumin/Globulin Ratio 2.5 H Triglycerides Cholesterol LDL Cholesterol, Calc VLDL Cholesterol, Calc HDL Cholesterol Cholesterol/HDL Ratio TSH 0.186 L Free T4 1.08 Urine Color Urine Appearance Urine pH Ur Specific [place] Urine Protein Urine Glucose (UA) Urine Ketones Urine Blood Urine Nitrite Urine Bilirubin Urine Urobilinogen Ur Leukocyte Esterase Urine WBC (Auto) Urine RBC (Auto) U Hyaline Cast (Auto) U Epithel Cells (Auto) Urine Bacteria (Auto) Urine Crystals Urine Yeast Salicylates < 3.0 L Urine Opiates Screen Ur Methadone, Qual Acetaminophen < 3 L Urine Barbiturates Ur Phencyclidine (PCP) U Amphetamin/Meth Scrn MDMA (Ecstasy) Screen U Benzodiazepines Scrn Ur Cocaine Metabolite U Marijuana (THC) Screen Ethyl Alcohol mg/dL SARS-CoV-2, RNA, NAAT 10/16/22 10/16/22 10/16/22 01:10 01:18 16:38 WBC RBC Hgb Hct MCV MCH MCHC RDW Std Deviation RDW Coeff of Arturo Plt Count MPV Immature Gran % (Auto) Neut % (Auto) Lymph % (Auto) [place] % (Auto) Eos % (Auto) Baso % (Auto) Neut # (Auto) Lymph # (Auto) [place] # (Auto) Eos # (Auto) Baso # (Auto) Immature Gran # (Auto) Sodium Potassium Chloride Carbon Dioxide Anion Gap BUN Creatinine Est Cr Clr Drug Dosing Est GFR ( Amer) Est GFR (Non-Af Amer) BUN/Creatinine Ratio Glucose POC Glucose 102 H Estimat Average Glucose Hemoglobin A1c Calcium Phosphorus Magnesium Total Bilirubin AST ALT Alkaline Phosphatase Total Protein Albumin Globulin Albumin/Globulin Ratio Triglycerides Cholesterol LDL Cholesterol, Calc VLDL Cholesterol, Calc HDL Cholesterol Cholesterol/HDL Ratio TSH Free T4 Urine Color Urine Appearance Urine pH Ur Specific [place] Urine Protein Urine Glucose (UA) Urine Ketones Urine Blood Urine Nitrite Urine Bilirubin Urine Urobilinogen Ur Leukocyte Esterase Urine WBC (Auto) Urine RBC (Auto) U Hyaline Cast (Auto) U Epithel Cells (Auto) Urine Bacteria (Auto) Urine Crystals Urine Yeast Salicylates Urine Opiates Screen Ur Methadone, Qual Acetaminophen Urine Barbiturates Ur Phencyclidine (PCP) U Amphetamin/Meth Scrn MDMA (Ecstasy) Screen U Benzodiazepines Scrn Ur Cocaine Metabolite U Marijuana (THC) Screen Ethyl Alcohol mg/dL < 10.0 SARS-CoV-2, RNA, NAAT NEGATIVE 10/16/22 10/17/22 10/18/22 20:49 08:59 07:17 WBC RBC Hgb Hct MCV MCH MCHC RDW Std Deviation RDW Coeff of Arturo Plt Count MPV Immature Gran % (Auto) Neut % (Auto) Lymph % (Auto) [place] % (Auto) Eos % (Auto) Baso % (Auto) Neut # (Auto) Lymph # (Auto) [place] # (Auto) Eos # (Auto) Baso # (Auto) Immature Gran # (Auto) Sodium 140 Potassium 4.0 Chloride 108 H Carbon Dioxide 30 Anion Gap 2 L BUN 15 Creatinine 0.70 Est Cr Clr Drug Dosing 57.9 Est GFR ( Amer) 109.1 Est GFR (Non-Af Amer) 94.2 BUN/Creatinine Ratio 21.4 H Glucose 115 H POC Glucose 121 H 137 H Estimat Average Glucose Hemoglobin A1c Calcium 9.0 Phosphorus 3.6 Magnesium 2.0 Total Bilirubin 0.6 AST 23 ALT 25 Alkaline Phosphatase 45 Total Protein 5.9 L Albumin 3.8 Globulin 2.1 L Albumin/Globulin Ratio 1.8 Triglycerides 69 Cholesterol 126 LDL Cholesterol, Calc 52 VLDL Cholesterol, Calc 14 HDL Cholesterol 60 Cholesterol/HDL Ratio 2.1 TSH Free T4 Urine Color Urine Appearance Urine pH Ur Specific [place] Urine Protein Urine Glucose (UA) Urine Ketones Urine Blood Urine Nitrite Urine Bilirubin Urine Urobilinogen Ur Leukocyte Esterase Urine WBC (Auto) Urine RBC (Auto) U Hyaline Cast (Auto) U Epithel Cells (Auto) Urine Bacteria (Auto) Urine Crystals Urine Yeast Salicylates Urine Opiates Screen Ur Methadone, Qual Acetaminophen Urine Barbiturates Ur Phencyclidine (PCP) U Amphetamin/Meth Scrn MDMA (Ecstasy) Screen U Benzodiazepines Scrn Ur Cocaine Metabolite U Marijuana (THC) Screen Ethyl Alcohol mg/dL SARS-CoV-2, RNA, NAAT 10/18/22 10/19/22 10/20/22 07:17 08:11 08:17 WBC RBC Hgb Hct MCV MCH MCHC RDW Std Deviation RDW Coeff of Arturo Plt Count MPV Immature Gran % (Auto) Neut % (Auto) Lymph % (Auto) Carolina % (Auto) Eos % (Auto) Baso % (Auto) Neut # (Auto) Lymph # (Auto) [place] # (Auto) Eos # (Auto) Baso # (Auto) Immature Gran # (Auto) Sodium Potassium Chloride Carbon Dioxide Anion Gap BUN Creatinine Est Cr Clr Drug Dosing Est GFR ( Amer) Est GFR (Non-Af Amer) BUN/Creatinine Ratio Glucose POC Glucose 113 H 121 H Estimat Average Glucose 143 Hemoglobin A1c 6.6 H Calcium Phosphorus Magnesium Total Bilirubin AST ALT Alkaline Phosphatase Total Protein Albumin Globulin Albumin/Globulin Ratio Triglycerides Cholesterol LDL Cholesterol, Calc VLDL Cholesterol, Calc HDL Cholesterol Cholesterol/HDL Ratio TSH Free T4 Urine Color Urine Appearance Urine pH Ur Specific [place] Urine Protein Urine Glucose (UA) Urine Ketones Urine Blood Urine Nitrite Urine Bilirubin Urine Urobilinogen Ur Leukocyte Esterase Urine WBC (Auto) Urine RBC (Auto) U Hyaline Cast (Auto) U Epithel Cells (Auto) Urine Bacteria (Auto) Urine Crystals Urine Yeast Salicylates Urine Opiates Screen Ur Methadone, Qual Acetaminophen Urine Barbiturates Ur Phencyclidine (PCP) U Amphetamin/Meth Scrn MDMA (Ecstasy) Screen U Benzodiazepines Scrn Ur Cocaine Metabolite U Marijuana (THC) Screen Ethyl Alcohol mg/dL SARS-CoV-2, RNA, NAAT Hospital Course (1) Bipolar disorder with severe eugenie: (2) Panic disorder: (3) Type 2 diabetes mellitus: (4) HTN (hypertension): (5) Hypothyroidism: (6) Hyperlipidemia: (7) Hyperactivity of bladder: Plan 10/20/2022: Continue current medications and tx plan. 10/19/2022: Increase to olanzapine 7.5mg HS. 10/18/2022: Continue with olanzapine 5mg HS. 10/17/2022: The patient was admitted to the [facility] mental [facility] unit) on q15 min checks (behavioral with suicide precautions) for safety. The patient will participate in group, recreational, and milieu therapies and will be offered additional individual and family sessions as clinically appropriate. -Start potassium supplementation given hypokalemia in ED -Start olanzapine 5mg HS with 2.5mg BID prn for agitation/paranoia/eugenie -Fasting glucose, HbA1c, fasting lipid panel, K+ level tomorrow AM Mental Health & Subst Abuse Tx Psychiatrist Name of Psychiatrist: Dr Baxter Psychiatrist's Psychiatric Appointment Comment: [address] [place] [address], [address], [place] [address] Therapist Name of Therapist: [facility]-Chasity Diaz Therapist's Date of Therapist Appointment: 10/21/2022 Time of Therapist Appointment: 3PM Therapy Appointment Comment: Zoom (ALL OTHER APPOINTMENTS WILL BE IN PERSON) Napper Fixer Name of Napper Fixer: [employer] Phone Number for Napper Fixer: [phone] Post Discharge Appointments Primary Care Physician Name Of Family Doctor/PCP: HEATHER Primary Care Time of Appointment with PCP: please follow up as needed Provider Appointment Comment: [facility] Bartolo Pichardo, [place] [address] Contact Information Discharge Discharge Address: [address] [place] [address], [address], [place] [address] Discharge Plan Discharge Items Patient Disposition: Home - Self-Care Reason For Visit: UNSPECIFIED PSYCHOSIS Discharge Diagnosis: Bipolar Affective Disorder, current episode of eugenie Activity: Resume your previous activity Non-emergency contact: Primary Care Provider, Psychiatrist, Therapist and [employer] Call non-emergency contact if: you have any medication questions and your symptoms worsen Follow-up/Referrals: Oz Baxter MD [Primary Care Provider] - Diet: Regular Addtl Attending Provider Instructions: SPECIAL CARE INSTRUCTIONS: 1. Follow through with your scheduled aftercare appointments. If unable to keep an appointment, please call to reschedule. 2. Take your medication only as prescribed. Medication should not be changed or stopped without the approval of your doctor. In the event of worsening symptoms or concerns about side effects, contact your doctor immediately. 3. Utilize new healthy coping skills, anger management skills, and stress management skills learned during your hospitalization. Journal feelings and process them with a support person. Identify stressors or situations that may result in relapse, deterioration or inappropriate behaviors and develop a plan to deal with those issues. 4. If your coping skills are ineffective and you are in crisis, contact your outpatient providers for direction. If unable to reach your providers, please call the [facility] CRISIS LINE AT , go to the [facility] walk-in center at [address] [place] [address] A, [place], or go to the closest Emergency Room. 5. Avoid alcohol and un-prescribed drugs. 6. You have been provided with the Mental Health Advance Directives Pamphlet for your review. 7. Your condition is stable for discharge to outpatient level of care, but recovery is an ongoing process. Ifthoughts to harm yourself or others return, follow the safety plan developed during your stay. Planning for a safe return home includes securing weapons. Our treatment team recommends weaponsbe removed from the home until your outpatient provider reassesses your progress. In rare cases where the items themselvescannot be removed, guns and ammunitionshould be secured separatelyand keys stored by a reliable personoutside of the home. If you were admitted on an involuntary commitment, the police or other legal authorities may be involved in this process. AFTERCARE APPOINTMENTS: * Please call your insurance company prior to your scheduled appointment to confirm your aftercare providers are covered. Take your insurance information to your appointments. WHO TO CALL AND WHEN: Medical Emergencies: For questions or emergencies related to your hospital stay, please contact the Inpatient Behavioral Health Unit at [phone]. A breaster is on-call 06/09 for the Behavioral Health Unit for emergencies At any time you feel your situation is an emergency, you may also call 911 immediately. National Crisis Hotline: 988 Pending Studies at Discharge: No Stand-Alone Forms: [facility] Medications and DC Order Prescriptions: New olanzapine 7.5 mg tablet 7.5 mg PO HS 30 Days Qty: 30 0RF Continued losartan [Cozaar] 25 mg tablet 25 mg PO HS Qty: 30 11RF oxybutynin chloride [Ditropan XL] 10 mg tablet extended release 24hr 10 mg PO DAILY Qty: 30 11RF atorvastatin [Lipitor] 20 mg tablet 20 mg PO HS Qty: 30 11RF levothyroxine [Synthroid] 75 mcg tablet 75 mcg PO DIRECTED Rx Instructions: skip M,W,F trazodone 50 mg tablet 50 mg PO HS PRN (Reason: Insomnia) Rx Instructions: MRX1 lorazepam [Ativan] 0.5 mg tablet 0.5 mg PO AMPM docusate sodium [Colace] 100 mg Capsule 100 mg PO BID cholecalciferol (vitamin D3) [Vitamin D3] 2,000 unit Tablet 2,000 unit PO QAM acetaminophen [Tylenol Extra Strength] 500 mg Tablet 1,000 mg PO Q6H PRN (Reason: Pain) lorazepam 0.5 mg Tablet 1 mg PO HS multivitamin Tablet 1 tab PO DAILY Discontinued Vraylar 6 mg capsule 6 mg PO DAILY Discharge Orders: Discharge Order (Routine); Ordered 10/21/22 Ordered By: Ladi Ambrocio/Other Patient Handouts: High Blood Sugar (Hyperglycemia), Hypoglycemia (Low Blood Sugar), Diabetes: Meal Planning, Type 2 Diabetes Admission Data Admit Date/Time: 10/16/22 14:20 Attending Provider: Ladi Marsh Admit Provider: Ladi Marsh Primary Care Provider: Oz Baxter Other Interventions: PSY Interdisciplinary Discharge Planning Last Done: 10/21/22 08:20 Coding Level of Care Code 44304 D/C day mgmt > 30 min Diagnoses Bipolar disorder with severe eugenie F31.13 Panic disorder F41.0 Type 2 diabetes mellitus E11.9 HTN (hypertension) I10 Hypothyroidism E03.9 Hyperlipidemia E78.5 Hyperactivity of bladder N31.8 Time Spent (min) 40
[2022-10-21] MEDS: LORazepam 0.5 MG TAB PO SCH (08:44)
[2022-10-21] MEDS: CHOLECALCIFEROL 1,000 UNITS 25 MCG TAB PO SCH (08:45)
[2022-10-21] MEDS: DOCUSATE SODIUM 100 MG CAP PO SCH (08:45)
[2022-10-21] MEDS: OXYBUTYNIN CHLORIDE XL 5 MG TABCR PO SCH (08:45)
[2022-10-21] MEDS: MULTIVITAMIN CHEWABLE TAB PO SCH (08:47)
== END 2022-10-21 10:55 | disposition home or self-care (01) | DRG 885 ==
LOC: ED 00:44 → 3S 14:14

== ENCOUNTER 2023-10-06 14:53 | Inpatient (IN) ==
[2023-10-06 16:22] LABS: Basophils # (auto) 0.07 K/uL (0.00-0.20); Basophils % (auto) 0.9 %; Eosinophils # (auto) 0.14 K/uL (0.00-0.50); Eosinophils % (auto) 1.9 %; Hematocrit (blood only) 35.5 % (37.0-47.0); Hemoglobin 11.8 g/dl (12.0-16.0); Immature Granulocytes # (auto) 0.01 K/uL (0.01-0.20); Immature Granulocytes % (auto) 0.1 %; Lymphocytes # (auto) 1.77 K/uL (1.20-3.40); Lymphocytes % (auto) 23.9 %; Mean Corpuscular Hgb Conc 33.2 g/dL (32.0-36.0); Mean Corpuscular Volume 90.3 fL (80.0-100.0); Mean Platelet Volume 9.5 fL (9.4-12.4); Monocytes % (auto) 8.1 %; Neutrophils # (auto) 4.82 K/uL (1.40-6.50); Neutrophils % (auto) 65.1 %; Platelet Count 305 K/uL (130-400); RDW Coefficient of Variation 12.8 % (11.5-14.5); RDW Standard Deviation 43.1 fL (36.4-46.3); Red Blood Count 3.93 M/uL (4.20-5.40); White Blood Count 7.41 K/ul (4.8-10.8)
[2023-10-06 16:32] LABS: Acetaminophen < 3 ug/ml (10-30); Salicylate < 3.0 mg/dl (3.0-30)
[2023-10-06 16:39] LABS: Albumin Globulin Ratio 1.4 (0.9-2); Albumin Level 4.5 gm/dl (3.4-5.0); BUN Creatinine Ratio 27.3 (10-20); Bilirubin,Total 0.4 mg/dl (0.2-1.0); Calcium 9.3 mg/dl (8.6-10.3); Creatinine Clr Calc Pharmacy 72.8 ml/min; Est GFR (African American) 110.5 ml/min; Est GFR (Non-African American) 95.3 ml/min; Globulin 3.2 gm/dl (2.5-4.0); Potassium 3.7 mmol/L (3.5-5.1); Total Protein 7.7 gm/dl (6.0-8.3)
[2023-10-06 16:48] LABS: Appearance Urine Clear (Clear); Bacteria Urine Automated None Seen (None Seen); Bilirubin Urine Negative (Negative); Blood Urine Negative (Negative); Calcium Oxalate Crystals Urine Present (None Prsent); Cast Urine Automated 0-2 /lpf (0-2); Color Urine Yellow; Epithelial Cell Urine Auto 0-2 /hpf (0-2); Glucose Urine UA Negative (Negative); Ketones Urine Negative (Negative); Leukocyte Esterase Urine 2+ (Negative); Nitrite Urine Negative (Negative); Protein Urine 1+ (Negative); Specific Gravity Urine 1.027 (1.000-1.030); Urobilinogen Urine Negative (Negative); WBC Urine Automated 21-50 /hpf (0-5)
[2023-10-06 16:53] LABS: Thyroid Stimulating Hormone 4.018 uIu/ml (0.300-4.500)
[2023-10-06 17:06] LABS: Amphetamines+Metham, Urine Neg (Neg); Barbiturates, Urine Neg (Neg); Benzodiazepine, Urine Neg (Neg); Cocaine, Urine Neg (Neg); Fentanyl, Urine Neg (Neg); MDMA (Ecstacy), Urine Neg (Neg); Marijuana, Urine Neg (Neg); Methadone, Urine Neg (Neg); Opiate, Urine Neg (Neg); Phencyclidine, Urine Neg (Neg)
[2023-10-06] MEDS: cephALEXin 250 MG CAP PO ONE (18:56)
--- NOTE | 2023-10-06 19:09 | Emergency Department Note ---
Impression & Plan Adult failure to thrive, OCD (obsessive compulsive disorder), Bipolar 1 disorder ED Provider Note NAME: CEDRICK ANTUNEZ AGE: 63 SEX: F : 1960 ARRIVES VIA: [employer] INFORMANT: Patient, ED PROVIDER(S): Nir Dennis MD CHIEF COMPLAINT: 302 warrant HPI: This is a 63-year-old female presenting as a 302. Patient history of bipolar disorder previously diagnosed. Her sons are concerned because patient has been unable to take care of herself. She is not been eating or perform any hygiene. She appears to be hyper fixated on specific things such as her belongings and giving things a certain way. She requires multiple attempts at the same item/cleaning before she will do something. She denies any SI or HI. She is fairly uncooperative and request numerous things prior to answering questions. ROS: Unable to obtain PHYSICAL EXAMINATION: General: Disheveled, cachectic Head: Normocephalic and atraumatic Eyes: Normal inspection, extraocular muscles intact Ear, nose, throat: Normal external exam Neck: Normal range of motion Respiratory: lungs clear to auscultation bilaterally Cardiovascular: Regular rate/rhythm, no murmur GI: soft, nontender, no guarding or rebound Extremities: nontender, moves all extremities Neuro: Moves all extremities Skin: Warm, dry, and intact psych: Doing repetitive tasks, nonlinear thought process, MEDICAL DECISION MAKING: This is a 63-year-old female presenting as a 302. Patient was brought in at the concern of her sons. She appears to be declining. She appears to have possible OCD that is unmanaged. She will get screening workup to rule out metabolic etiology. Patient has no current other symptoms. -No leuko-cytosis, slight anemia is noted. No electrolyte disturbances. Isolated minimal AST elevation. Urinalysis reveals signs of UTI however patient declines any symptoms and does not want any medication for this. UDS negative -Patient appears medically clear at this time. I do not believe this urinalysis is cause of her symptoms as she has clearly psychiatric components to her current decline. Does not appear to be consistent with delirium. -Overall patient medically clear, currently awaiting psychiatric assessment and placement. -Patient signed oncoming physician, Dr. Bennett, awaiting ultimate disposition/transfer Differential diagnosis: Psychosis, OCD, bipolar, manic episode ER treatment provided: See below Independent History obtained from: Self, there are 2 paperwork Diagnostics interpreted by me: ECG: None Cardiac Monitoring: An order was placed for continuous cardiac monitoring. The monitor shows a rate of 98 with sinus rhythm. Laboratory studies: As stated above and show below. Imaging studies: See below. Past Med/Surg History Problem List (Updated 10/06/23 @ 21:32 by Nir Dennis MD) Bipolar 1 disorder (Acute) OCD (obsessive compulsive disorder) (Acute) Adult failure to thrive (Acute) Panic disorder Bipolar disorder with severe eugenie (Acute) HTN (hypertension) Hypothyroidism (Chronic) Hyperlipidemia (Chronic) Hyperactivity of bladder (Acute) Bipolar I disorder, single manic episode (Acute) Type 2 diabetes mellitus Medical History (Updated 10/06/23 @ 21:32 by Nir Dennis MD) Bipolar disorder Thought disorder Insomnia Psychiatric disorder Bipolar 1 disorder Anxiety Surgical History H/O: section History of dilation and curettage History of neck surgery History of oral surgery S/P breast biopsy Family History Father Myocardial infarction Heart disease Prostate cancer Other Alzheimer disease Diabetes Denies family history of Ovarian cancer Breast cancer Colorectal cancer Social History Smoking Status: Never smoker Second Hand Exposure: No; Do You Dip or Chew Tobacco: No; Hx Alcohol Use: No Hx Substance Use: No Preferred Language: Norwegian Communication Ability: Effective Visual Impairment: No Limitations Hearing Ability: Normal 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 Beliefs That Will Affect Care: None marital status: Current Living Situation: Family current occupational status: retired Feels Safe at Home: Yes Childhood Exposure to Second-Hand Smoke: Yes Diet: regular caffeine: Yes Dental Care, Regularly: Yes Physical Activity Frequency: 3-4 Times per Week Physical Activity Frequency Comment: walking, 20 mins Seatbelt Use: always Sunscreen Use: Yes Gender Identity: Female Assistive Devices: Glasses Allergies Allergies Allergy/AdvReac Type Severity Reaction Status Date / Time latex Allergy Unknown UNKNOWN Verified 11/30/22 09:02 codeine AdvReac Mild NAUSEA, Verified 11/30/22 09:02 VOMITING Home Meds Home Medications Medication Instructions Recorded Confirmed cholecalciferol (vitamin D3) 50 2,000 unit PO QAM 02/24/18 11/30/22 mcg (2,000 unit) tablet (Vitamin D3) docusate sodium 100 mg capsule 100 mg PO BID 02/24/18 11/30/22 (Colace) lorazepam 0.5 mg tablet (Ativan) 0.5 mg PO AMPM 02/24/18 11/30/22 trazodone 50 mg tablet 50 mg PO HS PRN Insomnia 02/24/18 11/30/22 acetaminophen 500 mg tablet 1,000 mg PO Q6H PRN Pain 03/06/18 11/30/22 (Tylenol Extra Strength) levothyroxine 75 mcg tablet 75 mcg PO DIRECTED 01/04/20 11/30/22 (Synthroid) lorazepam 0.5 mg tablet 1 mg PO HS 06/15/21 10/06/23 multivitamin 1 tab PO DAILY 06/15/21 11/30/22 olanzapine 10 mg tablet 10 mg PO DAILY 11/30/22 11/30/22 Previous Rx's Medication Instructions Recorded aspirin 81 mg tablet,delayed 81 mg PO DAILY #30 tabs 10/26/22 release oxybutynin chloride 10 mg 10 mg PO DAILY #30 tabs 10/27/22 tablet,extended release 24 hr atorvastatin 20 mg tablet (Lipitor) 20 mg PO HS 90 days #90 tabs 04/11/23 losartan 25 mg tablet (Cozaar) 25 mg PO HS 90 days #90 tabs 04/11/23 Results & Data (ED) Vital Signs Vital Signs - 24 hr 10/06/23 15:19 Temperature 36.9 C Temperature Source Oral Pulse Rate 98 H Respiratory Rate 18 Respiratory Effort / Characteristics Non-Labored Respiratory Depth Normal Blood Pressure 151/77 H Blood Pressure Mean 101 Pulse Oximetry 98 Oxygen Delivery Method Room Air Sepsis Recent Fever Within 48 Hours No Sepsis New/Unexplained Change in Mental Status N/A Sepsis Action Taken by Nursing No Action Required Laboratory Data 10/06/23 15:45 10/06/23 15:45 Lab Results 10/06/23 10/06/23 10/06/23 Range/Units 15:45 16:17 19:12 WBC 7.41 (4.8-10.8) K/ul RBC 3.93 L (4.20-5.40) M/uL Hgb 11.8 L (12.0-16.0) g/dl Hct 35.5 L (37.0-47.0) % MCV 90.3 (80.0-100.0) fL MCH 30.0 (25.0-34.0) pg MCHC 33.2 (32.0-36.0) g/dL RDW Std Deviation 43.1 (36.4-46.3) fL RDW Coeff of Arturo 12.8 (11.5-14.5) % Plt Count 305 (130-400) K/uL MPV 9.5 (9.4-12.4) fL Immature Gran % (Auto) 0.1 % Neut % (Auto) 65.1 % Lymph % (Auto) 23.9 % Ashe % (Auto) 8.1 % Eos % (Auto) 1.9 % Baso % (Auto) 0.9 % Neut # (Auto) 4.82 (1.40-6.50) K/uL Lymph # (Auto) 1.77 (1.20-3.40) K/uL Ashe # (Auto) 0.60 H (0.11-0.59) K/uL Eos # (Auto) 0.14 (0.00-0.50) K/uL Baso # (Auto) 0.07 (0.00-0.20) K/uL Immature Gran # (Auto) 0.01 (0.01-0.20) K/uL Sodium 141 (136-145) mmol/L Potassium 3.7 (3.5-5.1) mmol/L Chloride 107 (98-107) mmol/L Carbon Dioxide 30 (21-32) mmol/L Anion Gap 4 (3-11) BUN 18 (6-23) mg/dl Creatinine 0.66 (0.6-1.2) mg/dl Est Cr Clr Drug Dosing 72.8 ml/min Est GFR ( Amer) 110.5 ml/min Est GFR (Non-Af Amer) 95.3 ml/min BUN/Creatinine Ratio 27.3 H (10-20) Glucose 118 H (70-99(Fasting)) mg/dl Calcium 9.3 (8.6-10.3) mg/dl Total Bilirubin 0.4 (0.2-1.0) mg/dl AST 47 H (13-39) U/L ALT 33 (7-52) U/L Alkaline Phosphatase 77 (34-104) U/L Total Protein 7.7 (6.0-8.3) gm/dl Albumin 4.5 (3.4-5.0) gm/dl Globulin 3.2 (2.5-4.0) gm/dl Albumin/Globulin Ratio 1.4 (0.9-2) TSH 4.018 (0.300-4.500) uIu/ml Urine Color Yellow Urine Appearance Clear (Clear) Urine pH 6.0 (4.5-7.5) Ur Specific [place] 1.027 (1.000-1.030) Urine Protein 1+ H (Negative) Urine Glucose (UA) Negative (Negative) Urine Ketones Negative (Negative) Urine Blood Negative (Negative) Urine Nitrite Negative (Negative) Urine Bilirubin Negative (Negative) Urine Urobilinogen Negative (Negative) Ur Leukocyte Esterase 2+ H (Negative) Urine WBC (Auto) 21-50 H (0-5) /hpf Urine RBC (Auto) 3-5 H (0-2) /hpf U Hyaline Cast (Auto) 0-2 (0-2) /lpf U Epithel Cells (Auto) 0-2 (0-2) /hpf Urine Bacteria (Auto) None Seen (None Seen) Calcium Oxalate Crystal Present A (None Prsent) Urine Test (Negative) Salicylates < 3.0 L (3.0-30) mg/dl Urine Opiates Screen Neg (Neg) Ur Methadone, Qual Neg (Neg) Urine Fentanyl Screen Neg (Neg) Acetaminophen < 3 L (10-30) ug/ml Urine Barbiturates Neg (Neg) Ur Phencyclidine (PCP) Neg (Neg) U Amphetamin/Meth Scrn Neg (Neg) MDMA (Ecstasy) Screen Neg (Neg) U Benzodiazepines Scrn Neg (Neg) Ur Cocaine Metabolite Neg (Neg) U Marijuana (THC) Screen Neg (Neg) Ethyl Alcohol mg/dL < 10.0 (<10.0) mg/dl SARS-CoV-2, RNA, NAAT NEGATIVE (NEGATIVE) 10/06/23 Range/Units 19:28 WBC (4.8-10.8) K/ul RBC (4.20-5.40) M/uL Hgb (12.0-16.0) g/dl Hct (37.0-47.0) % MCV (80.0-100.0) fL MCH (25.0-34.0) pg MCHC (32.0-36.0) g/dL RDW Std Deviation (36.4-46.3) fL RDW Coeff of Arturo (11.5-14.5) % Plt Count (130-400) K/uL MPV (9.4-12.4) fL Immature Gran % (Auto) % Neut % (Auto) % Lymph % (Auto) % [place]he % (Auto) % Eos % (Auto) % Baso % (Auto) % Neut # (Auto) (1.40-6.50) K/uL Lymph # (Auto) (1.20-3.40) K/uL Ashe # (Auto) (0.11-0.59) K/uL Eos # (Auto) (0.00-0.50) K/uL Baso # (Auto) (0.00-0.20) K/uL Immature Gran # (Auto) (0.01-0.20) K/uL Sodium (136-145) mmol/L Potassium (3.5-5.1) mmol/L Chloride (98-107) mmol/L Carbon Dioxide (21-32) mmol/L Anion Gap (3-11) BUN (6-23) mg/dl Creatinine (0.6-1.2) mg/dl Est Cr Clr Drug Dosing ml/min Est GFR ( Amer) ml/min Est GFR (Non-Af Amer) ml/min BUN/Creatinine Ratio (10-20) Glucose (70-99(Fasting)) mg/dl Calcium (8.6-10.3) mg/dl Total Bilirubin (0.2-1.0) mg/dl AST (13-39) U/L ALT (7-52) U/L Alkaline Phosphatase (34-104) U/L Total Protein (6.0-8.3) gm/dl Albumin (3.4-5.0) gm/dl Globulin (2.5-4.0) gm/dl Albumin/Globulin Ratio (0.9-2) TSH (0.300-4.500) uIu/ml Urine Color Urine Appearance (Clear) Urine pH (4.5-7.5) Ur Specific [place] (1.000-1.030) Urine Protein (Negative) Urine Glucose (UA) (Negative) Urine Ketones (Negative) Urine Blood (Negative) Urine Nitrite (Negative) Urine Bilirubin (Negative) Urine Urobilinogen (Negative) Ur Leukocyte Esterase (Negative) Urine WBC (Auto) (0-5) /hpf Urine RBC (Auto) (0-2) /hpf U Hyaline Cast (Auto) (0-2) /lpf U Epithel Cells (Auto) (0-2) /hpf Urine Bacteria (Auto) (None Seen) Calcium Oxalate Crystal (None Prsent) Urine Test Negative (Negative) Salicylates (3.0-30) mg/dl Urine Opiates Screen (Neg) Ur Methadone, Qual (Neg) Urine Fentanyl Screen (Neg) Acetaminophen (10-30) ug/ml Urine Barbiturates (Neg) Ur Phencyclidine (PCP) (Neg) U Amphetamin/Meth Scrn (Neg) MDMA (Ecstasy) Screen (Neg) U Benzodiazepines Scrn (Neg) Ur Cocaine Metabolite (Neg) U Marijuana (THC) Screen (Neg) Ethyl Alcohol mg/dL (<10.0) mg/dl SARS-CoV-2, RNA, NAAT (NEGATIVE) Administered Medications Lorazepam (Lorazepam 0.5 Mg Tab) 1 mg PO HS CHRIS Stop: 11/05/23 20:59 Last Admin: 10/06/23 20:47 Dose: 1 mg Documented By: LEAH Losartan Potassium (Losartan Potassium 25 Mg Tab) 25 mg PO HS CHRIS Stop: 11/05/23 20:59 Last Admin: 10/06/23 20:47 Dose: 25 mg Documented By: LEAH Discontinued Medications Cephalexin HCl (Cephalexin 250 Mg Cap) 500 mg PO NOW ONE; Protocol Stop: 10/06/23 17:28 Last Admin: 10/06/23 18:56 Dose: Not Given Documented By: [facility] Plan Visit Data Chief Complaint: Mental Health Evaluation Stated Complaint: 302 - Need Security ED Provider: Ministerio Lemus Discharge Problem: Adult failure to thrive, OCD (obsessive compulsive disorder), Bipolar 1 disorder Forms Stand Alone Forms: My [facility], Suicide Prevention Resources Prescriptions Prescriptions: No Action losartan [Cozaar] 25 mg tablet 25 mg PO HS 90 Days Qty: 90 4RF atorvastatin [Lipitor] 20 mg tablet 20 mg PO HS 90 Days Qty: 90 2RF aspirin 81 mg tablet,delayed release (DR/EC) 81 mg PO DAILY Qty: 30 2RF oxybutynin chloride 10 mg tablet extended release 24hr 10 mg PO DAILY Qty: 30 11RF levothyroxine [Synthroid] 75 mcg tablet 75 mcg PO DIRECTED Rx Instructions: skip M,W,F olanzapine 10 mg tablet 10 mg PO DAILY trazodone 50 mg tablet 50 mg PO HS PRN (Reason: Insomnia) Rx Instructions: MRX1 lorazepam [Ativan] 0.5 mg tablet 0.5 mg PO AMPM docusate sodium [Colace] 100 mg Capsule 100 mg PO BID cholecalciferol (vitamin D3) [Vitamin D3] 2,000 unit Tablet 2,000 unit PO QAM acetaminophen [Tylenol Extra Strength] 500 mg Tablet 1,000 mg PO Q6H PRN (Reason: Pain) lorazepam 0.5 mg Tablet 1 mg PO HS multivitamin Tablet 1 tab PO DAILY Referrals Referrals: Nay Agosto MD [Primary Care Provider] -
[2023-10-06 19:29] LABS: Pregnancy Test, Urine Negative (Negative)
[2023-10-06] MEDS ORDERED: traZODone HCL 50 MG TAB PO PRN (19:59)
[2023-10-06] MEDS: LORazepam 0.5 MG TAB PO SCH (20:47)
[2023-10-06] MEDS: LOSARTAN POTASSIUM 25 MG TAB PO SCH (20:47)
[2023-10-06] MEDS ORDERED: haloperidoL 5 MG TAB PO PRN (21:40)
[2023-10-06] MEDS ORDERED: LORazepam 1 MG TAB PO PRN (21:43)
[2023-10-06] MEDS ORDERED: LORazepam 2 MG/1 ML VIAL IM PRN (21:49)
[2023-10-06] MEDS ORDERED: BENZTROPINE MESYLATE 1 MG/ML 2 ML AMP IM PRN (21:54)
[2023-10-06] MEDS ORDERED: ACETAMINOPHEN 325 MG TAB PO PRN (22:00)
[2023-10-06] MEDS ORDERED: BISMUTH SUBSALICYLATE LIQD 236 ML PO PRN (22:00)
[2023-10-06] MEDS ORDERED: hydrOXYzine HCl 25 MG TAB PO PRN ×2 (22:00)
[2023-10-06] MEDS ORDERED: ALUMINUM/MAGNESIUM SUSP 30 ML UDC PO PRN (22:00)
[2023-10-06] MEDS ORDERED: MAGNESIUM HYDROXIDE SUSP 30 ML UDC PO PRN (22:00)
[2023-10-06] MEDS ORDERED: SODIUM CHLORIDE 0.65% NA SOLN 45 ML (OCEAN) PRN (22:00)
[2023-10-06] MEDS ORDERED: BENZTROPINE MESYLATE 1 MG TAB PO PRN (22:26)
[2023-10-06] MEDS ORDERED: HALOPERIDOL LACTATE 5 MG/ML 1 ML VIAL IM PRN (22:33)
[2023-10-06] MEDS: cephALEXin 500 MG CAP PO ONE (22:49)
--- NOTE | 2023-10-07 00:18 | Emergency Department Note ---
ED Visit Note Patient was signed out to me at change of shift by Dr. Dennis, pending ongoing bed search for inpatient psychiatric care. Patient was assessed by the behavioral health unit/3 S. and was accepted for inpatient care. Patient was transferred to S in stable condition for further management. Patient did not require any acute interventions on my part while during my shift. .
[2023-10-07] MEDS ORDERED: OLANZapine 10 MG TAB PO SCH (09:00)
[2023-10-07] MEDS ORDERED: ASPIRIN 81 MG ECTAB PO SCH (09:00)
[2023-10-07] MEDS: DOCUSATE SODIUM 100 MG CAP PO SCH (12:55)
[2023-10-07] MEDS: LEVOTHYROXINE SODIUM 75 MCG TABLET PO SCH (12:55)
[2023-10-07] MEDS: OXYBUTYNIN CHLORIDE XL 5 MG TABCR PO SCH (12:56)
--- NOTE | 2023-10-07 13:00 | History & Physical ---
Date of Service October 07, 2023 Impression / Recommendations Impression MIRANDA ANTUNEZ is a 63-year-old F who currently lives in alone, has a history of bipolar 1 eugenie vs SAD, panic disorder, OCD traits, hypothyroidism, HTN, urinary incontinence and was admitted on 10/06/23 21:33 on a 302 involuntary commitment for psychosis, disorganized thought process, poor self care and hygiene. Concern for patient's medication non-adherence. Pt presents with persecutory delusions, disorganized thought process with memory impairments, bizarre behaviors, poor self-care and hygiene, insomnia, medication nonadherence, poor follow-up with outpatient providers. Possible eugenie. Diagnostically consistent with schizoaffective disorder versus bipolar disorder, possible OCD. Patient is an acutely psychotic state and is detrimental to her regular functioning. Collateral gathered from outpatient psychiatrist indicating deterioration patient's mental status with worsening psychosis and mood symptoms and poor follow-up on an outpatient basis. Patient has been reluctant to medication changes. Labs reviewed: CBC, CMP, TSH within expected limits; UA suspicious for UTI and given single dose of antibiotic. Medications confirmed with the pharmacy and will resume home medications. Given non adherence patient may benefit from a long-acting injectable in the future. She would benefit from extra community support for medication assistance in home care. There is concern for insomnia and we will optimize her sleep medications. We will draw baseline lab work and rule out nutritional deficiencies. Plan to gather further collateral from family. Overall, I spent a total of 90 minutes with this case including review of chart records, nursing report, review of lab work, direct evaluation of the patient at bedside, counseling the patient, multidisciplinary team meeting, orders, gathering collateral from outpatient psychiatrist and pharmacies and documentation in the electronic health record. MNPR due to psychosis, paranoia, anxiety (1) Schizoaffective disorder, depressive type: (2) Obsessional thoughts: (3) Adult failure to thrive: (4) HTN (hypertension): (5) Hypothyroidism: (6) Hyperactivity of bladder: Plan 10/07/23: The patient was admitted to the [facility]) on q15 min checks (behavioral with suicide precautions) for safety. The patient will participate in group, recreational, and milieu therapies and will be offered additional individual and family sessions as clinically appropriate. -Restart home medications including Olanzapine 10mg HS -Lorazepam 2mg HS for sleep -Agitation/anxiety PRNs adjusted -A1c, fasting lipid panel, Vit D, Vit B12 levels Inventory Assets Strengths: family support, outpatient connection Suicide Risk Level Suicide Risk Level: Moderate (q15 min suicide checks) Risk Factors Assessment Male: No : Yes Do You Have Access To A Gun?: No Health Problems: Yes Mental Health Diagnoses: Yes Substance Use Disorders: No Previous Attempt: No Family History of Suicide: No Previous Psychiatric Hospitalization: Yes Hopelessness: Yes Protective Factors Assessment Pentecostalism Beliefs: No : No Responsible for Young Children: No Employed: No Stable Relationships: No Supportive Family: Yes Good Rapport with Provider: No Absence of Any Risk Factors Above: No Psychiatric History Identifying Data MIRANDA ANTUNEZ is a 63-year-old F who currently lives in alone, has a history of bipolar 1 eugenie vs SAD, panic disorder, OCD traits, hypothyroidism, HTN, urinary incontinence and was admitted on 10/06/23 21:33 on a 302 involuntary commitment for psychosis, disorganized thought process, poor self care and hygiene. Concern for patient's medication non-adherence. Chief Complaint "worried about my medications" History of Present Illness Chart review: Patient last seen in this facility 10/17/2022 diagnosis bipolar 1 with eugenie. documentation reveals she was driving erratically and presented bizarre behavior. Disorganized thought process. Placed on 302 petition. At that time concern for medication nonadherence with poor self-care and she lost significant weight. Was started on olanzapine at bedtime and discharged. Prior to interview patient was seen in the hallway on the phone. She was pleading with someone on the phone saying that "Dr. Salazar" was going to change her medications and force her to take them. She appeared frantic and fearful. This was prior to me talking to the patient or scheduling any medications. Patient asked for her room to be cleaned again and her room appeared to be recently cleaned. On interview she presented with slow delayed speech often looking down. She was tangential and had some word-finding difficulties. She reports prior to hospitalization she "went to get her 2014 here for day to take the emergency break off" then "[place] police, Officer Elham took [her] car." reports receiving a notice in the mail box saying that her vehicle was towed. Says she has not kept up with registration or inspection report. Then says that spring. is going to be paved. Says that she lost the ability to drive. When asked about assistance at home she reports that her nephew's brings groceries for her. Says that she clog the toilet at her home and was unable to fix it. She reports not taking olanzapine and did not pick it up from the pharmacy. Says that someone else picked up her medications and that she asks us to call [facility] pharmacy and check their cameras. She says that someone is using her cell phone and disguising their voice as hers and she does not like using her cell phone. When discussing labs I instructed her to get the lipid panel the next day morning because she is on an antipsychotic and explained my reasoning. She is hyper focused on having to "fast" and says that she is emaciated. she is unable to rationalize that we will get the fasting labs prior to her breakfast and and asked us to cancel the lab work. She denies current auditory or visual destinations. She denies recent head trauma. She speaks about herself in the third person and refers to "Miranda". Says her son lives in [facility]. The room she was interviewed in was slightly cold however she reports feeling very warm and asked why the room does not have A/C. patient required regular reassurance. She reports having memory problems. Called patient's outpatient psychiatrist Dr. Baxter with pt permission ([phone]): Even when doing well reluctant to make medication changes. Wanted to increase olanzapine nightly dose. Suspicious at baseline. Therapist retired. Isolated. Long-term pt of Dr. Kristina diallo. More concrete. Outpatient commitment recommended-concern she won't follow-up and will continue to deteriorate. Has been resistant to extra outpatient support. Past dx Bipolar 1 d/o. SAD is more recent years. Less reactive affect. Past antidepressant, sertraline (2019). lamotrigine. Tried lithium and opposed to lab work. Difficulty with sleep. Very obsessional. No h/o HURT. Numerous efforts to get case management. 2 sons, one in [place] and one more local. Lazaro (son) - [phone]. Margarito (son) - [phone]. Called [facility] pharmacy [place]: Olanzapine 10mg HS - last filled 08/29/23 30 day supply Called [facility] pharmacy [place]: losartan 25mg hs - filled 08/08/23 levothyroxine 75mcg QAM, filled 09/30/23 oxybutinin er 10mg daily, filled 09/30/23 lorazepam 0.5mg qam, last 09/04/23 30 day trazodone 50mg HS PRN, last 09/03/23 atorvastain 20mg HS, 08/08/23 Past Psychiatric History Current Psychiatric Diagnosis: Bioplar disorcer Do You Have Access To A Gun?: No History of Previous Suicide Attempt: No Allergies Allergy/AdvReac Type Severity Reaction Status Date / Time latex Allergy Unknown UNKNOWN Verified 11/30/22 09:02 codeine AdvReac Mild NAUSEA, Verified 11/30/22 09:02 VOMITING Home Medications Medication Instructions Recorded Confirmed Type cholecalciferol (vitamin D3) 50 2,000 unit PO QAM 02/24/18 11/30/22 History mcg (2,000 unit) tablet (Vitamin D3) docusate sodium 100 mg capsule 100 mg PO BID 02/24/18 11/30/22 History (Colace) lorazepam 0.5 mg tablet (Ativan) 0.5 mg PO AMPM 02/24/18 11/30/22 History trazodone 50 mg tablet 50 mg PO HS PRN Insomnia 02/24/18 11/30/22 History acetaminophen 500 mg tablet 1,000 mg PO Q6H PRN Pain 03/06/18 11/30/22 History (Tylenol Extra Strength) levothyroxine 75 mcg tablet 75 mcg PO DIRECTED 01/04/20 11/30/22 History (Synthroid) lorazepam 0.5 mg tablet 1 mg PO HS 06/15/21 10/06/23 History multivitamin 1 tab PO DAILY 06/15/21 11/30/22 History aspirin 81 mg tablet,delayed 81 mg PO DAILY #30 tabs 10/26/22 11/30/22 Rx release oxybutynin chloride 10 mg 10 mg PO DAILY #30 tabs 10/27/22 11/30/22 Rx tablet,extended release 24 hr olanzapine 10 mg tablet 10 mg PO DAILY 11/30/22 11/30/22 History atorvastatin 20 mg tablet (Lipitor) 20 mg PO HS 90 days #90 tabs 04/11/23 Rx losartan 25 mg tablet (Cozaar) 25 mg PO HS 90 days #90 tabs 04/11/23 10/06/23 Rx Family History Family History of: Doesn't Know Family Mental Health History Comment: unknown Alcohol History Hx of Alcohol Use Over the Past 12 Months: No AUDIT Total Score: 0 Smoking Use Have You Smoked or Used Tobacco Products in the Last 30 Days: Refused to Answer Smoking Status: Never smoker Smoking packs per day: 0 Substance History Hx of Prescription Med Misuse Over the Past 12 Months: No Hx of Over the Counter Med Misuse Over the Past 12 Months: No Hx of Inhalent Misuse Over the Past 12 Months: No Hx of Organic Substance Use Over the Past 12 Months: No Hx of Illegal Substances/Street Drug Use Over Past 12 Months: No Problems as a Result of Past Substance Use: None Identified Personal History Living Arrangements: Apartment Highest Grade Completed: College Beliefs That Will Affect Care: None Hx Legal Problems: No Hx Traumatic Life Events: Yes Patient History Medical History (Updated 10/07/23 @ 13:02 by Jose Francisco Salazar MD) Bipolar disorder Thought disorder Insomnia Psychiatric disorder Bipolar 1 disorder Anxiety Surgical History H/O: section History of dilation and curettage History of neck surgery History of oral surgery S/P breast biopsy Family History Father Myocardial infarction Heart disease Prostate cancer Other Alzheimer disease Diabetes Denies family history of Ovarian cancer Breast cancer Colorectal cancer Social History Smoking Status: Never smoker Second Hand Exposure: No; Do You Dip or Chew Tobacco: No; Hx Alcohol Use: No Hx Substance Use: No Preferred Language: Lebanese Communication Ability: Effective Visual Impairment: No Limitations Hearing Ability: Normal Base Remover Required: No Beliefs That Will Affect Care: None marital status: Current Living Situation: Alone Current Living Situation Comment: unable to care for self current occupational status: retired Feels Safe at Home: Yes Childhood Exposure to Second-Hand Smoke: Yes Diet: regular caffeine: Yes Dental Care, Regularly: Yes Physical Activity Frequency: 3-4 Times per Week Physical Activity Frequency Comment: walking, 20 mins Seatbelt Use: always Sunscreen Use: Yes Gender Identity: Female Assistive Devices: None and Glasses Physical Exam Vital Signs (Past 24 Hours): Last Vital Signs Temp 36.4 C L 10/07/23 06:43 Pulse 91 H 10/07/23 06:44 Resp 16 10/07/23 06:43 BP 170/95 H 10/07/23 06:44 Pulse Ox 99 10/06/23 22:32 O2 Del Method Room Air 10/06/23 22:32 Results & Data ([facility]) Laboratory Results Laboratory Results - last 24 hr 10/06/23 10/06/23 10/06/23 15:45 16:17 19:12 WBC 7.41 RBC 3.93 L Hgb 11.8 L Hct 35.5 L MCV 90.3 MCH 30.0 MCHC 33.2 RDW Std Deviation 43.1 RDW Coeff of Arturo 12.8 Plt Count 305 MPV 9.5 Immature Gran % (Auto) 0.1 Neut % (Auto) 65.1 Lymph % (Auto) 23.9 [place] % (Auto) 8.1 Eos % (Auto) 1.9 Baso % (Auto) 0.9 Neut # (Auto) 4.82 Lymph # (Auto) 1.77 [place] # (Auto) 0.60 H Eos # (Auto) 0.14 Baso # (Auto) 0.07 Immature Gran # (Auto) 0.01 Sodium 141 Potassium 3.7 Chloride 107 Carbon Dioxide 30 Anion Gap 4 BUN 18 Creatinine 0.66 Est Cr Clr Drug Dosing 72.8 Est GFR ( Amer) 110.5 Est GFR (Non-Af Amer) 95.3 BUN/Creatinine Ratio 27.3 H Glucose 118 H Calcium 9.3 Total Bilirubin 0.4 AST 47 H ALT 33 Alkaline Phosphatase 77 Total Protein 7.7 Albumin 4.5 Globulin 3.2 Albumin/Globulin Ratio 1.4 TSH 4.018 Urine Color Yellow Urine Appearance Clear Urine pH 6.0 Ur Specific [place] 1.027 Urine Protein 1+ H Urine Glucose (UA) Negative Urine Ketones Negative Urine Blood Negative Urine Nitrite Negative Urine Bilirubin Negative Urine Urobilinogen Negative Ur Leukocyte Esterase 2+ H Urine WBC (Auto) 21-50 H Urine RBC (Auto) 3-5 H U Hyaline Cast (Auto) 0-2 U Epithel Cells (Auto) 0-2 Urine Bacteria (Auto) None Seen Calcium Oxalate Crystal Present A Urine Test POC Ur Test Salicylates < 3.0 L Urine Opiates Screen Neg Ur Methadone, Qual Neg Urine Fentanyl Screen Neg Acetaminophen < 3 L Urine Barbiturates Neg Ur Phencyclidine (PCP) Neg U Amphetamin/Meth Scrn Neg MDMA (Ecstasy) Screen Neg U Benzodiazepines Scrn Neg Ur Cocaine Metabolite Neg U Marijuana (THC) Screen Neg Ethyl Alcohol mg/dL < 10.0 SARS-CoV-2, RNA, NAAT NEGATIVE 10/06/23 10/06/23 19:28 Unknown WBC RBC Hgb Hct MCV MCH MCHC RDW Std Deviation RDW Coeff of Arturo Plt Count MPV Immature Gran % (Auto) Neut % (Auto) Lymph % (Auto) [place] % (Auto) Eos % (Auto) Baso % (Auto) Neut # (Auto) Lymph # (Auto) [place] # (Auto) Eos # (Auto) Baso # (Auto) Immature Gran # (Auto) Sodium Potassium Chloride Carbon Dioxide Anion Gap BUN Creatinine Est Cr Clr Drug Dosing Est GFR ( Amer) Est GFR (Non-Af Amer) BUN/Creatinine Ratio Glucose Calcium Total Bilirubin AST ALT Alkaline Phosphatase Total Protein Albumin Globulin Albumin/Globulin Ratio TSH Urine Color Urine Appearance Urine pH Ur Specific [place] Urine Protein Urine Glucose (UA) Urine Ketones Urine Blood Urine Nitrite Urine Bilirubin Urine Urobilinogen Ur Leukocyte Esterase Urine WBC (Auto) Urine RBC (Auto) U Hyaline Cast (Auto) U Epithel Cells (Auto) Urine Bacteria (Auto) Calcium Oxalate Crystal Urine Test Negative POC Ur Test Cancelled Salicylates Urine Opiates Screen Ur Methadone, Qual Urine Fentanyl Screen Acetaminophen Urine Barbiturates Ur Phencyclidine (PCP) U Amphetamin/Meth Scrn MDMA (Ecstasy) Screen U Benzodiazepines Scrn Ur Cocaine Metabolite U Marijuana (THC) Screen Ethyl Alcohol mg/dL SARS-CoV-2, RNA, NAAT Current Inpatient Medications Current Inpatient Medications: Current Inpatient Medications Acetaminophen (Acetaminophen 325 Mg Tab) 650 mg PO Q4H PRN PRN Reason: Headache or Minor Fever Stop: 11/05/23 21:59 Al Hydrox/Mg Hydrox/Simethicone (Aluminum/Magnesium Susp 30 Ml Udc) 30 ml PO Q4H PRN PRN Reason: GI Upset Stop: 11/05/23 21:59 Atorvastatin Calcium (Atorvastatin 20 Mg Tab) 20 mg PO HS CHRIS Stop: 11/06/23 21:59 Benztropine Mesylate (Benztropine Mesylate 1 Mg/Ml 2 Ml Amp) 1 mg IM Q8H PRN PRN Reason: Extrapyramidal Stop: 11/05/23 21:53 Benztropine Mesylate (Benztropine Mesylate 1 Mg Tab) 1 mg PO Q8 PRN PRN Reason: Extrapyramidal Stop: 11/05/23 22:25 Bismuth Subsalicylate (Bismuth Subsalicylate Liqd 236 Ml) 15 ml PO PRN PRN PRN Reason: Loose Stool Stop: 11/05/23 21:59 Docusate Sodium (Docusate Sodium 100 Mg Cap) 100 mg PO BID CHRIS Stop: 11/06/23 11:44 Haloperidol (Haloperidol 5 Mg Tab) 5 mg PO BID PRN PRN Reason: Agitation Stop: 11/05/23 21:39 Haloperidol Lactate (Haloperidol Lactate 5 Mg/Ml 1 Ml Vial) 5 mg IM BID PRN PRN Reason: Agitation Stop: 11/05/23 22:32 Hydroxyzine HCl (Hydroxyzine Hcl 25 Mg Tab) 50 mg PO HSZ PRN PRN Reason: Insomnia Stop: 11/05/23 21:59 Hydroxyzine HCl (Hydroxyzine Hcl 25 Mg Tab) 25 mg PO Q4H PRN PRN Reason: Anxiety Stop: 11/05/23 21:59 Levothyroxine Sodium (Levothyroxine Sodium 75 Mcg Tablet) 75 mcg PO DAILYBB CHRIS Stop: 11/06/23 11:49 Lorazepam (Lorazepam 1 Mg Tab) 2 mg PO Q8H PRN PRN Reason: Anxiety Stop: 11/05/23 21:42 Lorazepam (Lorazepam 2 Mg/1 Ml Vial) 2 mg IM Q8H PRN PRN Reason: Anxiety Stop: 11/05/23 21:48 Lorazepam (Lorazepam 1 Mg Tab) 2 mg PO HS CHRIS Stop: 11/06/23 21:59 Losartan Potassium (Losartan Potassium 25 Mg Tab) 25 mg PO HS CHRIS Stop: 11/06/23 21:59 Magnesium Hydroxide (Magnesium Hydroxide Susp 30 Ml Udc) 30 ml PO DAILY PRN PRN Reason: Constipation Stop: 11/05/23 21:59 Olanzapine (Olanzapine 10 Mg Tab) 10 mg PO HS CHRIS Stop: 11/06/23 21:59 Oxybutynin Chloride (Oxybutynin Chloride Xl 5 Mg Tabcr) 10 mg PO QAM [facility] Stop: 11/06/23 11:59 Sodium Chloride (Sodium Chloride 0.65% Na Soln 45 Ml ([place])) 1 - 2 sprays NA PRN PRN PRN Reason: Nasal Dryness/Congestion Stop: 11/05/23 21:59
[2023-10-07] MEDS: ATORVASTATIN 20 MG TAB PO SCH (21:07)
[2023-10-07] MEDS: LOSARTAN POTASSIUM 25 MG TAB PO SCH (21:07)
[2023-10-07] MEDS: OLANZapine 10 MG TAB PO SCH (21:07)
[2023-10-07] MEDS: LORazepam 1 MG TAB PO SCH (21:09)
[2023-10-08] MEDS ORDERED: LEVOTHYROXINE SODIUM 75 MCG TABLET PO SCH (06:30)
[2023-10-08 07:50] LABS: Chol HDL Ratio 2.9 (0-5)
[2023-10-08 09:36] LABS: Estimated Average Glucose 157 mg/dl; Hemoglobin A1C 7.1 % (4.5-5.6)
--- NOTE | 2023-10-08 12:40 | Psychiatric Progress Note ---
Date of Service October 08, 2023 Impression / Recommendations Impression CEDRICK ANTUNEZ is a 63-year-old F who currently lives in alone, has a history of bipolar 1 eugenie vs SAD, panic disorder, OCD traits, hypothyroidism, HTN, urinary incontinence and was admitted on 10/06/23 21:33 on a 302 involuntary commitment for psychosis, disorganized thought process, poor self care and hygiene. Pt presents with persecutory delusions, disorganized thought process with memory impairments, bizarre behaviors, poor self-care and hygiene, insomnia, medication nonadherence, poor follow-up with outpatient providers. Diagnostically consistent with schizoaffective disorder versus bipolar disorder, possible OCD. Patient continues to be paranoid and suspicious with ongoing persecutory delusions. Her speech is disorganized. She is highly obsessional with concerns to hygiene, her medications, follow-up with outpatient psychiatrist, medication sensitivity. Demonstrates poor insight into her symptoms, paranoia, obsessions, and well-being. She is unable to engage in a rational conversation regarding her mental state. Labs reviewed: A1c elevated at 7.1 diagnostic of type 2 diabetes; vitamin D 26.1 and low; lipid panel and vitamin B12 within expected limits. Plan to increase nightly olanzapine to 12.5 mg at bedtime. Start daily vitamin D supplementation. Start escitalopram daily for depression and obsessional thoughts. Overall, I spent a total of 60 minutes with this case including review of chart records, nursing report, review of lab work, direct evaluation of the patient at bedside, counseling the patient, multidisciplinary team meeting, orders, and documentation in the electronic health record. MNPR due to psychosis, paranoia, anxiety (1) Schizoaffective disorder, depressive type: (2) Obsessional thoughts: (3) Adult failure to thrive: (4) HTN (hypertension): (5) Hypothyroidism: (6) Hyperactivity of bladder: (7) Vitamin D insufficiency: (8) Diabetes mellitus type 2 in nonobese: Plan 10/08/23: -Increase Olanzapine to 12.5mg HS -Start Vitamin D 125mcg QD -Start Escitalopram 5mg QD 10/07/23: The patient was admitted to the [facility] ([facility] health unit) on q15 min checks (behavioral with suicide precautions) for safety. The patient will participate in group, recreational, and milieu therapies and will be offered additional individual and family sessions as clinically appropriate. -Restart home medications including Olanzapine 10mg HS -Lorazepam 2mg HS for sleep -Agitation/anxiety PRNs adjusted -A1c, fasting lipid panel, Vit D, Vit B12 levels Inventory Assets Strengths: family support, outpatient connection Suicide Risk Level Suicide Risk Level: Moderate (q15 min suicide checks) Risk Factors Assessment Male: No : Yes Do You Have Access To A Gun?: No Health Problems: Yes Mental Health Diagnoses: Yes Substance Use Disorders: No Previous Attempt: No Family History of Suicide: No Previous Psychiatric Hospitalization: Yes Hopelessness: Yes Protective Factors Assessment Taoism Beliefs: No : No Responsible for Young Children: No Employed: No Stable Relationships: No Supportive Family: Yes Good Rapport with Provider: No Absence of Any Risk Factors Above: No Interval History Identifying Information CEDRICK ANTUNEZ is a 63-year-old F who currently lives in alone, has a history of bipolar 1 eugenie vs SAD, panic disorder, OCD traits, hypothyroidism, HTN, urinary incontinence and was admitted on 10/06/23 21:33 on a 302 involuntary commitment for psychosis, disorganized thought process, poor self care and hygiene. Chief Complaint "Had fasting liver, consumed, took a shower" Review of Systems Sleep Information Total Hours of Sleep: 7.5 Meal Information Percent Meal Consumed - Breakfast: 100 Percent Meal Consumed - Lunch: 100 Percent Meal Consumed - Dinner: 75 Subjective Subjective Patient was seen & assessed and interval progress reviewed with treatment team nursing and social work Nursing reports she slept 7.5 hours. Took p.m. medications. Nursing reports she has been irritable, presenting triggered anxiety. Often commanding. Patient has been suspicious and germ focused. Prior to interview patient is seen opening doors with paper towels. She often has others open doors for her. Throughout the interview the patient is often speaking about herself, me, her outpatient dr and her son in the third person repeating full names. She presents word-finding difficulties and has delayed speech. She has trouble completing sentences. Presents a hunched posture as if to be yielding. Patient reports her shower felt rushed. When asked why she said because they called for breakfast. I asked her about her wellbeing and she appeared suspicious. Then I clarified I wanted to know if she slept well and had a good night. She reports sleeping well. I bring up concerns about her being depressed and she confirms having depression. When I suggest starting first line antidepressant therapy and educated her about it. She reports she cannot tolerate antidepressants because she is "emaciated". I inform her depression can often cause a loss of appetite and this may have led her to this current status. She is unable to rationalize and diverts the conversation. She reports she is "made to get angry" and tries to be respectful. She spoke with her son and says that he is "open to the treatment team meeting on October 10, 2023 in the morning." She says she did not want Keflex. Informed her that it was given as a one-time dose because of a positive urinalysis. Becomes argumentative and says that it was not a clean catch urine. I reassured her and report she is not getting a full course of Keflex and it was a one-time dose given by the ER pending cultures. Appears suspicious. She denies dysuria. When I attempt to go over her lab work with her she becomes suspicious and asked me to print out the results. I inform her I will ask the nurses to print it for her. She becomes suspicious again and says that I only must print it out for her. she becomes demanding and asked me to print them immediately. I told her I do not have a printer in this room and I want to finish the interview first. She becomes slightly agitated. Then she says that she does not need a printed copy and that I need to fax the results to her outpatient psychiatrist NAT. Then later retracts and says that she does need a printed out copy. When I ask her why she does not trust if a nurse prints out her lab work she does not clarify. I reviewed her lab work with her on the computer screen. While discussing with her the computer screen dims and she becomes anxious and asked what has happened. I tell her it is an energy stating feature of the monitor and there is nothing to worry about; she remains anxious and paranoid. After providing her handout of medications and lab results she notices I have a middle initial. She again becomes suspicious and asked why I did not tell her about my middle initial. I recommended to her to start antidepressant therapy and explained my rationale, side effects, benefits. I asked multiple times and was met with silence. She asked to see my personal patient notes that I jotted down on a piece of paper. I told her these notes are reflection of the interview and objective signs and data. Become slightly agitated. She becomes demanding and asked to see it saying that she has a right and wants to make sure there is nothing negative written about her. Physical Exam Mental Examination Appearance: Disheveled (hunched posture) Eye Contact: Sporadic Contact Motor Behavior: Restless Speech: Disorganized and Perseverating Mood: Irritable Affect: Irritable and Suspicious Thought Process: Flight of Ideas, Perseveration and Racing Thought Content: Evasive, Perseveration, [place] and Obsessional Thoughts Hallucinations: None (none reported) Insight: Poor Judgement: Poor Vital Signs (Past 24 Hours) Last Vital Signs Temp 36.5 C 10/08/23 06:35 Pulse 76 10/08/23 06:35 Resp 16 10/08/23 06:35 BP 171/79 H 10/08/23 06:35 Pulse Ox 99 10/06/23 22:32 O2 Del Method Room Air 10/06/23 22:32 Results & Data ([facility]) Laboratory Results Laboratory Results - last 24 hr 10/08/23 07:04 Estimat Average Glucose 157 Hemoglobin A1c 7.1 H Triglycerides 80 Cholesterol 220 H LDL Cholesterol, Calc 127 VLDL Cholesterol, Calc 16 HDL Cholesterol 77 Cholesterol/HDL Ratio 2.9 Vitamin B12 381 25-OH Vitamin D Total 26.1 L Current Inpatient Medications Current Inpatient Medications: Current Inpatient Medications Acetaminophen (Acetaminophen 325 Mg Tab) 650 mg PO Q4H PRN PRN Reason: Headache or Minor Fever Stop: 11/05/23 21:59 Al Hydrox/Mg Hydrox/Simethicone (Aluminum/Magnesium Susp 30 Ml Udc) 30 ml PO Q4H PRN PRN Reason: GI Upset Stop: 11/05/23 21:59 Atorvastatin Calcium (Atorvastatin 20 Mg Tab) 20 mg PO HS CHRIS Stop: 11/06/23 21:59 Last Admin: 10/07/23 21:07 Dose: 20 mg Benztropine Mesylate (Benztropine Mesylate 1 Mg/Ml 2 Ml Amp) 1 mg IM Q8H PRN PRN Reason: Extrapyramidal Stop: 11/05/23 21:53 Benztropine Mesylate (Benztropine Mesylate 1 Mg Tab) 1 mg PO Q8 PRN PRN Reason: Extrapyramidal Stop: 11/05/23 22:25 Bismuth Subsalicylate (Bismuth Subsalicylate Liqd 236 Ml) 15 ml PO PRN PRN PRN Reason: Loose Stool Stop: 11/05/23 21:59 Docusate Sodium (Docusate Sodium 100 Mg Cap) 100 mg PO BID CHRIS Stop: 11/06/23 11:44 Last Admin: 10/08/23 09:03 Dose: 100 mg Haloperidol (Haloperidol 5 Mg Tab) 5 mg PO BID PRN PRN Reason: Agitation Stop: 11/05/23 21:39 Haloperidol Lactate (Haloperidol Lactate 5 Mg/Ml 1 Ml Vial) 5 mg IM BID PRN PRN Reason: Agitation Stop: 11/05/23 22:32 Hydroxyzine HCl (Hydroxyzine Hcl 25 Mg Tab) 50 mg PO HSZ PRN PRN Reason: Insomnia Stop: 11/05/23 21:59 Hydroxyzine HCl (Hydroxyzine Hcl 25 Mg Tab) 25 mg PO Q4H PRN PRN Reason: Anxiety Stop: 11/05/23 21:59 Levothyroxine Sodium (Levothyroxine Sodium 75 Mcg Tablet) 75 mcg PO DAILYBB CHRIS Stop: 11/06/23 11:49 Last Admin: 10/08/23 09:03 Dose: 75 mcg Lorazepam (Lorazepam 1 Mg Tab) 2 mg PO Q8H PRN PRN Reason: Anxiety Stop: 11/05/23 21:42 Lorazepam (Lorazepam 2 Mg/1 Ml Vial) 2 mg IM Q8H PRN PRN Reason: Anxiety Stop: 11/05/23 21:48 Lorazepam (Lorazepam 1 Mg Tab) 2 mg PO HS CHRIS Stop: 11/06/23 21:59 Last Admin: 10/07/23 21:09 Dose: 2 mg Losartan Potassium (Losartan Potassium 25 Mg Tab) 25 mg PO HS CHRIS Stop: 11/06/23 21:59 Last Admin: 10/07/23 21:07 Dose: 25 mg Magnesium Hydroxide (Magnesium Hydroxide Susp 30 Ml Udc) 30 ml PO DAILY PRN PRN Reason: Constipation Stop: 11/05/23 21:59 Olanzapine (Olanzapine 10 Mg Tab) 10 mg PO HS CHRIS Stop: 11/06/23 21:59 Last Admin: 10/07/23 21:07 Dose: 10 mg Oxybutynin Chloride (Oxybutynin Chloride Xl 5 Mg Tabcr) 10 mg PO QAM CHRIS Stop: 11/06/23 11:59 Last Admin: 10/08/23 09:03 Dose: 10 mg Sodium Chloride (Sodium Chloride 0.65% Na Soln 45 Ml ([place])) 1 - 2 sprays NA PRN PRN PRN Reason: Nasal Dryness/Congestion Stop: 11/05/23 21:59 Mental Health & Subst Abuse Tx Therapist Name of Therapist: Vee Date of Therapist Appointment: missed multiple appointments Post Discharge Appointments Primary Care Physician Name Of Family Doctor/PCP: HEATHER
[2023-10-08] MEDS: CHOLECALCIFEROL 125 MCG (5,000 UNITS) TAB PO SCH (14:09)
[2023-10-08] MEDS: OLANZAPINE 2.5 MG TAB PO SCH (21:10)
[2023-10-08] MEDS: ESCITALOPRAM OXALATE 10 MG TAB PO SCH (21:38)
--- NOTE | 2023-10-09 12:52 | Psychiatric Progress Note ---
Date of Service October 09, 2023 Impression / Recommendations Impression CEDRICK ANTUNEZ is a 63-year-old F who currently lives in alone, has a history of bipolar 1 eugenie vs SAD, panic disorder, OCD traits, hypothyroidism, HTN, urinary incontinence and was admitted on 10/06/23 21:33 on a 302 involuntary commitment for psychosis, disorganized thought process, poor self care and hygiene. Pt presents with persecutory delusions, disorganized thought process with memory impairments, bizarre behaviors, poor self-care and hygiene, insomnia, medication nonadherence, poor follow-up with outpatient providers. Diagnostically consistent with schizoaffective disorder versus bipolar disorder, possible OCD. Patient continues to be paranoid and psychotic. Concern for responding to voices. Patient continues to be hyper fixated presents a rigid line of thinking. She is unable to reflect on concerns about self-care and persecution. She is unable to have a rational discussion about her medications and treatment and is preservative. Concern for underlying depression and anxiety further impacting memory, concentration, motivation, and ability for self-care. Medication history reviewed in documentation reveals past attempts to trial clozapine was not trialed due to patient's reluctance. Attempted to have discussion with patient about changes to antipsychotic regimen including dose increase or switch to an alternate agent and patient refused conversation regarding this. Patient would benefit from a full trial of her currently prescribed olanzapine and we will optimize dose. We will get baseline EKG to ensure safety. Overall, I spent a total of 80 minutes with this case including review of chart records, nursing report, review of lab work, direct evaluation of the patient at bedside, counseling the patient, multidisciplinary team meeting, orders, gathering collateral from family and documentation in the electronic health record. MNPR due to psychosis, paranoia, anxiety (1) Schizoaffective disorder, depressive type: (2) Obsessional thoughts: (3) Adult failure to thrive: (4) HTN (hypertension): (5) Hypothyroidism: (6) Hyperactivity of bladder: (7) Vitamin D insufficiency: (8) Diabetes mellitus type 2 in nonobese: Plan 10/09/2023: Increase olanzapine to 17.5 mg at bedtime. Start olanzapine 2.5 mg in the morning. Baseline EKG. 10/08/23: -Increase Olanzapine to 12.5mg HS -Start Vitamin D 125mcg QD -Start Escitalopram 5mg QD 10/07/23: The patient was admitted to the [facility] ([facility] inpatient mental health unit) on q15 min checks (behavioral with suicide precautions) for safety. The patient will participate in group, recreational, and milieu therapies and will be offered additional individual and family sessions as clinically appropriate. -Restart home medications including Olanzapine 10mg HS -Lorazepam 2mg HS for sleep -Agitation/anxiety PRNs adjusted -A1c, fasting lipid panel, Vit D, Vit B12 levels Inventory Assets Strengths: family support, outpatient connection Suicide Risk Level Suicide Risk Level: Moderate (q15 min suicide checks) Risk Factors Assessment Male: No : Yes Do You Have Access To A Gun?: No Health Problems: Yes Mental Health Diagnoses: Yes Substance Use Disorders: No Previous Attempt: No Family History of Suicide: No Previous Psychiatric Hospitalization: Yes Hopelessness: Yes Protective Factors Assessment Rastafari Beliefs: No : No Responsible for Young Children: No Employed: No Stable Relationships: No Supportive Family: Yes Good Rapport with Provider: No Absence of Any Risk Factors Above: No Interval History Identifying Information CEDRICK ANTUNEZ is a 63-year-old F who currently lives in alone, has a history of bipolar 1 eugenie vs SAD, panic disorder, OCD traits, hypothyroidism, HTN, urinary incontinence and was admitted on 10/06/23 21:33 on a 302 involuntary commitment for psychosis, disorganized thought process, poor self care and hygiene. Chief Complaint "Anxiety" Review of Systems Sleep Information Total Hours of Sleep: 6.5 Meal Information Percent Meal Consumed - Breakfast: 75 Percent Meal Consumed - Lunch: 75 Percent Meal Consumed - Dinner: 90 Subjective Subjective Patient was seen & assessed and interval progress reviewed with treatment team nursing and social work Overnight patient reports patient was responding to internal stimuli. Patient refused nightly Lexapro and took 1 mg of the 2 mg Ativan at night. On interview patient refers to each person with their name and then their title. Reports "MARCO A Martinez, helped with medications." Patient reports signing a release of information for her nephew Mark, son Tony, and son Walt. Patient complains of memory issues and apologizes for her slow talking. During the interview patient becomes fixated on having paper towels as her dispenser is completely out in her room and she reports not being able to continue the interview without paper towels. She was reassured and given alternative and we continued the interview. When I attempted to ask her why she refused the medications last night she reports not wanting them and tells me to talk to "Oz Baxter MD". When I attempted to educate her about Lexapro and my concerns about depression and anxiety and the patient she continues to say the same thing. I ask her about her needs and she reports wanting "less stress" and being able to work. Reports she has stress because of "anxiety" when I ask her about her anxiety she becomes tangential and says that she must make to phone calls. I attempt to redirect her and ask her the question again advising her that it is important for me to understand her condition and she again is tangential and goes off topic. She reports she has trouble concentrating and has memory issues. She reports being unable to work because she cannot "multitask". When I advised her that I am here to help her with mental health issues and there has been concern from her son and outpatient doctor about her wellbeing and deteriorating quality of life she asked me to end the interview. Patient provided permission to call Margarito (son) - [phone]: -Margarito lives in [facility], Walt lives in [place]. Sees patient during holidays. -Recently mother stopped answering the son's phone calls. -When pt was in mid 40s years of age, hospitalization and dx Bipolar 2. At that time: Pt cleared out fridge, put pts children in van because thought someone from father's side tried to poision family. -She lived with her parents for number of years. Burned bridges with family members due to past behaviors. Initially out of hospital patient improves and adherent, then patient starts to decompensate. Patient falls back into delusion. Patient has trouble maintaining living situation. Talks to sons less and less during decompensation. -Lived without family for past 5-6 years in 2-3 apartments. Sons pay for rent. -Believes recent decompensation due to loss of therapist (10-15 yrs, d/t group home). Pt believes phone was stolen, sons unable to get ahold of patient outside of wellness checks with police. Recently saw pt's home and noticed patient did not use toilet or shower for weeks (toilet was backed up). Son's attempted to call maintenance and pt was distraught and felt she was to be blamed and reported uncle was casting biblical curses on her body and soul. "Genuienly afraid for her life." Son spoke to therapist and outpatient psychiatrist. Psychiatrist recommend inpatient care given severity of symptoms and decompensation. Pt accused sons of tricking patient into hospital. Accused sons of not being her children. Pt was seen looking at the ceiling and speaking to herself. Pt endorsed "curses and being conspired against her." Believed realty company was against her. Pt was uncooperative with police. Pt presented concern realtor would steal all her belonings. Pt claimed washer and dryer were not functioning but they were. Pt reported state of bathroom was associated with "satanic rituals." Son's noticed apartment had no food, was in disarray and unkept, sleeping in small area of the room. Beloningings were in boxes on top of her bed and she slept on one quarter of her bed. Physical Exam Mental Examination Appearance: Disheveled (hunched posture) Eye Contact: Sporadic Contact Motor Behavior: Restless Speech: Disorganized and Perseverating Mood: Irritable Affect: Irritable and Suspicious Thought Process: Flight of Ideas, Perseveration and Racing Thought Content: Evasive, Perseveration, [place] and Obsessional Thoughts Hallucinations: None (none reported) Insight: Poor Judgement: Poor Vital Signs (Past 24 Hours) Last Vital Signs Temp 36.2 C L 10/09/23 06:39 Pulse 102 H 10/09/23 06:40 Resp 18 10/09/23 06:39 BP 144/84 H 10/09/23 06:40 Pulse Ox 99 10/06/23 22:32 O2 Del Method Room Air 10/06/23 22:32 Results & Data ([facility]) Current Inpatient Medications Current Inpatient Medications: Current Inpatient Medications Acetaminophen (Acetaminophen 325 Mg Tab) 650 mg PO Q4H PRN PRN Reason: Headache or Minor Fever Stop: 11/05/23 21:59 Al Hydrox/Mg Hydrox/Simethicone (Aluminum/Magnesium Susp 30 Ml Udc) 30 ml PO Q4H PRN PRN Reason: GI Upset Stop: 11/05/23 21:59 Atorvastatin Calcium (Atorvastatin 20 Mg Tab) 20 mg PO HS CHRIS Stop: 11/06/23 21:59 Last Admin: 10/08/23 21:09 Dose: 20 mg Benztropine Mesylate (Benztropine Mesylate 1 Mg/Ml 2 Ml Amp) 1 mg IM Q8H PRN PRN Reason: Extrapyramidal Stop: 11/05/23 21:53 Benztropine Mesylate (Benztropine Mesylate 1 Mg Tab) 1 mg PO Q8 PRN PRN Reason: Extrapyramidal Stop: 11/05/23 22:25 Bismuth Subsalicylate (Bismuth Subsalicylate Liqd 236 Ml) 15 ml PO PRN PRN PRN Reason: Loose Stool Stop: 11/05/23 21:59 Docusate Sodium (Docusate Sodium 100 Mg Cap) 100 mg PO BID CHRIS Stop: 11/06/23 11:44 Last Admin: 10/09/23 09:21 Dose: 100 mg Escitalopram Oxalate (Escitalopram Oxalate 10 Mg Tab) 10 mg PO HS CHRIS Stop: 11/07/23 21:59 Last Admin: 10/08/23 21:38 Dose: Not Given Haloperidol (Haloperidol 5 Mg Tab) 5 mg PO BID PRN PRN Reason: Agitation Stop: 11/05/23 21:39 Haloperidol Lactate (Haloperidol Lactate 5 Mg/Ml 1 Ml Vial) 5 mg IM BID PRN PRN Reason: Agitation Stop: 11/05/23 22:32 Hydroxyzine HCl (Hydroxyzine Hcl 25 Mg Tab) 50 mg PO HSZ PRN PRN Reason: Insomnia Stop: 11/05/23 21:59 Hydroxyzine HCl (Hydroxyzine Hcl 25 Mg Tab) 25 mg PO Q4H PRN PRN Reason: Anxiety Stop: 11/05/23 21:59 Levothyroxine Sodium (Levothyroxine Sodium 75 Mcg Tablet) 75 mcg PO DAILYBB CHRIS Stop: 11/06/23 11:49 Last Admin: 10/09/23 09:21 Dose: 75 mcg Lorazepam (Lorazepam 1 Mg Tab) 2 mg PO Q8H PRN PRN Reason: Anxiety Stop: 11/05/23 21:42 Lorazepam (Lorazepam 2 Mg/1 Ml Vial) 2 mg IM Q8H PRN PRN Reason: Anxiety Stop: 11/05/23 21:48 Lorazepam (Lorazepam 1 Mg Tab) 2 mg PO HS CHRIS Stop: 11/06/23 21:59 Last Admin: 10/08/23 21:38 Dose: 1 mg Losartan Potassium (Losartan Potassium 25 Mg Tab) 25 mg PO HS CHRIS Stop: 11/06/23 21:59 Last Admin: 10/08/23 21:11 Dose: 25 mg Magnesium Hydroxide (Magnesium Hydroxide Susp 30 Ml Udc) 30 ml PO DAILY PRN PRN Reason: Constipation Stop: 11/05/23 21:59 Olanzapine (Olanzapine 2.5 Mg Tab) 2.5 mg PO HS CHRIS Stop: 11/08/23 21:59 Olanzapine (Olanzapine 10 Mg Tab) 10 mg PO HS CHRIS Stop: 11/08/23 21:59 Oxybutynin Chloride (Oxybutynin Chloride Xl 5 Mg Tabcr) 10 mg PO QAM CHRIS Stop: 11/06/23 11:59 Last Admin: 10/09/23 09:21 Dose: 10 mg Sodium Chloride (Sodium Chloride 0.65% Na Soln 45 Ml ([place])) 1 - 2 sprays NA PRN PRN PRN Reason: Nasal Dryness/Congestion Stop: 11/05/23 21:59 Vitamin D (Cholecalciferol 125 Mcg (5,000 Units) Tab) 125 mcg PO QAM CHRIS Stop: 11/07/23 12:44 Last Admin: 10/09/23 09:21 Dose: 125 mcg Mental Health & Subst Abuse Tx Therapist Name of Therapist: Vee Date of Therapist Appointment: missed multiple appointments Post Discharge Appointments Primary Care Physician Name Of Family Doctor/PCP: HEATHER
[2023-10-09] MEDS: OLANZapine 10 MG TAB PO SCH (20:46)
[2023-10-09] MEDS: OLANZAPINE 2.5 MG TAB PO SCH (20:46)
--- NOTE | 2023-10-10 11:27 | Psychiatric Progress Note ---
Date of Service October 10, 2023 Impression / Recommendations Impression CEDRICK ANTUNEZ is a 63-year-old F who currently lives in alone, has a history of bipolar 1 eugenie vs SAD, panic disorder, OCD traits, hypothyroidism, HTN, urinary incontinence and was admitted on 10/06/23 21:33 on a 302 involuntary commitment for psychosis, disorganized thought process, poor self care and hygiene. Pt presents with persecutory delusions, disorganized thought process with memory impairments, bizarre behaviors, poor self-care and hygiene, insomnia, medication nonadherence, poor follow-up with outpatient providers. Diagnostically consistent with schizoaffective disorder versus bipolar disorder, possible OCD. Patient continues to be paranoid and suspicious. Concern for active psychosis. She is hyper fixated on confirming the contents of her belongings and her lab results. she confirms concerns about her ability for self-care in the community however is not able to rationalize the importance of treatment to modify active mental health issues. She is tangential on interview and has difficulty staying focused on the topic at hand. She continues to refuse EKG despite clear benefits for her safety and medication management. Patient continues to refuse nightly escitalopram for depression. She was encouraged to collaborate with her outpatient psychiatrist and family given that they have more rapport with her. Given concerns for ability for self-care, current psychosis, poor insight we will pursue further involuntary commitment and will file 303 paperwork. Overall, I spent a total of 60 minutes with this case including review of chart records, nursing report, review of lab work, direct evaluation of the patient at bedside, counseling the patient, multidisciplinary team meeting, orders, from family and documentation in the electronic health record. MNPR due to psychosis, paranoia, anxiety (1) Schizoaffective disorder, depressive type: (2) Obsessional thoughts: (3) Adult failure to thrive: (4) HTN (hypertension): (5) Hypothyroidism: (6) Hyperactivity of bladder: (7) Vitamin D insufficiency: (8) Diabetes mellitus type 2 in nonobese: Plan 10/10/2023: Reattempt to get an EKG failed; pt has poor insight and judgement related to this. Continue medications and treatment plan. 10/09/2023: Baseline EKG prior to proposed increase in Olanzapine dose. 10/08/23: -Increase Olanzapine to 12.5mg HS -Start Vitamin D 125mcg QD -Start Escitalopram 5mg QD 10/07/23: The patient was admitted to the [facility] ([facility]) on q15 min checks (behavioral with suicide precautions) for safety. The p atient will participate in group, recreational, and milieu therapies and will be offered additional individual and family sessions as clinically appropriate. -Restart home medications including Olanzapine 10mg HS -Lorazepam 2mg HS for sleep -Agitation/anxiety PRNs adjusted -A1c, fasting lipid panel, Vit D, Vit B12 levels Inventory Assets Strengths: family support, outpatient connection Suicide Risk Level Suicide Risk Level: Moderate (q15 min suicide checks) Risk Factors Assessment Male: No : Yes Do You Have Access To A Gun?: No Health Problems: Yes Mental Health Diagnoses: Yes Substance Use Disorders: No Previous Attempt: No Family History of Suicide: No Previous Psychiatric Hospitalization: Yes Hopelessness: Yes Protective Factors Assessment Gnosticism Beliefs: No : No Responsible for Young Children: No Employed: No Stable Relationships: No Supportive Family: Yes Good Rapport with Provider: No Absence of Any Risk Factors Above: No Interval History Identifying Information CEDRICK ANTUNEZ is a 63-year-old F who currently lives in alone, has a history of bipolar 1 eugenie vs SAD, panic disorder, OCD traits, hypothyroidism, HTN, urinary incontinence and was admitted on 10/06/23 21:33 on a 302 involuntary commitment for psychosis, disorganized thought process, poor self care and hygiene. Chief Complaint "inability to use toilet or take a shower in my apt" "have been stressed" Review of Systems Sleep Information Total Hours of Sleep: 6.5 Meal Information Percent Meal Consumed - Breakfast: 80 Percent Meal Consumed - Lunch: 90 Percent Meal Consumed - Dinner: 90 Subjective Subjective Patient was seen & assessed and interval progress reviewed with treatment team nursing and social work The patient reports sleeping well last night. When talking about her high blood pressure she reports that the whipped butter she ate has salt. I tell her sometimes anxiety and nervousness can cause an increased blood pressure and ask about whether she has been anxious. She reports she has been "stressed". I asked what is making her anxious. she becomes tangential and I redirect her to the question. She reports "about 302". She does not clarify further and becomes quiet. She reports wanting a new therapist and a new apartment. She reports being worried about finances of continued hospitalization. When I tell her it is important for her to continue her hospitalization to address mental health issues and decline in function she reports "inability to use toilet in my apartment" and "inability to take a shower in my apartment". I present my concerns about her function and she confirms an inability to concentrate, maintain good memory, maintain good function at home. She then becomes tangential and becomes hyperfocused on obtaining her mother's engagement ring. She says that it is in her belongings and that the nurses could not find it. I ask her why she refused the EKG and she reports it is because there are "too many leads". Then she questions whether registered nurses can administer EKGs and I reassure her. She again becomes tangential and asked about keys for her [employer] car and that she cannot find it. She then complains of a dry cough and I offered her a benzocaine throat lozenge and she refuses. She was in middle of a thought then became forgetful and was unable to finish her thoughts. I redirect the conversation about the EKG and she again reports there are too many leads. I asked her why she is concerned about the number of leads and then she reports she has a slight heart murmur. Then she reports not wanting to be shocked. I reassured her and reports that the sensors on EKG do not deliver a shock. She then says she wants the outpatient psychiatrist to contact her bulk truck driver about the EKG. Again refuses the EKG and does not provide a clear reason. I make it clear the EKG is important to assure safety of her heart health with her currently prescribed medications. I inform her of our intention for further involuntary commitment and that we are available for any questions or concerns. She denies having any questions and says that she wants a copy of all her lab work. She says that she got her blood work yesterday. I reassured her and tell her I will give her a copy of her lab work and has already given her a copy once. she denies getting a copy of her lab work and says she does not remember. I encouraged her to contact her outpatient psychiatrist and her family to collaborate on her care plan. Physical Exam Mental Examination Appearance: Disheveled (hunched posture) Eye Contact: Sporadic Contact Motor Behavior: Restless Speech: Disorganized and Perseverating Mood: Irritable Affect: Irritable and Suspicious Thought Process: Flight of Ideas, Perseveration and Racing Thought Content: Evasive, Perseveration, Waves and Obsessional Thoughts Hallucinations: None (none reported) Insight: Poor Judgement: Poor Vital Signs (Past 24 Hours) Last Vital Signs Temp 36.6 C 10/10/23 06:44 Pulse 97 H 10/10/23 06:45 Resp 16 10/10/23 06:44 BP 179/103 H 10/10/23 06:45 Pulse Ox 99 10/06/23 22:32 O2 Del Method Room Air 10/06/23 22:32 Results & Data ([facility]) Current Inpatient Medications Current Inpatient Medications: Current Inpatient Medications Acetaminophen (Acetaminophen 325 Mg Tab) 650 mg PO Q4H PRN PRN Reason: Headache or Minor Fever Stop: 11/05/23 21:59 Al Hydrox/Mg Hydrox/Simethicone (Aluminum/Magnesium Susp 30 Ml Udc) 30 ml PO Q4H PRN PRN Reason: GI Upset Stop: 11/05/23 21:59 Atorvastatin Calcium (Atorvastatin 20 Mg Tab) 20 mg PO [facility] Stop: 11/06/23 21:59 Last Admin: 10/09/23 20:46 Dose: 20 mg Benztropine Mesylate (Benztropine Mesylate 1 Mg/Ml 2 Ml Amp) 1 mg IM Q8H PRN PRN Reason: Extrapyramidal Stop: 11/05/23 21:53 Benztropine Mesylate (Benztropine Mesylate 1 Mg Tab) 1 mg PO Q8 PRN PRN Reason: Extrapyramidal Stop: 11/05/23 22:25 Bismuth Subsalicylate (Bismuth Subsalicylate Liqd 236 Ml) 15 ml PO PRN PRN PRN Reason: Loose Stool Stop: 11/05/23 21:59 Docusate Sodium (Docusate Sodium 100 Mg Cap) 100 mg PO BID CHRIS Stop: 11/06/23 11:44 Last Admin: 10/10/23 08:37 Dose: 100 mg Escitalopram Oxalate (Escitalopram Oxalate 10 Mg Tab) 10 mg PO [facility] Stop: 11/07/23 21:59 Last Admin: 10/09/23 21:05 Dose: Not Given Haloperidol (Haloperidol 5 Mg Tab) 5 mg PO BID PRN PRN Reason: Agitation Stop: 11/05/23 21:39 Haloperidol Lactate (Haloperidol Lactate 5 Mg/Ml 1 Ml Vial) 5 mg IM BID PRN PRN Reason: Agitation Stop: 11/05/23 22:32 Hydroxyzine HCl (Hydroxyzine Hcl 25 Mg Tab) 50 mg PO HSZ PRN PRN Reason: Insomnia Stop: 11/05/23 21:59 Hydroxyzine HCl (Hydroxyzine Hcl 25 Mg Tab) 25 mg PO Q4H PRN PRN Reason: Anxiety Stop: 11/05/23 21:59 Levothyroxine Sodium (Levothyroxine Sodium 75 Mcg Tablet) 75 mcg PO DAILYBB CHRIS Stop: 11/06/23 11:49 Last Admin: 10/10/23 08:36 Dose: 75 mcg Lorazepam (Lorazepam 1 Mg Tab) 2 mg PO Q8H PRN PRN Reason: Anxiety Stop: 11/05/23 21:42 Lorazepam (Lorazepam 2 Mg/1 Ml Vial) 2 mg IM Q8H PRN PRN Reason: Anxiety Stop: 11/05/23 21:48 Lorazepam (Lorazepam 1 Mg Tab) 2 mg PO HS CHRIS Stop: 11/06/23 21:59 Last Admin: 10/09/23 20:46 Dose: 2 mg Losartan Potassium (Losartan Potassium 25 Mg Tab) 25 mg PO HS CHRIS Stop: 11/06/23 21:59 Last Admin: 10/09/23 20:45 Dose: 25 mg Magnesium Hydroxide (Magnesium Hydroxide Susp 30 Ml Udc) 30 ml PO DAILY PRN PRN Reason: Constipation Stop: 11/05/23 21:59 Olanzapine (Olanzapine 2.5 Mg Tab) 2.5 mg PO HS CHRIS Stop: 11/08/23 21:59 Last Admin: 10/09/23 20:46 Dose: 2.5 mg Olanzapine (Olanzapine 10 Mg Tab) 10 mg PO HS CHRIS Stop: 11/08/23 21:59 Last Admin: 10/09/23 20:46 Dose: 10 mg Oxybutynin Chloride (Oxybutynin Chloride Xl 5 Mg Tabcr) 10 mg PO QAM CHRIS Stop: 11/06/23 11:59 Last Admin: 10/10/23 08:37 Dose: 10 mg Sodium Chloride (Sodium Chloride 0.65% Na Soln 45 Ml ([place])) 1 - 2 sprays NA PRN PRN PRN Reason: Nasal Dryness/Congestion Stop: 11/05/23 21:59 Vitamin D (Cholecalciferol 125 Mcg (5,000 Units) Tab) 125 mcg PO QAM CHRIS Stop: 11/07/23 12:44 Last Admin: 10/10/23 08:37 Dose: 125 mcg Mental Health & Subst Abuse Tx Therapist Name of Therapist: Vee Date of Therapist Appointment: missed multiple appointments Post Discharge Appointments Primary Care Physician Name Of Family Doctor/PCP: HEATHER
--- NOTE | 2023-10-11 14:35 | Psychiatric Progress Note ---
Date of Service October 11, 2023 Impression / Recommendations Impression CEDRICK ANTUNEZ is a 63-year-old F who currently lives in alone, has a history of bipolar 1 eugenie vs SAD, panic disorder, OCD traits, hypothyroidism, HTN, urinary incontinence and was admitted on 10/06/23 21:33 on a 302 involuntary commitment for psychosis, disorganized thought process, poor self care and hygiene. Pt presents with persecutory delusions, disorganized thought process with memory impairments, bizarre behaviors, poor self-care and hygiene, insomnia, medication nonadherence, poor follow-up with outpatient providers. Diagnostically consistent with schizoaffective disorder versus bipolar disorder, possible OCD. 303 involuntary commitment approved. Patient continues to be paranoid and suspicious. She has been sleeping well with scheduled Ativan presents a slight improvement in speech delay. She continues to perseverate and is hyper fixated on cleanliness and her lab work. She presents clear memory impairments not remembering that she was provided paper printouts of her lab work twice already during the hospitalization. She is unwilling to engage in conversations regarding her care and is tangential on interview. She continues to refuse EKG despite lack of risk and there being clear benefits. Continues to refuse escitalopram for depression. Plan to optimize olanzapine today to 15 mg at bedtime. Overall, I spent a total of 45 minutes with this case including review of chart records, nursing report, review of lab work, direct evaluation of the patient at bedside, counseling the patient, multidisciplinary team meeting, orders, involuntary hearing and documentation in the electronic health record. MNPR due to psychosis, paranoia, anxiety (1) Schizoaffective disorder, depressive type: (2) Obsessional thoughts: (3) Adult failure to thrive: (4) HTN (hypertension): (5) Hypothyroidism: (6) Hyperactivity of bladder: (7) Vitamin D insufficiency: (8) Diabetes mellitus type 2 in nonobese: Plan 10/11/2023: Increase olanzapine to 15 mg at bedtime. 10/10/2023: Reattempt to get an EKG failed; pt has poor insight and judgement related to this. Continue medications and treatment plan. 10/09/2023: Baseline EKG prior to proposed increase in Olanzapine dose. 10/08/23: -Increase Olanzapine to 12.5mg HS -Start Vitamin D 125mcg QD -Start Escitalopram 5mg QD 10/07/23: The patient was admitted to the [facility] ([facility] inpatient mental health unit) on q15 min checks (behavioral with suicide precautions) for safety. The patient will participate in group, recreational, and milieu therapies and will be offered additional individual and family sessions as clinically appropriate. -Restart home medications including Olanzapine 10mg HS -Lorazepam 2mg HS for sleep -Agitation/anxiety PRNs adjusted -A1c, fasting lipid panel, Vit D, Vit B12 levels Inventory Assets Strengths: family support, outpatient connection Suicide Risk Level Suicide Risk Level: Moderate (q15 min suicide checks) Risk Factors Assessment Male: No : Yes Do You Have Access To A Gun?: No Health Problems: Yes Mental Health Diagnoses: Yes Substance Use Disorders: No Previous Attempt: No Family History of Suicide: No Previous Psychiatric Hospitalization: Yes Hopelessness: Yes Protective Factors Assessment Zoroastrianism Beliefs: No : No Responsible for Young Children: No Employed: No Stable Relationships: No Supportive Family: Yes Good Rapport with Provider: No Absence of Any Risk Factors Above: No Interval History Identifying Information CEDRICK ANTUNEZ is a 63-year-old F who currently lives in alone, has a history of bipolar 1 eugenie vs SAD, panic disorder, OCD traits, hypothyroidism, HTN, urinary incontinence and was admitted on 10/06/23 21:33 on a 302 involuntary commitment for psychosis, disorganized thought process, poor self care and hygiene. Currently on 303 commitment. Chief Complaint "Anxious" Review of Systems Sleep Information Total Hours of Sleep: 6.5 Meal Information Percent Meal Consumed - Breakfast: 75 Percent Meal Consumed - Lunch: 60 Percent Meal Consumed - Dinner: 100 Subjective Subjective Patient was seen & assessed and interval progress reviewed with treatment team nursing and social work Overnight patient refused her escitalopram. Patient reports sleeping well. Says she misses her family. Son is driving back to [place]. Says she is proud of [employer] as he got a Master's in computer science from [employer]. Says she is anxious because she is unable to find her sanitary pads, worried about family, worried about her licensed mortgage loan officer. I asked her what concerns she has about her licensed mortgage loan officer and she proceeds to talk but then stops mid sentence and is unable to clarify. She then says her mother had Alzheimer's and she had asked to kiss from the licensed mortgage loan officer. I provided the patient an educational form about electrocardiogram indicating safety and lack of shock. She reports not wanting an EKG because she is not having chest pain. I clarify the EKG is to ensure safety with her medications including her olanzapine. She then says that she has a broken neck and has seen a neurosurgeon in the past for her C5-C6 subluxation. I direct the conversation back to the EKG. The school bus driver/custodian enters the bathroom during the interview. She immediately becomes suspicious and gets up immediately. She goes to the bathroom and checks carefully. She is focused on getting more paper towels. Spends extra time in the bathroom. Physical Exam Mental Examination Appearance: Disheveled (hunched posture) Eye Contact: Sporadic Contact Motor Behavior: Restless Speech: Disorganized and Perseverating Mood: Irritable Affect: Irritable and Suspicious Thought Process: Flight of Ideas, Perseveration and Racing Thought Content: Evasive, Perseveration, [place] and Obsessional Thoughts Hallucinations: None (none reported) Insight: Poor Judgement: Poor Vital Signs (Past 24 Hours) Last Vital Signs Temp 36.4 C L 10/11/23 06:47 Pulse 111 H 10/11/23 06:47 Resp 18 10/11/23 06:47 BP 132/87 10/11/23 06:47 Pulse Ox 99 10/06/23 22:32 O2 Del Method Room Air 10/06/23 22:32 Results & Data ([facility]) Current Inpatient Medications Current Inpatient Medications: Current Inpatient Medications Acetaminophen (Acetaminophen 325 Mg Tab) 650 mg PO Q4H PRN PRN Reason: Headache or Minor Fever Stop: 11/05/23 21:59 Al Hydrox/Mg Hydrox/Simethicone (Aluminum/Magnesium Susp 30 Ml Udc) 30 ml PO Q4H PRN PRN Reason: GI Upset Stop: 11/05/23 21:59 Atorvastatin Calcium (Atorvastatin 20 Mg Tab) 20 mg PO HS CHRIS Stop: 11/06/23 21:59 Last Admin: 10/10/23 21:09 Dose: 20 mg Benztropine Mesylate (Benztropine Mesylate 1 Mg/Ml 2 Ml Amp) 1 mg IM Q8H PRN PRN Reason: Extrapyramidal Stop: 11/05/23 21:53 Benztropine Mesylate (Benztropine Mesylate 1 Mg Tab) 1 mg PO Q8 PRN PRN Reason: Extrapyramidal Stop: 11/05/23 22:25 Bismuth Subsalicylate (Bismuth Subsalicylate Liqd 236 Ml) 15 ml PO PRN PRN PRN Reason: Loose Stool Stop: 11/05/23 21:59 Docusate Sodium (Docusate Sodium 100 Mg Cap) 100 mg PO BID CHRIS Stop: 11/06/23 11:44 Last Admin: 10/11/23 09:35 Dose: 100 mg Escitalopram Oxalate (Escitalopram Oxalate 10 Mg Tab) 10 mg PO HS CHRIS Stop: 11/07/23 21:59 Last Admin: 10/10/23 21:25 Dose: Not Given Haloperidol (Haloperidol 5 Mg Tab) 5 mg PO BID PRN PRN Reason: Agitation Stop: 11/05/23 21:39 Haloperidol Lactate (Haloperidol Lactate 5 Mg/Ml 1 Ml Vial) 5 mg IM BID PRN PRN Reason: Agitation Stop: 11/05/23 22:32 Hydroxyzine HCl (Hydroxyzine Hcl 25 Mg Tab) 50 mg PO HSZ PRN PRN Reason: Insomnia Stop: 11/05/23 21:59 Hydroxyzine HCl (Hydroxyzine Hcl 25 Mg Tab) 25 mg PO Q4H PRN PRN Reason: Anxiety Stop: 11/05/23 21:59 Levothyroxine Sodium (Levothyroxine Sodium 75 Mcg Tablet) 75 mcg PO DAILYBB CHRIS Stop: 11/06/23 11:49 Last Admin: 10/11/23 09:35 Dose: 75 mcg Lorazepam (Lorazepam 1 Mg Tab) 2 mg PO Q8H PRN PRN Reason: Anxiety Stop: 11/05/23 21:42 Lorazepam (Lorazepam 2 Mg/1 Ml Vial) 2 mg IM Q8H PRN PRN Reason: Anxiety Stop: 11/05/23 21:48 Lorazepam (Lorazepam 1 Mg Tab) 2 mg PO HS CHRIS Stop: 11/06/23 21:59 Last Admin: 10/10/23 21:11 Dose: 2 mg Losartan Potassium (Losartan Potassium 25 Mg Tab) 25 mg PO HS CHRIS Stop: 11/06/23 21:59 Last Admin: 10/10/23 21:09 Dose: 25 mg Magnesium Hydroxide (Magnesium Hydroxide Susp 30 Ml Udc) 30 ml PO DAILY PRN PRN Reason: Constipation Stop: 11/05/23 21:59 Olanzapine (Olanzapine 10 Mg Tab) 10 mg PO HS CHRIS Stop: 11/08/23 21:59 Last Admin: 10/10/23 21:09 Dose: 10 mg Olanzapine (Olanzapine 5 Mg Tablet) 5 mg PO HS CHRIS Stop: 11/10/23 21:59 Oxybutynin Chloride (Oxybutynin Chloride Xl 5 Mg Tabcr) 10 mg PO QAM CHRIS Stop: 11/06/23 11:59 Last Admin: 10/11/23 09:35 Dose: 10 mg Sodium Chloride (Sodium Chloride 0.65% Na Soln 45 Ml ([place])) 1 - 2 sprays NA PRN PRN PRN Reason: Nasal Dryness/Congestion Stop: 11/05/23 21:59 Vitamin D (Cholecalciferol 125 Mcg (5,000 Units) Tab) 125 mcg PO QAM CHRIS Stop: 11/07/23 12:44 Last Admin: 10/11/23 09:35 Dose: 125 mcg Mental Health & Subst Abuse Tx Therapist Name of Therapist: Vee Date of Therapist Appointment: missed multiple appointments Post Discharge Appointments Primary Care Physician Name Of Family Doctor/PCP: HEATHER
[2023-10-11] MEDS: OLANZapine 5 MG TABLET PO SCH (21:35)
--- NOTE | 2023-10-12 16:47 | Psychiatric Progress Note ---
Date of Service October 12, 2023 Impression / Recommendations Impression CEDRICK ANTUNEZ is a 63-year-old F who currently lives in alone, has a history of bipolar 1 eugenie vs SAD, panic disorder, OCD traits, hypothyroidism, HTN, urinary incontinence and was admitted on 10/06/23 21:33 on a 302 involuntary commitment for psychosis, disorganized thought process, poor self care and hygiene. Currently on 303 commitment. Pt presents with persecutory delusions, disorganized thought process with memory impairments, bizarre behaviors, poor self-care and hygiene, insomnia, medication nonadherence, poor follow-up with outpatient providers. Diagnostically consistent with schizoaffective disorder versus bipolar disorder, possible OCD. Patient continues to present poor insight into her condition, has been refusing medications, and is unable to have a rational conversation regarding her care. She does not welcome discussion about medications. She presents continued paranoia, memory and concentration impairments, obsessive-compulsive tendencies and there is strong concern this is related to her psychosis and depression. If patient's symptoms do not improve there is concern for an inability to maintain her safety and self care in the community. She would benefit from medications against objection for symptom and functional improvement. Patient continues to refuse EKG. Overall, I spent a total of 30 minutes with this case including review of chart records, nursing report, review of lab work, direct evaluation of the patient at bedside, counseling the patient, multidisciplinary team meeting, orders, involuntary hearing and documentation in the electronic health record. MNPR due to psychosis, paranoia, anxiety (1) Schizoaffective disorder, depressive type: (2) Obsessional thoughts: (3) Adult failure to thrive: (4) HTN (hypertension): (5) Hypothyroidism: (6) Hyperactivity of bladder: (7) Vitamin D insufficiency: (8) Diabetes mellitus type 2 in nonobese: Plan 10/12/2023: Continue medications and treatment plan. 10/11/2023: Increase olanzapine to 15 mg at bedtime. 10/10/2023: Reattempt to get an EKG failed; pt has poor insight and judgement related to this. Continue medications and treatment plan. 10/09/2023: Baseline EKG prior to proposed increase in Olanzapine dose. 10/08/23: -Increase Olanzapine to 12.5mg HS -Start Vitamin D 125mcg QD -Start Escitalopram 5mg QD 10/07/23: The patient was admitted to the [facility] ([facility] mental health unit) on q15 min checks (behavioral with suicide precautions) for safety. The patient will participate in group, recreational, and milieu therapies and will be offered additional individual and family sessions as clinically appropriate. -Restart home medications including Olanzapine 10mg HS -Lorazepam 2mg HS for sleep -Agitation/anxiety PRNs adjusted -A1c, fasting lipid panel, Vit D, Vit B12 levels Inventory Assets Strengths: family support, outpatient connection Suicide Risk Level Suicide Risk Level: Moderate (q15 min suicide checks) Risk Factors Assessment Male: No : Yes Do You Have Access To A Gun?: No Health Problems: Yes Mental Health Diagnoses: Yes Substance Use Disorders: No Previous Attempt: No Family History of Suicide: No Previous Psychiatric Hospitalization: Yes Hopelessness: Yes Protective Factors Assessment Yazidi Beliefs: No : No Responsible for Young Children: No Employed: No Stable Relationships: No Supportive Family: Yes Good Rapport with Provider: No Absence of Any Risk Factors Above: No Interval History Identifying Information CEDRICK ANTUNEZ is a 63-year-old F who currently lives in alone, has a history of bipolar 1 eugenie vs SAD, panic disorder, OCD traits, hypothyroidism, HTN, urinary incontinence and was admitted on 10/06/23 21:33 on a 302 involuntary commitment for psychosis, disorganized thought process, poor self care and hygiene. Currently on 303 commitment. Chief Complaint "I am alright" Review of Systems Sleep Information Total Hours of Sleep: 5 Meal Information Percent Meal Consumed - Breakfast: 50 Percent Meal Consumed - Lunch: 100 Percent Meal Consumed - Dinner: 100 Subjective Subjective Patient was seen & assessed and interval progress reviewed with treatment team nursing and social work Nurse reports patient was irritable and slept 5 hours. She refused 1 mg of nightly Ativan, refused to 0.5 mg the nightly Zyprexa, refused escitalopram 10 mg. BP elevated today at 175/80. Patient seen in her room. I discussed with her her medication refusal and she says that she does not want an increase in Zyprexa. I discussed my concerns which she previously confirmed such as memory impairments, increase in anxiety, poor concentration. Patient did not appear to want to engage in conversation. Reported to her that she is currently taking her home medication regimen and there has been limited improvement and that we must try something different. The patient is often distracted and does not engage in the conversation. When I attempt to redirect the conversation she then says that "I must use the toilet" and asked me to leave. Physical Exam Mental Examination Appearance: Disheveled (hunched posture) Eye Contact: Sporadic Contact Motor Behavior: Restless Speech: Disorganized and Perseverating Mood: Irritable Affect: Irritable and Suspicious Thought Process: Flight of Ideas, Perseveration and Racing Thought Content: Evasive, Perseveration, [place] and Obsessional Thoughts Hallucinations: None (none reported) Insight: Poor Judgement: Poor Vital Signs (Past 24 Hours) Last Vital Signs Temp 36.4 C L 10/12/23 06:43 Pulse 86 10/12/23 06:44 Resp 16 10/12/23 06:43 BP 175/80 H 10/12/23 06:44 Pulse Ox 99 10/06/23 22:32 O2 Del Method Room Air 10/06/23 22:32 Results & Data ([facility]) Current Inpatient Medications Current Inpatient Medications: Current Inpatient Medications Acetaminophen (Acetaminophen 325 Mg Tab) 650 mg PO Q4H PRN PRN Reason: Headache or Minor Fever Stop: 11/05/23 21:59 Al Hydrox/Mg Hydrox/Simethicone (Aluminum/Magnesium Susp 30 Ml Udc) 30 ml PO Q4H PRN PRN Reason: GI Upset Stop: 11/05/23 21:59 Atorvastatin Calcium (Atorvastatin 20 Mg Tab) 20 mg PO HS CHRIS Stop: 11/06/23 21:59 Last Admin: 10/11/23 21:28 Dose: 20 mg Benztropine Mesylate (Benztropine Mesylate 1 Mg/Ml 2 Ml Amp) 1 mg IM Q8H PRN PRN Reason: Extrapyramidal Stop: 11/05/23 21:53 Benztropine Mesylate (Benztropine Mesylate 1 Mg Tab) 1 mg PO Q8 PRN PRN Reason: Extrapyramidal Stop: 11/05/23 22:25 Bismuth Subsalicylate (Bismuth Subsalicylate Liqd 236 Ml) 15 ml PO PRN PRN PRN Reason: Loose Stool Stop: 11/05/23 21:59 Docusate Sodium (Docusate Sodium 100 Mg Cap) 100 mg PO BID CHRIS Stop: 11/06/23 11:44 Last Admin: 10/12/23 09:12 Dose: 100 mg Escitalopram Oxalate (Escitalopram Oxalate 10 Mg Tab) 10 mg PO HS CHRIS Stop: 11/07/23 21:59 Last Admin: 10/11/23 21:40 Dose: Not Given Haloperidol (Haloperidol 5 Mg Tab) 5 mg PO BID PRN PRN Reason: Agitation Stop: 11/05/23 21:39 Haloperidol Lactate (Haloperidol Lactate 5 Mg/Ml 1 Ml Vial) 5 mg IM BID PRN PRN Reason: Agitation Stop: 11/05/23 22:32 Hydroxyzine HCl (Hydroxyzine Hcl 25 Mg Tab) 50 mg PO HSZ PRN PRN Reason: Insomnia Stop: 11/05/23 21:59 Hydroxyzine HCl (Hydroxyzine Hcl 25 Mg Tab) 25 mg PO Q4H PRN PRN Reason: Anxiety Stop: 11/05/23 21:59 Levothyroxine Sodium (Levothyroxine Sodium 75 Mcg Tablet) 75 mcg PO DAILYBB CHRIS Stop: 11/06/23 11:49 Last Admin: 10/12/23 09:12 Dose: 75 mcg Lorazepam (Lorazepam 1 Mg Tab) 2 mg PO Q8H PRN PRN Reason: Anxiety Stop: 11/05/23 21:42 Lorazepam (Lorazepam 2 Mg/1 Ml Vial) 2 mg IM Q8H PRN PRN Reason: Anxiety Stop: 11/05/23 21:48 Lorazepam (Lorazepam 1 Mg Tab) 2 mg PO HS CHRIS Stop: 11/06/23 21:59 Last Admin: 10/11/23 21:28 Dose: 1 mg Losartan Potassium (Losartan Potassium 25 Mg Tab) 25 mg PO HS CHRIS Stop: 11/06/23 21:59 Last Admin: 10/11/23 21:27 Dose: 25 mg Magnesium Hydroxide (Magnesium Hydroxide Susp 30 Ml Udc) 30 ml PO DAILY PRN PRN Reason: Constipation Stop: 11/05/23 21:59 Olanzapine (Olanzapine 10 Mg Tab) 10 mg PO HS CHRIS Stop: 11/08/23 21:59 Last Admin: 10/11/23 21:28 Dose: 10 mg Olanzapine (Olanzapine 5 Mg Tablet) 5 mg PO HS CHRIS Stop: 11/10/23 21:59 Last Admin: 10/11/23 21:35 Dose: 2.5 mg Oxybutynin Chloride (Oxybutynin Chloride Xl 5 Mg Tabcr) 10 mg PO QAM CHRIS Stop: 11/06/23 11:59 Last Admin: 10/12/23 09:11 Dose: 10 mg Sodium Chloride (Sodium Chloride 0.65% Na Soln 45 Ml ([place])) 1 - 2 sprays NA PRN PRN PRN Reason: Nasal Dryness/Congestion Stop: 11/05/23 21:59 Vitamin D (Cholecalciferol 125 Mcg (5,000 Units) Tab) 125 mcg PO QAM CHRIS Stop: 11/07/23 12:44 Last Admin: 10/12/23 09:12 Dose: 125 mcg Mental Health & Subst Abuse Tx Therapist Name of Therapist: Vee Date of Therapist Appointment: missed multiple appointments Post Discharge Appointments Primary Care Physician Name Of Family Doctor/PCP: HEATHER
--- NOTE | 2023-10-13 17:19 | Psychiatric Progress Note ---
Date of Service October 13, 2023 Impression / Recommendations Impression CEDRICK ANTUNEZ is a 63-year-old F who currently lives in alone, has a history of bipolar 1 eugenie vs SAD, panic disorder, OCD traits, hypothyroidism, HTN, urinary incontinence and was admitted on 10/06/23 21:33 on a 302 involuntary commitment for psychosis, disorganized thought process, poor self care and hygiene. Currently on 303 commitment. Pt presents with persecutory delusions, disorganized thought process with memory impairments, bizarre behaviors, poor self-care and hygiene, insomnia, medication nonadherence, poor follow-up with outpatient providers. Diagnostically consistent with schizoaffective disorder versus bipolar disorder, possible OCD. Patient continues to present poor insight into her condition, has been refusing medications, and is unable to have a rational conversation regarding her care. She does not welcome discussion about medications. She presents continued paranoia, memory and concentration impairments, obsessive-compulsive tendencies and there is strong concern this is related to her psychosis and depression. If patient's symptoms do not improve there is concern for an inability to maintain her safety and self care in the community. She would benefit from medications against objection for symptom and functional improvement. Patient continues to refuse EKG. Overall, I spent a total of 35 minutes with this case including review of chart records, nursing report, review of lab work, direct evaluation of the patient at bedside, counseling the patient, multidisciplinary team meeting, orders, involuntary hearing and documentation in the electronic health record. MNPR due to psychosis, paranoia, anxiety (1) Schizoaffective disorder, depressive type: (2) Obsessional thoughts: (3) Adult failure to thrive: (4) HTN (hypertension): (5) Hypothyroidism: (6) Hyperactivity of bladder: (7) Vitamin D insufficiency: (8) Diabetes mellitus type 2 in nonobese: Plan 10/13/2023: Continue medications and treatment plan. 10/12/2023: Continue medications and treatment plan. Repeat EKG. 10/11/2023: Increase olanzapine to 15 mg at bedtime. 10/10/2023: Reattempt to get an EKG failed; pt has poor insight and judgement related to this. Continue medications and treatment plan. 10/09/2023: Baseline EKG prior to proposed increase in Olanzapine dose. 10/08/23: -Increase Olanzapine to 12.5mg HS -Start Vitamin D 125mcg QD -Start Escitalopram 5mg QD 10/07/23: The patient was admitted to the [facility] ([facility] mental health unit) on q15 min checks (behavioral with suicide precautions) for safety. The patient will participate in group, recreational, and milieu therapies and will be offered additional individual and family sessions as clinically appropriate. -Restart home medications including Olanzapine 10mg HS -Lorazepam 2mg HS for sleep -Agitation/anxiety PRNs adjusted -A1c, fasting lipid panel, Vit D, Vit B12 levels Inventory Assets Strengths: family support, outpatient connection Suicide Risk Level Suicide Risk Level: Moderate (q15 min suicide checks) Risk Factors Assessment Male: No : Yes Do You Have Access To A Gun?: No Health Problems: Yes Mental Health Diagnoses: Yes Substance Use Disorders: No Previous Attempt: No Family History of Suicide: No Previous Psychiatric Hospitalization: Yes Hopelessness: Yes Protective Factors Assessment Restorationism Beliefs: No : No Responsible for Young Children: No Employed: No Stable Relationships: No Supportive Family: Yes Good Rapport with Provider: No Absence of Any Risk Factors Above: No Interval History Identifying Information CEDRICK ANTUNEZ is a 63-year-old F who currently lives in alone, has a history of bipolar 1 eugenie vs SAD, panic disorder, OCD traits, hypothyroidism, HTN, urinary incontinence and was admitted on 10/06/23 21:33 on a 302 involuntary commitment for psychosis, disorganized thought process, poor self care and hygiene. Currently on 303 commitment. Chief Complaint "Stressed" Review of Systems Sleep Information Total Hours of Sleep: 5.15 Sleep Comments: HS Ativan and Zyprexa Meal Information Percent Meal Consumed - Breakfast: 90 Percent Meal Consumed - Lunch: 30 Percent Meal Consumed - Dinner: 75 Subjective Subjective Patient was seen & assessed and interval progress reviewed with treatment team nursing and social work Nursing reports patient refused olanzapine 2.5, Ativan 1 mg, Lexapro 10 mg. She refused EKG today. She refused morning levothyroxine indicating that she only gets 3 times a week. This was never previously indicated and pharmacy records were reviewed on initial day of hospitalization and confirmed. On interview patient reports refusing EKG and a note to her that the last 1 we have on file is 2019. She becomes suspicious and says that she has only had 1 EKG. When asked about the levothyroxine she says that Dr. Baxter said it was only 3 times a day. I report to her that that was never communicated to me when I spoke to Dr. Baxter and that pharmacy records say daily. When asked her why she is refusing medications she keeps saying I am "so emaciated". When I ask her more about this she says it is not because she would not eat. When I tell her I do not understand you please clarify she becomes upset and says "I am afraid". She then asked for her estate attorney to be present. I report to her this is to conversation about her care and not a legal proceeding. Then she becomes upset about "unwanted facial hairs". Says that she is "embarrassed" and was only offered a razor and she is worried about it causing dark stubble. Patient continues to interrupt when I discuss concerns about her memory and concentration. Physical Exam Mental Examination Appearance: Disheveled (hunched posture) Eye Contact: Sporadic Contact Motor Behavior: Restless Speech: Disorganized and Perseverating Mood: Irritable Affect: Irritable and Suspicious Thought Process: Flight of Ideas, Perseveration and Racing Thought Content: Evasive, Perseveration, [place] and Obsessional Thoughts Hallucinations: None (none reported) Insight: Poor Judgement: Poor Vital Signs (Past 24 Hours) Last Vital Signs Temp 36.5 C 10/13/23 06:35 Pulse 94 H 10/13/23 06:35 Resp 18 10/13/23 06:35 BP 144/78 H 10/13/23 06:35 Pulse Ox 99 10/06/23 22:32 O2 Del Method Room Air 10/06/23 22:32 Results & Data ([facility]) Current Inpatient Medications Current Inpatient Medications: Current Inpatient Medications Acetaminophen (Acetaminophen 325 Mg Tab) 650 mg PO Q4H PRN PRN Reason: Headache or Minor Fever Stop: 11/05/23 21:59 Al Hydrox/Mg Hydrox/Simethicone (Aluminum/Magnesium Susp 30 Ml Udc) 30 ml PO Q4H PRN PRN Reason: GI Upset Stop: 11/05/23 21:59 Atorvastatin Calcium (Atorvastatin 20 Mg Tab) 20 mg PO HS CHRIS Stop: 11/06/23 21:59 Last Admin: 10/12/23 21:29 Dose: 20 mg Benztropine Mesylate (Benztropine Mesylate 1 Mg/Ml 2 Ml Amp) 1 mg IM Q8H PRN PRN Reason: Extrapyramidal Stop: 11/05/23 21:53 Benztropine Mesylate (Benztropine Mesylate 1 Mg Tab) 1 mg PO Q8 PRN PRN Reason: Extrapyramidal Stop: 11/05/23 22:25 Bismuth Subsalicylate (Bismuth Subsalicylate Liqd 236 Ml) 15 ml PO PRN PRN PRN Reason: Loose Stool Stop: 11/05/23 21:59 Docusate Sodium (Docusate Sodium 100 Mg Cap) 100 mg PO BID CHRIS Stop: 11/06/23 11:44 Last Admin: 10/13/23 09:45 Dose: 100 mg Escitalopram Oxalate (Escitalopram Oxalate 10 Mg Tab) 10 mg PO HS CHRIS Stop: 11/07/23 21:59 Last Admin: 10/12/23 23:09 Dose: Not Given Haloperidol (Haloperidol 5 Mg Tab) 5 mg PO BID PRN PRN Reason: Agitation Stop: 11/05/23 21:39 Haloperidol Lactate (Haloperidol Lactate 5 Mg/Ml 1 Ml Vial) 5 mg IM BID PRN PRN Reason: Agitation Stop: 11/05/23 22:32 Hydroxyzine HCl (Hydroxyzine Hcl 25 Mg Tab) 50 mg PO HSZ PRN PRN Reason: Insomnia Stop: 11/05/23 21:59 Hydroxyzine HCl (Hydroxyzine Hcl 25 Mg Tab) 25 mg PO Q4H PRN PRN Reason: Anxiety Stop: 11/05/23 21:59 Levothyroxine Sodium (Levothyroxine Sodium 75 Mcg Tablet) 75 mcg PO DAILYBB CHRIS Stop: 11/06/23 11:49 Last Admin: 10/13/23 09:56 Dose: Not Given Lorazepam (Lorazepam 1 Mg Tab) 2 mg PO Q8H PRN PRN Reason: Anxiety Stop: 11/05/23 21:42 Lorazepam (Lorazepam 2 Mg/1 Ml Vial) 2 mg IM Q8H PRN PRN Reason: Anxiety Stop: 11/05/23 21:48 Lorazepam (Lorazepam 1 Mg Tab) 2 mg PO HS CHRIS Stop: 11/06/23 21:59 Last Admin: 10/12/23 21:30 Dose: 1 mg Losartan Potassium (Losartan Potassium 25 Mg Tab) 25 mg PO [facility] Stop: 11/06/23 21:59 Last Admin: 10/12/23 21:29 Dose: 25 mg Magnesium Hydroxide (Magnesium Hydroxide Susp 30 Ml Udc) 30 ml PO DAILY PRN PRN Reason: Constipation Stop: 11/05/23 21:59 Olanzapine (Olanzapine 10 Mg Tab) 10 mg PO [facility] Stop: 11/08/23 21:59 Last Admin: 10/12/23 21:29 Dose: 10 mg Olanzapine (Olanzapine 5 Mg Tablet) 5 mg PO [facility] Stop: 11/10/23 21:59 Last Admin: 10/12/23 21:28 Dose: 2.5 mg Oxybutynin Chloride (Oxybutynin Chloride Xl 5 Mg Tabcr) [facility] Stop: 11/06/23 11:59 Last Admin: 10/13/23 09:45 Dose: 10 mg Sodium Chloride (Sodium Chloride 0.65% Na Soln 45 Ml ([place])) 1 - 2 sprays NA PRN PRN PRN Reason: Nasal Dryness/Congestion Stop: 11/05/23 21:59 Vitamin D (Cholecalciferol 125 Mcg (5,000 Units) Tab) 125 mcg [facility] Stop: 11/07/23 12:44 Last Admin: 10/13/23 09:45 Dose: 125 mcg Mental Health & Subst Abuse Tx Therapist Name of Therapist: Vee Date of Therapist Appointment: missed multiple appointments Post Discharge Appointments Primary Care Physician Name Of Family Doctor/PCP: HEATHER
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
--- NOTE | 2023-10-15 09:33 | Psychiatric Progress Note ---
Date of Service October 15, 2023 Impression / Recommendations Impression MIRANDA ANTUNEZ is a 63-year-old woman with a history of bipolar 1 eugenie vs SAD, panic disorder, OCD traits, hypothyroidism, HTN, urinary incontinence and was admitted on 10/06/23 21:33 on a 302 involuntary commitment for psychosis, disorganized thought process, poor self care and hygiene. Currently on 303 commitment which expires 10/30/2023. Pt presents with persecutory delusions, disorganized thought process with memory impairments, bizarre behaviors, poor self-care and hygiene, insomnia, medication nonadherence, poor follow-up with outpatient providers. Diagnostically consistent with schizoaffective disorder versus bipolar disorder, possible OCD. A: Reviewed interim progress and agree with Dr. Salazar's assessment that she is experiencing unspecified psychosis either due to schizoaffective disorder or bipolar disorder current mixed episode. She continues to have delusions, loosened associations, poor sleep, poor insight, poor judgment and paranoia. Her paranoia in particular seems to be significantly negatively impacting her willingness to consider medication. Given significant decompensation in the outpatient setting likely due to large part to medication non-adherence and ongoing psychosis and based on my own independent exam today I feel that Miranda meets criteria for medication over objection. If her symptoms do not improve she remains at risk for inability to maintain her safety and risk of or disability within the next 30 days. I feel the antipsychotic medication, once titrated to the appropriate dose, will result in beneficial effects of treating her psychosis and improving her self-care, nutrition, hygiene and safety. She is not open to discussion of alternative treatment options and given past good effect from olanzapine I feel this is reasonable to continue but she requires a higher dose to determine if this will offer a beneficial effect. QTc was normal on EKG. Fasting lipid panel and HBA1c reviewed, HbA1c elevated and cholesterol elevated but felt safe to proceed with antipsychotic medication given risks of not treating her ongoing psychosis. MNPR due to psychosis, paranoia, anxiety Overall, I spent a total of 60 minutes on this case including meeting with the patient, reviewing the chart, nursing report, multidisciplinary team meeting, orders, and documentation. (1) Schizoaffective disorder, depressive type: (2) Obsessional thoughts: (3) Adult failure to thrive: (4) HTN (hypertension): (5) Hypothyroidism: (6) Hyperactivity of bladder: (7) Vitamin D insufficiency: (8) Diabetes mellitus type 2 in nonobese: Plan 10/15/2023: Start olanzapine 20mg po or IM daily as medication over objection. 10/14/2023: Continue medications and treatment plan. 10/13/2023: Continue medications and treatment plan. 10/12/2023: Continue medications and treatment plan. Repeat EKG. 10/11/2023: Increase olanzapine to 15 mg at bedtime. 10/10/2023: Reattempt to get an EKG failed; pt has poor insight and judgement related to this. Continue medications and treatment plan. 10/09/2023: Baseline EKG prior to proposed increase in Olanzapine dose. 10/08/23: -Increase Olanzapine to 12.5mg HS -Start Vitamin D 125mcg QD -Start Escitalopram 5mg QD 10/07/23: The patient was admitted to the [facility] ([facility] mental health unit) on q15 min checks (behavioral with suicide precautions) for safety. The patient will participate in group, recreational, and milieu therapies and will be offered additional individual and family sessions as clinically appropriate. -Restart home medications including Olanzapine 10mg HS -Lorazepam 2mg HS for sleep -Agitation/anxiety PRNs adjusted -A1c, fasting lipid panel, Vit D, Vit B12 levels Inventory Assets Strengths: family support, outpatient connection Suicide Risk Level Suicide Risk Level: Moderate (q15 min suicide checks) (psychosis with disorganized behavior, depression but feels safe in the hospital) Risk Factors Assessment Male: No : Yes Do You Have Access To A Gun?: No Health Problems: Yes Mental Health Diagnoses: Yes Substance Use Disorders: No Previous Attempt: No Family History of Suicide: No Previous Psychiatric Hospitalization: Yes Hopelessness: Yes Protective Factors Assessment Pentecostal Beliefs: No : No Responsible for Young Children: No Employed: No Stable Relationships: No Supportive Family: Yes Good Rapport with Provider: No Absence of Any Risk Factors Above: No Interval History Identifying Information MIRANDA ANTUNEZ is a 63-year-old F who currently lives in alone, has a history of bipolar 1 eugenie vs SAD, panic disorder, OCD traits, hypothyroidism, HTN, urinary incontinence and was admitted on 10/06/23 21:33 on a 302 involuntary commitment for psychosis, disorganized thought process, poor self care and hygiene. Currently on 303 commitment. Chief Complaint "I will get an EKG not an ECG". Review of Systems Sleep Information Total Hours of Sleep: 3 Sleep Comments: HS Ativan and Zyprexa Meal Information Percent Meal Consumed - Breakfast: 100 Percent Meal Consumed - Lunch: 30 Percent Meal Consumed - Dinner: 90 Subjective Subjective Patient was seen & assessed and interval progress reviewed with treatment team nursing and social work. Ongoing OCD symptoms, using paper towels to touch things on the unit. Wearing a face mask. Has been very paranoid and having persecutory delusions. Remains very paranoid about her medications and packaging. Thinks peers on the unit are laughing at her. Continues to refuse escitalopram. Last night refused the ativan. Last night would allow take olanzapine 10mg. Continues to refuse the EKG. Continues to think others are stealing her belongings. Has been requesting adult diapers and pads repeatedly and stacking them within her underwear in a disorganized manner. At times speaking in the third person. Only slept 3 hours last overnight. Tells me she slept poorly due to fears about her son driving on the [place]. States her main focus is finding a therapist. Disagrees that higher dose of olanzapine would be beneficial, does not feel she is experiencing any type of current psychiatric symptoms except stress. Agrees to having an EKG but not an ELIDA, disagrees with me that these are the same thing. Denies any prior cardiac history, explained rationale of test to examine QTC interval. She denies side effects to olanzapine except sedation and doesn't want to try a higher dose due to concern for sedation or other "harm" as she feels she is "emaciated". Attempted to discuss this further with her, she declines option for any other antipsychotic medications nor adjustments of olanzapine as she feels medication is not needed. She feels that symptoms I discuss as reasons for antipsychotic medication, including paranoia, delusions, loosened associations, lack of self care are not present. Physical Exam Psychiatric Orientation: alert and oriented x 3 Apperance: + disheveled Eye Contact: + fair eye contact Motor Behavior: no abnormal motor movements (hunched over) Speech: + abnormal rate/rhythm/volume of speech (staccato, odd ) Affect: + flat affect Mood: + anxious mood and + irritable mood Thought Process: + circumstantial thought process, + looseness of associations and + perseveration Thought Content: + obsessions, + paranoid, + compulsions and + delusions Suicidal Thoughts: denies suicidal thoughts Homicidal Thoughts: denies homicidal thoughts Hallucinations: no auditory hallucinations (unclear if occurring, she denies) and no visual hallucinations Insight: + poor insight Judgment: + limited judgement Vital Signs (Past 24 Hours) Last Vital Signs Temp 36.2 C L 10/15/23 00:43 Pulse 78 10/15/23 00:43 Resp 18 10/15/23 00:43 BP 153/86 H 10/15/23 00:43 Pulse Ox 99 10/15/23 00:43 O2 Del Method Room Air 10/15/23 00:43 Results & Data ([facility]) Current Inpatient Medications Current Inpatient Medications: Current Inpatient Medications Acetaminophen (Acetaminophen 325 Mg Tab) 650 mg PO Q4H PRN PRN Reason: Headache or Minor Fever Stop: 11/05/23 21:59 Al Hydrox/Mg Hydrox/Simethicone (Aluminum/Magnesium Susp 30 Ml Udc) 30 ml PO Q4H PRN PRN Reason: GI Upset Stop: 11/05/23 21:59 Atorvastatin Calcium (Atorvastatin 20 Mg Tab) 20 mg PO [facility] Stop: 11/06/23 21:59 Last Admin: 10/14/23 21:17 Dose: 20 mg Benztropine Mesylate (Benztropine Mesylate 1 Mg/Ml 2 Ml Amp) 1 mg IM Q8H PRN PRN Reason: Extrapyramidal Stop: 11/05/23 21:53 Benztropine Mesylate (Benztropine Mesylate 1 Mg Tab) 1 mg PO Q8 PRN PRN Reason: Extrapyramidal Stop: 11/05/23 22:25 Bismuth Subsalicylate (Bismuth Subsalicylate Liqd 236 Ml) 15 ml PO PRN PRN PRN Reason: Loose Stool Stop: 11/05/23 21:59 Docusate Sodium (Docusate Sodium 100 Mg Cap) 100 mg PO BID [facility] Stop: 11/06/23 11:44 Last Admin: 10/14/23 21:16 Dose: 100 mg Escitalopram Oxalate (Escitalopram Oxalate 10 Mg Tab) 10 mg PO [facility] Stop: 11/07/23 21:59 Last Admin: 10/14/23 21:47 Dose: Not Given Haloperidol (Haloperidol 5 Mg Tab) 5 mg PO BID PRN PRN Reason: Agitation Stop: 11/05/23 21:39 Haloperidol Lactate (Haloperidol Lactate 5 Mg/Ml 1 Ml Vial) 5 mg IM BID PRN PRN Reason: Agitation Stop: 11/05/23 22:32 Hydroxyzine HCl (Hydroxyzine Hcl 25 Mg Tab) 50 mg PO HSZ PRN PRN Reason: Insomnia Stop: 11/05/23 21:59 Hydroxyzine HCl (Hydroxyzine Hcl 25 Mg Tab) 25 mg PO Q4H PRN PRN Reason: Anxiety Stop: 11/05/23 21:59 Levothyroxine Sodium (Levothyroxine Sodium 75 Mcg Tablet) 75 mcg PO DAILYBB [facility] Stop: 11/06/23 11:49 Last Admin: 10/14/23 09:04 Dose: 75 mcg Lorazepam (Lorazepam 1 Mg Tab) 2 mg PO Q8H PRN PRN Reason: Anxiety Stop: 11/05/23 21:42 Lorazepam (Lorazepam 2 Mg/1 Ml Vial) 2 mg IM Q8H PRN PRN Reason: Anxiety Stop: 11/05/23 21:48 Lorazepam (Lorazepam 1 Mg Tab) 2 mg PO HS [facility] Stop: 11/06/23 21:59 Last Admin: 10/14/23 21:47 Dose: Not Given Losartan Potassium (Losartan Potassium 25 Mg Tab) 25 mg PO HS [facility] Stop: 11/06/23 21:59 Last Admin: 10/14/23 21:17 Dose: 25 mg Magnesium Hydroxide (Magnesium Hydroxide Susp 30 Ml Udc) 30 ml PO DAILY PRN PRN Reason: Constipation Stop: 11/05/23 21:59 Olanzapine (Olanzapine 10 Mg Tab) 10 mg PO HS [facility] Stop: 11/08/23 21:59 Last Admin: 10/14/23 21:17 Dose: 10 mg Olanzapine (Olanzapine 5 Mg Tablet) 5 mg PO HS [facility] Stop: 11/10/23 21:59 Last Admin: 10/14/23 21:47 Dose: Not Given Oxybutynin Chloride (Oxybutynin Chloride Xl 5 Mg Tabcr) 10 mg PO QAM [facility] Stop: 11/06/23 11:59 Last Admin: 10/14/23 09:03 Dose: 10 mg Sodium Chloride (Sodium Chloride 0.65% Na Soln 45 Ml ([place])) 1 - 2 sprays NA PRN PRN PRN Reason: Nasal Dryness/Congestion Stop: 11/05/23 21:59 Vitamin D (Cholecalciferol 125 Mcg (5,000 Units) Tab) 125 mcg PO QAM [facility] Stop: 11/07/23 12:44 Last Admin: 10/14/23 09:04 Dose: 125 mcg Mental Health & Subst Abuse Tx Therapist Name of Therapist: Vee Date of Therapist Appointment: missed multiple appointments Post Discharge Appointments Primary Care Physician Name Of Family Doctor/PCP: HEATHER
[2023-10-15] MEDS: OLANZapine 20 MG TABLET PO SCH (13:15)
[2023-10-15] MEDS ORDERED: OLANZapine 10 MG/2.1 ML SDV IM PRN (13:19)
[2023-10-15] MEDS: OLANZapine 10 MG/2.1 ML SDV IM SCH (15:21)
--- NOTE | 2023-10-16 07:22 | Electrocardiogram Report ---
Test Reason : Blood Pressure : */* mmHG Vent. Rate : 84 BPM Atrial Rate : 84 BPM P-R Int : 148 ms QRS Dur : 90 ms QT Int : 366 ms P-R-T Axes : 67 82 56 degrees QTcB Int : 432 ms Normal sinus rhythm with sinus arrhythmia Possible Left atrial enlargement Borderline ECG When compared with ECG of 24-Feb-2018 15:47, No significant change was found Confirmed by Ck Ch ([id number]) on 10/16/2023 7:21:44 AM Referred By: REFERRED SELF Confirmed By: Ck Ch
--- NOTE | 2023-10-16 09:00 | Psychiatric Progress Note ---
Date of Service October 16, 2023 Impression / Recommendations Impression CEDRICK ANTUNEZ is a 63-year-old woman with a history of bipolar 1 eugenie vs SAD, panic disorder, OCD traits, hypothyroidism, HTN, urinary incontinence and was admitted on 10/06/23 21:33 on a 302 involuntary commitment for psychosis, disorganized thought process, poor self care and hygiene. Currently on 303 commitment which expires 10/30/2023. Pt presents with persecutory delusions, disorganized thought process with memory impairments, bizarre behaviors, poor self-care and hygiene, insomnia, medication nonadherence, poor follow-up with outpatient providers. Diagnostically consistent with schizoaffective disorder versus bipolar disorder, possible OCD. A: Ongoing obsessions and suspect somatic obsession related to her excessive use of poise pads for urinary leakage. Will start to monitor use to determine extent and frequency of which she utilizing these. Tolerating higher dose of olanzapine so far, will plan to shift to HS when she consistently takes po option. Will discontinue escitalopram given she continues to decline this and remains unclear if possible mixed or manic component to her presentation. Sleep improving slightly with higher dose of olanzapine. MNPR due to psychosis, paranoia, anxiety Overall, I spent a total of 30 minutes on this case including meeting with the patient, reviewing the chart, nursing report, multidisciplinary team meeting, orders, and documentation. (1) Schizoaffective disorder, depressive type: (2) Obsessional thoughts: (3) Adult failure to thrive: (4) HTN (hypertension): (5) Hypothyroidism: (6) Hyperactivity of bladder: (7) Vitamin D insufficiency: (8) Diabetes mellitus type 2 in nonobese: Plan 10/16/2023: Discontinue escitalopram. Continue with olanzapine 20mg po or IM. 10/15/2023: Start olanzapine 20mg po or IM daily as medication over objection. 10/14/2023: Continue medications and treatment plan. 10/13/2023: Continue medications and treatment plan. 10/12/2023: Continue medications and treatment plan. Repeat EKG. 10/11/2023: Increase olanzapine to 15 mg at bedtime. 10/10/2023: Reattempt to get an EKG failed; pt has poor insight and judgement related to this. Continue medications and treatment plan. 10/09/2023: Baseline EKG prior to proposed increase in Olanzapine dose. 10/08/23: -Increase Olanzapine to 12.5mg HS -Start Vitamin D 125mcg QD -Start Escitalopram 5mg QD 10/07/23: The patient was admitted to the [facility] ([facility]) on q15 min checks (behavioral with suicide precautions) for safety. The patient will participate in group, recreational, and milieu therapies and will be offered additional individual and family sessions as clinically appropriate. -Restart home medications including Olanzapine 10mg HS -Lorazepam 2mg HS for sleep -Agitation/anxiety PRNs adjusted -A1c, fasting lipid panel, Vit D, Vit B12 levels Inventory Assets Strengths: family support, outpatient connection Suicide Risk Level Suicide Risk Level: Moderate (q15 min suicide checks) (psychosis with disorganized behavior, depression but feels safe in the hospital) Risk Factors Assessment Male: No : Yes Do You Have Access To A Gun?: No Health Problems: Yes Mental Health Diagnoses: Yes Substance Use Disorders: No Previous Attempt: No Family History of Suicide: No Previous Psychiatric Hospitalization: Yes Hopelessness: Yes Protective Factors Assessment Protestant Beliefs: No : No Responsible for Young Children: No Employed: No Stable Relationships: No Supportive Family: Yes Good Rapport with Provider: No Absence of Any Risk Factors Above: No Interval History Identifying Information CEDRICK ANTUNEZ is a 63-year-old F who currently lives in alone, has a history of bipolar 1 eugenie vs SAD, panic disorder, OCD traits, hypothyroidism, HTN, urinary incontinence and was admitted on 10/06/23 21:33 on a 302 involuntary commitment for psychosis, disorganized thought process, poor self care and hygiene. Currently on 303 commitment. Chief Complaint "Praise mother God". Review of Systems Sleep Information Total Hours of Sleep: 5.5 Sleep Comments: HS Ativan and Zyprexa Meal Information Percent Meal Consumed - Breakfast: 100 Percent Meal Consumed - Lunch: 100 Percent Meal Consumed - Dinner: 90 Subjective Subjective Patient was seen & assessed and interval progress reviewed with treatment team nursing and social work. Irritable at times but slightly more pleasant last evening. Was tired yesterday after olanzapine dose. Still declining escitalopram. Took half the dose of scheduled ativan. This morning she reported some weaknesses, vital signs were stable, feels fatigued. Slept about 5.5 hours overnight and a nap on evening shift so maybe ~7 hours total. Still using mary rtowels to open doors/avoid germs. Still wanting to see all medications within the packaging but eating non-packaged food items on her meal tray. Was observed calling and leaving voicemail messages for her outpatient psychiatrist yesterday due to frustration with olanzapine dose increase and medication over objection. Utilizing poise pads repeatedly throughout the day, frustrated with limitation to one pad at a time as she feels this doesn't absorb urinary leakage well enough. Feels fatigued which she attributes to the increased dose of olanzapine. Denies any other side effects from this. Continues to address everyone by their name and title. She denies any other questions or concerns. Physical Exam Psychiatric Orientation: alert and oriented x 3 Apperance: + disheveled Eye Contact: + fair eye contact Motor Behavior: no abnormal motor movements (hunched over) Speech: + abnormal rate/rhythm/volume of speech (staccato, odd ) Affect: + flat affect Mood: + anxious mood and + irritable mood Thought Process: + circumstantial thought process, + looseness of associations and + perseveration Thought Content: + obsessions, + paranoid, + compulsions and + delusions Suicidal Thoughts: denies suicidal thoughts Homicidal Thoughts: denies homicidal thoughts Hallucinations: no auditory hallucinations (unclear if occurring, she denies) and no visual hallucinations Insight: + poor insight Judgment: + limited judgement Vital Signs (Past 24 Hours) Last Vital Signs Temp 36.3 C L 10/16/23 05:47 Pulse 83 10/16/23 05:47 Resp 20 10/16/23 05:47 BP 156/89 H 10/16/23 05:47 Pulse Ox 100 10/16/23 05:47 O2 Del Method Room Air 10/16/23 05:47 Results & Data ([facility]) Current Inpatient Medications Current Inpatient Medications: Current Inpatient Medications Acetaminophen (Acetaminophen 325 Mg Tab) 650 mg PO Q4H PRN PRN Reason: Headache or Minor Fever Stop: 11/05/23 21:59 Al Hydrox/Mg Hydrox/Simethicone (Aluminum/Magnesium Susp 30 Ml Udc) 30 ml PO Q4H PRN PRN Reason: GI Upset Stop: 11/05/23 21:59 Atorvastatin Calcium (Atorvastatin 20 Mg Tab) 20 mg PO HS CHRIS Stop: 11/06/23 21:59 Last Admin: 10/15/23 21:07 Dose: 20 mg Benztropine Mesylate (Benztropine Mesylate 1 Mg/Ml 2 Ml Amp) 1 mg IM Q8H PRN PRN Reason: Extrapyramidal Stop: 11/05/23 21:53 Benztropine Mesylate (Benztropine Mesylate 1 Mg Tab) 1 mg PO Q8 PRN PRN Reason: Extrapyramidal Stop: 11/05/23 22:25 Bismuth Subsalicylate (Bismuth Subsalicylate Liqd 236 Ml) 15 ml PO PRN PRN PRN Reason: Loose Stool Stop: 11/05/23 21:59 Docusate Sodium (Docusate Sodium 100 Mg Cap) 100 mg PO BID CHRIS Stop: 11/06/23 11:44 Last Admin: 10/15/23 21:07 Dose: 100 mg Escitalopram Oxalate (Escitalopram Oxalate 10 Mg Tab) 10 mg PO HS CHRIS Stop: 11/07/23 21:59 Last Admin: 10/15/23 21:16 Dose: Not Given Hydroxyzine HCl (Hydroxyzine Hcl 25 Mg Tab) 50 mg PO HSZ PRN PRN Reason: Insomnia Stop: 11/05/23 21:59 Hydroxyzine HCl (Hydroxyzine Hcl 25 Mg Tab) 25 mg PO Q4H PRN PRN Reason: Anxiety Stop: 11/05/23 21:59 Levothyroxine Sodium (Levothyroxine Sodium 75 Mcg Tablet) 75 mcg PO DAILYBB CHRIS Stop: 11/06/23 11:49 Last Admin: 10/15/23 09:30 Dose: 75 mcg Lorazepam (Lorazepam 1 Mg Tab) 2 mg PO Q8H PRN PRN Reason: Anxiety Stop: 11/05/23 21:42 Lorazepam (Lorazepam 1 Mg Tab) 2 mg PO HS CHRIS Stop: 11/06/23 21:59 Last Admin: 10/15/23 21:08 Dose: 1 mg Losartan Potassium (Losartan Potassium 25 Mg Tab) 25 mg PO HS CHRIS Stop: 11/06/23 21:59 Last Admin: 10/15/23 21:07 Dose: 25 mg Magnesium Hydroxide (Magnesium Hydroxide Susp 30 Ml Udc) 30 ml PO DAILY PRN PRN Reason: Constipation Stop: 11/05/23 21:59 Olanzapine (Olanzapine 20 Mg Tablet) 20 mg PO QAM CHRIS Stop: 11/14/23 12:59 Last Admin: 10/15/23 13:15 Dose: 20 mg Olanzapine (Olanzapine 10 Mg/2.1 Ml Sdv) 20 mg IM DAILY@0901 PRN PRN Reason: medication over objection Stop: 11/14/23 13:14 Oxybutynin Chloride (Oxybutynin Chloride Xl 5 Mg Tabcr) [facility] [place] Stop: 11/06/23 11:59 Last Admin: 10/15/23 09:30 Dose: 10 mg Sodium Chloride (Sodium Chloride 0.65% Na Soln 45 Ml ([place])) 1 - 2 sprays NA PRN PRN PRN Reason: Nasal Dryness/Congestion Stop: 11/05/23 21:59 Vitamin D (Cholecalciferol 125 Mcg (5,000 Units) Tab) 125 [facility]cg [facility] [place] Stop: 11/07/23 12:44 Last Admin: 10/15/23 09:30 Dose: 125 mcg Mental Health & Subst Abuse Tx Therapist Name of Therapist: Vee Date of Therapist Appointment: missed multiple appointments Post Discharge Appointments Primary Care Physician Name Of Family Doctor/PCP: HEATHER
--- NOTE | 2023-10-17 09:05 | Psychiatric Progress Note ---
Date of Service October 17, 2023 Impression / Recommendations Impression CEDRICK ANTUNEZ is a 63-year-old woman with a history of bipolar 1 eugenie vs SAD, panic disorder, OCD traits, hypothyroidism, HTN, urinary incontinence and was admitted on 10/06/23 21:33 on a 302 involuntary commitment for psychosis, disorganized thought process, poor self care and hygiene. Currently on 303 commitment which expires 10/30/2023. Pt presents with persecutory delusions, disorganized thought process with memory impairments, bizarre behaviors, poor self-care and hygiene, insomnia, medication nonadherence, poor follow-up with outpatient providers. Diagnostically consistent with schizoaffective disorder versus bipolar disorder, possible OCD. A: Ongoing obsessions, odd speech pattern, some paranoia and minimizing level of functional impairment prior to admission but some of her irritability and ruminations seem to be improving with the higher dose of olanzapine which she seems to be tolerating well and without any significant excess sedation. Will change to HS dosing of po and if refused then will get IM dose of medication over objection the following morning to allow for full coordination with treatment team, security if needed and myself and to reduce disruptions prior to bedtime as sleep promotion remains a focus. MNPR due to psychosis, paranoia, anxiety Overall, I spent a total of 35 minutes on this case including meeting with the patient, reviewing the chart, nursing report, multidisciplinary team meeting, orders, and documentation. (1) Schizoaffective disorder, depressive type: (2) Obsessional thoughts: (3) Adult failure to thrive: (4) HTN (hypertension): (5) Hypothyroidism: (6) Hyperactivity of bladder: (7) Vitamin D insufficiency: (8) Diabetes mellitus type 2 in nonobese: Plan 10/17/2023: Switch to olanzapine 20mg po HS starting tomorrow with IM dose the following morning if needed for medication over objection. 10/16/2023: Discontinue escitalopram. Continue with olanzapine 20mg po or IM. 10/15/2023: Start olanzapine 20mg po or IM daily as medication over objection. 10/14/2023: Continue medications and treatment plan. 10/13/2023: Continue medications and treatment plan. 10/12/2023: Continue medications and treatment plan. Repeat EKG. 10/11/2023: Increase olanzapine to 15 mg at bedtime. 10/10/2023: Reattempt to get an EKG failed; pt has poor insight and judgement related to this. Continue medications and treatment plan. 10/09/2023: Baseline EKG prior to proposed increase in Olanzapine dose. 10/08/23: -Increase Olanzapine to 12.5mg HS -Start Vitamin D 125mcg QD -Start Escitalopram 5mg QD 10/07/23: The patient was admitted to the [facility] ([facility] unit) on q15 min checks (behavioral with suicide precautions) for safety. The patient will participate in group, recreational, and milieu therapies and will be offered additional individual and family sessions as clinically appropriate. -Restart home medications including Olanzapine 10mg HS -Lorazepam 2mg HS for sleep -Agitation/anxiety PRNs adjusted -A1c, fasting lipid panel, Vit D, Vit B12 levels Inventory Assets Strengths: family support, outpatient connection Suicide Risk Level Suicide Risk Level: Moderate (q15 min suicide checks) (psychosis with disorganized behavior, depression but feels safe in the hospital) Risk Factors Assessment Male: No : Yes Do You Have Access To A Gun?: No Health Problems: Yes Mental Health Diagnoses: Yes Substance Use Disorders: No Previous Attempt: No Family History of Suicide: No Previous Psychiatric Hospitalization: Yes Hopelessness: Yes Protective Factors Assessment Quaker Beliefs: No : No Responsible for Young Children: No Employed: No Stable Relationships: No Supportive Family: Yes Good Rapport with Provider: No Absence of Any Risk Factors Above: No Interval History Identifying Information CEDRICK ANTUNEZ is a 63-year-old F who currently lives in alone, has a history of bipolar 1 eugenie vs SAD, panic disorder, OCD traits, hypothyroidism, HTN, urinary incontinence and was admitted on 10/06/23 21:33 on a 302 involuntary commitment for psychosis, disorganized thought process, poor self care and hygiene. Currently on 303 commitment. Chief Complaint "I have good memories of past labor days". Review of Systems Sleep Information Total Hours of Sleep: 6 Sleep Comments: HS Ativan and Zyprexa Meal Information Percent Meal Consumed - Breakfast: 100 Percent Meal Consumed - Lunch: 100 Percent Meal Consumed - Dinner: 75 Subjective Subjective Patient was seen & assessed and interval progress reviewed with treatment team nursing and social work. More isolative last evening, less requests from nurses station. She did not attend any groups. Still requesting pads (3 pads so far today, but did shower this morning). Concerned by germs, especially with pants touching the floor. Today reports her mood is "better", citing good memories from childhood spent with her family on day. Having some "sleepiness" but denies any other side effects from the olanzapine. Wonders about switching the dose to HS, she reports willingness to continue with the po dose. Remains strongly opposed to trial of an SSRI including escitalopram. Reviewed some of the concerns about the state of her apartment prior to her admission she reports belief that someone purposefully "placed clogs" in the toilet in her apartment. She is unsure who this was but suspects maybe the [employer]. Acknowledges that she did not have a cell phone prior to admission and cites this as the reason for poor outpatient adherence with appointments and her sons concerns, no longer mentioning belief that someone may have been impersonating her on the phone. Physical Exam Psychiatric Orientation: alert and oriented x 3 Apperance: + disheveled Eye Contact: + fair eye contact Motor Behavior: no abnormal motor movements (hunched over) Speech: + abnormal rate/rhythm/volume of speech (staccato, odd ) Affect: + flat affect Mood: + anxious mood and + irritable mood Thought Process: + circumstantial thought process, + looseness of associations and + perseveration Thought Content: + obsessions, + paranoid, + compulsions and + delusions Suicidal Thoughts: denies suicidal thoughts Homicidal Thoughts: denies homicidal thoughts Hallucinations: no auditory hallucinations (unclear if occurring, she denies) and no visual hallucinations Insight: + poor insight Judgment: + limited judgement Vital Signs (Past 24 Hours) Last Vital Signs Temp 36.1 C L 10/17/23 06:12 Pulse 76 10/17/23 06:12 Resp 14 10/17/23 06:12 BP 135/87 10/17/23 06:12 Pulse Ox 99 10/17/23 06:12 O2 Del Method Room Air 10/17/23 06:12 Results & Data ([facility]) Current Inpatient Medications Current Inpatient Medications: Current Inpatient Medications Acetaminophen (Acetaminophen 325 Mg Tab) 650 mg PO Q4H PRN PRN Reason: Headache or Minor Fever Stop: 11/05/23 21:59 Al Hydrox/Mg Hydrox/Simethicone (Aluminum/Magnesium Susp 30 Ml Udc) 30 ml PO Q4H PRN PRN Reason: GI Upset Stop: 11/05/23 21:59 Atorvastatin Calcium (Atorvastatin 20 Mg Tab) 20 mg PO HS CHRIS Stop: 11/06/23 21:59 Last Admin: 10/16/23 21:01 Dose: 20 mg Benztropine Mesylate (Benztropine Mesylate 1 Mg/Ml 2 Ml Amp) 1 mg IM Q8H PRN PRN Reason: Extrapyramidal Stop: 11/05/23 21:53 Benztropine Mesylate (Benztropine Mesylate 1 Mg Tab) 1 mg PO Q8 PRN PRN Reason: Extrapyramidal Stop: 11/05/23 22:25 Bismuth Subsalicylate (Bismuth Subsalicylate Liqd 236 Ml) 15 ml PO PRN PRN PRN Reason: Loose Stool Stop: 11/05/23 21:59 Docusate Sodium (Docusate Sodium 100 Mg Cap) 100 mg PO BID CHRIS Stop: 11/06/23 11:44 Last Admin: 10/16/23 21:02 Dose: 100 mg Hydroxyzine HCl (Hydroxyzine Hcl 25 Mg Tab) 50 mg PO HSZ PRN PRN Reason: Insomnia Stop: 11/05/23 21:59 Hydroxyzine HCl (Hydroxyzine Hcl 25 Mg Tab) 25 mg PO Q4H PRN PRN Reason: Anxiety Stop: 11/05/23 21:59 Levothyroxine Sodium (Levothyroxine Sodium 75 Mcg Tablet) 75 mcg PO DAILYBB CHRIS Stop: 11/06/23 11:49 Last Admin: 10/16/23 09:04 Dose: 75 mcg Lorazepam (Lorazepam 1 Mg Tab) 2 mg PO Q8H PRN PRN Reason: Anxiety Stop: 11/05/23 21:42 Lorazepam (Lorazepam 1 Mg Tab) 2 mg PO HS CHRIS Stop: 11/06/23 21:59 Last Admin: 10/16/23 21:06 Dose: 1 mg Losartan Potassium (Losartan Potassium 25 Mg Tab) 25 mg PO HS CHRIS Stop: 11/06/23 21:59 Last Admin: 10/16/23 21:01 Dose: 25 mg Magnesium Hydroxide (Magnesium Hydroxide Susp 30 Ml Udc) 30 ml PO DAILY PRN PRN Reason: Constipation Stop: 11/05/23 21:59 Olanzapine (Ol[facility]apine 20 Mg Tablet) [facility] [place]: 11/14/23 12:59 Last Admin: 10/16/23 09:04 Dose: 20 mg Olanzapine (Olanzapine 10 Mg/2.1 Ml Sdv) 20 mg IM DAILY@0901 PRN PRN Reason: medication over objection Stop: 11/14/23 13:14 Oxybutynin Chloride (Oxybutynin Chloride Xl 5 Mg Tabcr) [facility] [place] Stop: 11/06/23 11:59 Last Admin: 10/16/23 09:04 Dose: 10 mg Sodium Chloride (Sodium Chloride 0.65% Na Soln 45 Ml ([place])) 1 - 2 sprays NA PRN PRN PRN Reason: Nasal Dryness/Congestion Stop: 11/05/23 21:59 Vitamin D (Cholecalciferol 125 Mcg (5,000 Units) Tab) 125 [facility]cg [facility] [place] Stop: 11/07/23 12:44 Last Admin: 10/16/23 09:04 Dose: 125 mcg Mental Health & Subst Abuse Tx Therapist Name of Therapist: Vee Date of Therapist Appointment: missed multiple appointments Post Discharge Appointments Primary Care Physician Name Of Family Doctor/PCP: HEATHER
--- NOTE | 2023-10-18 08:44 | Psychiatric Progress Note ---
Date of Service October 18, 2023 Impression / Recommendations Impression CEDRICK ANTUNEZ is a 63-year-old woman with a history of bipolar 1 eugenie vs SAD, panic disorder, OCD traits, hypothyroidism, HTN, urinary incontinence and was admitted on 10/06/23 21:33 on a 302 involuntary commitment for psychosis, disorganized thought process, poor self care and hygiene. Currently on 303 commitment which expires 10/30/2023. Pt presents with persecutory delusions, disorganized thought process with memory impairments, bizarre behaviors, poor self-care and hygiene, insomnia, medication nonadherence, poor follow-up with outpatient providers. Diagnostically consistent with schizoaffective disorder versus bipolar disorder, possible OCD. A: Increased irritability and some paranoia today. Plan for olanzapine at HS. Continues to sleep poorly, suspect likely due to eugenie component to her pres entation. Declining case management and additional outpatient referrals as part of exploration of eventual disposition options to increase outpatient support. MNPR due to psychosis, paranoia, anxiety Overall, I spent a total of 30 minutes on this case including meeting with the patient, reviewing the chart, nursing report, multidisciplinary team meeting, orders, and documentation. (1) Schizoaffective disorder, depressive type: (2) Obsessional thoughts: (3) Adult failure to thrive: (4) HTN (hypertension): (5) Hypothyroidism: (6) Hyperactivity of bladder: (7) Vitamin D insufficiency: (8) Diabetes mellitus type 2 in nonobese: Plan 10/18/2023: Olanzapine 20mg HS po. 10/17/2023: Switch to olanzapine 20mg po HS starting tomorrow with IM dose the following morning if needed for medication over objection. 10/16/2023: Discontinue escitalopram. Continue with olanzapine 20mg po or IM. 10/15/2023: Start olanzapine 20mg po or IM daily as medication over objection. 10/14/2023: Continue medications and treatment plan. 10/13/2023: Continue medications and treatment plan. 10/12/2023: Continue medications and treatment plan. Repeat EKG. 10/11/2023: Increase olanzapine to 15 mg at bedtime. 10/10/2023: Reattempt to get an EKG failed; pt has poor insight and judgement related to this. Continue medications and treatment plan. 10/09/2023: Baseline EKG prior to proposed increase in Olanzapine dose. 10/08/23: -Increase Olanzapine to 12.5mg HS -Start Vitamin D 125mcg QD -Start Escitalopram 5mg QD 10/07/23: The patient was admitted to the [facility] ([facility] mental health unit) on q15 min checks (behavioral with suicide precautions) for safety. The patient will participate in group, recreational, and milieu therapies and will b e offered additional individual and family sessions as clinically appropriate. -Restart home medications including Olanzapine 10mg HS -Lorazepam 2mg HS for sleep -Agitation/anxiety PRNs adjusted -A1c, fasting lipid panel, Vit D, Vit B12 levels Inventory Assets Strengths: family support, outpatient connection Suicide Risk Level Suicide Risk Level: Moderate (q15 min suicide checks) (psychosis with disorganized behavior, depression but feels safe in the hospital) Risk Factors Assessment Male: No : Yes Do You Have Access To A Gun?: No Health Problems: Yes Mental Health Diagnoses: Yes Substance Use Disorders: No Previous Attempt: No Family History of Suicide: No Previous Psychiatric Hospitalization: Yes Hopelessness: Yes Protective Factors Assessment Holiness Beliefs: No : No Responsible for Young Children: No Employed: No Stable Relationships: No Supportive Family: Yes Good Rapport with Provider: No Absence of Any Risk Factors Above: No Interval History Identifying Information CEDRICK ANTUNEZ is a 63-year-old F who currently lives in alone, has a history of bipolar 1 eugenie vs SAD, panic disorder, OCD traits, hypothyroidism, HTN, urinary incontinence and was admitted on 10/06/23 21:33 on a 302 involuntary commitment for psychosis, disorganized thought process, poor self care and hygiene. Currently on 303 commitment. Chief Complaint "Those men might be coming back". Review of Systems Sleep Information Total Hours of Sleep: 4.25 Sleep Comments: Meal Information Percent Meal Consumed - Breakfast: 100 Percent Meal Consumed - Lunch: 100 Percent Meal Consumed - Dinner: 90 Subjective Subjective Patient was seen & assessed and interval progress reviewed with treatment team nursing and social work. Attended groups, only slept 4.25 hours last night. Making requests for more rodo pads this morning. More irritable today, expresses concern that if we meet in her room that male technical staff assistant may try to enter her room to clean to the toilet while we are meeting. Speaks in the third person at times. Continues to use very formal and formulaic language of referring to everyone by their first and last name and title. Attempted to discuss case management referrals she is very opposed to this. Physical Exam Psychiatric Orientation: alert and oriented x 3 Apperance: + disheveled Eye Contact: + fair eye contact Motor Behavior: no abnormal motor movements (hunched over) Speech: + abnormal rate/rhythm/volume of speech (staccato, odd ) Affect: + flat affect Mood: + irritable mood Thought Process: + circumstantial thought process, + looseness of associations and + perseveration Thought Content: + obsessions, + paranoid, + compulsions and + delusions Suicidal Thoughts: denies suicidal thoughts Homicidal Thoughts: denies homicidal thoughts Hallucinations: no auditory hallucinations (unclear if occurring, she denies) and no visual hallucinations Insight: + poor insight Judgment: + limited judgement Vital Signs (Past 24 Hours) Last Vital Signs Temp 36.4 C L 10/18/23 06:33 Pulse 71 10/18/23 06:33 Resp 18 10/18/23 06:33 BP 147/76 H 10/18/23 06:33 Pulse Ox 99 10/17/23 06:12 O2 Del Method Room Air 10/17/23 06:12 Results & Data ([facility]) Current Inpatient Medications Current Inpatient Medications: Current Inpatient Medications Acetaminophen (Acetaminophen 325 Mg Tab) 650 mg PO Q4H PRN PRN Reason: Headache or Minor Fever Stop: 11/05/23 21:59 Al Hydrox/Mg Hydrox/Simethicone (Aluminum/Magnesium Susp 30 Ml Udc) 30 ml PO Q4H PRN PRN Reason: GI Upset Stop: 11/05/23 21:59 Atorvastatin Calcium (Atorvastatin 20 Mg Tab) 20 mg PO HS CHRIS Stop: 11/06/23 21:59 Last Admin: 10/17/23 21:20 Dose: 20 mg Benztropine Mesylate (Benztropine Mesylate 1 Mg/Ml 2 Ml Amp) 1 mg IM Q8H PRN PRN Reason: Extrapyramidal Stop: 11/05/23 21:53 Benztropine Mesylate (Benztropine Mesylate 1 Mg Tab) 1 mg PO Q8 PRN PRN Reason: Extrapyramidal Stop: 11/05/23 22:25 Bismuth Subsalicylate (Bismuth Subsalicylate Liqd 236 Ml) 15 ml PO PRN PRN PRN Reason: Loose Stool Stop: 11/05/23 21:59 Docusate Sodium (Docusate Sodium 100 Mg Cap) 100 mg PO BID CHRIS Stop: 11/06/23 11:44 Last Admin: 10/17/23 21:20 Dose: 100 mg Hydroxyzine HCl (Hydroxyzine Hcl 25 Mg Tab) 50 mg PO HSZ PRN PRN Reason: Insomnia Stop: 11/05/23 21:59 Hydroxyzine HCl (Hydroxyzine Hcl 25 Mg Tab) 25 mg PO Q4H PRN PRN Reason: Anxiety Stop: 11/05/23 21:59 Levothyroxine Sodium (Levothyroxine Sodium 75 Mcg Tablet) 75 mcg PO DAILYBB CHRIS Stop: 11/06/23 11:49 Last Admin: 10/17/23 09:25 Dose: 75 mcg Lorazepam (Lorazepam 1 Mg Tab) 2 mg PO Q8H PRN PRN Reason: Anxiety Stop: 11/05/23 21:42 Lorazepam (Lorazepam 1 Mg Tab) 2 mg PO HS CHRIS Stop: 11/06/23 21:59 Last Admin: 10/17/23 21:20 Dose: 1 mg Losartan Potassium (Losartan Potassium 25 Mg Tab) 25 mg PO HS CHRIS Stop: 11/06/23 21:59 Last Admin: 10/17/23 21:20 Dose: 25 mg Magnesium Hydroxide (Magnesium Hydroxide Susp 30 Ml Udc) 30 ml PO DAILY PRN PRN Reason: Constipation Stop: 11/05/23 21:59 Olanzapine (Olanzapine 10 Mg/2.1 Ml Sdv) 20 mg IM DAILY@0901 PRN PRN Reason: medication over objection Stop: 11/14/23 13:14 Olanzapine (Olanzapine 20 Mg Tablet) 20 mg PO HS CHRIS Stop: 11/17/23 21:59 Oxybutynin Chloride (Oxybutynin Chloride Xl 5 Mg Tabcr) 10 mg PO QAM CHRIS Stop: 11/06/23 11:59 Last Admin: 10/17/23 09:25 Dose: 10 mg Sodium Chloride (Sodium Chloride 0.65% Na Soln 45 Ml ([place])) 1 - 2 sprays NA PRN PRN PRN Reason: Nasal Dryness/Congestion Stop: 11/05/23 21:59 Vitamin D (Cholecalciferol 125 Mcg (5,000 Units) Tab) 125 mcg PO QAM CHRIS Stop: 11/07/23 12:44 Last Admin: 10/17/23 09:25 Dose: 125 mcg Mental Health & Subst Abuse Tx Therapist Name of Therapist: Vee Date of Therapist Appointment: missed multiple appointments Post Discharge Appointments Primary Care Physician Name Of Family Doctor/PCP: HEATHER
[2023-10-18] MEDS: OLANZapine 20 MG TABLET PO SCH (21:04)
--- NOTE | 2023-10-19 09:00 | Psychiatric Progress Note ---
Date of Service October 19, 2023 Impression / Recommendations Impression CEDRICK ANTUNEZ is a 63-year-old woman with a history of bipolar 1 eugenie vs SAD, panic disorder, OCD traits, hypothyroidism, HTN, urinary incontinence and was admitted on 10/06/23 21:33 on a 302 involuntary commitment for psychosis, disorganized thought process, poor self care and hygiene. Currently on 303 commitment which expires 10/30/2023. Pt presents with persecutory delusions, disorganized thought process with memory impairments, bizarre behaviors, poor self-care and hygiene, insomnia, medication nonadherence, poor follow-up with outpatient providers. Diagnostically consistent with schizoaffective disorder versus bipolar disorder, and OCD. A: Ongoing ruminations, irritability, paranoia limiting outpatient referral options. Ongoing rigidity in routines and speech pattern-likely due to OCD component of schizoaffective vs BPAD. Tolerating medication increase and took both olanzapine and ativan last evening. Agreed to sign release for case management exploration. MNPR due to psychosis, paranoia, anxiety Overall, I spent a total of 28 minutes on this case including meeting with the patient, reviewing the chart, nursing report, multidisciplinary team meeting, orders, and documentation. (1) Schizoaffective disorder, depressive type: (2) Obsessional thoughts: (3) Adult failure to thrive: (4) HTN (hypertension): (5) Hypothyroidism: (6) Hyperactivity of bladder: (7) Vitamin D insufficiency: (8) Diabetes mellitus type 2 in nonobese: Plan 10/19/2023: Continue current medications and tx plan. 10/18/2023: Olanzapine 20mg HS po. 10/17/2023: Switch to olanzapine 20mg po HS starting tomorrow with IM dose the following morning if needed for medication over objection. 10/16/2023: Discontinue escitalopram. Continue with olanzapine 20mg po or IM. 10/15/2023: Start olanzapine 20mg po or IM daily as medication over objection. 10/14/2023: Continue medications and treatment plan. 10/13/2023: Continue medications and treatment plan. 10/12/2023: Continue medications and treatment plan. Repeat EKG. 10/11/2023: Increase olanzapine to 15 mg at bedtime. 10/10/2023: Reattempt to get an EKG failed; pt has poor insight and judgement related to this. Continue medications and treatment plan. 10/09/2023: Baseline EKG prior to proposed increase in Olanzapine dose. 10/08/23: -Increase Olanzapine to 12.5mg HS -Start Vitamin D 125mcg QD -Start Escitalopram 5mg QD 10/07/23: The patient was admitted to the [facility] ([facility] mental health unit) on q15 min checks (behavioral with suicide precautions) for safety. The patient will participate in group, recreational, and milieu therapies and will be offered additional individual and family sessions as clinically appropriate. -Restart home medications including Olanzapine 10mg HS -Lorazepam 2mg HS for sleep -Agitation/anxiety PRNs adjusted -A1c, fasting lipid panel, Vit D, Vit B12 levels Inventory Assets Strengths: family support, outpatient connection Suicide Risk Level Suicide Risk Level: Moderate (q15 min suicide checks) (psychosis with dis organized behavior, depression but feels safe in the hospital) Risk Factors Assessment Male: No : Yes Do You Have Access To A Gun?: No Health Problems: Yes Mental Health Diagnoses: Yes Substance Use Disorders: No Previous Attempt: No Family History of Suicide: No Previous Psychiatric Hospitalization: Yes Hopelessness: Yes Protective Factors Assessment Jehovah'S Witness Beliefs: No : No Responsible for Young Children: No Employed: No Stable Relationships: No Supportive Family: Yes Good Rapport with Provider: No Absence of Any Risk Factors Above: No Interval History Identifying Information CEDRICK ANTUNEZ is a 63-year-old F who currently lives in alone, has a history of bipolar 1 eugenie vs SAD, panic disorder, OCD traits, hypothyroidism, HTN, urinary incontinence and was admitted on 10/06/23 21:33 on a 302 involuntary commitment for psychosis, disorganized thought process, poor self care and hygiene. Currently on 303 commitment. Chief Complaint "I'm alright". Review of Systems Sleep Information Total Hours of Sleep: 7.5 Meal Information Percent Meal Consumed - Breakfast: 75 Percent Meal Consumed - Lunch: 75 Percent Meal Consumed - Dinner: 90 Subjective Subjective Patient was seen & assessed and interval progress reviewed with treatment team nursing and social work. Took all of the po medications last evening. Slept 7.5 hours. Spoke with the antisubmarine weapons officer yesterday. Still fixated about having access to [employer]. Today slightly more irritable. Discusses that she will not see a local therapist who has openings and accepts her insurance because she calls her sister seeing this provider many years ago. States due to this "I don't trust her" and repeats that "I just know my stupid sister". Reports she has been tired from higher dose of olanzapine but has not napped or appeared groggy or sedated. Fixated on the topic of gathering email addresses from contacts for a support meeting, seems to struggle to understand that this is not required of anyone she knows (i.e. she asks about her film tests checker). Physical Exam Psychiatric Orientation: alert and oriented x 3 Apperance: + disheveled Eye Contact: + fair eye contact Motor Behavior: no abnormal motor movements (hunched over) Speech: + abnormal rate/rhythm/volume of speech (staccato, odd ) Affect: + flat affect Mood: + irritable mood Thought Process: + circumstantial thought process, + looseness of associations and + perseveration Thought Content: + obsessions, + paranoid, + compulsions and + delusions Suicidal Thoughts: denies suicidal thoughts Homicidal Thoughts: denies homicidal thoughts Hallucinations: no auditory hallucinations (unclear if occurring, she denies) and no visual hallucinations Insight: + poor insight Judgment: + limited judgement Vital Signs (Past 24 Hours) Last Vital Signs Temp 36.4 C L 10/19/23 06:35 Pulse 74 10/19/23 06:36 Resp 16 10/19/23 06:35 BP 151/87 H 10/19/23 06:36 Pulse Ox 99 10/17/23 06:12 O2 Del Method Room Air 10/17/23 06:12 Results & Data ([facility]) Current Inpatient Medications Current Inpatient Medications: Current Inpatient Medications Acetaminophen (Acetaminophen 325 Mg Tab) 650 mg PO Q4H PRN PRN Reason: Headache or Minor Fever Stop: 11/05/23 21:59 Al Hydrox/Mg Hydrox/Simethicone (Aluminum/Magnesium Susp 30 Ml Udc) 30 ml PO Q4H PRN PRN Reason: GI Upset Stop: 11/05/23 21:59 Atorvastatin Calcium (Atorvastatin 20 Mg Tab) 20 mg PO HS CHRIS Stop: 11/06/23 21:59 Last Admin: 10/18/23 21:03 Dose: 20 mg Benztropine Mesylate (Benztropine Mesylate 1 Mg/Ml 2 Ml Amp) 1 mg IM Q8H PRN PRN Reason: Extrapyramidal Stop: 11/05/23 21:53 Benztropine Mesylate (Benztropine Mesylate 1 Mg Tab) 1 mg PO Q8 PRN PRN Reason: Extrapyramidal Stop: 11/05/23 22:25 Bismuth Subsalicylate (Bismuth Subsalicylate Liqd 236 Ml) 15 ml PO PRN PRN PRN Reason: Loose Stool Stop: 11/05/23 21:59 Docusate Sodium (Docusate Sodium 100 Mg Cap) 100 mg PO BID CHRIS Stop: 11/06/23 11:44 Last Admin: 10/18/23 21:03 Dose: 100 mg Hydroxyzine HCl (Hydroxyzine Hcl 25 Mg Tab) 50 mg PO HSZ PRN PRN Reason: Insomnia Stop: 11/05/23 21:59 Hydroxyzine HCl (Hydroxyzine Hcl 25 Mg Tab) 25 mg PO Q4H PRN PRN Reason: Anxiety Stop: 11/05/23 21:59 Levothyroxine Sodium (Levothyroxine Sodium 75 Mcg Tablet) 75 mcg PO DAILYBB CHRIS Stop: 11/06/23 11:49 Last Admin: 10/18/23 09:05 Dose: 75 mcg Lorazepam (Lorazepam 1 Mg Tab) 2 mg PO Q8H PRN PRN Reason: Anxiety Stop: 11/05/23 21:42 Lorazepam (Lorazepam 1 Mg Tab) 2 mg PO HS CHRIS Stop: 11/06/23 21:59 Last Admin: 10/18/23 21:03 Dose: 2 mg Losartan Potassium (Losartan Potassium 25 Mg Tab) 25 mg PO HS CHRIS Stop: 11/06/23 21:59 Last Admin: 10/18/23 21:03 Dose: 25 mg Magnesium Hydroxide (Magnesium Hydroxide Susp 30 Ml Udc) 30 ml PO DAILY PRN PRN Reason: Constipation Stop: 11/05/23 21:59 Olanzapine (Olanzapine 10 Mg/2.1 Ml Sdv) 20 mg IM DAILY@0901 PRN PRN Reason: medication over objection Stop: 11/14/23 13:14 Olanzapine (Olanzapine 20 Mg Tablet) 20 mg PO HS CHRIS Stop: 11/17/23 21:59 Last Admin: 10/18/23 21:04 Dose: 20 mg Oxybutynin Chloride (Oxybutynin Chloride Xl 5 Mg Tabcr) 10 mg PO QAM CHRIS Stop: 11/06/23 11:59 Last Admin: 10/18/23 09:05 Dose: 10 mg Sodium Chloride (Sodium Chloride 0.65% Na Soln 45 Ml ([place])) 1 - 2 sprays NA PRN PRN PRN Reason: Nasal Dryness/Congestion Stop: 11/05/23 21:59 Vitamin D (Cholecalciferol 125 Mcg (5,000 Units) Tab) 125 mcg PO QAM ON LICENSE OF [facility] Stop: 11/07/23 12:44 Last Admin: 10/18/23 09:06 Dose: 125 mcg Mental Health & Subst Abuse Tx Therapist Name of Therapist: Vee Date of Therapist Appointment: missed multiple appointments Post Discharge Appointments Primary Care Physician Name Of Family Doctor/PCP: HEATHER
[2023-10-20 07:00] VITALS: O2SAT 100
--- NOTE | 2023-10-20 09:01 | Psychiatric Progress Note ---
Date of Service October 20, 2023 Impression / Recommendations Impression CEDRICK ANTUNEZ is a 63-year-old woman with a history of bipolar 1 eugenie vs SAD, panic disorder, OCD traits, hypothyroidism, HTN, urinary incontinence and was admitted on 10/06/23 21:33 on a 302 involuntary commitment for psychosis, disorganized thought process, poor self care and hygiene. Currently on 303 commitment which expires 10/30/2023. Pt presents with persecutory delusions, disorganized thought process with memory impairments, bizarre behaviors, poor self-care and hygiene, insomnia, medication nonadherence, poor follow-up with outpatient providers. Diagnostically consistent with schizoaffective disorder versus bipolar disorder, and OCD. A: More irritable today, ongoing ruminations and paranoia. Had been showing some improvement with olanzapine, seemed to be more beneficial when dosed in the mo rning even though HS dosing is helping with sleep. May consider additional AM dose vs consideration for alternative medication option. She is unwilling to consider medication adjustments for her HTN. MNPR due to psychosis, irritability, paranoia, anxiety Overall, I spent a total of 30 minutes on this case including meeting with the patient, reviewing the chart, nursing report, multidisciplinary team meeting, orders, and documentation. (1) Schizoaffective disorder, depressive type: (2) Obsessional thoughts: (3) Adult failure to thrive: (4) HTN (hypertension): (5) Hypothyroidism: (6) Hyperactivity of bladder: (7) Vitamin D insufficiency: (8) Diabetes mellitus type 2 in nonobese: Plan 10/20/2023: Continue current medications and tx plan. 10/19/2023: Continue current medications and tx plan. 10/18/2023: Olanzapine 20mg HS po. 10/17/2023: Switch to olanzapine 20mg po HS starting tomorrow with IM dose the following morning if needed for medication over objection. 10/16/2023: Discontinue escitalopram. Continue with olanzapine 20mg po or IM. 10/15/2023: Start olanzapine 20mg po or IM daily as medication over objection. 10/14/2023: Continue medications and treatment plan. 10/13/2023: Continue medications and treatment plan. 10/12/2023: Continue medications and treatment plan. Repeat EKG. 10/11/2023: Increase olanzapine to 15 mg at bedtime. 10/10/2023: Reattempt to get an EKG failed; pt has poor insight and judgement related to this. Continue medications and treatment plan. 10/09/2023: Baseline EKG prior to proposed increase in Olanzapine dose. 10/08/23: -Increase Olanzapine to 12.5mg HS -Start Vitamin D 125mcg QD -Start Escitalopram 5mg QD 10/07/23: The patient was admitted to the [facility] ([facility]) on q15 min checks (behavioral with suicide precautions) for safety. The patient will participate in group, recreational, and milieu therapies and will be offered additional individual and family sessions as clinically appropriate. -Restart home medications including Olanzapine 10mg HS -Lorazepam 2mg HS for sleep -Agitation/anxiety PRNs adjusted -A1c, fasting lipid panel, Vit D, Vit B12 levels Inventory Assets Strengths: family support, outpatient connection Suicide Risk Level Suicide Risk Level: Moderate (q15 min suicide checks) (psychosis with disorganized behavior, depression but feels safe in the hospital) Risk Factors Assessment Male: No : Yes Do You Have Access To A Gun?: No Health Problems: Yes Mental Health Diagnoses: Yes Substance Use Disorders: No Previous Attempt: No Family History of Suicide: No Previous Psychiatric Hospitalization: Yes Hopelessness: Yes Protective Factors Assessment Confucianism Beliefs: No : No Responsible for Young Children: No Employed: No Stable Relationships: No Supportive Family: Yes Good Rapport with Provider: No Absence of Any Risk Factors Above: No Interval History Identifying Information CEDRICK ANTUNEZ is a 63-year-old F who currently lives in alone, has a history of bipolar 1 eugenie vs SAD, panic disorder, OCD traits, hypothyroidism, HTN, urinary incontinence and was admitted on 10/06/23 21:33 on a 302 involuntary commitment for psychosis, disorganized thought process, poor self care and hygiene. Currently on 303 commitment. Chief Complaint "You keep asking me that". Review of Systems Sleep Information Total Hours of Sleep: 6.30 Sleep Comments: HS Ativan and Zyprexa Meal Information Percent Meal Consumed - Breakfast: 100 Percent Meal Consumed - Lunch: 100 Percent Meal Consumed - Dinner: 100 Subjective Subjective Patient was seen & assessed and interval progress reviewed with treatment team nursing and social work. Got irritated with limits set on poise pads last evening. Quite preoccupied with bathroom use. Leaves groups early due to utilizing the bathroom. Denies UTI symptoms. Today irritable with attempts to discuss her granddaughters and sons. When asked if she was upset with me she states "you're trying to trick me". Remains frustrated she cannot have tweezers. Frustrated with limits set on poise pads, tells me she needs frequent pads to ensure her bladder control issues don't worsen, frustrated when I ask for clarification about how pads help with bladder control vs absorption of bladder leakage. Continues to find reasons why any referrals for therapy are inappropriate. Again focused on not wanting to see local therapist because "my stupid sister went to her". Reports fatigue from the olanzapine. Reviewed that her blood pressure was elevated today, she refuses to consider any adjustments or additions for her blood pressure management. Physical Exam Psychiatric Orientation: alert and oriented x 3 Apperance: + disheveled Eye Contact: + fair eye contact Motor Behavior: no abnormal motor movements (hunched over) Speech: + abnormal rate/rhythm/volume of speech (staccato, odd ) Affect: + flat affect and + irritable affect Mood: + irritable mood Thought Process: + circumstantial thought process, + looseness of associations and + perseveration Thought Content: + obsessions, + paranoid, + compulsions and + delusions Suicidal Thoughts: denies suicidal thoughts Homicidal Thoughts: denies homicidal thoughts Hallucinations: no auditory hallucinations (unclear if occurring, she denies) and no visual hallucinations Insight: + poor insight Judgment: + limited judgement Vital Signs (Past 24 Hours) Last Vital Signs Temp 36.4 C L 10/20/23 06:58 Pulse 83 10/20/23 06:58 Resp 16 10/20/23 06:58 BP 180/81 H 10/20/23 06:58 Pulse Ox 100 10/20/23 06:58 O2 Del Method Room Air 10/20/23 06:58 Results & Data ([facility]) Current Inpatient Medications Current Inpatient Medications: Current Inpatient Medications Acetaminophen (Acetaminophen 325 Mg Tab) 650 mg PO Q4H PRN PRN Reason: Headache or Minor Fever Stop: 11/05/23 21:59 Al Hydrox/Mg Hydrox/Simethicone (Aluminum/Magnesium Susp 30 Ml Udc) 30 ml PO Q4H PRN PRN Reason: GI Upset Stop: 11/05/23 21:59 Atorvastatin Calcium (Atorvastatin 20 Mg Tab) 20 mg PO HS CHRIS Stop: 11/06/23 21:59 Last Admin: 10/19/23 21:55 Dose: 20 mg Benztropine Mesylate (Benztropine Mesylate 1 Mg/Ml 2 Ml Amp) 1 mg IM Q8H PRN PRN Reason: Extrapyramidal Stop: 11/05/23 21:53 Benztropine Mesylate (Benztropine Mesylate 1 Mg Tab) 1 mg PO Q8 PRN PRN Reason: Extrapyramidal Stop: 11/05/23 22:25 Bismuth Subsalicylate (Bismuth Subsalicylate Liqd 236 Ml) 15 ml PO PRN PRN PRN Reason: Loose Stool Stop: 11/05/23 21:59 Docusate Sodium (Docusate Sodium 100 Mg Cap) 100 mg PO BID CHRIS Stop: 11/06/23 11:44 Last Admin: 10/19/23 21:55 Dose: 100 mg Hydroxyzine HCl (Hydroxyzine Hcl 25 Mg Tab) 50 mg PO HSZ PRN PRN Reason: Insomnia Stop: 11/05/23 21:59 Hydroxyzine HCl (Hydroxyzine Hcl 25 Mg Tab) 25 mg PO Q4H PRN PRN Reason: Anxiety Stop: 11/05/23 21:59 Levothyroxine Sodium (Levothyroxine Sodium 75 Mcg Tablet) 75 mcg PO DAILYBB CHRIS Stop: 11/06/23 11:49 Last Admin: 10/19/23 09:01 Dose: 75 mcg Lorazepam (Lorazepam 1 Mg Tab) 2 mg PO Q8H PRN PRN Reason: Anxiety Stop: 11/05/23 21:42 Lorazepam (Lorazepam 1 Mg Tab) 2 mg PO HS CHRIS Stop: 11/06/23 21:59 Last Admin: 10/19/23 21:57 Dose: 2 mg Losartan Potassium (Losartan Potassium 25 Mg Tab) 25 mg PO HS CHRIS Stop: 11/06/23 21:59 Last Admin: 10/19/23 21:55 Dose: 25 mg Magnesium Hydroxide (Magnesium Hydroxide Susp 30 Ml Udc) 30 ml PO DAILY PRN PRN Reason: Constipation Stop: 11/05/23 21:59 Olanzapine (Olanzapine 10 Mg/2.1 Ml Sdv) 20 mg IM DAILY@0901 PRN PRN Reason: medication over objection Stop: 11/14/23 13:14 Olanzapine (Olanzapine 20 Mg Tablet) 20 mg PO HS CHRIS Stop: 11/17/23 21:59 Last Admin: 10/19/23 21:55 Dose: 20 mg Oxybutynin Chloride (Oxybutynin Chloride Xl 5 Mg Tabcr) 10 mg PO QAM CHRIS Stop: 11/06/23 11:59 Last Admin: 10/19/23 09:01 Dose: 10 mg Sodium Chloride (Sodium Chloride 0.65% Na Soln 45 Ml ([place])) 1 - 2 sprays NA PRN PRN PRN Reason: Nasal Dryness/Congestion Stop: 11/05/23 21:59 Vitamin D (Cholecalciferol 125 Mcg (5,000 Units) Tab) 125 mcg PO QAM CHRIS Stop: 11/07/23 12:44 Last Admin: 10/19/23 09:01 Dose: 125 mcg Mental Health & Subst Abuse Tx Therapist Name of Therapist: Vee Date of Therapist Appointment: missed multiple appointments Post Discharge Appointments Primary Care Physician Name Of Family Doctor/PCP: HEATHER
--- NOTE | 2023-10-21 09:09 | Psychiatric Progress Note ---
Date of Service October 21, 2023 Impression / Recommendations Impression CEDRICK ANTUNEZ is a 63-year-old woman with a history of bipolar 1 eugenie vs SAD, panic disorder, OCD traits, hypothyroidism, HTN, urinary incontinence and was admitted on 10/06/23 21:33 on a 302 involuntary commitment for psychosis, disorganized thought process, poor self care and hygiene. Currently on 303 commitment which expires 10/30/2023. Pt presents with persecutory delusions, disorganized thought process with memory impairments, bizarre behaviors, poor self-care and hygiene, insomnia, medication nonadherence, poor follow-up with outpatient providers. Diagnostically consistent with schizoaffective disorder versus bipolar disorder, and OCD. A: Slightly less irritable today, still with significant OCD symptoms, showing some signs of increased behavioral organization but often declines options for a dditional support/symptom relief and minimizes events leading to hospitalization and current symptoms. Attempted to challenge this slightly today but she became increasingly guarded so attempts to build insight have been largely unsuccessful so far. MNPR due to psychosis, irritability, paranoia, anxiety Overall, I spent a total of 35 minutes on this case including meeting with the patient, reviewing the chart, nursing report, multidisciplinary team meeting, orders, and documentation. (1) Schizoaffective disorder, depressive type: (2) Obsessional thoughts: (3) Adult failure to thrive: (4) HTN (hypertension): (5) Hypothyroidism: (6) Hyperactivity of bladder: (7) Vitamin D insufficiency: (8) Diabetes mellitus type 2 in nonobese: Plan 10/21/2023: Continue current medications and tx plan. May benefit from higher dose of olanzapine. 10/20/2023: Continue current medications and tx plan. 10/19/2023: Continue current medications and tx plan. 10/18/2023: Olanzapine 20mg HS po. 10/17/2023: Switch to olanzapine 20mg po HS starting tomorrow with IM dose the following morning if needed for medication over objection. 10/16/2023: Discontinue escitalopram. Continue with olanzapine 20mg po or IM. 10/15/2023: Start olanzapine 20mg po or IM daily as medication over objection. 10/14/2023: Continue medications and treatment plan. 10/13/2023: Continue medications and treatment plan. 10/12/2023: Continue medications and treatment plan. Repeat EKG. 10/11/2023: Increase olanzapine to 15 mg at bedtime. 10/10/2023: Reattempt to get an EKG failed; pt has poor insight and judgement related to this. Continue medications and treatment plan. 10/09/2023: Baseline EKG prior to proposed increase in Olanzapine dose. 10/08/23: -Increase Olanzapine to 12.5mg HS -Start Vitamin D 125mcg QD -Start Escitalopram 5mg QD 10/07/23: The patient was admitted to the [facility] ([facility] health unit) on q15 min checks (behavioral with suicide precautions) for safety. The patient will participate in group, recreational, and milieu therapies and will be offered additional individual and family sessions as clinically appropriate. -Restart home medications including Olanzapine 10mg HS -Lorazepam 2mg HS for sleep -Agitation/anxiety PRNs adjusted -A1c, fasting lipid panel, Vit D, Vit B12 levels Inventory Assets Strengths: family support, outpatient connection Suicide Risk Level Suicide Risk Level: Moderate (q15 min suicide checks) (psychosis with disorganized behavior, depression but feels safe in the hospital) Risk Factors Assessment Male: No : Yes Do You Have Access To A Gun?: No Health Problems: Yes Mental Health Diagnoses: Yes Substance Use Disorders: No Previous Attempt: No Family History of Suicide: No Previous Psychiatric Hospitalization: Yes Hopelessness: Yes Protective Factors Assessment Alevism Beliefs: No : No Responsible for Young Children: No Employed: No Stable Relationships: No Supportive Family: Yes Good Rapport with Provider: No Absence of Any Risk Factors Above: No Interval History Identifying Information CEDRICK ANTUNEZ is a 63-year-old F who currently lives in alone, has a history of bipolar 1 eugenie vs SAD, panic disorder, OCD traits, hypothyroidism, HTN, urinary incontinence and was admitted on 10/06/23 21:33 on a 302 involuntary commitment for psychosis, disorganized thought process, poor self care and hygiene. Currently on 303 commitment. Chief Complaint "hanging in there". Review of Systems Sleep Information Total Hours of Sleep: 6.30 Sleep Comments: HS medications Meal Information Percent Meal Consumed - Breakfast: 100 Percent Meal Consumed - Lunch: 20 Percent Meal Consumed - Dinner: 100 Subjective Subjective Patient was seen & assessed and interval progress reviewed with treatment team nursing and social work. Was ruminating on past guilt for not attending her son's blue band performances in the past. Last evening rated her mood as "grateful to be alive". Today focused on writing down all of her conversations. Continues to have contamination obsessions and compulsions including ritualized phrases and stating full names. When attempting to discuss her OCD symptoms she denies having any and reports "there aren't any medications for OCD". Discussed that there are medications that treat OCD to which she then stated she would not try any of them. Remains focused on finding a therapist even though has been presented with two options but she is not interested in these. Is now agreeing to CM intake and having a CM. Physical Exam Psychiatric Orientation: alert and oriented x 3 Apperance: + disheveled Eye Contact: + fair eye contact Motor Behavior: no abnormal motor movements (hunched over) Speech: + abnormal rate/rhythm/volume of speech (staccato, odd ) Affect: + flat affect and + irritable affect Mood: + irritable mood Thought Process: + circumstantial thought process, + looseness of associations and + perseveration Thought Content: + obsessions, + paranoid, + compulsions and + delusions Suicidal Thoughts: denies suicidal thoughts Homicidal Thoughts: denies homicidal thoughts Hallucinations: no auditory hallucinations (unclear if occurring, she denies) and no visual hallucinations Insight: + poor insight Judgment: + limited judgement Vital Signs (Past 24 Hours) Last Vital Signs Temp 36.3 C L 10/21/23 06:36 Pulse 76 10/21/23 06:36 Resp 16 10/21/23 06:36 BP 162/93 H 10/21/23 06:36 Pulse Ox 100 10/20/23 06:58 O2 Del Method Room Air 10/20/23 06:58 Results & Data ([facility]) Current Inpatient Medications Current Inpatient Medications: Current Inpatient Medications Acetaminophen (Acetaminophen 325 Mg Tab) 650 mg PO Q4H PRN PRN Reason: Headache or Minor Fever Stop: 11/05/23 21:59 Al Hydrox/Mg Hydrox/Simethicone (Aluminum/Magnesium Susp 30 Ml Udc) 30 ml PO Q4H PRN PRN Reason: GI Upset Stop: 11/05/23 21:59 Atorvastatin Calcium (Atorvastatin 20 Mg Tab) 20 mg PO HS CHRIS Stop: 11/06/23 21:59 Last Admin: 10/20/23 20:59 Dose: 20 mg Benztropine Mesylate (Benztropine Mesylate 1 Mg/Ml 2 Ml Amp) 1 mg IM Q8H PRN PRN Reason: Extrapyramidal Stop: 11/05/23 21:53 Benztropine Mesylate (Benztropine Mesylate 1 Mg Tab) 1 mg PO Q8 PRN PRN Reason: Extrapyramidal Stop: 11/05/23 22:25 Bismuth Subsalicylate (Bismuth Subsalicylate Liqd 236 Ml) 15 ml PO PRN PRN PRN Reason: Loose Stool Stop: 11/05/23 21:59 Docusate Sodium (Docusate Sodium 100 Mg Cap) 100 mg PO BID CHRIS Stop: 11/06/23 11:44 Last Admin: 10/20/23 20:59 Dose: 100 mg Hydroxyzine HCl (Hydroxyzine Hcl 25 Mg Tab) 50 mg PO HSZ PRN PRN Reason: Insomnia Stop: 11/05/23 21:59 Hydroxyzine HCl (Hydroxyzine Hcl 25 Mg Tab) 25 mg PO Q4H PRN PRN Reason: Anxiety Stop: 11/05/23 21:59 Levothyroxine Sodium (Levothyroxine Sodium 75 Mcg Tablet) 75 mcg PO DAILYBB CHRIS Stop: 11/06/23 11:49 Last Admin: 10/20/23 08:58 Dose: 75 mcg Lorazepam (Lorazepam 1 Mg Tab) 2 mg PO Q8H PRN PRN Reason: Anxiety Stop: 11/05/23 21:42 Lorazepam (Lorazepam 1 Mg Tab) 2 mg PO HS CHRIS Stop: 11/06/23 21:59 Last Admin: 10/20/23 20:59 Dose: 2 mg Losartan Potassium (Losartan Potassium 25 Mg Tab) 25 mg PO HS CHRIS Stop: 11/06/23 21:59 Last Admin: 10/20/23 20:59 Dose: 25 mg Magnesium Hydroxide (Magnesium Hydroxide Susp 30 Ml Udc) 30 ml PO DAILY PRN PRN Reason: Constipation Stop: 11/05/23 21:59 Olanzapine (Olanzapine 10 Mg/2.1 Ml Sdv) 20 mg IM DAILY@0901 PRN PRN Reason: medication over objection Stop: 11/14/23 13:14 Olanzapine (Olanzapine 20 Mg Tablet) 20 mg PO HS CHRIS Stop: 11/17/23 21:59 Last Admin: 10/20/23 20:59 Dose: 20 mg Oxybutynin Chloride (Oxybutynin Chloride Xl 5 Mg Tabcr) 10 mg PO QAM [facility] Stop: 11/06/23 11:59 Last Admin: 10/20/23 08:59 Dose: 10 mg Sodium Chloride (Sodium Chloride 0.65% Na Soln 45 Ml ([place])) 1 - 2 sprays NA PRN PRN PRN Reason: Nasal Dryness/Congestion Stop: 11/05/23 21:59 Vitamin D (Cholecalciferol 125 Mcg (5,000 Units) Tab) 125 mcg PO QAM [facility] Stop: 11/07/23 12:44 Last Admin: 10/20/23 08:58 Dose: 125 mcg Mental Health & Subst Abuse Tx Therapist Name of Therapist: Vee Date of Therapist Appointment: missed multiple appointments Post Discharge Appointments Primary Care Physician Name Of Family Doctor/PCP: HEATHER
--- NOTE | 2023-10-22 13:17 | Psychiatric Progress Note ---
Date of Service October 22, 2023 Impression / Recommendations Impression CEDRICK ANTUNEZ is a 63-year-old woman with a history of bipolar 1 eugenie vs SAD, panic disorder, OCD traits, hypothyroidism, HTN, urinary incontinence and was admitted on 10/06/23 21:33 on a 302 involuntary commitment for psychosis, disorganized thought process, poor self care and hygiene. Currently on 303 commitment which expires 10/30/2023. Pt presents with persecutory delusions, disorganized thought process with memory impairments, bizarre behaviors, poor self-care and hygiene, insomnia, medication nonadherence, poor follow-up with outpatient providers. Diagnostically consistent with schizoaffective disorder versus bipolar disorder, and OCD. A: Patient is tolerating the olanzapine well. Patient continues to be fixated on cleanliness and appearance. She appears to be sleeping better and presents s lightly less obsessive behavior. Attempted to have clinical conversation with patient about medication management and does not appear interested. Plan to work with case management and family to ensure a safe living situation. EKG was reviewed and within expected limits. MNPR due to psychosis, irritability, paranoia, anxiety Overall, I spent a total of 35 minutes on this case including meeting with the patient, reviewing the chart, nursing report, multidisciplinary team meeting, orders, and documentation. (1) Schizoaffective disorder, depressive type: (2) Obsessional thoughts: (3) Adult failure to thrive: (4) HTN (hypertension): (5) Hypothyroidism: (6) Hyperactivity of bladder: (7) Vitamin D insufficiency: (8) Diabetes mellitus type 2 in nonobese: Plan 10/22/2023: Continue medications and treatment plan. 10/21/2023: Continue current medications and tx plan. May benefit from higher dose of olanzapine. 10/20/2023: Continue current medications and tx plan. 10/19/2023: Continue current medications and tx plan. 10/18/2023: Olanzapine 20mg HS po. 10/17/2023: Switch to olanzapine 20mg po HS starting tomorrow with IM dose the following morning if needed for medication over objection. 10/16/2023: Discontinue escitalopram. Continue with olanzapine 20mg po or IM. 10/15/2023: Start olanzapine 20mg po or IM daily as medication over objection. 10/14/2023: Continue medications and treatment plan. 10/13/2023: Continue medications and treatment plan. 10/12/2023: Continue medications and treatment plan. Repeat EKG. 10/11/2023: Increase olanzapine to 15 mg at bedtime. 10/10/2023: Reattempt to get an EKG failed; pt has poor insight and judgement related to this. Continue medications and treatment plan. 10/09/2023: Baseline EKG prior to proposed increase in Olanzapine dose. 10/08/23: -Increase Olanzapine to 12.5mg HS -Start Vitamin D 125mcg QD -Start Escitalopram 5mg QD 10/07/23: The patient was admitted to the [facility] ([facility] mental health unit) on q15 min checks (behavioral with suicide precautions) for safety. The patient will participate in group, recreational, and milieu therapies and will be offered additional individual and family sessions as clinically appropriate. -Restart home medications including Olanzapine 10mg HS -Lorazepam 2mg HS for sleep -Agitation/anxiety PRNs adjusted -A1c, fasting lipid panel, Vit D, Vit B12 levels Inventory Assets Strengths: family support, outpatient connection Suicide Risk Level Suicide Risk Level: Moderate (q15 min suicide checks) (psychosis with disorganized behavior, depression but feels safe in the hospital) Risk Factors Assessment Male: No : Yes Do You Have Access To A Gun?: No Health Problems: Yes Mental Health Diagnoses: Yes Substance Use Disorders: No Previous Attempt: No Family History of Suicide: No Previous Psychiatric Hospitalization: Yes Hopelessness: Yes Protective Factors Assessment Synagogue Beliefs: No : No Responsible for Young Children: No Employed: No Stable Relationships: No Supportive Family: Yes Good Rapport with Provider: No Absence of Any Risk Factors Above: No Interval History Identifying Information CEDRICK ANTUNEZ is a 63-year-old F who currently lives in alone, has a history of bipolar 1 eugenie vs SAD, panic disorder, OCD traits, hypothyroidism, HTN, urinary incontinence and was admitted on 10/06/23 21:33 on a 302 involuntary commitment for psychosis, disorganized thought process, poor self care and hygiene. Currently on 303 commitment. Chief Complaint "Taking my meds" Review of Systems Sleep Information Total Hours of Sleep: 5.5 Sleep Comments: HS medications Meal Information Percent Meal Consumed - Breakfast: 100 Percent Meal Consumed - Lunch: 90 Percent Meal Consumed - Dinner: 100 Subjective Subjective Patient was seen & assessed and interval progress reviewed with treatment team nursing and social work Nursing reports overnight patient showered. Has been attending groups. Case management appointment on Tuesday. Patient reports doing "exceptional" on increased dose of olanzapine. When asked what is exceptional she is unable to clarify; later reports it helps with sleep. She becomes immediately upset about not being allowed to have tweezers in her compact for "unwanted facial hairs". She reports refusal to use a razor because of "thick dark stubble" that would result. Patient reports sleeping well however wakes up tired. I recommended slight adjustment of medication dosing times to help with symptoms however patient refuses. When asked about why she does not want escitalopram she reports she will manage her depression with a positive outlook. I counseled her on our concerns about her anxiety and depression and impacts on her mood, memory, and cognition. She reports a goal of staying in touch with family. Offered to her assistance to assure she has a comfortable home upon discharge and she refuses any help. She becomes upset about the number of poise pads she is allowed to keep at any given time. Physical Exam Mental Examination Appearance: Disheveled (hunched posture) Eye Contact: Sporadic Contact Motor Behavior: Restless Speech: Disorganized and Perseverating Mood: Irritable Affect: Irritable and Suspicious Thought Process: Flight of Ideas, Perseveration and Racing Thought Content: Evasive, Perseveration, [place] and Obsessional Thoughts Hallucinations: None (none reported) Insight: Poor Judgement: Poor Vital Signs (Past 24 Hours) Last Vital Signs Temp 36.5 C 10/22/23 06:30 Pulse 96 H 10/22/23 06:31 Resp 18 10/22/23 06:30 BP 149/88 H 10/22/23 06:31 Pulse Ox 100 10/20/23 06:58 O2 Del Method Room Air 10/20/23 06:58 Results & Data ([facility]) Current Inpatient Medications Current Inpatient Medications: Current Inpatient Medications Acetaminophen (Acetaminophen 325 Mg Tab) 650 mg PO Q4H PRN PRN Reason: Headache or Minor Fever Stop: 11/05/23 21:59 Al Hydrox/Mg Hydrox/Simethicone (Aluminum/Magnesium Susp 30 Ml Udc) 30 ml PO Q4H PRN PRN Reason: GI Upset Stop: 11/05/23 21:59 Atorvastatin Calcium (Atorvastatin 20 Mg Tab) 20 mg PO HS [facility]IS Stop: 11/06/23 21:59 Last Admin: 10/21/23 21:04 Dose: 20 mg Benztropine Mesylate (Benztropine Mesylate 1 Mg/Ml 2 Ml Amp) 1 mg IM Q8H PRN PRN Reason: Extrapyramidal Stop: 11/05/23 21:53 Benztropine Mesylate (Benztropine Mesylate 1 Mg Tab) 1 mg PO Q8 PRN PRN Reason: Extrapyramidal Stop: 11/05/23 22:25 Bismuth Subsalicylate (Bismuth Subsalicylate Liqd 236 Ml) 15 ml PO PRN PRN PRN Reason: Loose Stool Stop: 11/05/23 21:59 Docusate Sodium (Docusate Sodium 100 Mg Cap) 100 mg PO BID CHRIS Stop: 11/06/23 11:44 Last Admin: 10/22/23 09:27 Dose: 100 mg Hydroxyzine HCl (Hydroxyzine Hcl 25 Mg Tab) 50 mg PO HSZ PRN PRN Reason: Insomnia Stop: 11/05/23 21:59 Hydroxyzine HCl (Hydroxyzine Hcl 25 Mg Tab) 25 mg PO Q4H PRN PRN Reason: Anxiety Stop: 11/05/23 21:59 Levothyroxine Sodium (Levothyroxine Sodium 75 Mcg Tablet) 75 mcg PO DAILYBB [facility] Stop: 11/06/23 11:49 Last Admin: 10/22/23 09:27 Dose: 75 mcg Lorazepam (Lorazepam 1 Mg Tab) 2 mg PO Q8H PRN PRN Reason: Anxiety Stop: 11/05/23 21:42 Lorazepam (Lorazepam 1 Mg Tab) 2 mg PO HS [facility]IS Stop: 11/06/23 21:59 Last Admin: 10/21/23 21:04 Dose: 2 mg Losartan Potassium (Losartan Potassium 25 Mg Tab) 25 mg PO HS [facility]IS Stop: 11/06/23 21:59 Last Admin: 10/21/23 21:04 Dose: 25 mg Magnesium Hydroxide (Magnesium Hydroxide Susp 30 Ml Udc) 30 ml PO DAILY PRN PRN Reason: Constipation Stop: 11/05/23 21:59 Olanzapine (Olanzapine 10 Mg/2.1 Ml Sdv) 20 mg IM DAILY@0901 PRN PRN Reason: medication over objection Stop: 11/14/23 13:14 Olanzapine (Olanzapine 20 Mg Tablet) 20 mg PO HS [facility] Stop: 11/17/23 21:59 Last Admin: 10/21/23 21:04 Dose: 20 mg Oxybutynin Chloride (Oxybutynin Chloride Xl 5 Mg Tabcr) 10 mg PO QAM [facility] Stop: 11/06/23 11:59 Last Admin: 10/22/23 09:27 Dose: 10 mg Sodium Chloride (Sodium Chloride 0.65% Na Soln 45 Ml ([place])) 1 - 2 sprays NA PRN PRN PRN Reason: Nasal Dryness/Congestion Stop: 11/05/23 21:59 Vitamin D (Cholecalciferol 125 Mcg (5,000 Units) Tab) 125 mcg PO QAM [facility] Stop: 11/07/23 12:44 Last Admin: 10/22/23 09:27 Dose: 125 mcg Mental Health & Subst Abuse Tx Therapist Name of Therapist: Vee Date of Therapist Appointment: missed multiple appointments Post Discharge Appointments Primary Care Physician Name Of Family Doctor/PCP: HEATHER
[2023-10-23] MEDS ORDERED: LORazepam 1 MG TAB PO PRN (13:18)
--- NOTE | 2023-10-23 13:47 | Psychiatric Progress Note ---
Date of Service October 23, 2023 Impression / Recommendations Impression CEDRICK ANTUNEZ is a 63-year-old woman with a history of bipolar 1 eugenie vs SAD, panic disorder, OCD traits, hypothyroidism, HTN, urinary incontinence and was admitted on 10/06/23 21:33 on a 302 involuntary commitment for psychosis, disorganized thought process, poor self care and hygiene. Currently on 303 commitment which expires 10/30/2023. Pt presents with persecutory delusions, disorganized thought process with memory impairments, bizarre behaviors, poor self-care and hygiene, insomnia, medication nonadherence, poor follow-up with outpatient providers. Diagnostically consistent with schizoaffective disorder versus bipolar disorder, and OCD. A: Patient has been sleeping well. Continues to be guarded and suspicious at times. Very resistant to medication changes. She would benefit from case management and involvement of family in aftercare planning. MNPR due to psychosis, irritability, paranoia, anxiety Overall, I spent a total of 30 minutes on this case including meeting with the patient, reviewing the chart, nursing report, multidisciplinary team meeting, orders, and documentation. (1) Schizoaffective disorder, depressive type: (2) Obsessional thoughts: (3) Adult failure to thrive: (4) HTN (hypertension): (5) Hypothyroidism: (6) Hyperactivity of bladder: (7) Vitamin D insufficiency: (8) Diabetes mellitus type 2 in nonobese: Plan 10/23/2023: Decrease lorazepam to 1.5 mg at bedtime. Heating pad as needed. 10/22/2023: Continue medications and treatment plan. 10/21/2023: Continue current medications and tx plan. May benefit from higher dose of olanzapine. 10/20/2023: Continue current medications and tx plan. 10/19/2023: Continue current medications and tx plan. 10/18/2023: Olanzapine 20mg HS po. 10/17/2023: Switch to olanzapine 20mg po HS starting tomorrow with IM dose the following morning if needed for medication over objection. 10/16/2023: Discontinue escitalopram. Continue with olanzapine 20mg po or IM. 10/15/2023: Start olanzapine 20mg po or IM daily as medication over objection. 10/14/2023: Continue medications and treatment plan. 10/13/2023: Continue medications and treatment plan. 10/12/2023: Continue medications and treatment plan. Repeat EKG. 10/11/2023: Increase olanzapine to 15 mg at bedtime. 10/10/2023: Reattempt to get an EKG failed; pt has poor insight and judgement related to this. Continue medications and treatment plan. 10/09/2023: Baseline EKG prior to proposed increase in Olanzapine dose. 10/08/23: -Increase Olanzapine to 12.5mg HS -Start Vitamin D 125mcg QD -Start Escitalopram 5mg QD 10/07/23: The patient was admitted to the [facility] ([facility]) on q15 min checks (behavioral with suicide precautions) for safety. The patient will participate in group, recreational, and milieu therapies and will be offered additional individual and family sessions as clinically appropriate. -Restart home medications including Olanzapine 10mg HS -Lorazepam 2mg HS for sleep -Agitation/anxiety PRNs adjusted -A1c, fasting lipid panel, Vit D, Vit B12 levels Inventory Assets Strengths: family support, outpatient connection Suicide Risk Level Suicide Risk Level: Moderate (q15 min suicide checks) (psychosis with disorganized behavior, depression but feels safe in the hospital) Risk Factors Assessment Male: No : Yes Do You Have Access To A Gun?: No Health Problems: Yes Mental Health Diagnoses: Yes Substance Use Disorders: No Previous Attempt: No Family History of Suicide: No Previous Psychiatric Hospitalization: Yes Hopelessness: Yes Protective Factors Assessment Worship Beliefs: No : No Responsible for Young Children: No Employed: No Stable Relationships: No Supportive Family: Yes Good Rapport with Provider: No Absence of Any Risk Factors Above: No Interval History Identifying Information CEDRICK ANTUNEZ is a 63-year-old F who currently lives in alone, has a history of bipolar 1 eugenie vs SAD, panic disorder, OCD traits, hypothyroidism, HTN, urinary incontinence and was admitted on 10/06/23 21:33 on a 302 involuntary commitment for psychosis, disorganized thought process, poor self care and hygiene. Currently on 303 commitment. Chief Complaint "Pretty well" Review of Systems Sleep Information Total Hours of Sleep: 7.5 Sleep Comments: HS medications Meal Information Percent Meal Consumed - Breakfast: 100 Percent Meal Consumed - Lunch: 100 Percent Meal Consumed - Dinner: 100 Subjective Subjective Patient was seen & assessed and interval progress reviewed with treatment team nursing and social work Nursing reports patient slept 7.5 hours. Taking medications and meals. She confirms she has a case management intake at 2 PM tomorrow. No complaints of medications. She reports no improvement in concentration or memory since ad mission. Says she often has to write things down because she cannot remember. We reflect on her ability to recall long-term events and she was reassured. She complains of back pain which has been longstanding. She was offered a heating pad and physical therapy referral; she refused. She appears anxious about the case management intake and asked where it will be conducted. She denies suicidal ideation. Physical Exam Mental Examination Appearance: Disheveled (hunched posture) Eye Contact: Sporadic Contact Motor Behavior: Restless Speech: Disorganized and Perseverating Mood: Irritable Affect: Irritable and Suspicious Thought Process: Perseveration Thought Content: Evasive, [place] and Obsessional Thoughts Hallucinations: None (none reported) Insight: Poor Judgement: Poor Vital Signs (Past 24 Hours) Last Vital Signs Temp 36.4 C L 10/23/23 06:36 Pulse 125 H 10/23/23 06:37 Resp 18 10/23/23 06:36 BP 146/84 H 10/23/23 06:37 Pulse Ox 100 10/20/23 06:58 O2 Del Method Room Air 10/20/23 06:58 Results & Data ([facility]) Current Inpatient Medications Current Inpatient Medications: Current Inpatient Medications Acetaminophen (Acetaminophen 325 Mg Tab) 650 mg PO Q4H PRN PRN Reason: Headache or Minor Fever Stop: 11/05/23 21:59 Al Hydrox/Mg Hydrox/Simethicone (Aluminum/Magnesium Susp 30 Ml Udc) 30 ml PO Q4H PRN PRN Reason: GI Upset Stop: 11/05/23 21:59 Atorvastatin Calcium (Atorvastatin 20 Mg Tab) 20 mg PO HS [facility] Stop: 11/06/23 21:59 Last Admin: 10/22/23 20:30 Dose: 20 mg Benztropine Mesylate (Benztropine Mesylate 1 Mg/Ml 2 Ml Amp) 1 mg IM Q8H PRN PRN Reason: Extrapyramidal Stop: 11/05/23 21:53 Benztropine Mesylate (Benztropine Mesylate 1 Mg Tab) 1 mg PO Q8 PRN PRN Reason: Extrapyramidal Stop: 11/05/23 22:25 Bismuth Subsalicylate (Bismuth Subsalicylate Liqd 236 Ml) 15 ml PO PRN PRN PRN Reason: Loose Stool Stop: 11/05/23 21:59 Docusate Sodium (Docusate Sodium 100 Mg Cap) 100 mg PO BID [facility] Stop: 11/06/23 11:44 Last Admin: 10/23/23 09:37 Dose: 100 mg Hydroxyzine HCl (Hydroxyzine Hcl 25 Mg Tab) 50 mg PO HSZ PRN PRN Reason: Insomnia Stop: 11/05/23 21:59 Hydroxyzine HCl (Hydroxyzine Hcl 25 Mg Tab) 25 mg PO Q4H PRN PRN Reason: Anxiety Stop: 11/05/23 21:59 Levothyroxine Sodium (Levothyroxine Sodium 75 Mcg Tablet) 75 mcg PO DAILYBB [facility] Stop: 11/06/23 11:49 Last Admin: 10/23/23 09:37 Dose: 75 mcg Lorazepam (Lorazepam 1 Mg Tab) 1.5 mg PO HS [facility] Stop: 11/22/23 21:59 Lorazepam (Lorazepam 1 Mg Tab) 1 mg PO Q8H PRN PRN Reason: Anxiety Stop: 11/05/23 21:42 Losartan Potassium (Losartan Potassium 25 Mg Tab) 25 mg PO HS [facility] Stop: 11/06/23 21:59 Last Admin: 10/22/23 20:30 Dose: 25 mg Magnesium Hydroxide (Magnesium Hydroxide Susp 30 Ml Udc) 30 ml PO DAILY PRN PRN Reason: Constipation Stop: 11/05/23 21:59 Olanzapine (Olanzapine 10 Mg/2.1 Ml Sdv) 20 mg IM DAILY@0901 PRN PRN Reason: medication over objection Stop: 11/14/23 13:14 Olanzapine (Olanzapine 20 Mg Tablet) 20 mg PO HS [facility] Stop: 11/17/23 21:59 Last Admin: 10/22/23 20:30 Dose: 20 mg Oxybutynin Chloride (Oxybutynin Chloride Xl 5 Mg Tabcr) 10 mg PO QAM [facility] Stop: 11/06/23 11:59 Last Admin: 10/23/23 09:37 Dose: 10 mg Sodium Chloride (Sodium Chloride 0.65% Na Soln 45 Ml ([place])) 1 - 2 sprays NA PRN PRN PRN Reason: Nasal Dryness/Congestion Stop: 11/05/23 21:59 Vitamin D (Cholecalciferol 125 Mcg (5,000 Units) Tab) 125 mcg PO QAM [facility] Stop: 11/07/23 12:44 Last Admin: 10/23/23 09:37 Dose: 125 mcg Mental Health & Subst Abuse Tx Therapist Name of Therapist: Vee Date of Therapist Appointment: missed multiple appointments Post Discharge Appointments Primary Care Physician Name Of Family Doctor/PCP: HEATHER
[2023-10-23] MEDS: LORazepam 1 MG TAB PO SCH (21:04)
--- NOTE | 2023-10-24 16:31 | Psychiatric Progress Note ---
Date of Service October 24, 2023 Impression / Recommendations Impression CEDRICK ANTUNEZ is a 63-year-old woman with a history of bipolar 1 eugenie vs SAD, panic disorder, OCD traits, hypothyroidism, HTN, urinary incontinence and was admitted on 10/06/23 21:33 on a 302 involuntary commitment for psychosis, disorganized thought process, poor self care and hygiene. Currently on 303 commitment which expires 10/30/2023. Pt presents with persecutory delusions, disorganized thought process with memory impairments, bizarre behaviors, poor self-care and hygiene, insomnia, medication nonadherence, poor follow-up with outpatient providers. Diagnostically consistent with schizoaffective disorder versus bipolar disorder, and OCD. A: Patient has been sleeping well. Continues to be guarded and suspicious at times. Very resistant to medication changes or recommendations. Will involve family for aftercare planning. MNPR due to psychosis, irritability, paranoia, anxiety Overall, I spent a total of 30 minutes on this case including meeting with the patient, reviewing the chart, nursing report, multidisciplinary team meeting, orders, and documentation. (1) Schizoaffective disorder, depressive type: (2) Obsessional thoughts: (3) Adult failure to thrive: (4) HTN (hypertension): (5) Hypothyroidism: (6) Hyperactivity of bladder: (7) Vitamin D insufficiency: (8) Diabetes mellitus type 2 in nonobese: Plan 10/24/2023: Continue medications and treatment plan. 10/23/2023: Decrease lorazepam to 1.5 mg at bedtime. Heating pad as needed. 10/22/2023: Continue medications and treatment plan. 10/21/2023: Continue current medications and tx plan. May benefit from higher dose of olanzapine. 10/20/2023: Continue current medications and tx plan. 10/19/2023: Continue current medications and tx plan. 10/18/2023: Olanzapine 20mg HS po. 10/17/2023: Switch to olanzapine 20mg po HS starting tomorrow with IM dose the following morning if needed for medication over objection. 10/16/2023: Discontinue escitalopram. Continue with olanzapine 20mg po or IM. 10/15/2023: Start olanzapine 20mg po or IM daily as medication over objection. 10/14/2023: Continue medications and treatment plan. 10/13/2023: Continue medications and treatment plan. 10/12/2023: Continue medications and treatment plan. Repeat EKG. 10/11/2023: Increase olanzapine to 15 mg at bedtime. 10/10/2023: Reattempt to get an EKG failed; pt has poor insight and judgement r elated to this. Continue medications and treatment plan. 10/09/2023: Baseline EKG prior to proposed increase in Olanzapine dose. 10/08/23: -Increase Olanzapine to 12.5mg HS -Start Vitamin D 125mcg QD -Start Escitalopram 5mg QD 10/07/23: The patient was admitted to the [facility] ([facility] unit) on q15 min checks (behavioral with suicide precautions) for safety. The patient will participate in group, recreational, and milieu therapies and will be offered additional individual and family sessions as clinically appropriate. -Restart home medications including Olanzapine 10mg HS -Lorazepam 2mg HS for sleep -Agitation/anxiety PRNs adjusted -A1c, fasting lipid panel, Vit D, Vit B12 levels Inventory Assets Strengths: family support, outpatient connection Suicide Risk Level Suicide Risk Level: Moderate (q15 min suicide checks) (psychosis with disorganized behavior, depression but feels safe in the hospital) Risk Factors Assessment Male: No : Yes Do You Have Access To A Gun?: No Health Problems: Yes Mental Health Diagnoses: Yes Substance Use Disorders: No Previous Attempt: No Family History of Suicide: No Previous Psychiatric Hospitalization: Yes Hopelessness: Yes Protective Factors Assessment Taoist Beliefs: No : No Responsible for Young Children: No Employed: No Stable Relationships: No Supportive Family: Yes Good Rapport with Provider: No Absence of Any Risk Factors Above: No Interval History Identifying Information CEDRICK ANTUNEZ is a 63-year-old F who currently lives in alone, has a history of bipolar 1 eugenie vs SAD, panic disorder, OCD traits, hypothyroidism, HTN, urinary incontinence and was admitted on 10/06/23 21:33 on a 302 involuntary commitment for psychosis, disorganized thought process, poor self care and hygiene. Currently on 303 commitment. Chief Complaint "I need my tweezers" Review of Systems Sleep Information Total Hours of Sleep: 5.75 Sleep Comments: HS medications Meal Information Percent Meal Consumed - Breakfast: 100 Percent Meal Consumed - Lunch: 90 Percent Meal Consumed - Dinner: 90 Subjective Subjective Patient was seen & assessed and interval progress reviewed with treatment team nursing and social work Patient slept 5.25 hours. Nursing noted increased irritability. Case management appointment scheduled for today at 2 PM. Patient refused to therapists that were recommended to her. The patient reports waking up twice but was able to go back to sleep quickly. Reports feeling anxious about case management intake and not knowing what questions they will ask. Becomes hyperfocused on tweezers and her compact saying people are laughing at her for having facial hair. Then gets upset that she did not get a call from the public affairs manager prior to the involuntary commitment hearing. Then becomes upset about how she was handled by police prior to hospitalization. Becomes hyperfocused on the tweezers and says a razor will leave dark stubble. She reports having telehealth appointments with her outpatient psychiatrist and I recommended that we can find a therapist who will also do telehealth with her. Then she says that she does not want a therapist in [place]. I again tell her that we can do it through telehealth so location will not be an issue. Then she says that her outpatient psychiatrist will sign off first. Physical Exam Mental Examination Appearance: Disheveled (hunched posture) Eye Contact: Sporadic Contact Motor Behavior: Restless Speech: Disorganized and Perseverating Mood: Irritable Affect: Irritable and Suspicious Thought Process: Perseveration Thought Content: Evasive, Helen and Obsessional Thoughts Hallucinations: None (none reported) Insight: Poor Judgement: Poor Vital Signs (Past 24 Hours) Last Vital Signs Temp 36.4 C L 10/24/23 06:30 Pulse 74 10/24/23 06:30 Resp 18 10/24/23 06:30 BP 160/87 H 10/24/23 06:30 Pulse Ox 100 10/20/23 06:58 O2 Del Method Room Air 10/20/23 06:58 Results & Data ([facility]) Current Inpatient Medications Current Inpatient Medications: Current Inpatient Medications Acetaminophen (Acetaminophen 325 Mg Tab) 650 mg PO Q4H PRN PRN Reason: Headache or Minor Fever Stop: 11/05/23 21:59 Al Hydrox/Mg Hydrox/Simethicone (Aluminum/Magnesium Susp 30 Ml Udc) 30 ml PO Q4H PRN PRN Reason: GI Upset Stop: 11/05/23 21:59 Atorvastatin Calcium (Atorvastatin 20 Mg Tab) 20 mg PO HS CHRIS Stop: 11/06/23 21:59 Last Admin: 10/23/23 21:04 Dose: 20 mg Benztropine Mesylate (Benztropine Mesylate 1 Mg/Ml 2 Ml Amp) 1 mg IM Q8H PRN PRN Reason: Extrapyramidal Stop: 11/05/23 21:53 Benztropine Mesylate (Benztropine Mesylate 1 Mg Tab) 1 mg PO Q8 PRN PRN Reason: Extrapyramidal Stop: 11/05/23 22:25 Bismuth Subsalicylate (Bismuth Subsalicylate Liqd 236 Ml) 15 ml PO PRN PRN PRN Reason: Loose Stool Stop: 11/05/23 21:59 Docusate Sodium (Docusate Sodium 100 Mg Cap) 100 mg PO BID CHRIS Stop: 11/06/23 11:44 Last Admin: 10/24/23 09:07 Dose: 100 mg Hydroxyzine HCl (Hydroxyzine Hcl 25 Mg Tab) 50 mg PO HSZ PRN PRN Reason: Insomnia Stop: 11/05/23 21:59 Hydroxyzine HCl (Hydroxyzine Hcl 25 Mg Tab) 25 mg PO Q4H PRN PRN Reason: Anxiety Stop: 11/05/23 21:59 Levothyroxine Sodium (Levothyroxine Sodium 75 Mcg Tablet) 75 mcg PO DAILYBB CHRIS Stop: 11/06/23 11:49 Last Admin: 10/24/23 09:07 Dose: 75 mcg Lorazepam (Lorazepam 1 Mg Tab) 1.5 mg PO HS CHRIS Stop: 11/22/23 21:59 Last Admin: 10/23/23 21:04 Dose: 1.5 mg Lorazepam (Lorazepam 1 Mg Tab) 1 mg PO Q8H PRN PRN Reason: Anxiety Stop: 11/05/23 21:42 Losartan Potassium (Losartan Potassium 25 Mg Tab) 25 mg PO HS CHRIS Stop: 11/06/23 21:59 Last Admin: 10/23/23 21:04 Dose: 25 mg Magnesium Hydroxide (Magnesium Hydroxide Susp 30 Ml Udc) 30 ml PO DAILY PRN PRN Reason: Constipation Stop: 11/05/23 21:59 Olanzapine (Olanzapine 10 Mg/2.1 Ml Sdv) 20 mg IM DAILY@0901 PRN PRN Reason: medication over objection Stop: 11/14/23 13:14 Olanzapine (Olanzapine 20 Mg Tablet) 20 mg PO HS CHRIS Stop: 11/17/23 21:59 Last Admin: 10/23/23 21:04 Dose: 20 mg Oxybutynin Chloride (Oxybutynin Chloride Xl 5 Mg Tabcr) 10 mg PO QAM CHRIS Stop: 11/06/23 11:59 Last Admin: 10/24/23 09:07 Dose: 10 mg Sodium Chloride (Sodium Chloride 0.65% Na Soln 45 Ml (Lander)) 1 - 2 sprays NA PRN PRN PRN Reason: Nasal Dryness/Congestion Stop: 11/05/23 21:59 Vitamin D (Cholecalciferol 125 Mcg (5,000 Units) Tab) 125 mcg PO QAM CHRIS Stop: 11/07/23 12:44 Last Admin: 10/24/23 09:07 Dose: 125 mcg Mental Health & Subst Abuse Tx Psychiatrist Name of Psychiatrist: Dr. Baxter Therapist Name of Therapist: Refused Date of Therapist Appointment: missed multiple appointments English As A Second Language Instructor Name of English As A Second Language Instructor: Gracy Valdez Post Discharge Appointments Primary Care Physician Name Of Family Doctor/PCP: CARROL Loaiza
--- NOTE | 2023-10-25 14:32 | Psychiatric Progress Note ---
Date of Service October 25, 2023 Impression / Recommendations Impression CEDRICK ANTUNEZ is a 63-year-old woman with a history of bipolar 1 eugenie vs SAD, panic disorder, OCD traits, hypothyroidism, HTN, urinary incontinence and was admitted on 10/06/23 21:33 on a 302 involuntary commitment for psychosis, disorganized thought process, poor self care and hygiene. Currently on 303 commitment which expires 10/30/2023. Pt presents with persecutory delusions, disorganized thought process with memory impairments, bizarre behaviors, poor self-care and hygiene, insomnia, medication nonadherence, poor follow-up with outpatient providers. Diagnostically consistent with schizoaffective disorder versus bipolar disorder, and OCD. A: Patient has been sleeping well. Continues to be guarded and suspicious at times. Very resistant to medication changes or recommendations. Had case manage ment appointment and not willing to accept resources provided. Gathered colaterall from son today and updated about aftercare planning. MNPR due to psychosis, irritability, paranoia, anxiety Overall, I spent a total of 50 minutes on this case including meeting with the patient, reviewing the chart, nursing report, multidisciplinary team meeting, orders, gathering collateral and documentation. (1) Schizoaffective disorder, depressive type: (2) Obsessional thoughts: (3) Adult failure to thrive: (4) HTN (hypertension): (5) Hypothyroidism: (6) Hyperactivity of bladder: (7) Vitamin D insufficiency: (8) Diabetes mellitus type 2 in nonobese: Plan 10/25/2023: Continue medications and treatment plan. 10/24/2023: Continue medications and treatment plan. 10/23/2023: Decrease lorazepam to 1.5 mg at bedtime. Heating pad as needed. 10/22/2023: Continue medications and treatment plan. 10/21/2023: Continue current medications and tx plan. May benefit from higher dose of olanzapine. 10/20/2023: Continue current medications and tx plan. 10/19/2023: Continue current medications and tx plan. 10/18/2023: Olanzapine 20mg HS po. 10/17/2023: Switch to olanzapine 20mg po HS starting tomorrow with IM dose the following morning if needed for medication over objection. 10/16/2023: Discontinue escitalopram. Continue with olanzapine 20mg po or IM. 10/15/2023: Start olanzapine 20mg po or IM daily as medication over objection. 10/14/2023: Continue medications and treatment plan. 10/13/2023: Continue medications and treatment plan. 10/12/2023: Continue medications and treatment plan. Repeat EKG. 10/11/2023: Increase olanzapine to 15 mg at bedtime. 10/10/2023: Reattempt to get an EKG failed; pt has poor insight and judgement related to this. Continue medications and treatment plan. 10/09/2023: Baseline EKG prior to proposed increase in Olanzapine dose. 10/08/23: -Increase Olanzapine to 12.5mg HS -Start Vitamin D 125mcg QD -Start Escitalopram 5mg QD 10/07/23: The patient was admitted to the [facility] ([facility] unit) on q15 min checks (behavioral with suicide precautions) for safety. The patient will participate in group, recreational, and milieu therapies and will be offered additional individual and family sessions as clinically appropriate. -Restart home medications including Olanzapine 10mg HS -Lorazepam 2mg HS for sleep -Agitation/anxiety PRNs adjusted -A1c, fasting lipid panel, Vit D, Vit B12 levels Inventory Assets Strengths: family support, outpatient connection Suicide Risk Level Suicide Risk Level: Moderate (q15 min suicide checks) (psychosis with disorganized behavior, depression but feels safe in the hospital) Risk Factors Assessment Male: No : Yes Do You Have Access To A Gun?: No Health Problems: Yes Mental Health Diagnoses: Yes Substance Use Disorders: No Previous Attempt: No Family History of Suicide: No Previous Psychiatric Hospitalization: Yes Hopelessness: Yes Protective Factors Assessment Congregational Beliefs: No : No Responsible for Young Children: No Employed: No Stable Relationships: No Supportive Family: Yes Good Rapport with Provider: No Absence of Any Risk Factors Above: No Interval History Identifying Information CEDRICK ANTUNEZ is a 63-year-old F who currently lives in alone, has a history of bipolar 1 eugenie vs SAD, panic disorder, OCD traits, hypothyroidism, HTN, urinary incontinence and was admitted on 10/06/23 21:33 on a 302 involuntary commitment for psychosis, disorganized thought process, poor self care and hygiene. Currently on 303 commitment. Chief Complaint "Don't need the phone" Review of Systems Sleep Information Total Hours of Sleep: 6.5 Sleep Comments: HS medications Meal Information Percent Meal Consumed - Breakfast: 100 Percent Meal Consumed - Lunch: 100 Percent Meal Consumed - Dinner: 90 Subjective Subjective Patient was seen & assessed and interval progress reviewed with treatment team nursing and social work Nursing reports patient continues to be distrustful. Initially did not want to engage in case management meeting. Patient reports the case management assistant in meeting went well and met with Sushila. Reports sleeping well. Says that she feels "up" today as a mood. When discussing her case management meeting she reports hesitancy to get a phone from case management assistant. 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 Reports that this was not told to her but this is what she believes. I recommend for her to get a free phone so she has a form of communication and she refuses. She reports olanzapine 20 mg at bedtime is working well for sleep. Provides verbal permission for us to contact Dr. Baxter and Tony. Margarito (son) - [phone]: More concerned with family. Seems calmer. Brother took care of late rent and repairs in the home through end of the month. Her belongings are still there and she is able to go back. Items still organized in boxes like they are. Apt is able to be occupied. Pt often does not prepare adequately for post discharge. Pt often stubborn about recieving help. She would benefit from having a working phone for communication. I updated son about care plan, resources in the community. Encouraged to talk to pt about getting phone. Attempted to call outpt psychiatrist Dr. Baxter, left . Physical Exam Mental Examination Appearance: Disheveled (hunched posture) Eye Contact: Sporadic Contact Motor Behavior: Unremarkable Speech: Disorganized and Perseverating Mood: Irritable (improving) Affect: Irritable and Suspicious (improving) Thought Process: Perseveration Thought Content: Evasive, Murray and Obsessional Thoughts Hallucinations: None (none reported) Insight: Poor Judgement: Poor Vital Signs (Past 24 Hours) Last Vital Signs Temp 36.4 C L 10/25/23 06:43 Pulse 84 10/25/23 06:44 Resp 18 10/25/23 06:43 BP 155/92 H 10/25/23 06:44 Pulse Ox 100 10/20/23 06:58 O2 Del Method Room Air 10/20/23 06:58 Results & Data ([facility]) Current Inpatient Medications Current Inpatient Medications: Current Inpatient Medications Acetaminophen (Acetaminophen 325 Mg Tab) 650 mg PO Q4H PRN PRN Reason: Headache or Minor Fever Stop: 11/05/23 21:59 Al Hydrox/Mg Hydrox/Simethicone (Aluminum/Magnesium Susp 30 Ml Udc) 30 ml PO Q4H PRN PRN Reason: GI Upset Stop: 11/05/23 21:59 Atorvastatin Calcium (Atorvastatin 20 Mg Tab) 20 mg PO HS CHRIS Stop: 11/06/23 21:59 Last Admin: 10/24/23 21:15 Dose: 20 mg Benztropine Mesylate (Benztropine Mesylate 1 Mg/Ml 2 Ml Amp) 1 mg IM Q8H PRN PRN Reason: Extrapyramidal Stop: 11/05/23 21:53 Benztropine Mesylate (Benztropine Mesylate 1 Mg Tab) 1 mg PO Q8 PRN PRN Reason: Extrapyramidal Stop: 11/05/23 22:25 Bismuth Subsalicylate (Bismuth Subsalicylate Liqd 236 Ml) 15 ml PO PRN PRN PRN Reason: Loose Stool Stop: 11/05/23 21:59 Docusate Sodium (Docusate Sodium 100 Mg Cap) 100 mg PO BID CHRIS Stop: 11/06/23 11:44 Last Admin: 10/25/23 10:36 Dose: 100 mg Hydroxyzine HCl (Hydroxyzine Hcl 25 Mg Tab) 50 mg PO HSZ PRN PRN Reason: Insomnia Stop: 11/05/23 21:59 Hydroxyzine HCl (Hydroxyzine Hcl 25 Mg Tab) 25 mg PO Q4H PRN PRN Reason: Anxiety Stop: 11/05/23 21:59 Levothyroxine Sodium (Levothyroxine Sodium 75 Mcg Tablet) 75 mcg PO DAILYBB CHRIS Stop: 11/06/23 11:49 Last Admin: 10/25/23 09:41 Dose: 75 mcg Lorazepam (Lorazepam 1 Mg Tab) 1.5 mg PO HS CHRIS Stop: 11/22/23 21:59 Last Admin: 10/24/23 21:14 Dose: 1.5 mg Lorazepam (Lorazepam 1 Mg Tab) 1 mg PO Q8H PRN PRN Reason: Anxiety Stop: 11/05/23 21:42 Losartan Potassium (Losartan Potassium 25 Mg Tab) 25 mg PO HS CHRIS Stop: 11/06/23 21:59 Last Admin: 10/24/23 21:15 Dose: 25 mg Magnesium Hydroxide (Magnesium Hydroxide Susp 30 Ml Udc) 30 ml PO DAILY PRN PRN Reason: Constipation Stop: 11/05/23 21:59 Olanzapine (Olanzapine 10 Mg/2.1 Ml Sdv) 20 mg IM DAILY@0901 PRN PRN Reason: medication over objection Stop: 11/14/23 13:14 Olanzapine (Olanzapine 20 Mg Tablet) 20 mg PO HS CHRIS Stop: 11/17/23 21:59 Last Admin: 10/24/23 21:15 Dose: 20 mg Oxybutynin Chloride (Oxybutynin Chloride Xl 5 Mg Tabcr) 10 mg PO QAM CHRIS Stop: 11/06/23 11:59 Last Admin: 10/25/23 09:41 Dose: 10 mg Sodium Chloride (Sodium Chloride 0.65% Na Soln 45 Ml (Christian)) 1 - 2 sprays NA PRN PRN PRN Reason: Nasal Dryness/Congestion Stop: 11/05/23 21:59 Vitamin D (Cholecalciferol 125 Mcg (5,000 Units) Tab) 125 mcg PO QAM CHRIS Stop: 11/07/23 12:44 Last Admin: 10/25/23 09:41 Dose: 125 mcg Mental Health & Subst Abuse Tx Psychiatrist Name of Psychiatrist: Dr. Baxter Therapist Name of Therapist: Marc Date of Therapist Appointment: missed multiple appointments Gis Engineer Name of Gis Engineer: Gracy Valdez Post Discharge Appointments Primary Care Physician Name Of Family Doctor/PCP: CARROL Loaiza
[2023-10-26 06:38] VITALS: RESP 16
--- NOTE | 2023-10-26 13:47 | Psychiatric Progress Note ---
Date of Service October 26, 2023 Impression / Recommendations Impression CEDRICK ANTUNEZ is a 63-year-old woman with a history of bipolar 1 eugenie vs SAD, panic disorder, OCD traits, hypothyroidism, HTN, urinary incontinence and was admitted on 10/06/23 21:33 on a 302 involuntary commitment for psychosis, disorganized thought process, poor self care and hygiene. Currently on 303 commitment which expires 10/30/2023. Pt presents with persecutory delusions, disorganized thought process with memory impairments, bizarre behaviors, poor self-care and hygiene, insomnia, medication nonadherence, poor follow-up with outpatient providers. Diagnostically consistent with schizoaffective disorder versus bipolar disorder, and OCD. A: Patient has been sleeping well. No new delusions reported. Pt appears calmer. Future oriented and rating improved mood. Willing to work with case management. Today discussed aftercare with outpatient psychiatrist. MNPR due to psychosis, irritability, paranoia, anxiety Overall, I spent a total of 50 minutes on this case including meeting with the patient, reviewing the chart, nursing report, multidisciplinary team meeting, orders, gathering collateral and documentation. (1) Schizoaffective disorder, depressive type: (2) Obsessional thoughts: (3) Adult failure to thrive: (4) HTN (hypertension): (5) Hypothyroidism: (6) Hyperactivity of bladder: (7) Vitamin D insufficiency: (8) Diabetes mellitus type 2 in nonobese: Plan 10/26/2023: Continue medications and treatment plan. 10/25/2023: Continue medications and treatment plan. 10/24/2023: Continue medications and treatment plan. 10/23/2023: Decrease lorazepam to 1.5 mg at bedtime. Heating pad as needed. 10/22/2023: Continue medications and treatment plan. 10/21/2023: Continue current medications and tx plan. May benefit from higher dose of olanzapine. 10/20/2023: Continue current medications and tx plan. 10/19/2023: Continue current medications and tx plan. 10/18/2023: Olanzapine 20mg HS po. 10/17/2023: Switch to olanzapine 20mg po HS starting tomorrow with IM dose the following morning if needed for medication over objection. 10/16/2023: Discontinue escitalopram. Continue with olanzapine 20mg po or IM. 10/15/2023: Start olanzapine 20mg po or IM daily as medication over objection. 10/14/2023: Continue medications and treatment plan. 10/13/2023: Continue medications and treatment plan. 10/12/2023: Continue medications and treatment plan. Repeat EKG. 10/11/2023: Increase olanzapine to 15 mg at bedtime. 10/10/2023: Reattempt to get an EKG failed; pt has poor insight and judgement related to this. Continue medications and treatment plan. 10/09/2023: Baseline EKG prior to proposed increase in Olanzapine dose. 10/08/23: -Increase Olanzapine to 12.5mg HS -Start Vitamin D 125mcg QD -Start Escitalopram 5mg QD 10/07/23: The patient was admitted to the [facility] ([facility] mental [facility] unit) on q15 min checks (behavioral with suicide precautions) for safety. The patient will participate in group, recreational, and milieu therapies and will be offered additional individual and family sessions as clinically appropriate. -Restart home medications including Olanzapine 10mg HS -Lorazepam 2mg HS for sleep -Agitation/anxiety PRNs adjusted -A1c, fasting lipid panel, Vit D, Vit B12 levels Inventory Assets Strengths: family support, outpatient connection Suicide Risk Level Suicide Risk Level: Moderate (q15 min suicide checks) (psychosis with disorganized behavior, depression but feels safe in the hospital) Risk Factors Assessment Male: No : Yes Do You Have Access To A Gun?: No Health Problems: Yes Mental Health Diagnoses: Yes Substance Use Disorders: No Previous Attempt: No Family History of Suicide: No Previous Psychiatric Hospitalization: Yes Hopelessness: Yes Protective Factors Assessment Anabaptist Beliefs: No : No Responsible for Young Children: No Employed: No Stable Relationships: No Supportive Family: Yes Good Rapport with Provider: No Absence of Any Risk Factors Above: No Interval History Identifying Information CEDRICK ANTUNEZ is a 63-year-old F who currently lives in alone, has a history of bipolar 1 eugenie vs SAD, panic disorder, OCD traits, hypothyroidism, HTN, urinary incontinence and was admitted on 10/06/23 21:33 on a 302 involuntary commitment for psychosis, disorganized thought process, poor self care and hygiene. Currently on 303 commitment. Chief Complaint "All right" Review of Systems Sleep Information Total Hours of Sleep: 6 Sleep Comments: HS medications Meal Information Percent Meal Consumed - Breakfast: 100 Percent Meal Consumed - Lunch: 100 Percent Meal Consumed - Dinner: 100 Subjective Subjective Patient was seen & assessed and interval progress reviewed with treatment team nursing and social work Nursing reports patient has not been participating in groups however attending. Slept 6 hours. Engaging in self-care. Continues to talk about others in the third person. On interview patient reports fair mood. Says she slept well. Reports her needs about getting to her appointments. Expressed some interest in possibly living with her children. Denies having any concerns moving back to her apartment. She is willing to work with her son to get a phone. Says for her meals and groceries she often walks downtown and gets them herself. She feels safe on the unit and going back home. Denies any fears or paranoia at home and reports children took care of her apartment. She was updated about her housing situation and disposition plan. Informed about our want to do an involuntary outpatient commitment. Spoke to her outpatient psychiatrist Dr. Baxter: Reports that after she decompensated 2 years ago she she did not return to her prior baseline and has some ongoing paranoia and suspiciousness. She would benefit from a higher level of support. He is going to talk to the sons and would recommend her to have more support. Recommends 304 outpatient commitment. He was updated about the care plan. Physical Exam Mental Examination Appearance: Disheveled (hunched posture) Eye Contact: Sporadic Contact Motor Behavior: Unremarkable Speech: Disorganized Mood: Irritable (improving) Affect: Irritable and Suspicious (improving) Thought Process: Perseveration Thought Content: [place] and Obsessional Thoughts Hallucinations: None (none reported) Insight: Poor Judgement: Poor Vital Signs (Past 24 Hours) Last Vital Signs Temp 36.4 C L 10/26/23 06:37 Pulse 83 10/26/23 06:37 Resp 16 10/26/23 06:37 BP 153/89 H 10/26/23 06:37 Pulse Ox 100 10/20/23 06:58 O2 Del Method Room Air 10/20/23 06:58 Results & Data ([facility]) Current Inpatient Medications Current Inpatient Medications: Current Inpatient Medications Acetaminophen (Acetaminophen 325 Mg Tab) 650 mg PO Q4H PRN PRN Reason: Headache or Minor Fever Stop: 11/05/23 21:59 Al Hydrox/Mg Hydrox/Simethicone (Aluminum/Magnesium Susp 30 Ml Udc) 30 ml PO Q4H PRN PRN Reason: GI Upset Stop: 11/05/23 21:59 Atorvastatin Calcium (Atorvastatin 20 Mg Tab) 20 mg PO HS CHRIS Stop: 11/06/23 21:59 Last Admin: 10/25/23 21:08 Dose: 20 mg Benztropine Mesylate (Benztropine Mesylate 1 Mg/Ml 2 Ml Amp) 1 mg IM Q8H PRN PRN Reason: Extrapyramidal Stop: 11/05/23 21:53 Benztropine Mesylate (Benztropine Mesylate 1 Mg Tab) 1 mg PO Q8 PRN PRN Reason: Extrapyramidal Stop: 11/05/23 22:25 Bismuth Subsalicylate (Bismuth Subsalicylate Liqd 236 Ml) 15 ml PO PRN PRN PRN Reason: Loose Stool Stop: 11/05/23 21:59 Docusate Sodium (Docusate Sodium 100 Mg Cap) 100 mg PO BID CHRIS Stop: 11/06/23 11:44 Last Admin: 10/26/23 09:16 Dose: 100 mg Hydroxyzine HCl (Hydroxyzine Hcl 25 Mg Tab) 50 mg PO HSZ PRN PRN Reason: Insomnia Stop: 11/05/23 21:59 Hydroxyzine HCl (Hydroxyzine Hcl 25 Mg Tab) 25 mg PO Q4H PRN PRN Reason: Anxiety Stop: 11/05/23 21:59 Levothyroxine Sodium (Levothyroxine Sodium 75 Mcg Tablet) 75 mcg PO DAILYBB CHRIS Stop: 11/06/23 11:49 Last Admin: 10/26/23 09:16 Dose: 75 mcg Lorazepam (Lorazepam 1 Mg Tab) 1.5 mg PO HS CHRIS Stop: 11/22/23 21:59 Last Admin: 10/25/23 21:08 Dose: 1.5 mg Lorazepam (Lorazepam 1 Mg Tab) 1 mg PO Q8H PRN PRN Reason: Anxiety Stop: 11/05/23 21:42 Losartan Potassium (Losartan Potassium 25 Mg Tab) 25 mg PO HS CHRIS Stop: 11/06/23 21:59 Last Admin: 10/25/23 21:08 Dose: 25 mg Magnesium Hydroxide (Magnesium Hydroxide Susp 30 Ml Udc) 30 ml PO DAILY PRN PRN Reason: Constipation Stop: 11/05/23 21:59 Olanzapine (Olanzapine 10 Mg/2.1 Ml Sdv) 20 mg IM DAILY@0901 PRN PRN Reason: medication over objection Stop: 11/14/23 13:14 Olanzapine (Olanzapine 20 Mg Tablet) 20 mg PO HS CHRIS Stop: 11/17/23 21:59 Last Admin: 10/25/23 21:08 Dose: 20 mg Oxybutynin Chloride (Oxybutynin Chloride Xl 5 Mg Tabcr) 10 mg PO QAM CHRIS Stop: 11/06/23 11:59 Last Admin: 10/26/23 09:16 Dose: 10 mg Sodium Chloride (Sodium Chloride 0.65% Na Soln 45 Ml ([place])) 1 - 2 sprays NA PRN PRN PRN Reason: Nasal Dryness/Congestion Stop: 11/05/23 21:59 Vitamin D (Cholecalciferol 125 Mcg (5,000 Units) Tab) 125 mcg PO QAM CHRIS Stop: 11/07/23 12:44 Last Admin: 10/26/23 09:17 Dose: 125 mcg Mental Health & Subst Abuse Tx Psychiatrist Name of Psychiatrist: Dr. Baxter Psychiatrist Release of Information: Obtained Therapist Name of Therapist: Refused Date of Therapist Appointment: missed multiple appointments Engineering Recruiter Name of Engineering Recruiter: Gracy Hoffmann Phone Number for Engineering Recruiter: [phone] Date of Appointment with Engineering Recruiter: 10/31/23 Time of Appointment with Engineering Recruiter: 9:30AM Case Management Appointment Comment: [facility] will come to your house and knock on your door. Engineering Recruiter Release of Information: Obtained Post Discharge Appointments Primary Care Physician Name Of Family Doctor/PCP: CARROL Loaiza Provider Appointment Comment: no TANIKA needed - [facility]
--- NOTE | 2023-10-27 14:53 | Psychiatric Progress Note ---
Date of Service October 27, 2023 Impression / Recommendations Impression CEDRICK ANTUNEZ is a 63-year-old woman with a history of bipolar 1 eugenie vs SAD, panic disorder, OCD traits, hypothyroidism, HTN, urinary incontinence and was admitted on 10/06/23 21:33 on a 302 involuntary commitment for psychosis, disorganized thought process, poor self care and hygiene. Currently on 303 commitment which expires 10/30/2023. Pt presents with persecutory delusions, disorganized thought process with memory impairments, bizarre behaviors, poor self-care and hygiene, insomnia, medication nonadherence, poor follow-up with outpatient providers. Diagnostically consistent with schizoaffective disorder versus bipolar disorder, and OCD. A: No new delusions reported. Pt appears calmer. Future oriented and rating improved mood. Willing to work with case management. Plan for outpatient commitment tomorrow. Aftercare is setup. Family meeting today. MNPR due to psychosis, irritability, paranoia, anxiety Overall, I spent a total of 30 minutes on this case including meeting with the patient, reviewing the chart, nursing report, multidisciplinary team meeting, orders, gathering collateral and documentation. (1) Schizoaffective disorder, depressive type: (2) Obsessional thoughts: (3) Adult failure to thrive: (4) HTN (hypertension): (5) Hypothyroidism: (6) Hyperactivity of bladder: (7) Vitamin D insufficiency: (8) Diabetes mellitus type 2 in nonobese: Plan 10/27/2023: Continue medications and treatment plan. 10/26/2023: Continue medications and treatment plan. 10/25/2023: Continue medications and treatment plan. 10/24/2023: Continue medications and treatment plan. 10/23/2023: Decrease lorazepam to 1.5 mg at bedtime. Heating pad as needed. 10/22/2023: Continue medications and treatment plan. 10/21/2023: Continue current medications and tx plan. May benefit from higher dose of olanzapine. 10/20/2023: Continue current medications and tx plan. 10/19/2023: Continue current medications and tx plan. 10/18/2023: Olanzapine 20mg HS po. 10/17/2023: Switch to olanzapine 20mg po HS starting tomorrow with IM dose the following morning if needed for medication over objection. 10/16/2023: Discontinue escitalopram. Continue with olanzapine 20mg po or IM. 10/15/2023: Start olanzapine 20mg po or IM daily as medication over objection. 10/14/2023: Continue medications and treatment plan. 10/13/2023: Continue medications and treatment plan. 10/12/2023: Continue medications and treatment plan. Repeat EKG. 10/11/2023: Increase olanzapine to 15 mg at bedtime. 10/10/2023: Reattempt to get an EKG failed; pt has poor insight and judgement related to this. Continue medications and treatment plan. 10/09/2023: Baseline EKG prior to proposed increase in Olanzapine dose. 10/08/23: -Increase Olanzapine to 12.5mg HS -Start Vitamin D 125mcg QD -Start Escitalopram 5mg QD 10/07/23: The patient was admitted to the [facility] ([facility] mental health unit) on q15 min checks (behavioral with suicide precautions) for safety. The patient will participate in group, recreational, and milieu therapies and will be offered additional individual and family sessions as clinically appropriate. -Restart home medications including Olanzapine 10mg HS -Lorazepam 2mg HS for sleep -Agitation/anxiety PRNs adjusted -A1c, fasting lipid panel, Vit D, Vit B12 levels Inventory Assets Strengths: family support, outpatient connection Suicide Risk Level Suicide Risk Level: Moderate (q15 min suicide checks) (psychosis with disorganized behavior, depression but feels safe in the hospital) Risk Factors Assessment Male: No : Yes Do You Have Access To A Gun?: No Health Problems: Yes Mental Health Diagnoses: Yes Substance Use Disorders: No Previous Attempt: No Family History of Suicide: No Previous Psychiatric Hospitalization: Yes Hopelessness: Yes Protective Factors Assessment Jainism Beliefs: No : No Responsible for Young Children: No Employed: No Stable Relationships: No Supportive Family: Yes Good Rapport with Provider: No Absence of Any Risk Factors Above: No Interval History Identifying Information CEDRICK ANTUNEZ is a 63-year-old F who currently lives in alone, has a history of bipolar 1 eugenie vs SAD, panic disorder, OCD traits, hypothyroidism, HTN, urinary incontinence and was admitted on 10/06/23 21:33 on a 302 involuntary commitment for psychosis, disorganized thought process, poor self care and hygiene. Currently on 303 commitment. Chief Complaint "Thankful" Review of Systems Sleep Information Total Hours of Sleep: 4.15 Sleep Comments: HS Ativan and Zyprexa Meal Information Percent Meal Consumed - Breakfast: 100 Percent Meal Consumed - Lunch: 25 Percent Meal Consumed - Dinner: 90 Subjective Subjective Patient was seen & assessed and interval progress reviewed with treatment team nursing and social work The patient was updated about her 3-4 commitment. Attended some groups. Had poor sleep overnight. Family meeting scheduled for today. On interview she reports waking up twice and taking a shower. Says that she is not tired. Says that she has a good mood today and is looking forward to her discharge. She had some questions about medications and they were answered. She requested a ride to go home. She reports being appreciative of our help and care in the hospital. Says that she has ongoing concentration problems and wants that to be improved. She denies suicidal ideation and says that she wants to live. Confirms that she will utilize case management and help from family. Physical Exam Mental Examination Appearance: Disheveled (hunched posture) Eye Contact: Sporadic Contact Motor Behavior: Unremarkable Speech: Normal and Repetitive Mood: Irritable (improving) Affect: Irritable Thought Process: Perseveration Thought Content: [place] and Obsessional Thoughts Hallucinations: None (none reported) Insight: Poor (improved) Judgement: Poor (improved) Vital Signs (Past 24 Hours) Last Vital Signs Temp 36.3 C L 10/27/23 06:41 Pulse 75 10/27/23 06:42 Resp 16 10/27/23 06:41 BP 151/85 H 10/27/23 06:42 Pulse Ox 100 10/20/23 06:58 O2 Del Method Room Air 10/20/23 06:58 Results & Data ([facility]) Current Inpatient Medications Current Inpatient Medications: Current Inpatient Medications Acetaminophen (Acetaminophen 325 Mg Tab) 650 mg PO Q4H PRN PRN Reason: Headache or Minor Fever Stop: 11/05/23 21:59 Al Hydrox/Mg Hydrox/Simethicone (Aluminum/Magnesium Susp 30 Ml Udc) 30 ml PO Q4H PRN PRN Reason: GI Upset Stop: 11/05/23 21:59 Atorvastatin Calcium (Atorvastatin 20 Mg Tab) 20 mg PO HS CHRIS Stop: 11/06/23 21:59 Last Admin: 10/26/23 20:54 Dose: 20 mg Benztropine Mesylate (Benztropine Mesylate 1 Mg/Ml 2 Ml Amp) 1 mg IM Q8H PRN PRN Reason: Extrapyramidal Stop: 11/05/23 21:53 Benztropine Mesylate (Benztropine Mesylate 1 Mg Tab) 1 mg PO Q8 PRN PRN Reason: Extrapyramidal Stop: 11/05/23 22:25 Bismuth Subsalicylate (Bismuth Subsalicylate Liqd 236 Ml) 15 ml PO PRN PRN PRN Reason: Loose Stool Stop: 11/05/23 21:59 Docusate Sodium (Docusate Sodium 100 Mg Cap) 100 mg PO BID CHRIS Stop: 11/06/23 11:44 Last Admin: 10/27/23 09:13 Dose: 100 mg Hydroxyzine HCl (Hydroxyzine Hcl 25 Mg Tab) 50 mg PO HSZ PRN PRN Reason: Insomnia Stop: 11/05/23 21:59 Hydroxyzine HCl (Hydroxyzine Hcl 25 Mg Tab) 25 mg PO Q4H PRN PRN Reason: Anxiety Stop: 11/05/23 21:59 Levothyroxine Sodium (Levothyroxine Sodium 75 Mcg Tablet) 75 mcg PO DAILYBB CHRIS Stop: 11/06/23 11:49 Last Admin: 10/27/23 09:12 Dose: 75 mcg Lorazepam (Lorazepam 1 Mg Tab) 1.5 mg PO HS CHRIS Stop: 11/22/23 21:59 Last Admin: 10/26/23 20:57 Dose: 1.5 mg Lorazepam (Lorazepam 1 Mg Tab) 1 mg PO Q8H PRN PRN Reason: Anxiety Stop: 11/05/23 21:42 Losartan Potassium (Losartan Potassium 25 Mg Tab) 25 mg PO HS CHRIS Stop: 11/06/23 21:59 Last Admin: 10/26/23 20:54 Dose: 25 mg Magnesium Hydroxide (Magnesium Hydroxide Susp 30 Ml Udc) 30 ml PO DAILY PRN PRN Reason: Constipation Stop: 11/05/23 21:59 Olanzapine (Olanzapine 10 Mg/2.1 Ml Sdv) 20 mg IM DAILY@0901 PRN PRN Reason: medication over objection Stop: 11/14/23 13:14 Olanzapine (Olanzapine 20 Mg Tablet) 20 mg PO HS CHRIS Stop: 11/17/23 21:59 Last Admin: 10/26/23 20:55 Dose: 20 mg Oxybutynin Chloride (Oxybutynin Chloride Xl 5 Mg Tabcr) 10 mg PO QAM CHRIS Stop: 11/06/23 11:59 Last Admin: 10/27/23 09:12 Dose: 10 mg Sodium Chloride (Sodium Chloride 0.65% Na Soln 45 Ml ([place])) 1 - 2 sprays NA PRN PRN PRN Reason: Nasal Dryness/Congestion Stop: 11/05/23 21:59 Vitamin D (Cholecalciferol 125 Mcg (5,000 Units) Tab) 125 mcg PO QAM CHRIS Stop: 11/07/23 12:44 Last Admin: 10/27/23 09:12 Dose: 125 mcg Mental Health & Subst Abuse Tx Psychiatrist Name of Psychiatrist: Dr. Baxter Psychiatrist's Date Of Appointment With Psychiatric Provider: 11/03 - Tuesday Time of Appointment with Psychiatrist: 2:40 PM Psychiatrist Release of Information: Obtained Therapist Name of Therapist: Refused Date of Therapist Appointment: missed multiple appointments Manager Reading Name of Manager Reading: Gracy Hoffmann Phone Number for Manager Reading: [phone] Date of Appointment with Manager Reading: 10/31/23 Time of Appointment with Manager Reading: 9:30AM Case Management Appointment Comment: [facility] will come to your house and knock on your door. Manager Reading Release of Information: Obtained Post Discharge Appointments Primary Care Physician Name Of Family Doctor/PCP: CARROL Loaiza Provider Appointment Comment: no [facility]ANIKA needed [facility]
[2023-10-28 06:49] VITALS: PULSE 84; TEMP 97.5
--- NOTE | 2023-10-28 10:40 | Discharge Summary ---
Date of Service October 28, 2023 History of Present Illness Chart review: Patient last seen in this facility 10/17/2022 diagnosis bipolar 1 with eugenie. documentation reveals she was driving erratically and presented bizarre behavior. Disorganized thought process. Placed on 302 petition. At that time concern for medication nonadherence with poor self-care and she lost significant weight. Was started on olanzapine at bedtime and discharged. Prior to interview patient was seen in the hallway on the phone. She was pleading with someone on the phone saying that "Dr. Salazar" was going to change her medications and force her to take them. She appeared frantic and fearful. This was prior to me talking to the patient or scheduling any medications. Patient asked for her room to be cleaned again and her room appeared to be recently cleaned. On interview she presented with slow delayed speech often looking down. She was tangential and had some word-finding difficulties. She reports prior to hospitalization she "went to get her 2014 here for day to take the emergency break off" then "[facility] police, Officer Elham took [her] car." reports receiving a notice in the mail box saying that her vehicle was towed. Says she has not kept up with registration or inspection report. Then says th at [address] is going to be paved. Says that she lost the ability to drive. When asked about assistance at home she reports that her nephew's brings groceries for her. Says that she clog the toilet at her home and was unable to fix it. She reports not taking olanzapine and did not pick it up from the pharmacy. Says that someone else picked up her medications and that she asks us to call [facility] pharmacy and check their cameras. She says that someone is using her cell phone and disguising their voice as hers and she does not like using her cell phone. When discussing labs I instructed her to get the lipid panel the next day morning because she is on an antipsychotic and explained my reasoning. She is hyper focused on having to "fast" and says that she is emaciated. she is unable to rationalize that we will get the fasting labs prior to her breakfast and and asked us to cancel the lab work. She denies current auditory or visual destinations. She denies recent head trauma. She speaks about herself in the third person and refers to "Miranda". Says her son lives in [facility]. The room she was interviewed in was slightly cold however she reports feeling very warm and asked why the room does not have A/C. patient required regular reassurance. She reports having memory problems. Called patient's outpatient psychiatrist Dr. Baxter with pt permission ([phone]): Even when doing well reluctant to make medication changes. Wanted to increase olanzapine nightly dose. Suspicious at baseline. Therapist retired. Isolated. Long-term pt of Dr. Baxter. More concrete. Outpatient commitment recommended-concern she won't follow-up and will continue to deteriorate. Has been resistant to extra outpatient support. Past dx Bipolar 1 d/o. SAD is more recent years. Less reactive affect. Past antidepressant, sertraline (2019). lamotrigine. Tried lithium and opposed to lab work. Difficulty with sleep. Very obsessional. No h/o HURT. Numerous efforts to get case management. 2 sons, one in [place] and one more local. Lazaro (son) - [phone]. Margarito (son) - [phone]. Called [facility] pharmacy [place]: Olanzapine 10mg HS - last filled 08/29/23 30 day supply Called [facility] pharmacy [place]: losartan 25mg hs - filled 08/08/23 levothyroxine 75mcg QAM, filled 09/30/23 oxybutinin er 10mg daily, filled 09/30/23 lorazepam 0.5mg qam, last 09/04/23 30 day trazodone 50mg HS PRN, last 09/03/23 atorvastain 20mg HS, 08/08/23 Physical Exam Mental Examination Appearance: Well Groomed (hunched posture) Eye Contact: Sporadic Contact Motor Behavior: Unremarkable Speech: Normal Mood: Calm Affect: Congruent Thought Process: Intact and Perseveration (mild) Thought Content: Intact, [place] and Obsessional Thoughts Hallucinations: None (none reported) Insight: Poor (improved) Judgement: Poor (improved) Vital Signs (Past 24 Hours) Last Vital Signs Temp 36.4 C L 10/28/23 06:47 Pulse 84 10/28/23 06:48 Resp 16 10/28/23 06:47 BP 180/89 H 10/28/23 06:48 Pulse Ox 100 09/05/24 06:58 O2 Del Method Room Air 10/20/23 06:58 Principal Diagnosis Schizoaffective Disorder, depressed type Psychiatric Data See daily stay summary. In short, safety was maintained and the patient was cooperative with care. Medication changes included increasing Olanzapine to 20mg HS, Lorazepam 1mg HS and they tolerated this well. A family session was held and safety plan was completed prior to discharge. Patient initially presented with persecutory delusions, obsessive compulsive thoughts and behavior. Once her olanzapine was increased to 20 mg, and received lorazepam for sleep she presented better functioning with resolution of psychosis with no new persecutory delusions, reduction in obsessive thoughts and behavior, improvement in self-care, more organized thought process. We recommended for her to take escitalopram for her depression and anxiety however patient refused this th roughout the hospitalization. She was placed on a 304 outpatient commitment prior to discharge. Her outpatient psychiatrist Dr. Baxter was updated on changes in the hospitalization. She has case management through [employer]. 2 of her sons are involved in her care. Day of Discharge Assessment Today the patient voices readiness for discharge. They note improvement in mood and deny thoughts to harm self or others. Thoughts remain organized and they are improved from admission. There is no evidence of psychosis. They agree to take mediations as prescribed and keep follow-up appointments. They are stable for discharge to outpatient level of care. Transition of Care Transition Of Care Record: was reviewed with the patient Advance Directives Advance Directives Information Provided: No Advance Directives: No Mental Health Advance Directive: No Advance Directives on File: No Living Will: No Power of Classroom Assistant: No Advance Directives Reason:: Declines as Mental Health Visit. Risk Factors Assessment Male: No : Yes Do You Have Access To A Gun?: No Health Problems: Yes Mental Health Diagnoses: Yes Substance Use Disorders: No Previous Attempt: No Family History of Suicide: No Previous Psychiatric Hospitalization: Yes Hopelessness: Yes Protective Factors Assessment Quaker Beliefs: No : No Responsible for Young Children: No Employed: No Stable Relationships: No Supportive Family: Yes Good Rapport with Provider: No Absence of Any Risk Factors Above: No Discharge Data Lab Results 10/06/23 10/06/23 10/06/23 15:45 16:17 19:12 WBC 7.41 RBC 3.93 L Hgb 11.8 L Hct 35.5 L MCV 90.3 MCH 30.0 MCHC 33.2 RDW Std Deviation 43.1 RDW Coeff of Arturo 12.8 Plt Count 305 MPV 9.5 Immature Gran % (Auto) 0.1 Neut % (Auto) 65.1 Lymph % (Auto) 23.9 Gibson % (Auto) 8.1 Eos % (Auto) 1.9 Baso % (Auto) 0.9 Neut # (Auto) 4.82 Lymph # (Auto) 1.77 Gibson # (Auto) 0.60 H Eos # (Auto) 0.14 Baso # (Auto) 0.07 Immature Gran # (Auto) 0.01 Sodium 141 Potassium 3.7 Chloride 107 Carbon Dioxide 30 Anion Gap 4 BUN 18 Creatinine 0.66 Est Cr Clr Drug Dosing 72.8 Est GFR ( Amer) 110.5 Est GFR (Non-Af Amer) 95.3 BUN/Creatinine Ratio 27.3 H Glucose 118 H Estimat Average Glucose Hemoglobin A1c Calcium 9.3 Total Bilirubin 0.4 AST 47 H ALT 33 Alkaline Phosphatase 77 Total Protein 7.7 Albumin 4.5 Globulin 3.2 Albumin/Globulin Ratio 1.4 Triglycerides Cholesterol LDL Cholesterol, Calc VLDL Cholesterol, Calc HDL Cholesterol Cholesterol/HDL Ratio Vitamin B12 25-OH Vitamin D Total TSH 4.018 Urine Color Yellow Urine Appearance Clear Urine pH 6.0 Ur Specific [place] 1.027 Urine Protein 1+ H Urine Glucose (UA) Negative Urine Ketones Negative Urine Blood Negative Urine Nitrite Negative Urine Bilirubin Negative Urine Urobilinogen Negative Ur Leukocyte Esterase 2+ H Urine WBC (Auto) 21-50 H Urine RBC (Auto) 3-5 H U Hyaline Cast (Auto) 0-2 U Epithel Cells (Auto) 0-2 Urine Bacteria (Auto) None Seen Calcium Oxalate Crystal Present A Urine Test POC Ur Test Salicylates < 3.0 L Urine Opiates Screen Neg Ur Methadone, Qual Neg Urine Fentanyl Screen Neg Acetaminophen < 3 L Urine Barbiturates Neg Ur Phencyclidine (PCP) Neg U Amphetamin/Meth Scrn Neg MDMA (Ecstasy) Screen Neg U Benzodiazepines Scrn Neg Ur Cocaine Metabolite Neg U Marijuana (THC) Screen Neg Ethyl Alcohol mg/dL < 10.0 SARS-CoV-2, RNA, NAAT NEGATIVE 10/06/23 10/06/23 10/08/23 19:28 Unknown 07:04 WBC RBC Hgb Hct MCV MCH MCHC RDW Std Deviation RDW Coeff of Arturo Plt Count MPV Immature Gran % (Auto) Neut % (Auto) Lymph % (Auto) Gibson % (Auto) Eos % (Auto) Baso % (Auto) Neut # (Auto) Lymph # (Auto) Gibson # (Auto) Eos # (Auto) Baso # (Auto) Immature Gran # (Auto) Sodium Potassium Chloride Carbon Dioxide Anion Gap BUN Creatinine Est Cr Clr Drug Dosing Est GFR ( Amer) Est GFR (Non-Af Amer) BUN/Creatinine Ratio Glucose Estimat Average Glucose 157 Hemoglobin A1c 7.1 H Calcium Total Bilirubin AST ALT Alkaline Phosphatase Total Protein Albumin Globulin Albumin/Globulin Ratio Triglycerides 80 Cholesterol 220 H LDL Cholesterol, Calc 127 VLDL Cholesterol, Calc 16 HDL Cholesterol 77 Cholesterol/HDL Ratio 2.9 Vitamin B12 381 25-OH Vitamin D Total 26.1 L TSH Urine Color Urine Appearance Urine pH Ur Specific [place] Urine Protein Urine Glucose (UA) Urine Ketones Urine Blood Urine Nitrite Urine Bilirubin Urine Urobilinogen Ur Leukocyte Esterase Urine WBC (Auto) Urine RBC (Auto) U Hyaline Cast (Auto) U Epithel Cells (Auto) Urine Bacteria (Auto) Calcium Oxalate Crystal Urine Test Negative POC Ur Test Cancelled Salicylates Urine Opiates Screen Ur Methadone, Qual Urine Fentanyl Screen Acetaminophen Urine Barbiturates Ur Phencyclidine (PCP) U Amphetamin/Meth Scrn MDMA (Ecstasy) Screen U Benzodiazepines Scrn Ur Cocaine Metabolite U Marijuana (THC) Screen Ethyl Alcohol mg/dL SARS-CoV-2, RNA, NAAT Hospital Course (1) Schizoaffective disorder, depressive type: (2) Obsessional thoughts: (3) Adult failure to thrive: (4) HTN (hypertension): (5) Hypothyroidism: (6) Hyperactivity of bladder: (7) Vitamin D insufficiency: (8) Diabetes mellitus type 2 in nonobese: Plan 10/27/2023: Continue medications and treatment plan. 10/26/2023: Continue medications and treatment plan. 10/25/2023: Continue medications and treatment plan. 10/24/2023: Continue medications and treatment plan. 10/23/2023: Decrease lorazepam to 1.5 mg at bedtime. Heating pad as needed. 10/22/2023: Continue medications and treatment plan. 10/21/2023: Continue current medications and tx plan. May benefit from higher dose of olanzapine. 10/20/2023: Continue current medications and tx plan. 10/19/2023: Continue current medications and tx plan. 10/18/2023: Olanzapine 20mg HS po. 10/17/2023: Switch to olanzapine 20mg po HS starting tomorrow with IM dose the following morning if needed for medication over objection. 10/16/2023: Discontinue escitalopram. Continue with olanzapine 20mg po or IM. 10/15/2023: Start olanzapine 20mg po or IM daily as medication over objection. 10/14/2023: Continue medications and treatment plan. 10/13/2023: Continue medications and treatment plan. 10/12/2023: Continue medications and treatment plan. Repeat EKG. 10/11/2023: Increase olanzapine to 15 mg at bedtime. 10/10/2023: Reattempt to get an EKG failed; pt has poor insight and judgement related to this. Continue medications and treatment plan. 10/09/2023: Baseline EKG prior to proposed increase in Olanzapine dose. 10/08/23: -Increase Olanzapine to 12.5mg HS -Start Vitamin D 125mcg QD -Start Escitalopram 5mg QD 10/07/23: The patient was admitted to the [facility] ([facility] inpatient mental health unit) on q15 min checks (behavioral with suicide precautions) for safety. The patient will participate in group, recreational, and milieu therapies and will be offered additional individual and family sessions as clinically appropriate. -Restart home medications including Olanzapine 10mg HS -Lorazepam 2mg HS for sleep -Agitation/anxiety PRNs adjusted -A1c, fasting lipid panel, Vit D, Vit B12 levels Mental Health & Subst Abuse Tx Psychiatrist Name of Psychiatrist: Dr. Baxter Psychiatrist's Date Of Appointment With Psychiatric Provider: 11/03 - Tuesday Time of Appointment with Psychiatrist: 2:40 PM Psychiatrist Release of Information: Obtained Therapist Name of Therapist: Refused Date of Therapist Appointment: missed multiple appointments Financial Sales Professional Name of Financial Sales Professional: Gracy Hoffmann Phone Number for Financial Sales Professional: [phone] Date of Appointment with Financial Sales Professional: 10/31/23 Time of Appointment with Financial Sales Professional: 9:30AM Case Management Appointment Comment: [facility] will come to your house and knock on your door. Financial Sales Professional Release of Information: Obtained Post Discharge Appointments Primary Care Physician Name Of Family Doctor/PCP: CARROL Loaiza Provider Appointment Comment: no TANIKA needed - [facility] Discharge Plan Discharge Items Patient Disposition: Home - Self-Care Reason For Visit: UNSPECIFIED PSYCHOSIS Discharge Diagnosis: (1) Schizoaffective disorder, depressive type: (2) Obsessional thoughts: (4) HTN (hypertension): (5) Hypothyroidism: (6) Hyperactivity of bladder: (7) Vitamin D insufficiency: (8) Diabetes mellitus type 2 in nonobese: Condition on Discharge: Fair Activity: Resume your previous activity Non-emergency contact: Primary Care Provider and Psychiatrist Call non-emergency contact if: you have any medication questions and your symptoms worsen Follow-up/Referrals: Nay Agosto MD [Primary Care Provider] - Diet: Regular Addtl Attending Provider Instructions: -Continue Olanzapine 20mg at bedtime for mood and anxiety -Continue Lorazepam 1mg at bedtime for sleep -Continue Vit D 125mcg supplement daily -Continue Colace 100mg twice daily as stool softener -Follow-up with outpatient psychiatrist -If you have any needs at home, appointment scheduling, transportation, or other assistance please call your welfare case worker If there any problems related to discharge and return home: -[facility] [phone] - ask for behavioral health inpatient to connect with nurses station Pending Studies at Discharge: No Stand-Alone Forms: My [facility], Smoking Cessation Medications and DC Order Prescriptions: New lorazepam 1 mg Tablet 1 mg PO HS Qty: 30 1RF olanzapine [Zyprexa] 20 mg Tablet 20 mg PO HS Qty: 30 1RF cholecalciferol (vitamin D3) 125 mcg (5,000 unit) Tablet 125 mcg PO QAM Qty: 30 0RF atorvastatin 20 mg Tablet 20 mg PO HS Qty: 30 1RF losartan 25 mg Tablet 25 mg PO HS Qty: 30 1RF docusate sodium 100 mg Capsule 100 mg PO BID Qty: 60 1RF levothyroxine [Synthroid] 75 mcg Tablet 75 mcg PO DIRECTED Qty: 30 1RF Rx Instructions: Skip M,W,F oxybutynin chloride 5 mg Tablet Extended Release 24hr 10 mg PO QAM Qty: 30 1RF Continued losartan [Cozaar] 25 mg tablet 25 mg PO HS 90 Days Qty: 90 4RF aspirin 81 mg tablet,delayed release (DR/EC) 81 mg PO DAILY Qty: 30 2RF levothyroxine [Synthroid] 75 mcg tablet 75 mcg PO DIRECTED Rx Instructions: skip M,W,F acetaminophen [Tylenol Extra Strength] 500 mg Tablet 1,000 mg PO Q6H PRN (Reason: Pain) multivitamin Tablet 1 tab PO DAILY trazodone 50 mg tablet 50 mg PO HS PRN (Reason: Insomnia) Qty: 30 1RF Rx Instructions: [id number] Discontinued atorvastatin [Lipitor] 20 mg tablet 20 mg PO HS 90 Days Qty: 90 2RF oxybutynin chloride 10 mg tablet extended release 24hr 10 mg PO DAILY Qty: 30 11RF olanzapine 10 mg tablet 10 mg PO DAILY lorazepam [Ativan] 0.5 mg tablet 0.5 mg PO AMPM docusate sodium [Colace] 100 mg Capsule 100 mg PO BID cholecalciferol (vitamin D3) [Vitamin D3] 2,000 unit Tablet 2,000 unit PO QAM lorazepam 0.5 mg Tablet 1 mg PO HS Discharge Orders: Discharge Order (Routine); Ordered 10/28/23 Ordered By: Jose Francisco Ambrocio/Other Patient Handouts: Diabetes: Meal Planning, Type 2 Diabetes Admission Data Admit Date/Time: 10/06/23 21:33 Attending Provider: Jose Francisco Salazar Admit Provider: Jose Francisco Salazar Primary Care Provider: Nay Agosto Other Providers: Jose Francisco Salazar Other Interventions: Discharge Summary Assessment (RN) Last Done: 10/28/23 10:46 PSY Interdisciplinary Discharge Planning Last Done: 10/28/23 10:49 [place] [id number] D/C day mgmt > 30 min Patient Type Established History Comprehensive Exam Comprehensive Medical Decision Making High Complexity Diagnoses Schizoaffective disorder, depressive type F25.1 Obsessional thoughts F42.8 Adult failure to thrive R62.7 HTN (hypertension) I10 Hypothyroidism E03.9 Hyperactivity of bladder N31.8 Vitamin D insufficiency E55.9 Diabetes mellitus type 2 in nonobese E11.9
[2023-10-28 10:49] VITALS: BP 155/92
== END 2023-10-28 11:50 | disposition home or self-care (01) | DRG 885 ==
LOC: ED 14:53 → SUATTDRO 21:33 → 3S 21:33